=== PATIENT | female | born 1970 | race Caucasian/White ===

== ENCOUNTER 2022-12-11 10:52 | Outpatient (OUT) | payer BC, SELFPAY ==
--- NOTE | 2022-12-11 15:42 | MM_ITS ---
Patient: JESUS ALBERTO SENA Exam Date: 12/11/2022 : 1970 Gender:F Ordering : DR Franchesca Rockwell M.D. Admission #: [id number] Family : Order #: [id number] CLICK HERE TO VIEW EXAM RADIOLOGY REPORT PROCEDURE: MM TOMOSYNTHESIS SCREENING BI COMPARISON: MG MAMM SCREEN 3D MICHAEL CAD, 11/21/2021. MG MAMM SCREEN 3D MICHAEL CAD, 08/09/2020. MG MAMM SCREEN MICHAEL W CAD, 04/06/2019. MG MAMM MICHAEL SCRN W CAD DIG, 09/16/2013. INDICATIONS: SCREENING MAMMOGRAM Calculator Name NCI Breast Cancer Risk Assessment Tool 5 Year Breast Cancer Risk 1.60% Lifetime Breast Cancer Risk 11.40% Personal Breast Cancer No Personal Ovarian Cancer No Treatments None Family Cancers None LOCATION: [facility] BREAST COMPOSITION: Scattered areas fibroglandular density. FINDINGS: DIAGNOSTIC CATEGORY 2--BENIGN FINDING: RIGHT BREAST: No significant suspicious finding. No significant change has occurred. LEFT BREAST: No significant suspicious finding. No significant change has occurred. Stable, chronic prominence of a subareolar duct. RECOMMENDATIONS: ROUTINE MAMMOGRAM AND CLINICAL EVALUATION IN 12 MONTHS. PLEASE NOTE: A NORMAL MAMMOGRAM DOES NOT EXCLUDE THE POSSIBILITY OF BREAST CANCER. A CLINICALLY SUSPICIOUS PALPABLE LUMP SHOULD BE BIOPSIED. Dictated by: Rasheed Wells M.D. on 12/13/2022 at 14:57 Approved by: Rasheed Wells M.D. on 12/13/2022 at 14:59
== END 2022-12-11 10:53 | disposition home or self-care (01) ==
LOC: MAMMO 10:52
PROVIDERS: PCP Family Medicine; Visit Provider Family Medicine
DX: Z12.31 Encounter for screening mammogram for malignant neoplasm of breast (principal)
CPT/HCPCS: 77063; 77067

== ENCOUNTER 2022-12-12 06:35 | Outpatient (OUT) | payer BC, SELFPAY ==
[2022-12-12 06:55] LABS: Basophils Percent Auto 0.6 % (0.2-2.0); Eosinophils Absolute Auto 0.2 10^3/uL (0.0-0.7); Eosinophils Percent Auto 3.2 % (0.9-7.0); Hematocrit 39.6 % (36.0-48.0); Hemoglobin 12.6 g/dL (12.0-16.0); Immature Granulocytes Abs Auto 0.01 10^3/uL (0.00-0.03); Immature Granulocytes Pct Auto 0.1 % (0.0-0.5); Lymphocytes Absolute Auto 2.6 10^3/uL (1.2-3.8); Lymphocytes Percent Auto 37.7 % (20.5-60.0); Mean Corpuscular HGB Conc 31.8 g/dL (29.9-35.2); Mean Corpuscular Hemoglobin 27.2 pg (26.7-34.0); Mean Corpuscular Volume 85.5 fL (81.0-99.0); Mean Platelet Volume 10.8 fL (9.5-13.5); Monocytes Absolute Auto 0.4 10^3/uL (0.3-0.8); Monocytes Percent Auto 5.2 % (1.7-12.0); Neutrophils Absolute Auto 3.7 10^3/uL (1.4-6.5); Neutrophils Percent Auto 53.2 % (43.0-75.0); Platelet Count 300 10^3/uL (150-450); Red Blood Count 4.63 10^6/uL (4.20-5.40); Red Cell Distribution Width 13.6 % (11.0-15.0); White Blood Count 6.9 10^3/uL (4.0-11.0)
[2022-12-12 09:22] LABS: Estimated Average Glucose 131 mg/dL; Glycohemoglobin A1C 6.2 % (4.5-6.2)
[2022-12-12 10:21] LABS: Alanine Aminotransferase 17 U/L (14-59); Albumin Globulin Ratio 0.9; Albumin Level 3.6 g/dL (3.4-5.0); Alkaline Phosphatase 83 U/L (46-116); Anion Gap 9.6; Aspartate Amino Transferase 26 U/L (15-37); BUN Creatinine Ratio 14.3; Bilirubin Total 0.3 mg/dL (0.2-1.0); Carbon Dioxide 26.6 mmol/L (21.0-32.0); Chloride 104 mmol/L (98-107); Chol HDL Ratio 3.6; Cholesterol 171 mg/dL (<=200); Estimated GFR (African America >60 (>=60); Estimated GFR (Non-African Ame >60 (>=60); Glucose 130 mg/dL (74-106); HDL Cholesterol 48 mg/dL (40-60); Potassium 4.2 mmol/L (3.5-5.1); Sodium 136 mmol/L (136-145); Total Protein 7.6 g/dL (6.4-8.2); Triglycerides 157 mg/dL (<=150); VLDL CHOLESTEROL 31.4 mg/dL
== END 2022-12-12 06:36 | disposition home or self-care (01) ==
PROVIDERS: PCP Family Medicine; Visit Provider Family Medicine
DX: Z00.00 Encounter for general adult medical examination without abnormal findings (principal)
CPT/HCPCS: 36415; 80053; 80061; 83036; 84443; 85025

== ENCOUNTER 2023-01-28 08:01 | Outpatient (OUT) | payer BC, SELFPAY ==
--- NOTE | 2023-01-28 08:02 | XR_ITS ---
The [address] [address] Patient Name: JESUS ALBERTO SENA MRN: [id number] date: 1970 Sex: F Assigned Patient Location: [facility] Current Patient Location: [facility] Accession/Order Number: [id number] Exam Date: 01/28/2023 08:10 Report Date: 01/28/2023 08:30 At the request of: AVERY FALL Procedure: XR knee MICHAEL 4V Exam: Radiographs: XR knee MICHAEL 4V Reason for exam: Bilateral knee pain M25.561, M25.562 Comparison: None XR/XR knee MICHAEL 4V IMPRESSION: Trace left knee effusion. Mild left knee degenerative change. Left knee is otherwise unremarkable. Small right pleural effusion. Mild to moderate right knee degenerative change, most advanced in the lateral compartment. Remainder of the the right knee is unremarkable. Electronically authenticated by: KERON ZAVALA Date: 01/28/2023 08:30
== END 2023-01-28 08:02 | disposition home or self-care (01) ==
LOC: RAD 08:01
PROVIDERS: PCP Family Medicine; Visit Provider Orthopaedic Surgery
DX: M25.561 Pain in right knee (principal); M25.562 Pain in left knee
CPT/HCPCS: 73564

== ENCOUNTER 2023-01-28 09:30 | Emergency (ER) | payer BC, SELFPAY ==
[2023-01-28 09:34] VITALS: BP 118/81; PULSE 65; RESP 18; TEMP 36.7; O2SAT 95; BMI 43.2
--- NOTE | 2023-01-28 09:46 | XR_ITS ---
The [address] [address] Patient Name: JESUS ALBERTO SENA MRN: [id number] date: 1970 Sex: F Assigned Patient Location: ED.MAIN Current Patient Location: ER Accession/Order Number: [id number] Exam Date: 01/28/2023 10:20 Report Date: 01/28/2023 10:41 At the request of: JULIAN CHAN Procedure: XR chest 1V Exam: Radiographs: XR chest 1V Reason for exam: abdominal pain nausea Comparison: None XR/XR chest 1V IMPRESSION: Unremarkable chest x-ray. Electronically authenticated by: KERON ZAVALA Date: 01/28/2023 10:41
--- NOTE | 2023-01-28 09:46 | ECG_ITS ---
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
--- NOTE | 2023-01-28 09:47 | ED.GENADUL1 ---
HPI - General Adult General Chief complaint: Abdominal Pain Stated complaint: DIZZINESS, NAUSEA Time Seen by Provider: 01/28/23 09:41 Source: patient Mode of arrival: walk-in Limitations: no limitations History of Present Illness HPI narrative: 52-year-old female presents to the emergency department for not feeling well. It started just before coming into the emergency department. She hasn't had a cortisone injection into her left knee and when she was walking out to her car afterwards she developed the symptoms. She is nauseous and doesn't feel well and in her stomach hurts and she is itching all over. She has not vomited but she is nauseous. She's had a cortisone shot many years ago and didn't have a reaction. Related Data Home Medications Medication Instructions Recorded Confirmed levothyroxine 137 mcg tablet 152 mcg PO DAILY 01/28/23 01/28/23 Previous Rx's Medication Instructions Recorded dicyclomine 10 mg capsule 10 mg PO QID PRN abdominal pain 01/28/23 #20 caps ondansetron 4 mg disintegrating 4 mg PO Q6H PRN nausea and 01/28/23 tablet vomiting #20 tabs Allergies Allergy/AdvReac Type Severity Reaction Status Date / Time erythromycin base AdvReac Intermediate Verified 01/28/23 09:38 Review of Systems ROS Narrative A ten point review of systems is negative except as noted above. Musculoskeletal Reports: joint pain PFSH PFSH Social History Smoking status: Never smoker Exam Narrative Exam Narrative: Nurses note and vital signs reviewed and patient is not hypoxic. General: The patient appears uncomfortable and is to Neck. Skin: Warm, dry, no pallor noted. There is erythema to both arms Head: Normocephalic, atraumatic Eye: Normal conjunctiva, no drainage Ears, Nose, Mouth, and Throat: oral mucosa is moist. Nares patent. Cardiovascular: Regular Rate and Rhythm Respiratory: Patient is in no distress, no accessory muscle use back: nontender GI: no tenderness to palpation, no masses appreciated. No rebound, guarding, or rigidity noted. Musculoskeletal: knee has bandage in place and there is no swelling or erythema Neurological: A&O, normal speech Psychiatric: Cooperative Constitutional Vital Signs, click to edit/add: Last Vital Signs Temp 98.1 F 01/28/23 09:34 Pulse 65 09/18/23 09:34 Resp 18 01/28/23 09:34 BP 118/81 01/28/23 09:34 Pulse Ox 95 01/28/23 09:34 O2 Del Method Room Air 01/28/23 09:34 Course Vital Signs Vital signs: Vital Signs Temperature 98.1 F 01/28/23 09:34 Pulse Rate 65 01/28/23 09:34 Respiratory Rate 18 01/28/23 09:34 Blood Pressure 118/81 01/28/23 09:34 Pulse Oximetry 95 01/28/23 09:34 Oxygen Delivery Method Room Air 01/28/23 09:34 Temperature 98.1 F 01/28/23 09:34 Pulse Rate 65 01/28/23 09:34 Respiratory Rate 18 01/28/23 09:34 Blood Pressure 118/81 01/28/23 09:34 Pulse Oximetry 95 01/28/23 09:34 Oxygen Delivery Method Room Air 01/28/23 09:34 Medical Decision Making MDM Narrative Medical decision making narrative: the patient's workup here including CAT scan abdomen is negative. She feels much improved now and is able to be discharged home. At this point my clinical impressions that she had an adverse reaction to cortisone injection. This was discussed with the patient and her and she'll be discharged home on Zofran and Bentyl. Treatment diagnosis and follow-up were discussed with the patient. Differential Diagnosis Differential Diagnosis: kidney stone, small bowel obstruction, adverse medication reaction Lab Data Lab results reviewed: Yes I reviewed the patient's lab results Labs: Lab Results 01/28/23 01/28/23 Range/Units 10:58 11:25 WBC 7.5 (4.0-11.0) 10^3/uL RBC 4.96 (4.20-5.40) 10^6/uL Hgb 13.7 (12.0-16.0) g/dL Hct 43.5 (36.0-48.0) % MCV 87.7 (81.0-99.0) fL MCH 27.6 (26.7-34.0) pg MCHC 31.5 (29.9-35.2) g/dL RDW 13.7 (11.0-15.0) % Plt Count 302 (150-450) 10^3/uL MPV 10.6 (9.5-13.5) fL Neut % (Auto) 80.5 H (43.0-75.0) % Lymph % (Auto) 16.6 L (20.5-60.0) % [place] % (Auto) 1.6 L (1.7-12.0) % Eos % (Auto) 0.5 L (0.9-7.0) % Baso % (Auto) 0.3 (0.2-2.0) % Neut # (Auto) 6.1 (1.4-6.5) 10^3/uL Lymph # (Auto) 1.3 (1.2-3.8) 10^3/uL [place] # (Auto) 0.1 L (0.3-0.8) 10^3/uL Eos # (Auto) 0.0 (0.0-0.7) 10^3/uL Baso # (Auto) 0.0 (0.0-0.1) 10^3/uL Abs Immat Gran (auto) 0.04 H (0.00-0.03) 10^3/uL Imm/Tot Granulo (auto) 0.5 (0.0-0.5) % Sodium 142 (136-145) mmol/L Potassium 3.9 (3.5-5.1) mmol/L Chloride 106 (98-107) mmol/L Carbon Dioxide 25.5 (21.0-32.0) mmol/L Anion Gap 14.4 BUN 13.0 (7.0-18.0) mg/dL Creatinine 1.06 H (0.55-1.02) mg/dL Est GFR ( Amer) >60 (>=60) Est GFR (Non-Af Amer) 54 L (>=60) BUN/Creatinine Ratio 12.3 Glucose 137 H (74-106) mg/dL Calcium 8.9 (8.5-10.1) mg/dL Total Bilirubin 0.3 (0.2-1.0) mg/dL Direct Bilirubin 0.1 (0.0-0.2) mg/dL AST 30 (15-37) U/L ALT 15 (14-59) U/L Alkaline Phosphatase 93 (46-116) U/L Troponin I High Sens <4.0 L (4.0-51.3) pg/mL Total Protein 7.5 (6.4-8.2) g/dL Albumin 3.5 (3.4-5.0) g/dL Globulin 4.0 g/dL Albumin/Globulin Ratio 0.9 Amylase 37 (25-115) U/L Lipase 209.0 (73.0-393.0) U/L Urine Color Yellow (YELLOW) Urine Clarity Slightly cloudy A (CLEAR) Urine pH 5.5 (5.0-9.0) Ur Specific [place] >=1.030 A (1.005-1.025) Urine Protein >=300 A (NEG/TRACE) mg/dL Urine Glucose (UA) Negative (NEGATIVE) mg/dL Urine Ketones Negative (NEGATIVE) mg/dL Urine Occult Blood Trace-l (NEGATIVE) Urine Nitrite Negative (NEGATIVE) Urine Bilirubin Negative (NEGATIVE) Urine Urobilinogen 0.2 (0.2-1.0) EU/dL Ur Leukocyte Esterase Negative (NEGATIVE) Urine RBC 0-2 (0-2) #/HPF Urine WBC 0-2 A (NONE SEEN) #/HPF Ur Squamous Epith Cells Moderate A (NONE/RARE) #/LPF Urine Crystals None seen (None Seen) #/HPF Urine Bacteria None seen (NONE SEEN) #/HPF Urine Casts Seen A (NONE SEEN) #/LPF Hyaline Casts Moderate Urine Mucus None seen (NONE SEEN) Imaging Data CT scan - abdomen: Radiologist's impression: Procedure: CT abdomen pelvis w con EXAM: CT scan of the abdomen and pelvis using 99 mL of IV iodinated contrast. Dose reduction technique used: Automated exposure control and/or adjustment of the mA and/or kV according to patient size and/or use of iterative reconstruction technique. REASON FOR EXAM: abd pain COMPARISON: None FINDINGS: Cross fused ectopic left kidney. Probable uterine fibroid. Diffuse hepatic steatosis. Normal appendix. No free fluid in the abdomen or pelvis. No free intraperitoneal air. No dilated or thickened loops of small bowel or colon. No hydronephrosis or obstructing renal or ureteral calculi. Liver, pancreas, spleen, bilateral kidneys, and bilateral adrenal glands are otherwise unremarkable. No lymphadenopathy in the abdomen or pelvis. Remainder unremarkable. IMPRESSION: 1. No acute abnormalities in the abdomen or pelvis. 2. Diffuse hepatic steatosis. 3. Crossed fused ectopic left kidney. Electronically authenticated by: KERON ZAVALA Date: 01/28/2023 14:08 Discharge Plan Discharge Chief Complaint: Abdominal Pain Clinical Impression: Adverse drug effect Patient Disposition: Home, Self-Care Time of Disposition Decision: 15:00 Condition: Good Mode of Transportation: Private Vehicle Prescriptions / Home Meds: New ondansetron 4 mg tablet,disintegrating 4 mg PO Q6H PRN (Reason: nausea and vomiting) Qty: 20 0RF dicyclomine 10 mg capsule 10 mg PO QID PRN (Reason: abdominal pain) Qty: 20 0RF No Action levothyroxine 137 mcg tablet 152 mcg PO DAILY Instructions: Abdominal Pain (ED) Referrals: Franchesca Rockwell MD [Primary Care Provider] - 1 week
[2023-01-28] MEDS: DIPHENHYDRAMINE HCL 50 MG/ML (1ML) VIAL 25 MG IV (10:01)
[2023-01-28] MEDS: ONDANSETRON PF 4 MG/2 ML VIAL IV ×2 (10:02→10:43)
[2023-01-28] MEDS: 0.9 % SODIUM CHLORIDE 1,000 ML 1000 ML IV (10:03)
[2023-01-28] MEDS: MORPHINE SULFATE 4 MG/ML VIAL IV ×2 (10:43→13:06)
[2023-01-28 11:04] LABS: Basophils Percent Auto 0.3 % (0.2-2.0); Eosinophils Percent Auto 0.5 % (0.9-7.0); Hematocrit 43.5 % (36.0-48.0); Hemoglobin 13.7 g/dL (12.0-16.0); Immature Granulocytes Abs Auto 0.04 10^3/uL (0.00-0.03); Immature Granulocytes Pct Auto 0.5 % (0.0-0.5); Lymphocytes Absolute Auto 1.3 10^3/uL (1.2-3.8); Lymphocytes Percent Auto 16.6 % (20.5-60.0); Mean Corpuscular HGB Conc 31.5 g/dL (29.9-35.2); Mean Corpuscular Hemoglobin 27.6 pg (26.7-34.0); Mean Corpuscular Volume 87.7 fL (81.0-99.0); Mean Platelet Volume 10.6 fL (9.5-13.5); Monocytes Absolute Auto 0.1 10^3/uL (0.3-0.8); Monocytes Percent Auto 1.6 % (1.7-12.0); Neutrophils Absolute Auto 6.1 10^3/uL (1.4-6.5); Neutrophils Percent Auto 80.5 % (43.0-75.0); Platelet Count 302 10^3/uL (150-450); Red Blood Count 4.96 10^6/uL (4.20-5.40); Red Cell Distribution Width 13.7 % (11.0-15.0); White Blood Count 7.5 10^3/uL (4.0-11.0)
[2023-01-28 11:24] LABS: Alanine Aminotransferase 15 U/L (14-59); Albumin Globulin Ratio 0.9; Albumin Level 3.5 g/dL (3.4-5.0); Alkaline Phosphatase 93 U/L (46-116); Amylase 37 U/L (25-115); Anion Gap 14.4; Aspartate Amino Transferase 30 U/L (15-37); BUN Creatinine Ratio 12.3; Bilirubin Direct 0.1 mg/dL (0.0-0.2); Bilirubin Total 0.3 mg/dL (0.2-1.0); Calcium 8.9 mg/dL (8.5-10.1); Carbon Dioxide 25.5 mmol/L (21.0-32.0); Chloride 106 mmol/L (98-107); Estimated GFR (African America >60 (>=60); Estimated GFR (Non-African Ame 54 (>=60); Glucose 137 mg/dL (74-106); Potassium 3.9 mmol/L (3.5-5.1); Sodium 142 mmol/L (136-145); Total Protein 7.5 g/dL (6.4-8.2); Troponin I High Sensitivity <4.0 pg/mL (4.0-51.3)
[2023-01-28 12:01] LABS: Bilirubin Urine NEGATIVE (NEGATIVE); Blood Urine TRACE-L (NEGATIVE); Color Urine YELLOW (YELLOW); Glucose Urine UA NEGATIVE (NEGATIVE); Ketones Urine NEGATIVE (NEGATIVE); Leukocyte Esterase Urine NEGATIVE (NEGATIVE); Nitrite Urine NEGATIVE (NEGATIVE); Protein Urine >=300 mg/dL (NEG/TRACE); Specific Gravity Urine >=1.030 (1.005-1.025); Urobilinogen Urine 0.2 EU/dL (0.2-1.0); pH Urine 5.5 (5.0-9.0)
[2023-01-28 12:02] LABS: Urine Microscopic Indicated YES
[2023-01-28] MEDS: DICYCLOMINE HCL 20 MG/2 ML VIAL IM (12:03)
[2023-01-28 12:11] LABS: Bacteria Urine NONE SEEN #/HPF (NONE SEEN); Cast Seen? SEEN #/LPF (NONE SEEN); Clarity Urine SLIGHTLY CLOUDY (CLEAR); Crystals Seen? None Seen #/HPF (None Seen); Hyaline Casts Urine MODERATE; Mucus Urine NONE SEEN (NONE SEEN); RBC Urine 0-2 #/HPF (0-2); Squamous Epithelial Cell Urine MODERATE #/LPF (NONE/RARE); WBC Urine 0-2 #/HPF (NONE SEEN)
--- NOTE | 2023-01-28 12:54 | CT_ITS ---
The [address] [address] Patient Name: JESUS ALBERTO SENA MRN: [id number] date: 1970 Sex: F Assigned Patient Location: ER Current Patient Location: ER Accession/Order Number: [id number] Exam Date: 01/28/2023 13:20 Report Date: 01/28/2023 14:08 At the request of: JULIAN CHAN Procedure: CT abdomen pelvis w con EXAM: CT scan of the abdomen and pelvis using 99 mL of IV iodinated contrast. Dose reduction technique used: Automated exposure control and/or adjustment of the mA and/or kV according to patient size and/or use of iterative reconstruction technique. REASON FOR EXAM: abd pain COMPARISON: None FINDINGS: Cross fused ectopic left kidney. Probable uterine fibroid. Diffuse hepatic steatosis. Normal appendix. No free fluid in the abdomen or pelvis. No free intraperitoneal air. No dilated or thickened loops of small bowel or colon. No hydronephrosis or obstructing renal or ureteral calculi. Liver, pancreas, spleen, bilateral kidneys, and bilateral adrenal glands are otherwise unremarkable. No lymphadenopathy in the abdomen or pelvis. Remainder unremarkable. CT/CT abdomen pelvis w con IMPRESSION: 1. No acute abnormalities in the abdomen or pelvis. 2. Diffuse hepatic steatosis. 3. Crossed fused ectopic left kidney. Electronically authenticated by: KERON ZAVALA Date: 01/28/2023 14:08
== END 2023-01-28 15:19 | disposition home or self-care (01) ==
PROVIDERS: Emergency Provider Emergency Medicine; PCP Family Medicine
DX: M25.561 Pain in right knee (principal); M25.562 Pain in left knee; T38.0X5A Adverse effect of glucocorticoids and synthetic analogues, initial encounter; R42 Dizziness and giddiness; R11.0 Nausea
CPT/HCPCS: 36415; 71045; 73564; 74177; 80048; 80076; 81001; 82150; 83690; 84484; 85025; 93005; 96372; 96374; 96375; 96376; 99285; J0500; Q9967

== ENCOUNTER 2023-09-16 14:09 | Outpatient (OUT) | payer BC, SELFPAY | END 2023-09-16 14:10 | disposition home or self-care (01) | LOC: PST 14:09 | PROVIDERS: PCP Family Medicine; Visit Provider Surgery | DX: Z01.818 Encounter for other preprocedural examination (principal); Z12.11 Encounter for screening for malignant neoplasm of colon ==

== ENCOUNTER 2023-09-23 08:15 | Outpatient (OUT) | payer BC, SELFPAY ==
--- NOTE | 2023-09-23 | XR_ITS ---
The [address] [address] Patient Name: JESUS ALBERTO SENA MRN: [id number] date: 1970 Sex: F Assigned Patient Location: Current Patient Location: Accession/Order Number: [id number] Exam Date: 09/23/2023 08:16 Report Date: 09/23/2023 09:05 At the request of: AVERY FALL Procedure: XR wrist RT min 3V PROCEDURE: XR wrist RT min 3V COMPARISON: None. HISTORY: RIGHT WRIST PAIN FINDINGS: BONES:No acute fracture or dislocation. Degenerative changes with joint space narrowing most significant along the medial carpus SOFT TISSUES:Negative. No visible soft tissue swelling. EFFUSION:None visible. OTHER: Negative. XR/XR wrist RT min 3V IMPRESSION: No acute radiographic abnormality Electronically authenticated by: MIKHAIL RUIZ Date: 09/23/2023 09:05
== END 2023-09-23 08:16 | disposition home or self-care (01) ==
LOC: EC 08:15
PROVIDERS: PCP Family Medicine; Visit Provider Orthopaedic Surgery
DX: M25.531 Pain in right wrist (principal)
CPT/HCPCS: 73110

== ENCOUNTER 2023-09-25 07:33 | Day surgery (SDC) | payer BC, SELFPAY ==
[2023-09-25 07:35] VITALS: BP 151/79; PULSE 87; TEMP 36.2; O2SAT 97; BMI 49.2
--- OUTSIDE RECORDS SUMMARY | 2023-09-25 07:36 | XMS_ITS | CCD ---
Author Organization [facility] Care Team Providers Care Burn Table Operator Name Role Phone WEST, DR MIKHAIL Whitaker Attending Unavailable WEST, DR MIKHAIL Whitaker Admitting Unavailable GO, FRANCHESCA E Primary Care Unavailable WEST, DR MIKHAIL Whitaker Consulting Unavailable ELLE, DR RASHEED Martinez Consulting Unavailable WEST, DR MIKHAIL Whitaker Attending Unavailable GO, FRANCHESCA E Primary Care Unavailable WEST, DR MIKHAIL Whitaker Consulting Unavailable WEST, DR MIKHAIL Whitaker Admmauricio Unavailable WEST, DR MIKHAIL Whitaker Attending Unavailable GO, FRANCHESCA E Primary Care Unavailable WEST, DR MIKHAIL Whitaker Consulting Unavailable WEST, DR MIKHAIL Whitaker Admitting Unavailable GO, FRANCHESCA E Primary Care Unavailable GO, FRANCHESCA E Consulting Unavailable GO, FRANCHESCA E Attending Unavailable GO, FRANCHESCA E Admitting Unavailable WEST, DR MIKHAIL Whitaker Consulting Unavailable WEST, DR MIKHAIL Whitaker Attending Unavailable WEST, DR MIKHAIL Whitaker Admmauricio Unavailable GO, FRANCHESCA E Primary Care Unavailable WEST, DR MIKHAIL Whitaker Consulting Unavailable GO, FRANCHESCA E Primary Care Unavailable WEST, DR MIKHAIL Whitaker Admmauricio Unavailable WEST, DR MIKHAIL Whitaker Attending Unavailable ZIEBER, DR RASHEED Martinez Consulting Unavailable OG, FRANCHESCA E Primary Care Unavailable HOY ., DR GARDUNO Attending Unavailable HOY ., DR GARDUNO Admitting Unavailable HOY ., DR GARDUNO Consulting Unavailable WEST, DR MIKHAIL Whitaker Attending Unavailable WEST, DR MIKHAIL Whitaker Admmauricio Unavailable GO, FRANCHESCA E Primary Care Unavailable WEST, DR MIKHAIL Whitaker Consulting Unavailable WEST, DR MIKHAIL Whitaker Attending Unavailable GO, FRANCHESCA E Primary Care Unavailable WEST, DR MIKHAIL Whitaker Consulting Unavailable WEST, DR MIKHAIL Whitaker Admmauricio Unavailable WEST, DR MIKHAIL Whitaker Attending Unavailable GO, FRANCHESCA E Primary Care Unavailable WEST, DR MIKHAIL Whitaker Consulting Unavailable WEST, DR MIKHAIL Whitaker Admitting Unavailable GO, FRANCHESCA E Primary Care Unavailable WEST, DR MIKHAIL Whitaker Attending Unavailable WEST, DR MIKHAIL Whitaker Admmauricio Unavailable WEST, DR MIKHAIL Whitaker Consulting Unavailable GO, FRANCHESCA E Primary Care Unavailable WEST, DR MIKHAIL Whitaker Admitting Unavailable WEST, DR MIKHAIL Whitaker Attending Unavailable WEST, DR MIKHAIL Whitaker Attending Unavailable WEST, DR MIKHAIL Whitaker Consulting Unavailable WEST, DR MIKHAIL Whitaker Admitting Unavailable GO, FRANCHESCA E Primary Care Unavailable [facility], DR ARSHEED Martinez Consulting Unavailable WEST, DR MIKHAIL Whitaker Consulting Unavailable WEST, DR MIKHAIL Whitaker Attending Unavailable GO, FRANCHESCA E Primary Care Unavailable WEST, DR MIKHAIL Whitaker Admitting Unavailable EB, DR RASHEED Martinez Consulting Unavailable GO, FRANCHESCA E Primary Care Unavailable GO, FRANCHESCA E Attending Unavailable GO, FRANCHESCA E Admitting Unavailable WEST, DR MIKHAIL Whitaker Consulting Unavailable GO, FRANCHESCA Ayala Consulting Unavailable GO, FRANCHESCA E Primary Care Unavailable MARY BETH, ESPERANZA Admitting Unavailable MARY BETH, ESPERANZA Consulting Unavailable MARY BETH, ESPERANZA Attending Unavailable MARY BETH, ESPERANZA Attending Unavailable GO, FRANCHESCA E Primary Care Unavailable MARY BETH, ESPERANZA Admitting Unavailable MARY BETH, ESPERANZA Consulting Unavailable Go, Franchesca Unavailable ISSA GARCIA Attending Unavailable GO, FRANCHESCA E Primary Care Unavailable Allergies Allergy Classification Reported Allergen(s) Allergy Type Date of Onset Reaction(s) Facility (5 sources) Erythromycin; Translations: [ERYTHROMYCIN BASE] Drug Allergy 4 Unknown Reaction [facility] Repository (5 sources) Penicillins; Translations: [PENICILLINS] Drug allergy (disorder) 4 Unknown Reaction [facility] Repository (3 sources) Erythromycin Drug Allergy 9 Unknown [place] Other (3 sources) Penicillin Drug Allergy 7 Unknown [place] Other (5 sources) Bupivacaine; Translations: [BUPIVACAINE] Drug Allergy 4 anaphylaxis [facility] (5 sources) Lidocaine; Translations: [LIDOCAINE] Drug Allergy 4 anaphylaxis [facility] (5 sources) methylPREDNISolo ne; Translations: [METHYLPREDNISOL ONE] Drug Allergy 4 anaphylaxis [facility] Medications Current Medications Medication Drug Class(es) Dates Sig (Normalized) Sig (Original) acetaminophen 325 mg oral tablet (5 sources) Start: 08-21-2023 take 1 tablet by mouth every six hours Acetaminophen (Tylenol) 325 mg tablet Active 325 MG PO Every 6 hours August 21, 2023 12:00am Start: 05-03-2022 Tylenol 325MG Tylenol( 325MG Oral as needed ) Active -Hx Entry Oral as needed for 0 *Pick strength-form from [employer] for eRX* Apr, Active benzonatate 200 mg oral capsule (1 source) Non-narcotic Antitussive Start: 05-17-2023 take 1 capsule by mouth every eight hours Benzonatate 200 MG 1 capsule Orally Three times a day for 10 day(s) May, Active cefdinir 300 mg oral capsule (1 source) Cephalosporin Antibacterial Start: 05-17-2023 Cefdinir 300 MG as directed Orally bid for 7 days May, Active cyclobenzaprine hydrochloride 10 mg oral tablet (1 source) Muscle Relaxant Start: 09-03-2023 take 10 mg by mouth every eight hours Cyclobenzaprine Active 10 MG PO Every 8 hours 30 September 03, 2023 12:00am doxycycline monohydrate 100 mg oral capsule (2 sources) Tetracycline-class Drug Start: 08-21-2023 take 100 mg by mouth twice daily Doxycycline Monohydrate Active 100 MG PO Twice daily 20 August 21, 2023 12:00am levothyroxine sodium 0.15 mg oral tablet (7 sources) l-Thyroxine Start: 09-03-2023 take 1 tablet by mouth once daily in the morning Levothyroxine Active 0 .ROUTE .COMPLEX 90 September 03, 2023 2:31pm TAKE 1 TABLET BY MOUTH EVERY DAY IN THE MORNING ON EMPTY STOMACH FOR 90 DAYS Start: 08-21-2023 End: 09-03-2023 take 150 ug by mouth once daily Levothyroxine Disconti nued 150 MCG PO Daily August 21, 2023 12:00am September 03, 2023 2:31pm Start: 04-23-2022 take 1 tablet by shanique th once daily Levothyroxine 137mcg levothyroxine 137mcg, 1 (one) Tabl Tabl Table Tablet daily # 90, 04/23/2022, Ref. x1. Active oral daily for 0 *Reorder from [employer] for eRx and Interaction Alerts* Apr, Active Levothyroxine So dium 150 MCG TAKE 1 TABLET BY MOUTH EVERY DAY IN THE MORNING ON EMPTY STOMACH FOR 90 DAYS for 90 Active take 1 tablet by shanique th once daily in the morning Levothyroxine Sodium 150 MCG 1 tablet in the morning on an empty stomach Orally Once a day for 90 days Active Problems Active Problems Problem Classification Problem Date Documented Da te Episodic/Chronic Acquired foot deformities (3 sources) Acquired deformity of left foot; Translations: [Other acquired deformities of left foot] Episodic Allergic reactions (1 source) Anaphylactic shock, unspecified, initial encounter Episodic Cancer of cervix (1 source) Atypical squamous cells of undetermined significance on cervical Papanicolaou smear; Translations: [Atypical squamous cells of undetermined significance on cytologic smear of cervix (ASC-US)] Episodic Chronic obstructive pulmonary disease and bronchiectasis (1 source) Bronchitis, not specified as acute or chronic Episodic Disorders of lipid metabolism (1 source) Pure hyperglyceridemia; Translations: [Pure hyperglyceridemia] Onset: Chronic Genitourinary symptoms and ill-defined conditions (1 source) Genitourinary symptoms; Translations: [Unspecified symptoms and signs involving the genitourinary system] Episodic Joint disorders and dislocations; trauma-related (1 source) Dislocation of left ankle joint, subsequent encounter; Translations: [Dislocation of left ankle joint, subsequent encounter] Episodic Osteoarthritis (1 source) Localized, primary osteoarthritis of the ankle and/or foot; Translations: [Primary osteoarthritis, left ankle and foot] Chronic Other congenital anomalies (1 source) Other specified congenital deformities of feet; Translations: [Other specified congenital deformities of feet] Chronic Other connective tissue disease (1 source) Pain in left foot; Translations: [Pain in left foot] Episodic Other connective tissue disease (1 source) Peroneal tendinitis; Translations: [Peroneal tendinitis, left leg] Episodic Other connective tissue disease (1 source) Spasm; Translations: [Other muscle spasm] 09-03-2023 Episodic Other connective tissue disease (1 source) Other muscle spasm; Translations: [Spasm of muscle] 09-03-2023 Episodic Other injuries and conditions due to external causes (1 source) Traumatic AND/OR non-traumatic injury; Translations: [Other injury of unspecified body region, initial encounter] Episodic Other nervous system disorders (3 sources) Chronic pain; Translations: [Other chronic pain] Chronic Other nervous system disorders (1 source) Other chronic pain Chronic Other non-traumatic joint disorders (1 source) Arthralgia of the ankle and/or foot; Translations: [Pain in left ankle and joints of left foot] Episodic Other non-traumatic joint disorders (1 source) Other specified joint disorders, left ankle and foot; Translations: [Other specified joint disorders, left ankle and foot] Episodic Other non-traumatic joint disorders (1 source) Ankle instability; Translations: [Other instability, left ankle] Episodic Other non-traumatic joint disorders (1 source) Pain in right knee Episodic Other non-traumatic joint disorders (1 source) Pain in left knee Episodic Other nutritional; endocrine; and metabolic disorders (2 sources) Body mass index 40+ - severely obese; Translations: [Body mass index (BMI) 40.0-44.9, adult] Chronic Other nutritional; endocrine; and metabolic disorders (1 source) Morbid obesity; Translations: [Morbid (severe) obesity due to excess calories] Onset: 6 Chronic Other nutritional; endocrine; and metabolic disorders (1 source) Abnormal weight gain; Translations: [Abnormal weight gain] Episodic Other screening for suspected conditions (not mental disorders or infectious disease) (6 sources) Encounter for screening mammogram for malignant neoplasm of breast; Translations: [Encounter for screening for malignant neoplasm of cervix] Onset: 2 Episodic Other upper respiratory disease (1 source) Allergic rhinitis; Translations: [Allergic rhinitis, unspecified] Chronic Other upper respiratory infections (4 sources) Maxillary sinusitis; Translations: [Chronic maxillary sinusitis] 08-21-2023 Chronic Phlebitis; thrombophlebitis and thromboembolism (10 sources) Phlebitis and thrombophlebitis of superficial vessels of left lower extremity; Translations: [Phlebitis and thrombophlebitis of superficial vessels of right lower extremity] Onset: 2 Episodic Residual codes; unclassified (1 source) Localized edema; Translations: [Localized edema] Episodic Residual codes; unclassified (1 source) Tobacco user; Translations: [Tobacco use] Episodic Spondylosis; intervertebral disc disorders; other back problems (2 sources) Low back pain; Translations: [Low back pain] 09-03-2023 Episodic Sprains and strains (2 sources) Late effect of sprain AND/OR strain without tendon injury; Translations: [Strain of muscle(s) and tendon(s) of peroneal muscle group at lower leg level, left leg, sequela] Episodic Thyroid disorders (4 sources) Hypothyroidism; Translations: [Hypothyroidism, unspecified] Onset: 4 Chronic Thyroid disorders (1 source) Disorder of thyroid gland; Translations: [Disorder of thyroid, unspecified] Episodic Unclassified (2 sources) CONTACT W/AND (SUSP) EXPOS COVID-19; Translations: [CONTACT W/AND (SUSP) EXPOS COVID-19] Onset: 3 Unclassified (1 source) Colon Cancer Screening Onset: 4 Varicose veins of lower extremity (5 sources) Varicose veins of bilateral lower extremities with pain; Translations: [Pain co-occurrent and due to varicose veins of bilateral legs] Onset: 2 Episodic Viral infection (2 sources) COVID-19; Translations: [Disease caused by 2019-nCoV] Onset: 3 Past or Other Problems Problem Classification Problem Date Documented Da te Episodic/Chronic Abdominal pain (1 source) Right upper quadrant pain; Translations: [Right upper quadrant pain] Onset: 05-04-2016 Episodic Acute bronchitis (1 source) Acute bronchitis; Translations: [Acute bronchitis, unspecified] Onset: 05-02-2017 Episodic Inflammation; infection of eye (except that caused by tuberculosis or sexually transmitteddisease) (1 source) Acute atopic conjunctivitis; Translations: [Acute atopic conjunctivitis, unspecified eye] Onset: 01-16-2013 Episodic Other connective tissue disease (1 source) Pain in right foot; Translations: [Pain in right foot] Onset: 01-16-2013 Episodic Other connective tissue disease (1 source) Tear of right rotator cuff; Translations: [Unspecified rotator cuff tear or rupture of right shoulder, not specified as traumatic] Onset: 12-29-2014 Episodic Unclassified (1 source) CONTACT W/AND (SUSP) EXPOS COVID-19; Translations: [CONTACT W/AND (SUSP) EXPOS COVID-19] Onset: 08-10-2022 Urinary tract infections (1 source) Urinary tract infectious disease; Translations: [Urinary tract infection, site not specified] Onset: 06-29-2011 Episodic Results Test Name Value Interpretation Reference Range Facility INFLUENZA A AND B AGon 08-10 INFLUANEGH SEE BELOW Normal [facility] Comment on above: Result Comment: Nega tive for Flu A protein angiten. Infection due to Flu A cannot be ruled out. Flu A angiten in the sample may be below the detection limit of the test. Performed By: #### I NFLUAB ####[facility] [id number] [place] [id number]. Betsy Avery INFLUBNEGH SEE BELOW Normal [facility] Comment on above: Result Comment: Nega tive for Flu B protein antigen. Infection due to Flu B cannot be ruled out. Flu B antigen in the sample may be below the detection limit of the test. Performed By: #### I NFLUAB ####[facility] [id number] [place] [address]Dr. Betsy Bennie INFLUENZA A AG Negative Normal NEGATIVE SEE COMMENT [facility] Comment on above: Performed By: #### I NFLUAB ####[facility] [address] [place] [address]Dr. eBtsy Avery INFLUENZA B AG Negative Normal NEGATIVE SEE COMMENT [facility] Comment on above: Performed By: #### I NFLUAB ####[facility] [id number] [place] [id number]. Betsy Avery SYMPTOMATIC COVID-19 ANTIGEN on 08-10-2022 EUA Statement SEE BELOW Normal [facility] Comment on above: Result Comment: This test has not been FDA cleared or approved, but has been authorized by the FDA under an Emergency Use Authorization (EUA) for use by authorized laboratories certified under CLIA that meet the requirements to perform moderate or high complexity testing. This test has been authorized only for the detection of proteins from SARS-CoV-2, not for any other viruses or pathogens. The emergency use of this test is authorized for the duration of the declaration that circumstances exist justifying the authorization of emergency use of in vitro diagnostic tests for detection and/or diagnosis of Covid-19 under section 564(b)(1) of the Act, 21 U.S.C. 360bbb-3(b)(1), unless the declaration is terminated or authorization is revoked sooner. Performed By: #### C VDAGS #### [facility] [address] [address] [address] Betsy Avery SARS-CoV-2 (COVID-19) RNA CLAUDIA+probe Ql (Unsp spec) Positive Abnormal NEGATIVE [facility] Comment on above: Performed By: #### C VDAGS #### [facility] [address] [address] [address] Betsy Avery Covid-19 PCR (CVDTB)on 07-12 SARS-CoV-2 (COVID-19) RNA CLAUDIA+probe Ql (Unsp spec) Detected Abnormal NOT DETECTED [facility] Comment on above: Result Comment: This test is not yet approved or cleared by the [place] FDA. When there are no FDA-approved or cleared tests available, and other criteria are met, FDA can make tests available under an emergency access mechanism called an Emergency Use Authorization (EUA). The EUA for this test is supported by the [place] of Health and Human Service's declaration that circumstances exist to justify the emergency use of in vitro diagnostics for the detection and/or diagnosis of the virus that causes COVID-19. This EUA will remain in effect for the duration of the COVID-19 declaration justifying emergency of IVDs, unless it is terminated or revoked by the FDA (after which the test may no longer be used). Performed By: #### C VDTBH ####[facility] [address] [place] [id number]. Betsy Avery INFLUENZA A AND B AGon 08-04 INFLUANEGH SEE BELOW Normal [facility] Comment on above: Result Comment: Nega tive for Flu A protein angiten. Infection due to Flu A cannot be ruled out. Flu A angiten in the sample may be below the detection limit of the test. Performed By: #### I NFLUAB ####[facility] [address] [place], [place] [address]DqJai Avery INFLUBNEGH SEE BELOW Normal [facility] Comment on above: Result Comment: Nega tive for Flu B protein antigen. Infection due to Flu B cannot be ruled out. Flu B antigen in the sample may be below the detection limit of the test. Performed By: #### I NFLUAB ####[facility] [address] [place] [id number] Avery INFLUENZA A AG Negative Normal NEGATIVE SEE COMMENT [facility] Comment on above: Performed By: #### I NFLUAB ####[facility] [address] [place], [place] [address]JpJai Avery INFLUENZA B AG Negative Normal NEGATIVE SEE COMMENT [facility] Comment on above: Performed By: #### I NFLUAB ####[facility] [address] [place], [place] [address]Qi. Betsy Avery VC CONSULT FOLLOWUPon 2021 VC CONSULT FOLLOWUP Patient: MANISHA SENA. Exam Date: 05/03/2022 : 1970 Gender:F Ordering : DR MIKHAIL RUIZ M.D. Admission #: [id number] Family : Order #: [id number] CLICK HERE TO VIEW EXAM RADIOLOGY REPORT PROCEDURE: VEIN CENTER CONSULTATION FOLLOWUP VEIN CENTER - OFFICE VISIT FOLLOW UP COMPARISON: VC CONSULT FOLLOWUP, 04/17/2022. PROGRESS NOTES: The patient reports improvement in leg symptoms. There has been interval reduction in varicosities. The patient has followed our recommendations to walk 20-30 minutes once or twice per day since the procedure. Physical exam demonstrates marked decrease in varicosities of the bilateral legs. Note is made of treated reticular and spider veins. Review of the ultrasound performed the same day demonstrates occlusive thrombus extending throughout the treated veins, see separate report, consistent with a successful ablation. No thrombus extending into or beyond the saphenofemoral junction. No remaining treatable veins at this time. IMPRESSION: 1. Successful ablation of the treated branch saphenous varicosities. No remaining treatable veins at this time. 2. Follow-up and future as needed. Nurse notes, history and physical were reviewed and confirmed, see attached forms. The nurse was present throughout the physical exam and consultation Dictated by: Rasheed Wells M.D. on 05/03/2022 at 09:49 Approved by: Rasheed Wells M.D. on 05/03/2022 at 09:51 Normal [facility] VC EXT VENOUS LT LIMITEDon 1 07-04-2021 VC EXT VENOUS LT LIMITED Patient: JESUS ALBERTO SENA. Exam Date: 05/03/2022 : 1970 Gender:F Ordering : DR MIKHAIL RUIZ M.D. Admission #: [id number] Family : Order #: [id number] CLICK HERE TO VIEW EXAM RADIOLOGY REPORT PROCEDURE: VEIN CENTER EXTREMITY VENOUS LEFT LIMITED COMPARISON: VC EXT VENOUS LT LIMITED, 03/22/2022. INDICATIONS: Phlebitis of superficial veins of lower extremity I80.02 TECHNIQUE: Lower extremity oviedo scale and Duplex Doppler evaluation of the deep venous system from the inguinal ligament through the calf veins. FINDINGS: REGION: Left lower extremity. THROMBI: Negative for DVT. 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. COMPRESSIBILITY: Non-compressible segments. FLOW: Areas of no flow. OTHER: No remaining patent varicose veins. CONCLUSION: 1. Successful post ablation occlusion of treated branch saphenous varicosities within the left leg. Dictated by: Rasheed Wells M.D. on 05/03/2022 at 09:44 Approved by: Rasheed Wells M.D. on 05/03/2022 at 09:49 [facility] VC INJ FOAM SCLERO W US MLTI on 04-25-2022 VC INJ FOAM SCLERO W US MLTI Patient: JESUS ALBERTO SENA Exam Date: 04/25/2022 : 1970 Gender:F Ordering : DR MIKHAIL RUIZ M.D. Admission #: [id number] Family : Order #: [id number] CLICK HERE TO VIEW EXAM RADIOLOGY REPORT PROCEDURE: VEIN CENTER INJECTION FOAM SCLEROSING SOLUTION WITH ULTRASOUND MULTIPLE VEINS COMPARISON: VC INJ FOAM SCLERO W US MLTI, 04/09/2022. Pre-operative Diagnosis: CEAP class C3 venous insufficiency with pain, tenderness, edema and incompetent branch saphenous vein, chronic venous insufficiency left leg secondary to venous incompetence Post-operative Diagnosis: CEAP class C3 venous insufficiency with pain, tenderness, edema and incompetent branch saphenous vein, chronic venous insufficiency left leg secondary to venous incompetence Procedure Performed: 1. Ultrasound-guided microfoam chemical ablation with Varithena(r) 2. Intraoperative ultrasound guidance Physician: Rasheed Wells M.D. Anesthesia: None. Indications for Procedure: 51 year old female. Symptoms including bilateral lower extremity swelling, pain, muscle cramping for many years despite conservative medical therapy including medical compression stockings, exercise and analgesics. Prior procedures include: Endovenous laser ablation and microfoam chemical ablation.. Multiple incompetent varicosities of the left leg. Duplex scan showed reflux and enlarged diameters up to 4 mm. The patient has undergone informed consent including management options where the complications of infection, bleeding, pain, and skin injury were discussed. Particular attention was spent discussing thrombus extension and deep vein thrombosis as well as the possibility of pulmonary embolus and treatment with oral or injectable blood thinners. Procedure: The patient walked to the procedure room. All applicable staff donned appropriate apparel. A procedure timeout was performed to confirm correct patient, correct extremity, correct procedure, and correct room set-up including presence of all applicable supplies, devices, and drugs. A duplex ultrasound, performed by myself confirmed the location and incompetence of branch saphenous varicosities and their course was marked on the skin together with the dilated tributaries. The extent of treatment of the veins and the associated varicosities was determined through ultrasound mapping. The skin was prepped and then punctured with a butterfly needle and advanced under ultrasound guidance. The Varithena(r) canister was activated and the canister was primed and purged as required in the instructions for use. Varithena(r) was drawn into a sterile syringe. Varithena(r) was slowly administered at 0.5-1.0 cc/second with close observation by ultrasound of its course in the vessels. Total volume utilized was: 6 mL within an incompetent 4 mm diameter branch saphenous varicosity of medial left calf. Following administration of Varithena(r), the leg was elevated and the patient was asked to repeatedly dorsiflex the ankle to limit flow of Varithena(r) into perforating veins. Once appropriate spasm had been confirmed in the treated veins, the vascular catheter was removed from the leg and light pressure was applied over the puncture site for hemostasis The common femoral and deep superficial veins were then evaluated for flow and compressibility prior to dressing placement. The lower extremity was kept elevated at 45 degrees above the horizontal and cording material was applied over the saphenous segments and tributaries to allow for eccentric compression over the target vessels including the targeted saphenous vein(s). A multilayer dressing was applied consisting of foam pads, coban and thigh-high 20-30 mm Hg compression elastic support hose were placed on the patient. The leg was lowered only after compression had been applied and the patient was immediately ambulatory. The patient ambulated 10 minutes under supervision and was without apparent concerns at time of release Post-care instructions include advising patient to keep post-treatment bandages in place and dry for 48 hours, avoid extended periods of inactivity, avoid heavy exercise for one week, wear compression stockings on the treated leg continuously for two weeks, to walk daily for 10 minutes over the next month. The patient was instructed to take an anti-inflammatory medicine as needed and to follow up for color duplex scan of the Saphenous veins, the treated branch saphenous varicosities, the adjacent deep veins, and additional treatment within 7 days. PERSONNEL: Jean Corado Dictated by: Rasheed Wells M.D. on 04/25/2022 at 10:58 Approved by: Rasheed Wells M.D. on 04/25/2022 at 11:04 Normal [facility] VC INJ SCL CHARLIE UPHOLSTERY AUTO TRIMMER VEINSon 1 06-20-2021 VC INJ SCL CHARLIE UPHOLSTERY AUTO TRIMMER VEINS Patient: JESUS ALBERTO SENA Exam Date: 04/19/2022 : 1970 Gender:F Ordering : DR MIKHAIL RUIZ M.D. Admission #: [id number] Family : Order #: [id number] CLICK HERE TO VIEW EXAM RADIOLOGY REPORT PROCEDURE: VEIN CENTER INJECTION SCLEROSING SOLUTION MULTIPLE VEINS SAME COMPARISON: None. INDICATIONS: Pain co-occurrent and due to varicose veins of bilateral legs I83.813 PROCEDURE NOTE: The risks and benefits of the procedure were explained at length to the patient and informed written consent was obtained. Dale Griffith was present and assisted. The procedure was performed under sterile technique. The patient's leg was wrapped with Coban and postprocedural verbal and written instructions provided. SCLEROSANT: 4 cc, 0.5% polidocanol VEIN(S) INJECTED: 16 veins in the right leg VISUALIZATION: Ultrasound was not used to visualize the sclerosant ANESTHESIA Supercooled air COMPLICATIONS: None CONCLUSION: 1. Technically successful sclerotherapy as described Dictated by: Mikhail Ruiz MD on 04/19/2022 at 11:30 Approved by: Mikhail Ruiz MD on 04/19/2022 at 11:31 Normal [facility] VC CONSULT FOLLOWUPon 2021 VC CONSULT FOLLOWUP Patient: MANISHA SENA Exam Date: 04/17/2022 : 1970 Gender:F Ordering : DR MIKHAIL RUIZ M.D. Admission #: [id number] Family : Order #: [id number] CLICK HERE TO VIEW EXAM RADIOLOGY REPORT PROCEDURE: VEIN CENTER CONSULTATION FOLLOWUP VEIN CENTER - OFFICE VISIT FOLLOW UP COMPARISON: VC CONSULT FOLLOWUP, 03/22/2022. VC CONSULT FOLLOWUP, 09/21/2021. PROGRESS NOTES: The patient reports no significant pain following right leg micro foam chemical ablation. The patient did require oral analgesics. The patient did wear her compression stockings. The patient has followed our recommendations to walk 20-30 minutes once or twice per day since the procedure. The patient reports significant interval improvement in her initial presenting symptoms of both legs. Physical exam demonstrates scattered thrombosed varicose veins. Some residual left leg varicose veins. Patent reticular and spider veins. Review of the ultrasound performed the same day demonstrates occlusive thrombus extending throughout the treated varicose veins. At this time I recommended that the patient deferred treatment the right small saphenous vein due to only mild disease , with re-evaluation in 1-2 years. I did recommend micro foam chemical ablation of the left leg IMPRESSION: 1. Successful ablation of incompetent right leg varicose veins 2. Persistent incompetent left leg varicose veins PLAN: Micro foam chemical ablation left leg Nurse notes, history and physical were reviewed and confirmed, see attached forms. The nurse was present throughout the physical exam and consultation Dictated by: Mikhail Ruiz MD on 04/17/2022 at 15:00 Approved by: Mikhail Ruiz MD on 04/17/2022 at 15:02 Normal [facility] VC EXT VENOUS RT LIMITEDon 1 06-18-2021 VC EXT VENOUS RT LIMITED Patient: JESUS ALBERTO SENA Exam Date: 04/17/2022 : 1970 Gender:F Ordering : DR MIKHAIL RUIZ M.D. Admission #: [id number] Family : Order #: [id number] CLICK HERE TO VIEW EXAM RADIOLOGY REPORT PROCEDURE: VEIN CENTER EXTREMITY VENOUS RIGHT LIMITED COMPARISON: VC EXT VENOUS RT LIMITED, 09/21/2021. INDICATIONS: Phlebitis of superficial veins of lower extremity I80.01 TECHNIQUE: Lower extremity oviedo scale and Duplex Doppler evaluation of the deep venous system from the inguinal ligament through the calf veins. FINDINGS: REGION: Right lower extremity. THROMBI: Negative for DVT. Varithena induced thrombus visualized dist/ant calf, ant/mid thigh, ant thigh, and prox/lat thigh. COMPRESSIBILITY: Non-compressible segments. FLOW: Areas of no flow. OTHER: Patent varicose vein dist/med thigh 2.1mm. Patent varicose vein mid/ant calf 2.2mm. *Exam performed in accordance with [facility] practice guidelines- Peripheral venous ultrasound, August 06, 2009. 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 No significant incompetent patent varicose veins observed Dictated by: Mikhail Ruiz MD on 04/17/2022 at 13:04 Approved by: Mikhail Ruiz MD on 04/17/2022 at 13:06 Normal [facility] VC INJ FOAM SCLERO W US MLTI on 04-09-2022 VC INJ FOAM SCLERO W US MLTI Patient: JESUS ALBERTO SENA Exam Date: 04/09/2022 : 1970 Gender:F Ordering : DR MIKHAIL RUIZ M.D. Admission #: [id number] Family : Order #: [id number] CLICK HERE TO VIEW EXAM RADIOLOGY REPORT PROCEDURE: VEIN CENTER INJECTION FOAM SCLEROSING SOLUTION WITH ULTRASOUND MULTIPLE VEINS COMPARISON: None. Pre-operative Diagnosis: CEAP class C3 venous insufficiency with pain, tenderness, edema and incompetent branch saphenous vein, chronic venous insufficiency right leg secondary to venous incompetence Post-operative Diagnosis: CEAP class C3 venous insufficiency with pain, tenderness, edema and incompetent branch saphenous vein, chronic venous insufficiency right leg secondary to venous incompetence Procedure Performed: 1. Ultrasound-guided microfoam chemical ablation with Varithena(r) 2. Intraoperative ultrasound guidance Physician: Rasheed Wells M.D. Anesthesia: None. Indications for Procedure: 51 year old female. Symptoms including bilateral lower extremity pain, swelling, muscle cramping for many years despite conservative medical therapy including medical compression stockings, exercise and analgesics. Prior procedures include: Endovenous laser ablation. Multiple incompetent varicosities of the right leg. Duplex scan showed reflux and enlarged diameters up to 4 mm. The patient has undergone informed consent including management options where the complications of infection, bleeding, pain, and skin injury were discussed. Particular attention was spent discussing thrombus extension and deep vein thrombosis as well as the possibility of pulmonary embolus and treatment with oral or injectable blood thinners. Procedure: The patient walked to the procedure room. All applicable staff donned appropriate apparel. A procedure timeout was performed to confirm correct patient, correct extremity, correct procedure, and correct room set-up including presence of all applicable supplies, devices, and drugs. A duplex ultrasound, performed by myself confirmed the location and incompetence of branch saphenous varicosities and their course was marked on the skin together with the dilated tributaries. The extent of treatment of the veins and the associated varicosities was determined through ultrasound mapping. The skin was prepped and then punctured with a butterfly needle and advanced under ultrasound guidance. The Varithena(r) canister was activated and the canister was primed and purged as required in the instructions for use. Varithena(r) was drawn into a sterile syringe. Varithena(r) was slowly administered at 0.5-1.0 cc/second with close observation by ultrasound of its course in the vessels. Total volume utilized was: 15 mL (6 mL within a 4 mm varicosity of the distal anterior right lower leg; 4 Lyly within a 4 mm varicosity anterior midthigh; 3 mL within a 4 mm varicosity anterior thigh; 2 mL within a 4 mm varicosity proximal lateral thigh). Following administration of Varithena(r), the leg was elevated and the patient was asked to repeatedly dorsiflex the ankle to limit flow of Varithena(r) into perforating veins. Once appropriate spasm had been confirmed in the treated veins, the vascular catheter was removed from the leg and light pressure was applied over the puncture site for hemostasis The common femoral and deep superficial veins were then evaluated for flow and compressibility prior to dressing placement. The lower extremity was kept elevated at 45 degrees above the horizontal and cording material was applied over the saphenous segments and tributaries to allow for eccentric compression over the target vessels including the targeted saphenous vein(s). A multilayer dressing was applied consisting of foam pads, coban and thigh-high 20-30 mm Hg compression elastic support hose were placed on the patient. The leg was lowered only after compression had been applied and the patient was immediately ambulatory. The patient ambulated 10 minutes under supervision and was without apparent concerns at time of release Post-care instructions include advising patient to keep post-treatment bandages in place and dry for 48 hours, avoid extended periods of inactivity, avoid heavy exercise for one week, wear compression stockings on the treated leg continuously for two weeks, to walk daily for 10 minutes over the next month. The patient was instructed to take an anti-inflammatory medicine as needed and to follow up for color duplex scan of the Saphenous veins, the treated branch saphenous varicosities, the adjacent deep veins, and additional treatment within 7 days. PERSONNEL: Dale Griffith R.N. Dictated by: Rasheed Wells M.D. on 04/09/2022 at 13:47 Approved by: Rasheed Wells M.D. on 04/09/2022 at 13:53 Normal [facility] VC CONSULT FOLLOWUPon 2021 VC CONSULT FOLLOWUP Patient: MANISHA SENA Exam Date: 03/22/2022 : 1970 Gender:F Ordering : DR MIKHAIL RUIZ M.D. Admission #: [id number] Family : Order #: [id number] CLICK HERE TO VIEW EXAM RADIOLOGY REPORT PROCEDURE: VEIN CENTER CONSULTATION FOLLOWUP VEIN CENTER - OFFICE VISIT FOLLOW UP COMPARISON: VC CONSULT FOLLOWUP, 09/21/2021. VC CONSULT FOLLOWUP, 08/30/2021. PROGRESS NOTES: The patient reports mild discomfort of the left calf following intravenous laser ablation of the left small saphenous vein. The patient did not require oral analgesics. The patient has worn a compression stocking. The patient has followed our recommendations to walk 20-30 minutes once or twice per day since the procedure. The patient reports significant improvement in the swelling of the left lower leg from her initial presenting symptoms. Physical exam demonstrates reduction in swelling from the initial exam. No areas of erythema or warmth. No active ulceration. Review of the ultrasound performed the same day demonstrates occlusive thrombus extending throughout the treated left small saphenous vein with heat induced thrombus 1.2 cm from the saphenofemoral junction. The patient does not have significant pain in the region of the left anterior accessory saphenous vein or right small saphenous vein and we decided not to continue with treatment of those areas. Injection sclerotherapy was offered to the patient. IMPRESSION: 1. Successful ablation of the left small saphenous vein 2. Persistent incompetent left anterior accessory saphenous vein and right small saphenous vein with no symptoms 3. Persistent reticular and spider veins PLAN: Injection sclerotherapy as desired by the patient Nurse notes, history and physical were reviewed and confirmed, see attached forms. The nurse was present throughout the physical exam and consultation Dictated by: Mikhail Ruiz MD on 03/22/2022 at 09:32 Approved by: Mikhail Ruiz MD on 03/22/2022 at 09:35 Normal [facility] VC EXT VENOUS LT LIMITEDon 1 05-22-2021 VC EXT VENOUS LT LIMITED Patient: JESUS ALBERTO SENA. Exam Date: 03/22/2022 : 1970 Gender:F Ordering : DR MIKHAIL RUIZ M.D. Admission #: [id number] Family : Order #: [id number] CLICK HERE TO VIEW EXAM RADIOLOGY REPORT PROCEDURE: VEIN CENTER EXTREMITY VENOUS LEFT LIMITED COMPARISON: VC EXT VENOUS LT LIMITED, 08/30/2021. INDICATIONS: Phlebitis of superficial veins of lower extremity I80.02 TECHNIQUE: Lower extremity oviedo scale and Duplex Doppler evaluation of the deep venous system from the inguinal ligament through the calf veins. FINDINGS: REGION: Left lower extremity. THROMBI: Negative for DVT. Heat induced thrombus visualized 1.2cm from the SPJ. The heat induced thrombus extends from SPJ to mid calf. COMPRESSIBILITY: Non-compressible segments. FLOW: Areas of no flow. *Exam performed in accordance with [facility] practice guidelines- Peripheral venous ultrasound, August 06, 2009. CONCLUSION: Post ablation occlusion of the left small saphenous vein. Dictated by: Mikhail Ruiz MD on 03/22/2022 at 08:18 Approved by: Mikhail Ruiz MD on 03/22/2022 at 08:19 Normal [facility] VC ENDOVENOUS ABL 1ST V LTon 03-14-2022 VC ENDOVENOUS ABL 1ST V LT Patient: JESUS ALBERTO SENA. Exam Date: 03/14/2022 : 1970 Gender:F Ordering : DR MIKHAIL RUIZ M.D. Admission #: [id number] Family : Order #: [id number] CLICK HERE TO VIEW EXAM RADIOLOGY REPORT PROCEDURE: VEIN CENTER ENDOVENOUS ABLATION FIRST VEIN LEFT SMALL SAPHENOUS VEIN COMPARISON: VC ENDOVENOUS ABL 1ST V LT, 08/24/2021. INDICATIONS: Pain co-occurrent and due to varicose veins of bilateral legs I83.813 OPERATIVE REPORT: The risks and benefits of the procedure had been previously discussed, and were rediscussed at length. Informed written consent was obtained by and Dale clements. Time out procedure was performed. The left lower extremity was prepared and draped in the usual sterile fashion to allow knee flexion in the sterile field. Duplex ultrasound probe was draped in a sterile cover, sterile transmission gel was used. Venous mapping was performed with the areas of dilation and large tributaries marked. The total length was 23 cm from the entry mid to distal calf to wear the vein begins to dive deep, this was a thigh extension. The vein below this area was tortuous and bifurcated. The diameter of the small saphenous vein ranged from 4-7 mm. A 30 gauge needle and 1% buffered lidocaine was used to anesthetize the entry site. A 4 mm incision was made with a scalpel and the saphenous vein was entered percutaneously under direct ultrasound guidance with a micropuncture set, a single stick was successful in gaining access. A micro-guide wire was inserted and the needle removed. A micro-set including a dilator was inserted over the microwire and the needle and dilator were removed. A 0.018 guide wire was inserted through the micro-set and threaded through the saphenous vein. The dilator was removed and an introducer sheath was inserted over the wire. The dilator and wire were removed and the 600 micron fiber was introduced and placed and positioned so that it extended beyond the sheath. Final position of the fiber was determined by ultrasound guidance and duplex imaging. Tumescent anesthetic was delivered by ultrasound guidance. 150 cc of fluid was delivered along the entire course of the saphenous vein. The solution consisted of 500 cc of normal saline with 20mL of 1% lidocaine and 10 mL of sodium bicarbonate. A final positioning check was made. The energy source was turned on by means of the foot pedal and the fiber and sheath were withdrawn. The total number of Joules delivered was 1087. The laser was active 136 seconds under continuous pulse, average laser use of 8 J. Laser start time 8:39 a.m. March 14, 2022. Laser stop time 8:41 a.m. March 14, 2022. A duplex ultrasound revealed compressibility and flow at the saphenofemoral junction immediately after the procedure. Hemostasis at the access site was achieved. The skin incision of the saphenous vein was closed with a 4 x 4. A compression stocking was applied. Postop instructions were given. A follow up appointment was recommended and scheduled. The patient tolerated the procedure well and was discharged in good condition. CONCLUSION: 1. Technically successful endovenous laser ablation of the left small saphenous vein. Dictated by: Mikhail Ruiz MD on 03/14/2022 at 08:46 Approved by: Mikhail Ruiz MD on 03/14/2022 at 08:48 Normal [facility] CBC AUTO DIFFon 11-21-2021 BASO # 0.1 103/ul Normal 0.0-0.1 [facility] Comment on above: Performed By: #### C BC ####[facility] [address] [place], [place] [address]Dr. Betsy Avery Basophils/100 WBC (Bld) 0.8 % Normal 0.2-2.0 [facility] Comment on above: Performed By: #### C BC ####[facility] [address] [place], [place] [address]DrJai Avery EO # 0.3 103/ul Normal 0.0-0.7 [facility] Comment on above: Performed By: #### C BC ####[facility] [address] [place], [place] [address]DrJai Avery Eosinophils/100 WBC (Bld) 3.6 % Normal 0.9-7.0 [facility] Comment on above: Performed By: #### C BC ####[facility] [address] [place], [place] [address]Dr. Betsy Avery Erythrocyte distribution width (RBC) [Ratio] 13.7 % Normal 11.0-15.0 [facility] Comment on above: Performed By: #### C BC ####[facility] [address] [place], [place] [address]DrJai Avery Hematocrit (Bld) [Volume fraction] 41.8 % Normal 36.0-48.0 [facility] Comment on above: Performed By: #### C BC ####[facility] [address] [place], [place] [address]Dr. Betsy Avery Hemoglobin (Bld) [Mass/Vol] 13.1 g/dL Normal 12.0-16.0 [facility] Comment on above: Performed By: #### C BC ####[facility] [address] [place] [address]DrJai Andradedylan Avery IG # 0.02 10e3/ul Normal 0.00-0.03 [facility] Comment on above: Performed By: #### C BC ####[facility] [address] [place] [address]DrJai Avery IG % 0.3 % Normal 0.0-0.5 [facility] Comment on above: Performed By: #### C BC ####[facility] [address] [place], [place] [address]DrJai Avery LYMPH # 2.7 103/ul Normal 1.2-3.8 [facility] Comment on above: Performed By: #### C BC ####[facility] [address] [place], [place] [address]DrJai Avery Lymphocytes/100 WBC (Bld) 35.0 % Normal 20.5-60.0 [facility] Comment on above: Performed By: #### C BC ####[facility] [address] [place], [place] [address]DrJai Lupedylan Avery MANUAL DIFF REQ NO Normal [facility] Comment on above: Performed By: #### C BC ####[facility] [address] [place] [address]DrJai Avery MCH (RBC) [Entitic mass] 26.6 pg Critically low 26.7-34.0 [facility] Comment on above: Performed By: #### C BC ####[facility] [address] [place] [address]DrJai Avery MCHC (RBC) [Mass/Vol] 31.3 g/dL Normal 29.9-35.2 [facility] Comment on above: Performed By: #### C BC ####[facility] [address] [place] [address]DrJai Avery MCV (RBC) [Entitic vol] 84.8 fL Normal 81.0-99.0 [facility] Comment on above: Performed By: #### C BC ####[facility] [address] [place] [address]DrJai Avery MONO # 0.4 103/ul Normal 0.3-0.8 [facility] Comment on above: Performed By: #### C BC ####[facility] [address] [place] [address]DrJai Avery Monocytes/100 WBC (Bld) 5.3 % Normal 1.7-12.0 [facility] Comment on above: Performed By: #### C BC ####[facility] [address] [place], [place] [address]DrJai Avery NEUT # 4.3 103/ul Normal 1.4-6.5 [facility] Comment on above: Performed By: #### C BC ####[facility] [address] [place], [place] [address]Dr. Betsy Avery Neutrophils/100 WBC (Bld) 55.0 % Normal 43.0-75.0 [facility] Comment on above: Performed By: #### C BC ####[facility] [address] [place], [place] [address]DrJai Avery Platelet mean volume (Bld) [Entitic vol] 10.7 fL Normal 9.5-13.5 [facility] Comment on above: Performed By: #### C BC ####[facility] [address] [place], [place] [address]Dr. Betsy Avery PLT 331 103/ul Normal 150-450 [facility] Comment on above: Performed By: #### C BC ####[facility] [address] [place], [place] [id number] Avery RBC 4.93 106/ul Normal 4.20-5.40 [facility] Comment on above: Performed By: #### C BC ####[facility] [address] [place] [id number] Avery WBC 7.8 103/ul Normal 4.0-11.0 [facility] Comment on above: Performed By: #### C BC ####[facility] [address] [place] [address]Dr. Betsy Avery GLYCOHEMOGLOBIN A1Con 2021 ADA RECOMMENDATION SEE BELOW Normal [facility] Comment on above: Result Comment: ADA RECOMMENDED LIMIT 4.0 - 6.0 ADA THERAPEUTIC TARGET < 7.0 ACTION SUGGESTED > 7.0 Performed By: #### A 1C ####[facility] [address] [place] [address]Dr. Betsy Avery Glucose [Mass/Vol] 131 mg/dL Normal [facility] Comment on above: Performed By: #### A 1C ####[facility] [address] [place] [address]Dr. Betsy Avery HbA1c (Bld) [Mass fraction] 6.2 % Normal 4.5-6.2 [facility] Comment on above: Performed By: #### A 1C ####[facility] [address] [place] [address]Dr. Betsy Avery LIPID PROFILEon 11-21-2021 CHOL-HDL RATIO NORM SEE BELOW Normal [facility] Comment on above: Result Comment: 3.3 - 4.4 LOW RISK 4.4 - 7.1 AVERAGE RISK 7.1 - 11.0 MODERATE RISK >11.0 HIGH RISK Performed By: #### C MP, LIPID, TSH #### [facility] [address] [address] [address] Betsy Avery Cholesterol [Mass/Vol] 195 mg/dL Normal <=200 [facility] Comment on above: Performed By: #### C MP, LIPID, TSH #### [facility] [address] [address] [address] Betsy Avery Cholesterol in HDL [Mass/Vol] 50 mg/dL Normal 40-60 [facility] Comment on above: Performed By: #### C MP, LIPID, TSH #### [facility] [address] [address] [address] Betsy Avery Cholesterol in LDL [Mass/Vol] 116.0 mg/dL Normal [facility] Comment on above: Performed By: #### C MP, LIPID, TSH #### [facility] [address] [address] [address] Betsy Avery Cholesterol.total/Ch olesterol in HDL [Mass ratio] 3.9 {ratio} Normal [facility] Comment on above: Performed By: #### C MP, LIPID, TSH #### [facility] [address] [address] [address] Betsy Avery HDL NORMAL > or = 60 mg/dl - LO W CARDIOVASCULAR RISK <40 mg/dl - HIGH CARDIOVASCULAR RISK Normal [facility] Comment on above: Performed By: #### C MP, LIPID, TSH #### [facility] [address] [address] [address] Betsy Avery LDL CALC NORMAL SEE BELOW Normal [facility] Comment on above: Result Comment: <100 mg/dl OPTIMAL 100 - 129 mg/dl NEAR OR ABOVE OPTIMAL 130 - 159 mg/dl BORDERLINE HIGH 160 - 189 mg/dl HIGH >190 mg/dl VERY HIGH Performed By: #### C MP, LIPID, TSH #### [facility] [address] [address] [address] Betsy Avery Triglyceride [Mass/Vol] 145 mg/dL Normal <=150 [facility] Comment on above: Performed By: #### C MP, LIPID, TSH #### [facility] [address] [address] [address] Betsy Avery VLDL CALC 29.0 mg/dL Normal [facility] Comment on above: Performed By: #### C MP, LIPID, TSH #### [facility] [address] [address] [address] Betsy Avery MG MAMM SCREEN 3D MICHAEL CADon 11-21-2021 MG MAMM SCREEN 3D MICHAEL CAD Patient: JESUS ALBERTO SENA Exam Date: 11/21/2021 : 1970 Gender:F Ordering : DR FRANCHESCA GO M.D. Admission #: [id number] Family : Order #: [id number] CLICK HERE TO VIEW EXAM RADIOLOGY REPORT PROCEDURE: MAMMOGRAM SCREENING 3D BILATERAL CAD COMPARISON: MG MAMM SCREEN MICHAEL W CAD, 04/06/2019. MG MAMM SCREEN 3D MICHAEL CAD, 08/09/2020. INDICATIONS: Screening mammography Calculator Name NCI Breast Cancer Risk Assessment Tool 5 Year Breast Cancer Risk 1.50% Lifetime Breast Cancer Risk 11.60% Personal Breast Cancer No Personal Ovarian Cancer No Treatments None Family Cancers None LOCATION: [facility] BREAST COMPOSITION: Scattered areas fibroglandular density. FINDINGS: DIAGNOSTIC CATEGORY 1--NEGATIVE. NO CHANGE FROM COMPARISON ASSESSMENT. Scattered benign-appearing calcifications are present. RIGHT BREAST: No significant suspicious finding. LEFT BREAST: No significant suspicious finding. RECOMMENDATIONS: ROUTINE MAMMOGRAM AND CLINICAL EVALUATION IN 12 MONTHS. PLEASE NOTE: A NORMAL MAMMOGRAM DOES NOT EXCLUDE THE POSSIBILITY OF BREAST CANCER. A CLINICALLY SUSPICIOUS PALPABLE LUMP SHOULD BE BIOPSIED. Dictated by: Mikhail Ruiz MD on 11/21/2021 at 09:44 Approved by: Mikhail Ruiz MD on 11/21/2021 at 09:45 Normal [facility] PROF 14(COMP METB)on 022 Albumin [Mass/Vol] 3.5 g/dL Normal 3.4-5.0 [facility] Comment on above: Performed By: #### C MP, LIPID, TSH #### [facility] [address] [place] [address] Dr. Betsy Avery Albumin/Globulin [Mass ratio] 0.8 {ratio} Normal [facility] Comment on above: Performed By: #### C MP, LIPID, TSH #### [facility] [address] [place] [address] Dr. Betsy Avery ALP [Catalytic activity/Vol] 93 U/L Normal 46-116 [facility] Comment on above: Performed By: #### C MP, LIPID, TSH #### [facility] [address] [address] [address] Betsy Avery ALT [Catalytic activity/Vol] 18 U/L Normal 14-59 [facility] Comment on above: Performed By: #### C MP, LIPID, TSH #### [facility] [address] [place] [address] Dr. Betsy Avery Anion gap [Moles/Vol] 13.2 mmol/L Normal [facility] Comment on above: Performed By: #### C MP, LIPID, TSH #### [facility] [address] [address] [address] Betsy Avery AST [Catalytic activity/Vol] 27 U/L Normal 15-37 [facility] Comment on above: Performed By: #### C MP, LIPID, TSH #### [facility] [address] [address] [address] Betsy Avery Bilirubin [Mass/Vol] 0.3 mg/dL Normal 0.2-1.0 [facility] Comment on above: Performed By: #### C MP, LIPID, TSH #### [facility] [address] [address] [address] Betsy Avery Calcium [Mass/Vol] 9.2 mg/dL Normal 8.5-10.1 [facility] Comment on above: Performed By: #### C MP, LIPID, TSH #### [facility] [address] [address] [address] Betsy Avery Chloride [Moles/Vol] 105 mmol/L Normal 98-107 [facility] Comment on above: Performed By: #### C MP, LIPID, TSH #### [facility] [address] [address] [address] Betsy Avery CO2 [Moles/Vol] 25.2 mmol/L Normal 21.0-32.0 [facility] Comment on above: Performed By: #### C MP, LIPID, TSH #### [facility] [address] [address] [address] Betsy Avery Creatinine [Mass/Vol] 0.89 mg/dL Normal 0.55-1.02 [facility] Comment on above: Performed By: #### C MP, LIPID, TSH #### [facility] [address] [address] [address] Betsy Avery EGFR-AF CYPRIOT >60 Normal >=60 [facility] Comment on above: Performed By: #### C MP, LIPID, TSH #### [facility] [address] [address] [address] Betsy Avery EGFR-NON AF CYPRIOT >60 Normal >=60 [facility] Comment on above: Performed By: #### C MP, LIPID, TSH #### [facility] [address] [address] [address] Betsy Avery Globulin (S) [Mass/Vol] 4.2 g/dL Normal [facility] Comment on above: Performed By: #### C MP, LIPID, TSH #### [facility] [address] [place] [address] Dr. Betsy Avrey Glucose [Mass/Vol] 130 mg/dL Critically high 74-106 [facility] Comment on above: Performed By: #### C MP, LIPID, TSH #### [facility] [address] [place] [address] Dr. Betsy Avery Potassium [Moles/Vol] 4.4 mmol/L Normal 3.5-5.1 [facility] Comment on above: Performed By: #### C MP, LIPID, TSH #### [facility] [address] [place] [address] Dr. Betsy Avery Protein [Mass/Vol] 7.7 g/dL Normal 6.4-8.2 [facility] Comment on above: Performed By: #### C MP, LIPID, TSH #### [facility] [address] [place] [address] Dr. Betsy Avery Sodium [Moles/Vol] 139 mmol/L Normal 136-145 [facility] Comment on above: Performed By: #### C MP, LIPID, TSH #### [facility] [address] [place] [address] Dr. Betsy Avery Urea nitrogen [Mass/Vol] 15.0 mg/dL Normal 7.0-18.0 [facility] Comment on above: Performed By: #### C MP, LIPID, TSH #### [facility] [address] [place] [address] Dr. Betsy Avery Urea nitrogen/Creatinine [Mass ratio] 16.9 mg/mg Normal [facility] Comment on above: Performed By: #### C MP, LIPID, TSH #### [facility] [address] [place] [address] Dr. Betsy Avery TSHon 11-21-2021 TSH 2.111 uIU/mL Normal 0.358-3.740 [facility] Comment on above: Performed By: #### C MP, LIPID, TSH #### [facility] [address] [place] [address] Dr. Betsy Avery PAP ACOG PANEL 2: 30 to 65on 11-20-2021 . . Normal [facility] Comment on above: Result Comment: Perf ormed at: WB Performed By: #### [id number] #### [facility] [address] [place] [address] Dr. Betsy Avery Age Gdln ACOG Testing 30-65 [facility] Comment on above: Performed By: #### [id number] #### [facility] [address] [place] [address] Dr. Betsy Avery DIAGNOSIS: Comment Normal [facility] Comment on above: Result Comment: NEGA TIVE FOR INTRAEPITHELIAL LESION OR MALIGNANCY. Performed at: WB Performed By: #### [id number] #### [facility] [address] [place] [address] Dr. Betsy Avery HPV Aptima Negative Normal Negative [facility] Comment on above: Result Comment: This nucleic acid amplification test detects fourteen high-risk HPV types (16,18,31,33,35,39,45,51,52,56,58,59,66,68) without differentiation. Performed at: =G Performed By: #### [id number] #### [facility] [address] [place] [address] Dr. Betsy Avery Methodology: Comment Normal [facility] Comment on above: Result Comment: This liquid based ThinPrep(R) pap test was screened with the use of an image guided system. Performed at: WB Performed By: #### [id number] #### [facility] [address] [place] [address] Dr. Betsy Avery Note: Comment Normal [facility] Comment on above: Result Comment: The Pap smear is a screening test designed to aid in the detection of premalignant and malignant conditions of the uterine cervix. It is not a diagnostic procedure and should not be used as the sole means of detecting cervical cancer. Both false-positive and false-negative reports do occur. . Performed at: WB Performed By: #### [id number] #### [facility] [address] [address] [address] Betsy Avery Performed by: Comment Normal [facility] Comment on above: Result Comment: Diane Braswell, Powder Nipper (ASCP) Performed at: WB Performed By: #### [id number] #### [facility] [address] [address] [address] Betsy Avery Specimen adequacy: Comment Normal [facility] Comment on above: Result Comment: Sati sfactory for evaluation. No endocervical component is identified. Performed at: WB Performed By: #### [id number] #### [facility] [address] [place] [address] Dr. Betsy Avery VC CONSULT FOLLOWUPon 2021 VC CONSULT FOLLOWUP Patient: MANISHA SENA Exam Date: 09/21/2021 : 1970 Gender:F Ordering : DR MIKHAIL RUIZ M.D. Admission #: [id number] Family : Order #: [id number] CLICK HERE TO VIEW EXAM RADIOLOGY REPORT PROCEDURE: VEIN CENTER CONSULTATION FOLLOWUP VEIN CENTER - OFFICE VISIT FOLLOW UP COMPARISON: VC CONSULT FOLLOWUP, 08/30/2021. PROGRESS NOTES: The patient reports no significant pain following intravenous laser ablation of the right great saphenous vein. The patient did not require oral analgesics. The patient did wear her compression stocking. The patient has followed our recommendations to walk 20-30 minutes once or twice per day since the procedure. Physical exam demonstrates a small area of mild bruising measuring 3 cm in diameter along the mid right medial thigh likely related to tumescent injection. No areas of erythema or warmth to suggest cellulitis or thrombophlebitis. No active ulceration. The great saphenous vein cannot be palpated. Review of the ultrasound performed the same day demonstrates occlusive thrombus extending throughout the treated right great saphenous vein with heat induced thrombus 3.7 cm from the saphenofemoral junction. A few scattered right great saphenous vein branch varicose veins are noted. Left great saphenous vein branch varicosities spontaneously thrombosed. There is dilation of the bilateral small saphenous veins with associated close veins. The patient expressed a desire to proceed with treatment of left small saphenous vein with intravenous laser ablation. Precertification is required before the procedure IMPRESSION: 1. Successful ablation of the right great saphenous vein 2. 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 The nurse was present throughout the physical exam and consultation Dictated by: Mikhail Ruzi MD on 09/21/2021 at 11:04 Approved by: Mikhail Ruiz MD on 09/21/2021 at 11:16 Normal [facility] VC EXT VENOUS RT LIMITEDon 0 09-21-2021 VC EXT VENOUS RT LIMITED Patient: JESUS ALBERTO SENA Exam Date: 09/21/2021 : 1970 Gender:F Ordering : DR MIKHAIL RUIZ M.D. Admission #: [id number] Family : Order #: [id number] CLICK HERE TO VIEW EXAM This report includes an Addendum and supersedes previous reports for this exam. RADIOLOGY REPORT PROCEDURE: VEIN CENTER EXTREMITY VENOUS RIGHT LIMITED COMPARISON: None. INDICATIONS: Phlebitis and thrombophlebitis of superficial veins of right lower extremity I80.01 TECHNIQUE: Lower extremity oviedo scale and Duplex Doppler evaluation of the deep venous system from the inguinal ligament through the calf veins. FINDINGS: REGION: Right lower extremity. THROMBI: Negative for DVT. Heat induced thrombus in the right GSV 3.7 cm from the SFJ and extends to the medial knee at area of insert. Associated varicosity distal thigh also thrombosed. COMPRESSIBILITY: Noncompressibility corresponding to thrombus FLOW: Absent flow corresponding to thrombus OTHER: Patent varicose vein prox/medial calf measures 4.5 mm. Medial right knee varicose vein measures 3.6 mm. Left proximal/medial calf varicose vein measures 3.9 mm. *Exam performed in accordance with [facility] practice guidelines- Peripheral venous ultrasound, August 06, 2009. CONCLUSION: 1. Post ablation occlusion of the right great saphenous vein with heat induced thrombus 3.7 cm from the saphenofemoral junction 2. 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 Dictated by: Mikhail Ruiz MD on 09/21/2021 at 11:16 Approved by: Mikhail Ruiz MD on 09/21/2021 at 11:17 ADDENDUM: Re-evaluation of the small saphenous veins: Right small saphenous vein: Saphenous popliteal junction: 8.3 mm Maximum reflux 2.1 seconds Left small saphenous vein: Saphenous popliteal junction: 6.6 mm Maximum reflux: 3.4 seconds Bilateral associated branch saphenous incompetent tributaries/varicose veins Dictated by: Mikhail Ruiz MD on 09/28/2021 at 10:23 Approved by: Mikhail Ruiz MD on 09/28/2021 at 10:25 Normal [facility] VC ENDOVENOUS ABL 1ST V RTon 09-11-2021 VC ENDOVENOUS ABL 1ST V RT Patient: JESUS ALBERTO SENA Exam Date: 09/11/2021 : 1970 Gender:F Ordering : DR MIKHAIL RUIZ M.D. Admission #: [id number] Family : Order #: [id number] CLICK HERE TO VIEW EXAM RADIOLOGY REPORT PROCEDURE: VEIN CENTER ENDOVENOUS ABLATION FIRST VEIN RIGHT GREAT SAPHENOUS VEIN COMPARISON: VC VENOUS REFLUX MICHAEL LMT, 07/19/2021. INDICATIONS: Pain co-occurrent and due to varicose veins of bilateral legs I83.813 OPERATIVE REPORT: The risks and benefits of the procedure had been previously discussed, and were rediscussed at length. Informed written consent was obtained by me and Dale Griffith assisted. Time out procedure was performed. The right lower extremity was prepared and draped in the usual sterile fashion to allow knee flexion in the sterile field. Duplex ultrasound probe was draped in a sterile cover, sterile transmission gel was used. Venous mapping was performed with the areas of dilation and large tributaries marked. The total length was 38 cm from the entry 5 cm below the knee to 3 cm below the saphenofemoral junction. The great saphenous vein below this region branches and becomes tortuous, not amenable to laser ablation. The diameter of the greater saphenous vein ranged from 5-10 mm. A 30 gauge needle and 1% buffered lidocaine was used to anesthetize the entry site. A 4 mm incision was made with a scalpel and the saphenous vein was entered percutaneously under direct ultrasound guidance with a micropuncture set, a single stick was successful in gaining access. A micro-guide wire was inserted and the needle removed. A micro-set including a dilator was inserted over the microwire and the needle and dilator were removed. A 0.018 guide wire was inserted through the micro-set and threaded through the saphenous vein to the saphenofemoral junction. The dilator was removed and an introducer sheath was inserted over the wire until the end of the sheath entered the saphenofemoral junction. The dilator and wire were removed and the 600 micron fiber was introduced and placed and positioned so that it extended beyond the sheath and was 3 cm peripheral to the saphenofemoral femoral junction. Final position of the fiber was determined by ultrasound guidance and duplex imaging. Tumescent anesthetic was delivered by ultrasound guidance. 375 cc of fluid was delivered along the entire course of the saphenous vein. The solution consisted of 500 cc of normal saline with 20mL of 1% lidocaine and 10 mL of sodium bicarbonate. A final positioning check was made. The energy source was turned on by means of the foot pedal and the fiber and sheath were withdrawn. The total number of Joules delivered was 1789. The laser was active for 224 seconds under continuous pulse, average laser use of 8 J. Laser start time 9:12 a.m. September 11, 2021. Laser stop time 9:16 a.m. September 11, 2021. A duplex ultrasound revealed compressibility and flow at the saphenofemoral junction immediately after the procedure. Hemostasis at the access site was achieved. The skin incision of the saphenous vein was closed with a 4 x 4. A compression stocking was applied. Postop instructions were given. A follow up appointment was recommended and scheduled. The patient tolerated the procedure well and was discharged in good condition. CONCLUSION: 1. Technically successful endovenous laser ablation of the right great saphenous vein. Dictated by: Mikhail Ruiz MD on 09/11/2021 at 09:18 Approved by: Mikhail Ruiz MD on 09/11/2021 at 09:20 [facility] VC CONSULT FOLLOWUPon 2021 VC CONSULT FOLLOWUP Patient: MANISHA SENA Exam Date: 08/30/2021 : 1970 Gender:F Ordering : DR MIKHAIL RUIZ M.D. Admission #: [id number] Family : Order #: [id number] CLICK HERE TO VIEW EXAM RADIOLOGY REPORT PROCEDURE: VEIN CENTER CONSULTATION FOLLOWUP VEIN CENTER - OFFICE VISIT FOLLOW UP COMPARISON: None. PROGRESS NOTES: The patient reports no significant change in leg symptoms. There has been interval reduction in varicosities. The patient has followed our recommendations to walk 20-30 minutes once or twice per day since the procedure. Physical exam demonstrates decrease minimal bruising; no erythema or evidence of infection. Persistent branch saphenous varicosities are identified along the leg. Review of the ultrasound performed the same day demonstrates occlusive thrombus extending throughout the treated vein, see separate report, consistent with a successful ablation. No thrombus extending into or beyond the saphenofemoral junction. The patient expressed a desire to proceed with treatment of right great saphenous vein. The patient was informed that treatment was a process and would require several procedures/sessions. IMPRESSION: 1. Successful ablation of the left great saphenous vein(s). 2. Persistent incompetent branch saphenous varicose veins and lower extremity symptoms PLAN: Endovenous laser ablation of right great saphenous vein. Nurse notes, history and physical were reviewed and confirmed, see attached forms. The nurse was present throughout the physical exam and consultation Dictated by: Rasheed Wells M.D. on 08/30/2021 at 09:27 Approved by: Rasheed Wells M.D. on 08/30/2021 at 09:44 Normal [facility] VC EXT VENOUS LT LIMITEDon 0 08-30-2021 VC EXT VENOUS LT LIMITED Patient: JESUS ALBERTO SENA Exam Date: 08/30/2021 : 1970 Gender:F Ordering : DR MIKHAIL RUIZ M.D. Admission #: [id number] Family : Order #: [id number] CLICK HERE TO VIEW EXAM RADIOLOGY REPORT PROCEDURE: VEIN CENTER EXTREMITY VENOUS LEFT LIMITED COMPARISON: None. INDICATIONS: Phlebitis and thrombophlebitis of superficial veins of left lower extremity I80.02 TECHNIQUE: Lower extremity oviedo scale and Duplex Doppler evaluation of the deep venous system from the inguinal ligament through the calf veins. FINDINGS: REGION: Left lower extremity. THROMBI: Negative for DVT. Heat induced thrombus in the left GSV 1.1 cm from the SFJ and extends to the proximal calf, distal to insertion point. Multiple small associated varicose veins also thrombosed in the thigh. COMPRESSIBILITY: Non-compressible AND partially compressible segments. FLOW: Areas of no flow. OTHER: Limited visualization of the calf veins. *Exam performed in accordance with [facility] practice guidelines- Peripheral venous ultrasound, August 06, 2009. CONCLUSION: 1. 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 Dictated by: Rasheed Wells M.D. on 08/30/2021 at 09:15 Approved by: Rasheed Wells M.D. on 08/30/2021 at 09:26 Normal [facility] VC ENDOVENOUS ABL 1ST V LTon 08-24-2021 VC ENDOVENOUS ABL 1ST V LT Patient: JESUS ALBERTO SENA Exam Date: 08/24/2021 : 1970 Gender:F Ordering : DR MIKHAIL RUIZ M.D. Admission #: [id number] Family : Order #: [id number] CLICK HERE TO VIEW EXAM RADIOLOGY REPORT PROCEDURE: VEIN CENTER ENDOVENOUS ABLATION FIRST VEIN LEFT GREAT SAPHENOUS VEIN COMPARISON: None. INDICATIONS: Pain co-occurrent and due to varicose veins of bilateral legs I83.813 OPERATIVE REPORT: The risks and benefits of the procedure had been previously discussed, and were rediscussed at length. Informed written consent was obtained by me and Dale clements. Time out procedure was performed. The left lower extremity was prepared and draped in the usual sterile fashion to allow knee flexion in the sterile field. Duplex ultrasound probe was draped in a sterile cover, sterile transmission gel was used. Venous mapping was performed with the areas of dilation and large tributaries marked. The total length was 28 cm from the entry distal thigh to 3 cm below the saphenofemoral junction. The diameter of the greater saphenous vein ranged from 5-10 mm. The vein below the entry point was tortuous and not amenable to laser ablation. A 30 gauge needle and 1% buffered lidocaine was used to anesthetize the entry site. A 4 mm incision was made with a scalpel and the saphenous vein was entered percutaneously under direct ultrasound guidance with a micropuncture set, a single stick was successful in gaining access. A micro-guide wire was inserted and the needle removed. A micro-set including a dilator was inserted over the microwire and the needle and dilator were removed. A 0.018 guide wire was inserted through the micro-set and threaded through the saphenous vein to the saphenofemoral junction. The dilator was removed and an introducer sheath was inserted over the wire until the end of the sheath entered the saphenofemoral junction. The dilator and wire were removed and the 600 micron fiber was introduced and placed and positioned so that it extended beyond the sheath and was 3 cm peripheral to the saphenofemoral femoral junction. Final position of the fiber was determined by ultrasound guidance and duplex imaging. Tumescent anesthetic was delivered by ultrasound guidance. 300 cc of fluid was delivered along the entire course of the saphenous vein. The solution consisted of 500 cc of normal saline with 20mL of 1% lidocaine and 10 mL of sodium bicarbonate. A final positioning check was made. The energy source was turned on by means of the foot pedal and the fiber and sheath were withdrawn. The total number of Joules delivered was 1300. The laser was active for 162 seconds under continuous pulse, average laser use of 8 J. Laser start time 10:44 a.m. August 24, 2021. Laser stop time 10:47 a.m. August 24, 2021. A duplex ultrasound revealed compressibility and flow at the saphenofemoral junction immediately after the procedure. Hemostasis at the access site was achieved. The skin incision of the saphenous vein was closed with a 4 x 4. A compression stocking was applied. Postop instructions were given. A follow up appointment was recommended and scheduled. The patient tolerated the procedure well and was discharged in good condition. CONCLUSION: 1. Technically successful endovenous laser ablation of the left great saphenous vein. Dictated by: Mikhail Ruiz MD on 08/24/2021 at 10:49 Approved by: Mikhail Ruiz MD on 08/24/2021 at 10:51 Normal [facility] Vital Signs Date Time Vital Sign Value Performing Clinician Facility 08-21-2023 13:25-0400 Body height 172.72 cm [facility] 08-21-2023 13:25-0400 Body mass index (BMI) [Ratio] 48.4 kg/m2 [facility] 08-21-2023 13:25-0400 Body weight 144.69 kg [facility] 08-21-2023 13:25-0400 Diastolic blood pressure 78 mm[Hg] [facility] 08-21-2023 13:25-0400 Heart rate 81 /min [facility] 08-21-2023 13:25-0400 SaO2% (BldA) [Mass fraction] 96 % [facility] 08-21-2023 13:25-0400 Systolic blood pressure 110 mm[Hg] [facility] 02-22-2023 08:30-0400 Body height 172.72 cm [facility] [place] Other 02-22-2023 08:30-0400 Body mass index (BMI) [Ratio] 47.89 kg/m2 [facility] [place] Other 02-22-2023 08:30-0400 Body weight 142.88 kg [facility] [place] Other 02-22-2023 08:30-0400 Diastolic blood pressure 78 mm[Hg] [facility] [place] Other 02-22-2023 08:30-0400 Systolic blood pressure 136 mm[Hg] [facility] [place] Other 12-27-2022 08:30-0400 Body height 172.72 cm [facility] [place] Other 12-27-2022 08:30-0400 Body mass index (BMI) [Ratio] 47.89 kg/m2 [facility] [place] Other 12-27-2022 08:30-0400 Body weight 142.88 kg [facility] [place] Other 12-27-2022 08:30-0400 Diastolic blood pressure 70 mm[Hg] [facility] Other [facility] 12-27-2022 08:30-0400 Systolic blood pressure 112 mm[Hg] Franchesca Go Other [facility] Other Encounters Encounter Date Encounter Type Care Provider Facility Start: 09-03-2023 End: 09-03-2023 ambulatory [facility] Work Phone: Start: 09-03-2023 End: 09-03-2023 Patient encounter procedure [facility] Physician [facility] Work Phone: Start: 08-23-2023 End: 08-23-2023 ambulatory [facility] Start: 08-21-2023 End: 08-21-2023 ambulatory [facility] Work Phone: Start: 08-21-2023 End: 08-21-2023 Patient encounter procedure [facility] Physician [facility] Work Phone: Start: 05-17-2023 End: 05-17-2023 ambulatory Franchesca Go Other [facility] Start: 05-17-2023 Office outpatient vi sit 15 minutes Franchesca Go [facility] Start: 02-22-2023 End: 02-22-2023 ambulatory Franchesca Go Other [facility] Start: 02-22-2023 Office outpatient vi sit 15 minutes Franchesca Go [facility] Start: 12-27-2022 End: 12-27-2022 ambulatory Franchesca Go Other [facility] Start: 12-27-2022 Encounter for genera l adult medical examination without abnormal findings Franchesca Go [facility] Start: 12-27-2022 Periodic preventive med est patient 40-64yrs Franchesca Go [facility] Start: 08-10-2022 End: 08-10-2022 ambulatory FRANCHESCA GO Facility:[facility] Start: 08-04-2022 End: 08-05-2022 ambulatory ESPERANZA CLINTON Facility:[facility] Start: 05-04-2022 ambulatory FRANCHESCA GO Facility :[facility] Start: 05-03-2022 Adult health examination Eloise michael Luli Other [facility] Start: 05-03-2022 Gynecological examin ation normal Franchesca Go Other [facility] Start: 05-03-2022 History of abnormal cervical Papanicolaou smear Franchesca Go Other [facility] Start: 05-03-2022 Problem, abnormal examination Franchesca Go Other [facility] Start: 05-03-2022 End: 05-04-[address] MIKHAIL RUIZ Facility:[facility] Start: 04-25-2022 End: 04-26-[address] MIKHAIL RUIZ Facility:[facility] Start: 04-19-2022 End: 04-20-[address] MIKHAIL RUIZ Facility:[facility] Start: 04-17-2022 End: 04-18-[address] MIKHAIL RUIZ Facility:[facility] Start: 04-09-2022 End: 04-10-[address] MIKHAIL RUIZ Facility:[facility] Start: 03-22-2022 End: 03-23-[address] MIKHAIL RUIZ Facility:[facility] Start: 03-15-2022 End: 03-16-2022 ambulatory FRANCHESCA GO Facility:[facility] Start: 03-14-2022 End: 03-15-[address] MIKHAIL RUIZ Facility:[facility] Start: 11-22-2021 Encounter for genera l adult medical examination without abnormal findings FRANCHESCA GO [facility] Start: 11-21-2021 End: 11-22-2021 ambulatory FRANCHESCA GO Facility:[facility] Start: 11-21-2021 End: 11-22-2021 Encounter for general adult medical examination without abnormal findings FRANCHESCA GO Facility:[facility] Start: 11-16-2021 End: 11-16-2021 ambulatory FRANCHESCA GO Facility:[facility] Start: 09-21-2021 End: 09-22-[address] MIKHAIL RUIZ Facility:[facility] Start: 09-11-2021 End: 09-12-[address] MIKHAIL RUIZ Facility:[facility] Start: 08-30-2021 End: 08-31-[address] MIKHAIL RUIZ Facility:[facility] Start: 08-24-2021 End: 08-25-[address] MIKHAIL RUIZ Facility:[facility] Procedures Date Procedure Procedure Detail Performing Clinician Counseling Franchesca Go Other Screening for malign ant neoplasm of breast Franchesca Go Other Screening for malign ant neoplasm of colon Franchesca Go Other Plan of Treatment Date Care Activity Detail Author Patient Education Low back pain in adults [facility] Work Phone: Payers Date Payer Category Payer Unknown [id number] 2021 [place] [id number] 2019 Unknown [id number] 1970 Unknown [id number] 2.16.84 [id number] 1968 Unknown [id number] 2.16.84 0.1.075947.3.579.2.593 1968 Unknown [id number] 2.16.84 0.1.805151.3.579.2.593 1968 Unknown [id number] 2.16.84 0.1.319000.3.579.2.593 1968 Unknown [id number] 2.16.84 0.1.707912.3.579.2.593 1968 Unknown [id number] 2.16.84 0.1.446902.3.579.2.593 1968 Unknown [id number] 2.16.84 0.1.021396.3.579.2.593 1968 Unknown [id number] 2.16.84 0.1.145374.3.579.2.593 1968 Unknown [id number] 2.16.84 0.1.625024.3.579.2.593 1968 Unknown [id number] 2.16.84 0.1.309745.3.579.2.593 1968 Unknown [id number] 2.16.84 0.1.527753.3.579.2.593 1968 Unknown [id number] 2.16.84 0.1.211201.3.579.2.593 1968 Unknown [id number] 2.16.84 0.1.781006.3.579.2.593 1968 Unknown [id number] 2.16.84 0.1.870170.3.579.2.593 1968 Unknown [id number] 2.16.84 0.1.831902.3.579.2.593 1968 Unknown [id number] 2.16.84 0.1.237079.3.579.2.593 1968 Unknown [id number] 2.16.8 40.1.082838.3.579.2.1286 1961 Self-pay [id number] 1961 Unknown [id number] Unknown [id number] 2.16.84 0.1.620286.3.579.2.593 Social History Date Type Detail Facility Unknown if ever smoked [facility] Other Sex Assigned At Sex Assigned At Bir th [facility] Start: 08-21-2023 Tobacco smoking status ORIS Never smoked tobacco (finding) [facility] Start: 1970 Sex Assigned At Female F [facility] Evaluation note 05-17-2023 Note Date & Type Note Facility 05-17-2023 Evaluation note Encounter Date Diagnosis Assessment Notes May, Bronchitis (ICD-10 - J40) Take antibiotic as directed. If develop wheezing, chest tightness, itching, bad cough, blue skin color, seizures, swelling of face, lips, tongue, or throat report to ED. [facility] Evaluation note 02-22-2023 Note Date & Type Note Facility 02-22-2023 Evaluation note Encounter Date Diagnosis Assessment Notes Feb, Anaphylaxis, initial encounter (ICD-10 - T78.2XXA) Form completed per patient's request to be exempt from the flu shot at [facility]. Denies history of influenza, ongoing breathing issues or lung issues. [facility] Evaluation note 12-27-2022 Note Date & Type Note Facility 12-27-2022 Evaluation note Encounter Date Diagnosis Assessment Notes Dec, Well adult exam (ICD-10 - Z00.00) We have discussed the necessity of following up with PCP regularly as well as specialists, as needed. Discussed F/U with dentistry and optometry at least yearly. Discussed all preventative measures/ cancer screenings as applicable to this patient. Emphasized the importance of a reduced fat, low carb diet to promote heart health and controlled blood sugars. Reviewed social history and ensured patient is safe within the home today. Pt denies any abuse of alcohol, nicotine, caffeine or recreational drugs. I have ensured patient is of stable mental and physical health today. We have discussed appropriate F/U schedule as well as blood work and vaccinations that apply. All questions answered and patient is sent home pleased, without concerns. Dec, Other chronic pain (ICD-10 - G89.29) Dec, Pain in right knee (ICD-10 - M25.561) Ortho referral Dec, Pain in left knee (ICD-10 - M25.562) Ortho referral May, Hypothyroidism , unspecified (ICD-10 - E03.9) HYPOTHYROIDISM Chronic problem - will increase dose based on lab [facility] Other Evaluation note Note Date & Type Note Facility Evaluation note Diagnosis Onset Date Maxillary sinusitis acute [facility] Work Phone: Evaluation note Note Date & Type Note Facility Evaluation note Diagnosis Onset Date Maxillary sinusitis acute Low back pain acute Muscle spasm acute [facility] Work Phone: History general Narrative - Reported Note Date & Type Note Facility History general Narrative - Reported Type Medical History Problem Title : Acut e pharyngitis due to other specified organisms [], Problem Description : Acute pharyngitis due to other specified organisms [], Problem Comment : Acute pharyngitis due to other specified organisms, Problem Status : Active,, Medical History Problem Title : adva nced directive reviewed, Problem Description : advanced directive reviewed, Problem Comment : Done, Problem Status : Active,, Medical History Problem Title : comp liance with medical treatment, Problem Description : compliance with medical treatment, Problem Comment : Done, Problem Status : Active,, Medical History Problem Title : Hist ory of COVID September 2019, Problem Status : Active,, Medical History Problem Title : Hype rlipidemia, Problem Status : Active,, Medical History Problem Title : Left tib/fib fx 1977, Problem Status : Active,, Medical History Problem Title : [facility]: Hypothyroidism, Problem Status : Active,, Medical History Problem Title : [facility]: No history of significant medical diseases, Problem Status : Inactive,, Medical History Problem Title : [facility]: Scoliosis, Problem Status : Active,, Medical History Problem Title : no k nown problems, Problem Description : no known problems, Problem Comment : F, Problem Status : Active,, Medical History Problem Title : past medical history E&M, Problem Description : past medical history E&M, Problem Comment : Hypothyroidism Obesity GERD, Problem Status : Active,, Medical History Problem Title : past medical history reviewed, Problem Description : past medical history reviewed, Problem Comment : reviewed - no changes required, Problem Status : Active,, Medical History Problem Title : Plan for BMI Management Documented, Problem Description : Plan for BMI Management Documented, Problem Comment : documented follow-up plan, Problem Status : Active,, Medical History Problem Title : Prob lems Reconciled, Problem Status : Active,, Medical History Problem Title : ALEJANDRO SFUSION HISTORY: No history of receiving blood or blood product transfusion(s), Problem Status : Inactive,, Medical History Problem Title : Unsp ecified Diagnosis, Problem Status : Active,, Medical History Problem Title : Vari cose Veins, Problem Comment : The patient is here today for follow up ultrasound post Varithena/microfoam chemical ablation left leg. 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 Medical History The patient has no c omplaints at this time. Medical History The patient is curre ntly done with treatment and is to follow up in 2-3 years or if any new symptoms or problems occur., Problem Status : Active,, Medical History Problem Title : very low density lipoproteins, Problem Description : very low density lipoproteins, Problem Comment : 36.0, Problem Status : Active,, Surgical History UTERINE ABLATION 2013 Surgical History SHOULDER SURGERY RIGHT 2017 Surgical History EVLT 2021 Surgical History COLONOSCOPY X2 Surgical History Bilateral cataract surgery & Hospitalization History [facility] Other History general Narrative - Reported Note Date & Type Note Facility History general Narrative - Reported Type Medical History Hypothyroidism, unspecified Medical History Other chronic pain Surgical History UTERINE ABLATION 2013 Surgical History SHOULDER SURGERY RIGHT 2016 Surgical History EVLT 2021 Surgical History COLONOSCOPY X2 Surgical History Bilateral cataract surgery & 3,2022 Hospitalization History [facility] Other Summary Purpose Family History Relationship Condition Age at Onset Recorded Date/T lorraine father Heart disease Unknown Diabetes mellitus Unknown Not Specified Diabetes mellitus Unknown Heart disease Unknown Advance Directives Advance Directive Response Recorded Date/ Time Advance Directives No August 20, 024 1:30pm Reason for Referral Reason Dr. Fernandez at [facility] Diagnosis 1 Pain in right knee ( M25.561) [facility] Referring Provider First Name Franchesca Referring Provider Last Name Luli Referring Provider Specialty [facility] Referred Organization [facility] Referred Address [address] [place], [place],[address] Referred Provider Specialty Orthopaedic Surgery Referral Priority Routine General Notes Nayeli Pascual 09:43:27 AM >received today Nayeli Pascual 12/27/2022 09:45:11 AM >insurance attached, waiting for notes to be locked to fax referral Clinical Notes F: [id number] Chief Complaint and Reason for Visit Chief Complaint Cough, Sinuses Reason for Visit Maxillary sinusitis Chief Complaint Cough, Sinuses EXT 7251 - Back pain, wants muscle relaxer Reason for Visit Maxillary sinusitis Low back pain Muscle spasm Additional Source Comments INFORMATION SOURCE (unrecogn ized section and content) DATE CREATED AUTHOR 08/18/[address] [facility] DATE CREATED AUTHOR AUTHOR'S ORGANIZ ATION 08/24/2023 [facility] REASON FOR VISIT (unrecogniz ed section and content) WELLNESSdiscuss vaccinations URI-COVID Negative- [phone] Care Teams (unrecognized sec tion and content) Team Status: Active Member Role Status Dates Franchesca Go MD Primary Care Provider Active Team Status: Inactive Member Role Status Dates Franchesca Go MD Primary Care Provider Active Start: August 21, 2023 End: August 21, 2023 Ary Calvo APRN NP-C Attending Provider Act blessing Start: August 21, 2023 End: August 21, 2023 Team Status: Inactive Member Role Status Dates Franchesca Go MD Primary Care Provider Active Start: September 03, 2023 End: September 03, 2023 SINA Mckeon Attending Provider Act blessing Start: September 03, 2023 End: September 03, 2023 Goals (unrecognized section and content) Goals may be documented in a n alternate section FOR RECORDS PERTAINING TO PATIENTS WHO ARE OR HAVE BEEN ENROLLED IN A CHEMICAL DEPENDENCY/SUBSTANCEABUSE PROGRAM, SOME INFORMATION MAY BE OMITTED. This clinical summary was aggregated from multiple sources. Caution should be exercised in using it in the provision of clinical care. This summary normalizes information from multiple sources, and as a consequence, information in this document may materially change the coding, format and clinical context of patient data. In addition, data may be omitted in some cases. CLINICAL DECISIONS SHOULD BE BASED ON THE PRIMARY CLINICAL RECORDS. [employer] provides no warranty or guarantee of the accuracy or completeness of information in this document.
[2023-09-25] MEDS: LACTATED RINGER'S SOLUTION 1,000 ML 50 ML IV (07:50)
--- NOTE | 2023-09-25 08:00 | PM.GSPRC ---
Date of procedure: 09/25/23 Indications for Procedure: Screening for cancer Pre-op diagnosis: screening for cancer Post-op diagnosis: other (normal colon) Procedure: colonoscopy Findings: normal colon Anesthesia: SURYAA Surgeon: Alex Álvarez Procedure Summary: PROCEDURE: The patient was taken to the Endoscopy Suite, placed in the left lateral recumbent position, given IV sedation as above. A rectal digital exam was performed. The sphincter tone was found to be normal. No rectal masses were appreciated. The Olympus video colonoscope was advanced under direct visualization to the rectum, sigmoid colon, descending colon, transverse colon and ascending colon to the ileocecal valve.appendiceal lumen was visualized. Prep was good. The underside of the valve was seen. The scope was slowly withdrawn with air being desufflated as it was withdrawn. No gross tumors, polyps or diverticula were seen. The patient tolerated the procedure well and went to the Recovery Area in satisfactory condition. I recommend the patient use a bulk laxative on a regular basis and follow up as needed.I would recommend patient have repeat screening colonoscopy in ten years unless problems. Estimated blood loss (mL): 0 Specimens: none Complications: No Pathology: none sent Condition: stable Disposition: PACU
[2023-09-25 08:22] VITALS: BP 109/63; PULSE 84; TEMP 37.1; O2SAT 95
[2023-09-25 08:37] VITALS: BP 135/77; PULSE 84; O2SAT 97
[2023-09-25 08:52] VITALS: BP 138/81; PULSE 80; O2SAT 95
== END 2023-09-25 08:52 | disposition home or self-care (01) ==
PROVIDERS: PCP Family Medicine; Visit Provider Surgery
PROC: (CPT 00812; principal; 2023-09-25 08:35)
DX: Z12.11 Encounter for screening for malignant neoplasm of colon (principal); Z68.42 Body mass index [BMI] 45.0-49.9, adult; E66.01 Morbid (severe) obesity due to excess calories
CPT/HCPCS: 00812; 45378; 84703; J2704

== ENCOUNTER 2024-01-14 15:12 | Outpatient (OUT) | payer BC, SELFPAY ==
--- NOTE | 2024-01-14 15:23 | MM_ITS ---
Patient Name: JESUS ALBERTO SENA MR#: [id number] : 1970 Exam Date: 01/14/2024 Ordering Doctor: DR Franchesca Rockwell M.D. RADIOLOGY REPORT PROCEDURE: MM TOMOSYNTHESIS SCREENING BI COMPARISON: MM TOMOSYNTHESIS SCREENING BI, 12/11/2022. MG MAMM SCREEN 3D MICHAEL CAD, 11/21/2021. MG MAMM SCREEN 3D MICHAEL CAD, 08/09/2020. MG MAMM MICHAEL SCRN W CAD DIG, 09/16/2013. INDICATIONS: Screening Calculator Name NCI Breast Cancer Risk Assessment Tool 5 Year Breast Cancer Risk 1.60% Lifetime Breast Cancer Risk 11.20% Personal Breast Cancer No Personal Ovarian Cancer No Treatments None Family Cancers None LOCATION: [facility] BREAST COMPOSITION: There are scattered areas of fibroglandular density. FINDINGS: DIAGNOSTIC CATEGORY 1--NEGATIVE. RIGHT BREAST: No significant suspicious finding. No significant change has occurred. LEFT BREAST: No significant suspicious finding. No significant change has occurred. RECOMMENDATIONS: ROUTINE MAMMOGRAM AND CLINICAL EVALUATION IN 12 MONTHS. PLEASE NOTE: A NORMAL MAMMOGRAM DOES NOT EXCLUDE THE POSSIBILITY OF BREAST CANCER. A CLINICALLY SUSPICIOUS PALPABLE LUMP SHOULD BE BIOPSIED. Dictated by: Rasheed Wells M.D. on 01/17/2024 at 08:26 Approved by: Rasheed Wells M.D. on 01/17/2024 at 08:28
--- OUTSIDE RECORDS SUMMARY | 2024-01-14 15:35 | XMS_ITS | CCD ---
Author Organization [facility] Care Team Providers Care Tag Stringer Name Role Phone SARA, DR MIKHAIL Whitaker Attending Unavailable WEST, DR MIKHAIL Whitaker Admitting Unavailable GO, FRANCHESCA E Primary Care Unavailable WEST, DR MIKHAIL Whitaker Consulting Unavailable ZIEBJADYN, DR RASHEED Martinez Consulting Unavailable WEST, DR [...] Unavailable ZIEBER, DR RASHEED Martinez Consulting Unavailable GO, FRANCHESCA E Primary Care Unavailable HOY ., DR GARDUNO Attending Unavailable HOY ., DR GARDUNO Admitting Unavailable HOY ., DR GARDUNO Consulting Unavailable WEST, DR MIKHAIL Whitaker Attending Unavailable WEST, DR MIKHAIL Whitakre Admmauricio Unavailable GO, FRANCHESCA E Primary Care [...] Whitaker Admitting Unavailable WEST, DR MIKHAIL Whitaker Consulting Unavailable GO, FRANCHESCA E Primary Care Unavailable WEST, DR MIKHAIL Whitaker Admitting Unavailable WEST, DR MIKHAIL Whitaker Attending Unavailable WEST, DR MIKHAIL Whitaker Attending Unavailable WEST, DR MIKHAIL Whitaker Consulting Unavailable WEST, DR MIKHAIL Whitaker Admitting Unavailable GO, FRANCHESCA E Primary Care Unavailable [facility], DR RASHEED Martinez Consulting Unavailable WEST, DR MIKHAIL Whitaker Consulting Unavailable WEST, DR MIKHAIL Whitaker Attending Unavailable GO, FRANCHESCA E Primary Care Unavailable WEST, DR MIKHAIL Whitaker Admitting Unavailable ZIEB, DR RASHEED Martinez Consulting Unavailable GO, FRANCHESCA [...] Unavailable GO, FRANCHESCA E Primary Care Unavailable CAMACHO CARNEY Attending Unavailable Allergies Allergy Classification Reported Allergen(s) Allergy Type Date of Onset Reaction(s) Facility (6 sources) Erythromycin; Translations: [ERYTHROMYCIN BASE] Drug Allergy 4 Unknown Reaction [facility] (6 sources) Penicillins; Translations: [PENICILLINS] Drug allergy (disorder) 4 Unknown Reaction [facility] (3 sources) Erythromycin Drug Allergy 9 Unknown Carbon Salon Other (3 sources) Penicillin Drug Allergy 7 Unknown Carbon Salon Other (6 sources) Bupivacaine; Translations: [BUPIVACAINE] Drug Allergy 4 anaphylaxis [facility] (6 sources) Lidocaine; Translations: [LIDOCAINE] Drug Allergy 4 anaphylaxis [facility] (6 sources) methylPREDNISolo ne; Translations: [METHYLPREDNISOL ONE] Drug Allergy 4 anaphylaxis [facility] Medications Current Medications Medication Drug Class(es) Dates Sig (Normalized) Sig (Original) acetaminophen 325 mg oral tablet (6 sources) Start: 08-21-2023 take 1 tablet by mouth every six hours Acetaminophen (Tylenol) 325 mg tablet Active 325 MG PO Every 6 hours August 21, 2023 12:00am Start: 05-03-2022 Tylenol 325MG Tylenol( 325MG Oral as needed ) Active -Hx Entry Oral as needed for 0 *Pick strength-form from [employer] for eRX* Apr, Active benzonatate 200 mg oral capsule (1 source) Non-narcotic Antitussive Start: 05-17-2023 take 1 capsule by mouth every eight hours Benzonatate 200 MG 1 capsule Orally Three times a day for 10 day(s) May, Active cefdinir 300 mg oral capsule (1 source) Cephalosporin Antibacterial Start: 05-17-2023 Cefdinir 300 MG as directed Orally bid for 7 days May, Active levothyroxine sodium 0.15 mg oral tablet (9 sources) l-Thyroxine Start: 09-03-2023 take 1 tablet by mouth once daily in the morning Levothyroxine Active 0 .ROUTE .COMPLEX September 03, 2023 2:31pm TAKE 1 TABLET [...] Active oral daily for 0 *Reorder from [employer] for eRx and Interaction Alerts* Apr, Active Levothyroxine So dium 150 MCG TAKE 1 TABLET BY MOUTH EVERY DAY IN THE MORNING ON EMPTY STOMACH FOR 90 DAYS for 90 Active take 1 tablet by shanique th once daily in the morning Levothyroxine Sodium 150 MCG 1 tablet in the morning on an empty stomach Orally Once a day for 90 days Active meloxicam 15 mg oral tablet (1 source) Nonsteroidal Anti-inflammatory Drug Start: 01-09-2024 take 15 mg by mouth once daily Meloxicam Active 15 MG PO Daily January 09, 2024 12:00am Completed/Discontinued Medications Medication Drug Class(es) Dates Sig (Normalized) Sig (Original) cyclobenzaprine hydrochloride 10 mg oral tablet (2 sources) Muscle Relaxant Start: 09-03-2023 End: 01-09-2024 take 10 mg by mouth every eight hours Cyclobenzaprine Discontinued 10 MG PO Every 8 hours 30 September 03, 2023 12:00am January 09, 2024 9:14am doxycycline monohydrate 100 mg oral capsule (3 sources) Tetracycline-cl ass Drug Start: 08-21-2023 End: 01-09-2024 take 100 mg by mouth twice daily Doxycycline Monohydrate Discontinued 100 MG PO Twice daily 20 August 21, 2023 12:00am January 09, 2024 9:14am Problems Active Problems Problem Classification Problem Date [...] left leg] Episodic Other connective tissue disease (2 sources) Spasm; Translations: [Other muscle spasm] 09-03-2023 Episodic [...] conditions (not mental disorders or infectious disease) (8 sources) Encounter for screening mammogram for malignant neoplasm of breast; Translations: [Encounter for screening for malignant neoplasm of cervix] Onset: 2 Episodic Other upper respiratory disease (1 source) Allergic rhinitis; Translations: [Allergic rhinitis, unspecified] Chronic Other upper respiratory infections (5 sources) Maxillary sinusitis; Translations: [Chronic maxillary sinusitis] 08-21-2023 Chronic Phlebitis; thrombophlebitis and thromboembolism (10 sources) Phlebitis and thrombophlebitis of superficial vessels of left lower extremity; Translations: [Phlebitis and thrombophlebitis of superficial vessels of right lower extremity] Onset: 2 Episodic Residual codes; unclassified (1 source) Localized edema; Translations: [Localized edema] Episodic Residual codes; unclassified (1 source) Tobacco user; Translations: [Tobacco use] Episodic Residual codes; unclassified (1 source) History of colonoscopy; Translations: [Other specified postprocedural states] 01-09-2024 Episodic Residual codes; unclassified (1 source) Other specified postprocedural states; Translations: [Other postprocedural status] 01-09-2024 Episodic Spondylosis; intervertebral disc disorders; other back problems (3 sources) Low back pain; Translations: [Low back pain] 09-03-2023 Episodic Sprains and strains (2 sources) Late effect of sprain AND/OR strain without tendon injury; Translations: [Strain of muscle(s) and tendon(s) of peroneal muscle group at lower leg level, left leg, sequela] Episodic Thyroid disorders (6 sources) Hypothyroidism; Translations: [Hypothyroidism, unspecified] Onset: 4 [...] AGon 08-10 INFLUANEGH SEE BELOW Normal [facility] Comment on above: Result Comment: Nega tive for Flu A protein angiten. Infection due to Flu A cannot be ruled out. Flu A angiten in the sample may be below the detection limit of the test. Performed By: #### I NFLUAB ####[facility] [address] [place], [place] [address]Dr. Betsy Avery INFLUBNEGH SEE BELOW Normal [facility] Comment on above: Result Comment: Nega tive for Flu B protein antigen. Infection due to Flu B cannot be ruled out. Flu B antigen in the sample may be below the detection limit of the test. Performed By: #### I NFLUAB ####[facility] [address] [place], [place] [address]Dr. Betsy Avery INFLUENZA A AG Negative Normal NEGATIVE SEE COMMENT [facility] Comment on above: Performed By: #### I NFLUAB ####[facility] [address] [place], [place] [address]Dr. Betsy Avery INFLUENZA B AG Negative Normal NEGATIVE SEE COMMENT [facility] Comment on above: Performed By: #### I NFLUAB ####[facility] [address] [place], [place] [address]Dr. Betsy Avery SYMPTOMATIC COVID-19 ANTIGEN on 08-10-2022 EUA Statement SEE BELOW Normal [facility] Comment on above: Result Comment: This test [...] sooner. Performed By: #### C VDAGS #### [facility] [address] [address] [address] Betsy Avery SARS-CoV-2 (COVID-19) RNA CLAUDIA+probe Ql (Unsp spec) Positive Abnormal NEGATIVE [facility] Comment on above: Performed By: #### C VDAGS #### [facility] [address] [address] [address] Betsy Avery Covid-19 PCR (CVDTBH)on 07-12 SARS-CoV-2 (COVID-19) RNA CLAUDIA+probe Ql (Unsp spec) Detected Abnormal NOT DETECTED [facility] Comment on above: Result Comment: This test is not yet approved or cleared by the [place] FDA. When there are no FDA-approved or cleared tests available, and other criteria are met, FDA can make tests available under an emergency access mechanism called an Emergency Use Authorization (EUA). The EUA for this test is supported by the Shipping Order Clerk of Health and Human Service's declaration that [...] be used). Performed By: #### C VDTBH ####[facility] [address] [place], [place] [address]Dr. Betsy Avery INFLUENZA A AND B AGon 08-04 INFLUANEGH SEE BELOW Normal [facility] Comment on above: Result Comment: Nega tive for Flu A protein angiten. Infection due to Flu A cannot be ruled out. Flu A angiten in the sample may be below the detection limit of the test. Performed By: #### I NFLUAB ####[facility] [address] [address]Dr. Betsy Avery INFLUBNEGH SEE BELOW Normal [facility] Comment on above: Result Comment: Nega tive for Flu B protein antigen. Infection due to Flu B cannot be ruled out. Flu B antigen in the sample may be below the detection limit of the test. Performed By: #### I NFLUAB ####[facility] [address] [address]Dr. Betsy Avery INFLUENZA A AG Negative Normal NEGATIVE SEE COMMENT [facility] Comment on above: Performed By: #### I NFLUAB ####[facility] [address] [address]Dr. Betsy Avery INFLUENZA B AG Negative Normal NEGATIVE SEE COMMENT [facility] Comment on above: Performed By: #### I NFLUAB ####[facility] [address] [address]Dr. Betsy Avery VC CONSULT FOLLOWUPon 2021 VC CONSULT FOLLOWUP Patient: MANISHA SENA Exam Date: 05/03/2022 : 1970 Gender:F Ordering : DR MIKHAIL RUIZ M.D. Admission #: [id number] Family : Order #: [id number] CLICK HERE TO VIEW EXAM RADIOLOGY REPORT [...] Wells M.D. on 05/03/2022 at 09:51 Normal [facility] VC EXT VENOUS LT LIMITEDon 1 07-04-2021 VC EXT VENOUS LT LIMITED Patient: YOLANDA SENA. Exam Date: 05/03/2022 : 1970 Gender:F Ordering : DR MIKHAIL RUIZ M.D. Admission #: [id number] Family : Order #: [id number] CLICK HERE TO VIEW EXAM RADIOLOGY REPORT [...] Rasheed Wells M.D. on 05/03/2022 at 09:49 Normal [facility] VC INJ FOAM SCLERO W US MLTI on 04-25-2022 VC INJ FOAM SCLERO W US MLTI Patient: JAIDA YOLANDA Jeanne. Exam Date: 04/25/2022 : 1970 Gender:F Ordering : DR MIKHAIL RUIZ M.D. Admission #: [id number] Family : Order #: [id number] CLICK HERE TO VIEW EXAM RADIOLOGY REPORT [...] Wells M.D. 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 Admission #: [id number] Family : Order #: [id number] CLICK HERE TO VIEW EXAM RADIOLOGY REPORT [...] Ruiz MD on 04/19/2022 at 11:31 Normal [facility] VC CONSULT FOLLOWUPon 2021 VC CONSULT FOLLOWUP Patient: MANISHA SENA Exam Date: 04/17/2022 : 1970 Gender:F Ordering : DR MIKHAIL RUIZ M.D. Admission #: [id number] Family : Order #: [id number] CLICK HERE TO VIEW EXAM RADIOLOGY REPORT [...] Ruiz MD on 04/17/2022 at 15:02 Normal [facility] VC EXT VENOUS RT LIMITEDon 1 06-18-2021 VC EXT VENOUS RT LIMITED Patient: JAIDA YOLANDA Jeanne. Exam Date: 04/17/2022 : 1970 Gender:F Ordering : DR MIKHAIL RUIZ M.D. Admission #: [id number] Family : Order #: [id number] CLICK HERE TO VIEW EXAM RADIOLOGY REPORT [...] Ruiz MD on 04/17/2022 at 13:06 Normal [facility] VC INJ FOAM SCLERO W US MLTI on 04-09-2022 VC INJ FOAM SCLERO W US MLTI Patient: YOLANDA SENA Jeanne. Exam Date: 04/09/2022 : 1970 Gender:F Ordering : DR MIKHAIL RUIZ M.D. Admission #: [id number] Family : Order #: [id number] CLICK HERE TO VIEW EXAM RADIOLOGY REPORT [...] Wells M.D. on 04/09/2022 at 13:53 Normal [facility] VC CONSULT FOLLOWUPon 2021 VC CONSULT FOLLOWUP Patient: MANISHA SENA Exam Date: 03/22/2022 : 1970 Gender:F Ordering : DR MIKHAIL RUIZ M.D. Admission #: [id number] Family : Order #: [id number] CLICK HERE TO VIEW EXAM RADIOLOGY REPORT [...] Ruiz MD on 03/22/2022 at 09:35 Normal [facility] VC EXT VENOUS LT LIMITEDon 1 05-22-2021 VC EXT VENOUS LT LIMITED Patient: YOLANDA SENA Exam Date: 03/22/2022 : 1970 Gender:F Ordering : DR MIKHAIL RUIZ M.D. Admission #: [id number] Family : Order #: [id number] CLICK HERE TO VIEW EXAM RADIOLOGY REPORT [...] Ruiz MD on 03/22/2022 at 08:19 Normal [facility] VC ENDOVENOUS ABL 1ST V LTon 03-14-2022 VC ENDOVENOUS ABL 1ST V LT Patient: YOLANDA SENA Exam Date: 03/14/2022 : 1970 Gender:F Ordering : DR MIKHAIL RUIZ M.D. Admission #: [id number] Family : Order #: [id number] CLICK HERE TO VIEW EXAM RADIOLOGY REPORT PROCEDURE: VEIN CENTER ENDOVENOUS ABLATION FIRST VEIN LEFT SMALL SAPHENOUS VEIN COMPARISON: VC ENDOVENOUS ABL 1ST V LT, 08/24/2021. INDICATIONS: Pain co-occurrent and due to varicose veins of bilateral legs I83.813 OPERATIVE REPORT: The risks and benefits of the procedure had been previously discussed, and were rediscussed at length. Informed written consent was obtained by ak and Dale Griffith assisted. Time out procedure was performed. The left [...] MD on 03/14/2022 at 08:48 Normal [facility] CBC AUTO DIFFon 11-21-2021 BASO # 0.1 103/ul Normal 0.0-0.1 [facility] Comment on above: Performed By: #### C BC ####[facility] [address] [address]Dr. Betsy Avery Basophils/100 WBC (Bld) 0.8 % Normal 0.2-2.0 [facility] Comment on above: Performed By: #### C BC ####[facility] [address] [id number] Avery EO # 0.3 103/ul Normal 0.0-0.7 [facility] Comment on above: Performed By: #### C BC ####[facility] [address] [id number]. Betsy Avery Eosinophils/100 WBC (Bld) 3.6 % Normal 0.9-7.0 [facility] Comment on above: Performed By: #### C BC ####[facility] [address] [address]Dr. Betsy Avery Erythrocyte distribution width (RBC) [Ratio] 13.7 % Normal 11.0-15.0 [facility] Comment on above: Performed By: #### C BC ####[facility] [address] [address]Dr. Betsy Avery Hematocrit (Bld) [Volume fraction] 41.8 % Normal 36.0-48.0 [facility] Comment on above: Performed By: #### C BC ####[facility] [address] [place], [place] [address]Dr. Betsy Avery Hemoglobin (Bld) [Mass/Vol] 13.1 g/dL Normal 12.0-16.0 [facility] Comment on above: Performed By: #### C BC ####[facility] [address] [place], [place] [address]Dr. Betsy Avery IG # 0.02 10e3/ul Normal 0.00-0.03 [facility] Comment on above: Performed By: #### C BC ####[facility] [address] [place], [place] [address]Dr. Betsy Avery IG % 0.3 % Normal 0.0-0.5 [facility] Comment on above: Performed By: #### C BC ####[facility] [address] [place], [place] [address]Dr. Betsy Avery LYMPH # 2.7 103/ul Normal 1.2-3.8 [facility] Comment on above: Performed By: #### C BC ####[facility] [address] [place], [place] [address]Dr. Betsy Avery Lymphocytes/100 WBC (Bld) 35.0 % Normal 20.5-60.0 [facility] Comment on above: Performed By: #### C BC ####[facility] [address] [place], [place] [address]Dr. Betsy Avery MANUAL DIFF REQ NO Normal [facility] Comment on above: Performed By: #### C BC ####[facility] [address] [address]Dr. Betsy Bennie MCH (RBC) [Entitic mass] 26.6 pg Critically low 26.7-34.0 [facility] Comment on above: Performed By: #### C BC ####[facility] [address] [address]Dr. Betsy Avery MCHC (RBC) [Mass/Vol] 31.3 g/dL Normal 29.9-35.2 [facility] Comment on above: Performed By: #### C BC ####[facility] [address] [address]Dr. Betsy Avery MCV (RBC) [Entitic vol] 84.8 fL Normal 81.0-99.0 [facility] Comment on above: Performed By: #### C BC ####[facility] [address] [place], [place] [address]Dr. Betsy Avery MONO # 0.4 103/ul Normal 0.3-0.8 [facility] Comment on above: Performed By: #### C BC ####[facility] [address] [place], [place] [address]Dr. Betsy Avery Monocytes/100 WBC (Bld) 5.3 % Normal 1.7-12.0 [facility] Comment on above: Performed By: #### C BC ####[facility] [address] [place], [place] [address]DrJai Avery NEUT # 4.3 103/ul Normal 1.4-6.5 [facility] Comment on above: Performed By: #### C BC ####[facility] [address] [place], [place] [address]DrJai Avery Neutrophils/100 WBC (Bld) 55.0 % Normal 43.0-75.0 [facility] Comment on above: Performed By: #### C BC ####[facility] [address] [place], [place] [address]DrJai Avery Platelet mean volume (Bld) [Entitic vol] 10.7 fL Normal 9.5-13.5 [facility] Comment on above: Performed By: #### C BC ####[facility] [address] [address]Dr. Betsy vAery PLT 331 103/ul Normal 150-450 [facility] Comment on above: Performed By: #### C BC ####[facility] [address] [id number]. Betsy Avery RBC 4.93 106/ul Normal 4.20-5.40 [facility] Comment on above: Performed By: #### C BC ####[facility] [address] [address]Dr. Betsy Avery WBC 7.8 103/ul Normal 4.0-11.0 [facility] Comment on above: Performed By: #### C BC ####[facility] [address] [address]Dr. Betsy Avery GLYCOHEMOGLOBIN A1Con 2021 ADA RECOMMENDATION SEE BELOW Normal [facility] Comment on above: Result Comment: ADA RECOMMENDED LIMIT 4.0 - 6.0 [facility] THERAPEUTIC TARGET < 7.0 ACTION SUGGESTED > 7.0 Performed By: #### A 1C ####[facility] [address] [place], [place] [address]Dr. Betsy Avery Glucose [Mass/Vol] 131 mg/dL Normal [facility] Comment on above: Performed By: #### A 1C ####[facility] [address] [place], [place] [address]Dr. Betsy Avery HbA1c (Bld) [Mass fraction] 6.2 % Normal 4.5-6.2 [facility] Comment on above: Performed By: #### A 1C ####[facility] [address] [place], [place] [address]Dr. Betsy Avery LIPID PROFILEon 11-21-2021 CHOL-HDL RATIO NORM SEE BELOW Normal [facility] Comment on above: Result Comment: 3.3 - 4.4 LOW RISK 4.4 - 7.1 AVERAGE RISK 7.1 - 11.0 MODERATE RISK >11.0 HIGH RISK Performed By: #### C MP, LIPID, TSH #### [facility] [address] [address] [address] Betsy Avery Cholesterol [Mass/Vol] 195 mg/dL Normal <=200 [facility] Comment on above: Performed By: #### C MP, LIPID, TSH #### [facility] [address] [address] [address] Betsy Avery Cholesterol in HDL [Mass/Vol] 50 mg/dL Normal 40-60 [facility] Comment on above: Performed By: #### C MP, LIPID, TSH #### [facility] [address] [address] [address] Betsy Avery Cholesterol in LDL [Mass/Vol] 116.0 mg/dL Normal [facility] Comment on above: Performed By: #### C MP, LIPID, TSH #### [facility] [address] [address] [address] Betsy Avery Cholesterol.total/Ch olesterol in HDL [Mass ratio] 3.9 {ratio} Normal [facility] Comment on above: Performed By: #### C MP, LIPID, TSH #### [facility] [address] [address] [address] Betsy Avery HDL NORMAL > or = 60 mg/dl - LO W CARDIOVASCULAR RISK <40 mg/dl - HIGH CARDIOVASCULAR RISK Normal [facility] Comment on above: Performed By: #### C MP, LIPID, TSH #### [facility] [address] [address] [address] Betsy Avery LDL CALC NORMAL SEE BELOW Normal [facility] Comment on above: Result Comment: <100 mg/dl OPTIMAL 100 - 129 mg/dl NEAR OR ABOVE OPTIMAL 130 - 159 mg/dl BORDERLINE HIGH 160 - 189 mg/dl HIGH >190 mg/dl VERY HIGH Performed By: #### C MP, LIPID, TSH #### [facility] [address] [address] [address] Betsy Avery Triglyceride [Mass/Vol] 145 mg/dL Normal <=150 [facility] Comment on above: Performed By: #### C MP, LIPID, TSH #### [facility] [address] [address] [address] Betsy Avery VLDL CALC 29.0 mg/dL Normal [facility] Comment on above: Performed By: #### C MP, LIPID, TSH #### [facility] [address] [place], [place] [address] Dr. Betsy Avery MG MAMM SCREEN 3D MICHAEL CADon 11-21-2021 MG MAMM SCREEN 3D MICHAEL CAD Patient: YOLANDA SENA Exam Date: 11/21/2021 : 1970 Gender:F Ordering : DR FRANCHESCA GO M.D. Admission #: [id number] Family : Order #: [id number] CLICK HERE TO VIEW EXAM RADIOLOGY REPORT [...] Treatments None Family Cancers None LOCATION: [facility] BREAST COMPOSITION: Scattered areas fibroglandular density. FINDINGS: [...] Ruiz MD on 11/21/2021 at 09:45 Normal [facility] PROF 14(COMP METB)on 022 Albumin [Mass/Vol] 3.5 g/dL Normal 3.4-5.0 [facility] Comment on above: Performed By: #### C MP, LIPID, TSH #### [facility] [address] [place], [place] [address] Dr. Betsy Avery Albumin/Globulin [Mass ratio] 0.8 {ratio} Normal [facility] Comment on above: Performed By: #### C MP, LIPID, TSH #### [facility] [address] [address] [address] Betsy Avery ALP [Catalytic activity/Vol] 93 U/L Normal 46-116 [facility] Comment on above: Performed By: #### C MP, LIPID, TSH #### [facility] [address] [address] [address] Betsy Avery ALT [Catalytic activity/Vol] 18 U/L Normal 14-59 [facility] Comment on above: Performed By: #### C MP, LIPID, TSH #### [facility] [address] [address] [address] Betsy Avery Anion gap [Moles/Vol] 13.2 mmol/L Normal [facility] Comment on above: Performed By: #### C MP, LIPID, TSH #### [facility] [address] [address] [address] Betsy Avery AST [Catalytic activity/Vol] 27 U/L Normal 15-37 [facility] Comment on above: Performed By: #### C MP, LIPID, TSH #### [facility] [address] [address] [address] Betsy Avery Bilirubin [Mass/Vol] 0.3 mg/dL Normal 0.2-1.0 [facility] Comment on above: Performed By: #### C MP, LIPID, TSH #### [facility] [address] [address] [address] Betsy Avrey Calcium [Mass/Vol] 9.2 mg/dL Normal 8.5-10.1 [facility] Comment on above: Performed By: #### C MP, LIPID, TSH #### [facility] [address] [address] [address] Betsy Avery Chloride [Moles/Vol] 105 mmol/L Normal 98-107 [facility] Comment on above: Performed By: #### C MP, LIPID, TSH #### [facility] [address] [address] [address] Betsy Avery CO2 [Moles/Vol] 25.2 mmol/L Normal 21.0-32.0 [facility] Comment on above: Performed By: #### C MP, LIPID, TSH #### [facility] [address] [address] [address] Betsy Avery Creatinine [Mass/Vol] 0.89 mg/dL Normal 0.55-1.02 [facility] Comment on above: Performed By: #### C MP, LIPID, TSH #### [facility] [address] [address] [address] Betsy Avery EGFR-AF CENTRAL AFRICAN >60 Normal >=60 [facility] Comment on above: Performed By: #### C MP, LIPID, TSH #### [facility] [address] [address] [address] Betsy Avery EGFR-NON AF CENTRAL AFRICAN >60 Normal >=60 [facility] Comment on above: Performed By: #### C MP, LIPID, TSH #### [facility] [address] [address] [address] Betsy Avery Globulin (S) [Mass/Vol] 4.2 g/dL Normal [facility] Comment on above: Performed By: #### C MP, LIPID, TSH #### [facility] [address] [address] [address] Betsy Avery Glucose [Mass/Vol] 130 mg/dL Critically high 74-106 [facility] Comment on above: Performed By: #### C MP, LIPID, TSH #### [facility] [address] [address] [address] Betsy Avery Potassium [Moles/Vol] 4.4 mmol/L Normal 3.5-5.1 [facility] Comment on above: Performed By: #### C MP, LIPID, TSH #### [facility] [address] [address] [address] Betsy Avery Protein [Mass/Vol] 7.7 g/dL Normal 6.4-8.2 [facility] Comment on above: Performed By: #### C MP, LIPID, TSH #### [facility] [address] [address] [address] Betsy Avery Sodium [Moles/Vol] 139 mmol/L Normal 136-145 [facility] Comment on above: Performed By: #### C MP, LIPID, TSH #### [facility] [address] [address] [address] Betsy Avery Urea nitrogen [Mass/Vol] 15.0 mg/dL Normal 7.0-18.0 [facility] Comment on above: Performed By: #### C MP, LIPID, TSH #### [facility] [address] [place] [address] Dr. Betsy Avery Urea nitrogen/Creatinine [Mass ratio] 16.9 mg/mg Normal [facility] Comment on above: Performed By: #### C MP, LIPID, TSH #### [facility] [address] [place] [address] Dr. Betsy Avery TSHon 11-21-2021 TSH 2.111 uIU/mL Normal 0.358-3.740 [facility] Comment on above: Performed By: #### C MP, LIPID, TSH #### [facility] [address] [place] [address] Dr. Betsy Avery PAP ACOG PANEL 2: 30 to 65on 11-20-2021 . . Normal [facility] Comment on above: Result Comment: Perf ormed at: WB Performed By: #### [id number] #### [facility] [address] [place] [address] Dr. Betsy Avery Age Gdln ACOG Testing 30-65 [facility] Comment on above: Performed By: #### [id number] #### [facility] [address] [place] [address] Dr. Betsy Avery DIAGNOSIS: Comment Normal [facility] Comment on above: Result Comment: NEGA TIVE FOR INTRAEPITHELIAL LESION OR MALIGNANCY. Performed at: WB Performed By: #### [id number] #### [facility] [address] [place] [address] Dr. Betsy Avery HPV Aptima Negative Normal Negative [facility] Comment on above: Result Comment: This nucleic acid amplification test detects fourteen high-risk HPV types (16,18,31,33,35,39,45,51,52,56,58,59,66,68) without differentiation. Performed at: =G Performed By: #### [id number] #### [facility] [address] [place] [address] Dr. Betsy Avery Methodology: Comment Normal [facility] Comment on above: Result Comment: This liquid based ThinPrep(R) pap test was screened with the use of an image guided system. Performed at: WB Performed By: #### [id number] #### [facility] [address] [place] [address] Dr. Betsy Avery Note: Comment Normal [facility] Comment on above: Result Comment: The Pap smear is a screening test designed to aid in the detection of premalignant and malignant conditions of the uterine cervix. It is not a diagnostic procedure and should not be used as the sole means of detecting cervical cancer. Both false-positive and false-negative reports do occur. . Performed at: WB Performed By: #### [id number] #### [facility] [address] [place] [address] Dr. Betsy Avery Performed by: Comment Normal [facility] Comment on above: Result Comment: Diane Braswell, Gas Analyst (ASCP) Performed at: WB Performed By: #### [id number] #### [facility] [address] [place] [address] Dr. Betsy Avery Specimen adequacy: Comment Normal [facility] Comment on above: Result Comment: Sati sfactory for evaluation. No endocervical component is identified. Performed at: WB Performed By: #### [id number] #### [facility] [address] [place] [address] Dr. Betsy Avery VC CONSULT FOLLOWUPon 2021 VC CONSULT FOLLOWUP Patient: MANISHA SENA Exam Date: 09/21/2021 : 1970 Gender:F Ordering : DR MIKHAIL RUIZ M.D. Admission #: [id number] Family : Order #: [id number] CLICK HERE TO VIEW EXAM RADIOLOGY REPORT [...] consultation Dictated by: Mikhail Ruiz MD on 09/21/2021 at 11:04 Approved by: Mikhail Ruiz MD on 09/21/2021 at 11:16 Normal [facility] VC EXT VENOUS RT LIMITEDon 0 09-21-2021 VC EXT VENOUS RT LIMITED Patient: YOLANDA SENA Exam Date: 09/21/2021 : 1970 Gender:F Ordering : DR MIKHAIL RUIZ M.D. Admission #: [id number] Family : Order #: [id number] CLICK HERE TO VIEW EXAM This report [...] Ruiz MD on 09/28/2021 at 10:25 Normal [facility] VC ENDOVENOUS ABL 1ST V RTon 09-11-2021 VC ENDOVENOUS ABL 1ST V RT Patient: YOLANDA SENA Exam Date: 09/11/2021 : 1970 Gender:F Ordering : DR MIKHAIL RUIZ M.D. Admission #: [id number] Family : Order #: [id number] CLICK HERE TO VIEW EXAM RADIOLOGY REPORT [...] clements. Time out procedure was performed. The right [...] Mikhail Ruiz MD on 09/11/2021 at 09:20 Normal [facility] VC CONSULT FOLLOWUPon 2021 VC CONSULT FOLLOWUP Patient: MANISHA SENA Exam Date: 08/30/2021 : 1970 Gender:F Ordering : DR MIKHAIL RUIZ M.D. Admission #: [id number] Family : Order #: [id number] CLICK HERE TO VIEW EXAM RADIOLOGY REPORT [...] Wells M.D. on 08/30/2021 at 09:44 Normal [facility] VC EXT VENOUS LT LIMITEDon 0 08-30-2021 VC EXT VENOUS LT LIMITED Patient: YOLANDA SENA. Exam Date: 08/30/2021 : 1970 Gender:F Ordering : DR MIKHAIL RUIZ M.D. Admission #: [id number] Family : Order #: [id number] CLICK HERE TO VIEW EXAM RADIOLOGY REPORT [...] calf veins. *Exam performed in accordance with [facility] practice guidelines- Peripheral venous ultrasound, August 06, 2009. CONCLUSION: 1. 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 Dictated by: Rasheed Wells M.D. on 08/30/2021 at 09:15 Approved by: Rasheed Wells M.D. on 08/30/2021 at 09:26 [facility] VC ENDOVENOUS ABL 1ST V LTon 08-24-2021 VC ENDOVENOUS ABL 1ST V LT Patient: JAIDA YOLANDA Jeanne. Exam Date: 08/24/2021 : 1970 Gender:F Ordering : DR MIKHAIL RUIZ M.D. Admission #: [id number] Family : Order #: [id number] CLICK HERE TO VIEW EXAM RADIOLOGY REPORT [...] Ruiz MD on 08/24/2021 at 10:51 Normal [facility] Vital Signs Date Time Vital Sign Value Performing Clinician Facility 01-09-2024 09:06-0400 Body height 172.72 cm [facility] 01-09-2024 09:06-0400 Body mass index (BMI) [Ratio] 48.2 kg/m2 [facility] 01-09-2024 09:06-0400 Body weight 143.78 kg [facility] 01-09-2024 09:06-0400 Diastolic blood pressure 70 mm[Hg] [facility] 01-09-2024 09:06-0400 Heart rate 71 /min [facility] 01-09-2024 09:06-0400 Systolic blood pressure 108 mm[Hg] [facility] 08-21-2023 13:25-0400 Body height 172.72 cm [facility] 08-21-2023 13:25-0400 Body mass index (BMI) [Ratio] 48.4 kg/m2 [facility] 08-21-2023 13:25-0400 Body weight 144.69 kg [facility] 08-21-2023 13:25-0400 Diastolic blood pressure 78 mm[Hg] [facility] 08-21-2023 13:25-0400 Heart rate 81 /min [facility] 08-21-2023 13:25-0400 SaO2% (BldA) [Mass fraction] 96 % [facility] 08-21-2023 13:25-0400 Systolic blood pressure 110 mm[Hg] [facility] 02-22-2023 08:30-0400 Body height 172.72 cm Franchesca Go Other [facility] 02-22-2023 08:30-0400 Body mass index (BMI) [Ratio] 47.89 kg/m2 Franchesca Go Other [facility] 02-22-2023 08:30-0400 Body weight 142.88 kg Franchesca Go Other [facility] Other 02-22-2023 08:30-0400 Diastolic blood pressure 78 mm[Hg] Franchesca Go Other [facility] Other 02-22-2023 08:30-0400 Systolic blood pressure 136 mm[Hg] Franchesca Go Other [facility] Other 12-27-2022 08:30-0400 Body height 172.72 cm Franchesca Go Other [facility] Other 12-27-2022 08:30-0400 Body mass index (BMI) [Ratio] 47.89 kg/m2 Franchesca Go Other [facility] Other 12-27-2022 08:30-0400 Body weight 142.88 kg Franchesca Go Other [facility] Other 12-27-2022 08:30-0400 Diastolic blood pressure 70 mm[Hg] Franchesca Go Other [facility] Other 12-27-2022 08:30-0400 Systolic blood pressure 112 mm[Hg] Franchesca Go Other [facility] Other Encounters Encounter Date Encounter Type Care Provider Facility Start: 01-09-2024 Patient encounter status [facility] Start: 01-09-2024 End: 01-09-2024 ambulatory [facility] Work Phone: Start: 01-09-2024 End: 01-09-2024 Encounter for general adult medical examination without abnormal findings [facility] Start: 01-09-2024 End: 01-09-2024 Patient encounter procedure [facility] Physician [facility] Work Phone: Start: 10-03-2023 End: 10-03-2023 ambulatory CAMACHO CARNEY Not Available Start: 09-03-2023 End: 09-03-2023 ambulatory [facility] Work Phone: Start: 09-03-2023 End: 09-03-2023 Patient encounter procedure [facility] Physician [facility] Work Phone: Start: 08-23-2023 End: 08-23-[address] [facility] Start: 08-21-2023 End: 08-21-2023 ambulatory [facility] Work Phone: Start: 08-21-2023 End: 08-21-2023 Patient encounter procedure [facility] Work Phone: Start: 05-17-2023 End: 05-17-2023 ambulatory Franchesca Go Other [facility] Other Start: 05-17-2023 Office outpatient vi sit 15 minutes Franchesca Go [facility] Start: 02-22-2023 End: 02-22-2023 ambulatory Franchesca Go Other [facility] Other Start: 02-22-2023 Office outpatient vi sit 15 minutes Franchesca Go [facility] Start: 12-27-2022 End: 12-27-2022 ambulatory Franchesca Go Other [facility] Other Start: 12-27-2022 Encounter for genera l adult medical examination without abnormal findings Franchesca Go [facility] Start: 12-27-2022 Periodic preventive med est patient 40-64yrs Franchesca Go [facility] Start: 08-10-2022 End: 08-10-2022 ambulatory FRANCHESCA GO Facility: Start: 08-04-2022 End: 03-26-2023 ambulatory ESPERANZA CLINTON Facility:[facility] Start: 05-04-2022 ambulatory FRANCHESCA GO Facility :[facility] Start: 05-03-2022 Adult health examination Eloise Go Other [facility] Other Start: 05-03-2022 Gynecological examination normal Franchesca Go Other [facility] Other Start: 05-03-2022 History of abnormal cervical Papanicolaou smear Franchesca Go Other [facility] Other Start: 05-03-2022 Problem, abnormal examination Franchesca Luli Other [facility] Other Start: 05-03-2022 End: 05-04-[address] MIKHAIL RUZI Facility:[facility] Start: 04-25-2022 End: 04-26-[address] [...] medical examination without abnormal findings FRANCHESCA GO [facility] Start: 11-21-2021 End: 11-22-2021 ambulatory FRANCHESCA GO Facility:[facility] Start: 11-21-2021 End: 11-22-2021 Encounter for general adult medical examination without abnormal findings FRANCHESCA OG Facility:[facility] Start: 11-16-2021 End: 11-16-2021 ambulatory FRANCHESCA [...] of Treatment Date Care Activity Detail Author Comprehensive metabo lic 2000 panel - Serum or Plasma [facility] MG Breast - bilateral Screening [facility] Patient Education Low back pain in adults [facility] Work Phone: [facility] Payers Date Payer Category Payer Unknown [id number] [address] [id number] 2019 Unknown [id number] 1970 Unknown [id number] 2.16.84 0.1.469732.3.579.2.593 1970 Unknown [id number] 2.16.84 0.1.185014.3.579.2.593 1970 Unknown [id number] 2.16.84 0.1.189798.3.579.2.593 1970 Unknown [id number] 2.16.84 0.1.626701.3.579.2.593 1968 Unknown [id number] 2.16.84 0.1.309646.3.579.2.593 1968 Unknown [id number] 2.16.84 0.1.845424.3.579.2.593 1968 Unknown [id number] 2.16.84 0.1.628696.3.579.2.593 1968 Unknown [id number] 2.16.84 0.1.577364.3.579.2.593 1968 Unknown [id number] 2.16.84 0.1.435175.3.579.2.593 1968 Unknown [id number] 2.16.84 0.1.824631.3.579.2.593 1968 Unknown [id number] 2.16.84 0.1.110533.3.579.2.593 1968 Unknown [id number] 2.16.84 0.1.585308.3.579.2.593 1968 Unknown [id number] 2.16.84 0.1.279936.3.579.2.593 1968 Unknown [id number] 2.16.84 0.1.552300.3.579.2.593 1968 Unknown [id number] 2.16.84 0.1.311994.3.579.2.593 1968 Unknown [id number] 2.16.84 0.1.446097.3.579.2.593 1968 Unknown [id number] 2.16.8 40.1.423371.3.579.2.1286 1970 Unknown [id number] 2.16.84 0.1.164930.3.579.2.1259 1961 Self-pay [id number] 1961 Unknown [id number] Unknown [id number] 2.16.84 0.1.128985.3.579.2.593 Social History Date Type Detail Facility Unknown if ever smoked [facility] Other Sex Assigned At Sex Assigned At [facility] Start: 08-21-2023 Tobacco smoking status NHIS Never smoked tobacco (finding) [facility] Start: 1970 Sex Assigned At Female [facility] NEGATED: Highlighted row [facility] Evaluation note 05-17-2023 Note Date & Type Note Facility 05-17-2023 Evaluation note Encounter Date Diagnosis Assessment Notes May, Bronchitis (ICD-10 - J40) Take antibiotic as directed. If develop wheezing, chest tightness, itching, bad cough, blue skin color, seizures, swelling of face, lips, tongue, or throat report to ED. [facility] Other Evaluation note 02-22-2023 Note Date & Type Note Facility 02-22-2023 Evaluation note Encounter Date Diagnosis Assessment Notes Feb, Anaphylaxis, initial encounter (ICD-10 - T78.2XXA) Form completed per patient's request to be exempt from the flu shot at [facility]. Denies history of influenza, ongoing breathing issues or lung issues. [facility] Other Evaluation note 12-27-2022 Note Date & [...] - will increase dose based on lab [facility] Other Evaluation note Note Date & Type Note Facility Evaluation note Diagnosis Onset Date Maxillary sinusitis acute [facility] Work Phone: Evaluation note Note Date & Type Note Facility Evaluation note Diagnosis Onset Date Maxillary sinusitis acute Low back pain acute Muscle spasm acute [facility] Work Phone: Evaluation note Note Date & Type Note Facility Evaluation note Diagnosis Onset Date H/O colonoscopy acute Hypothyroidism, unspecified acute Screening mammogram for breast cancer acute Wellness examination acute [facility] Work Phone: History general Narrative - Reported [...] : Active,, Medical History Problem Title : [facility] JAMIE: Hypothyroidism, Problem Status : Active,, Medical History Problem Title : [facility]: No history of significant medical diseases, Problem Status : Inactive,, Medical History Problem Title : [facility]: Scoliosis, Problem Status : Active,, Medical History [...] surgery & 3,2022 Hospitalization History SEE SURGICAL HX [facility] Other History general Narrative - Reported Note Date & Type Note Facility History general Narrative - Reported Type Medical History Hypothyroidism, unspecified Medical History Other chronic pain Surgical History UTERINE ABLATION 2013 Surgical History SHOULDER SURGERY RIGHT 2016 Surgical History EVLT 2021 Surgical History COLONOSCOPY X2 Surgical History Bilateral cataract surgery 2 & 3,2022 Hospitalization History SEE SURGICAL HX [facility] Other Summary Purpose Family History Relationship Condition Age at Onset Recorded Date/T lorraine father Heart disease Unknown Diabetes mellitus Unknown Not Specified Diabetes mellitus Unknown Heart disease Unknown Relationship Condition Age at Onset Recorded Date/T lorraine father Heart disease Unknown Diabetes mellitus Unknown mother Diabetes mellitus Unknown Heart disease Unknown Advance Directives Advance Directive Response Recorded Date/ Time Advance Directives No August 20 024 1:30pm Reason for Referral Reason Dr. Fernandez at [facility] Diagnosis 1 Pain in right knee ( M25.561) [facility] Referring Provider First Name Franchesca Referring Provider Last Name Luli Referring Provider Specialty Family [facility] Referred Organization [facility] Referred Address [address] [place], [place],[address] Referred Provider Specialty Orthopaedic Surgery Referral Priority Routine General Notes Nayeli Pascual 09:43:27 AM >received today Nayeli Pascual 12/27/2022 09:45:11 AM >insurance attached, waiting for notes to be locked to fax referral Clinical Notes F: [id number] Chief Complaint and Reason for Visit Chief Complaint Cough, Sinuses Reason for Visit Maxillary sinusitis Chief Complaint Cough, Sinuses EXT [id number] - Back pain, wants muscle relaxer Reason for Visit Maxillary sinusitis Low back pain Muscle spasm Chief Complaint wellness Reason for Visit H/O colonoscopy Hypothyroidism, unspecified Screening mammogram for breast cancer Wellness examination Additional Source Comments INFORMATION SOURCE (unrecogn ized section and content) DATE CREATED AUTHOR 08/18/2022 [facility] DATE CREATED AUTHOR AUTHOR'S ORGANIZ ATION 08/24/2023 [facility] DATE CREATED AUTHOR AUTHOR'S ORGANIZ ATION 10/05/2023 [facility] EPIC REASON FOR VISIT (unrecogniz ed section and content) WELLNESSdiscuss vaccinations URI-COVID Negative- [phone] Care Teams (unrecognized sec tion and content) [...] September 03, 2023 End: September 03, 2023 Ary Calvo APRN NP-Paulina Attending Provider Act blessing Start: September 03, 2023 End: September 03, 2023 Team Status: Inactive Member Role Status Dates Franchesca Go MD Primary Care Provide r, Attending Provider Active Start: January 09, 2024 End: January 09, 2024 Goals (unrecognized section and content) Goals may [...] BE BASED ON THE PRIMARY CLINICAL RECORDS. [facility] [facility]. provides no warranty or guarantee of the accuracy or completeness of information in this document.
== END 2024-01-14 15:13 | disposition home or self-care (01) ==
LOC: MAMMO 15:13
PROVIDERS: PCP Family Medicine; Visit Provider Family Medicine
DX: Z12.31 Encounter for screening mammogram for malignant neoplasm of breast (principal)
CPT/HCPCS: 77063; 77067

== ENCOUNTER 2024-01-15 06:34 | Outpatient (OUT) | payer BC, SELFPAY ==
--- OUTSIDE RECORDS SUMMARY | 2024-01-15 06:36 | XMS_ITS | CCD ---
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 Name Role Phone SARA, DR MIKHAIL Whitaker [...] DR MIKHAIL Whitaker Admmauricio Unavailable WEST, DR MIHKAIL Whitaker Attending Unavailable ZIEBER, DR RASHEED Martinez [...] E Primary Care Unavailable WEST, DR MIKHAIL Whitakre Attending Unavailable WEST, DR MIKHAIL Whitaker Admitting Unavailable WEST, DR MIKHAIL Whitaker Consulting Unavailable GO, FRANCHESCA E Primary Care Unavailable WEST, DR MIKHAIL Whitaker Admitting Unavailable WEST, DR MIKHAIL Whitaker Attending Unavailable WEST, DR MIKHAIL Whitaker Attending Unavailable WEST, DR MIKHAIL Whitaker Consulting Unavailable WEST, DR MIKHAIL Whitaker Admitting Unavailable GO, FRANCHESCA E Primary Care Unavailable BANNER, DR RASHEED Martinez Consulting Unavailable WEST, DR [...] BASE] Drug Allergy 4 Unknown Reaction [facility] (6 sources) Penicillins; Translations: [PENICILLINS] Drug allergy (disorder) 4 Unknown Reaction [facility] (3 sources) Erythromycin Drug Allergy 9 Unknown [employer] Other (3 sources) Penicillin Drug Allergy 7 Unknown [employer] Other (6 sources) Bupivacaine; Translations: [BUPIVACAINE] Drug Allergy 4 anaphylaxis [facility] (6 sources) Lidocaine; Translations: [LIDOCAINE] Drug Allergy 4 anaphylaxis [facility] (6 sources) methylPREDNISolo ne; Translations: [METHYLPREDNISOL ONE] Drug Allergy 4 anaphylaxis [facility] Medications Current Medications Medication Drug Class(es) [...] as needed for 0 *Pick strength-form from [employer] [facility] for eRX* Apr, Active benzonatate 200 mg [...] Active oral daily for 0 *Reorder from [employer] Monitoring for eRx and Interaction Alerts* Apr, Active [...] AGon 08-10 INFLUANEGH SEE BELOW Normal [facility] Comment on above: Result Comment: Nega tive for Flu A protein angiten. Infection due to Flu A cannot be ruled out. Flu A angiten in the sample may be below the detection limit of the test. Performed By: #### I NFLUAB ####[facility] [address] [place], [place] [address]Dr. Betsy Avery INFLUBNEGH SEE BELOW Normal [facility] Comment on above: Result Comment: Nega tive for Flu B protein antigen. Infection due to Flu B cannot be ruled out. Flu B antigen in the sample may be below the detection limit of the test. Performed By: #### I NFLUAB ####[facility] [address] [place], [place] [address]Dr. Betsy Avery INFLUENZA A AG Negative Normal NEGATIVE SEE COMMENT [facility] Comment on above: Performed By: #### I NFLUAB ####[facility] [address] [place], [place] [address]Dr. Betsy Avery INFLUENZA B AG Negative Normal NEGATIVE SEE COMMENT [facility] Comment on above: Performed By: #### I NFLUAB ####[facility] [address] [place], [place] [address]Dr. Betsy Avery SYMPTOMATIC COVID-19 ANTIGEN on 08-10-2022 EUA Statement SEE BELOW Normal [facility] Comment on above: Result Comment: This test [...] sooner. Performed By: #### C VDAGS #### [facility] [address] [address] [address] Betsy Avery SARS-CoV-2 (COVID-19) RNA CLAUDIA+probe Ql (Unsp spec) Positive Abnormal NEGATIVE [facility] Comment on above: Performed By: #### C VDAGS #### [facility] [address] [address] [address] Betsy Avery Covid-19 PCR (CVDTBH)on 07-12 SARS-CoV-2 (COVID-19) RNA CLAUDIA+probe Ql (Unsp spec) Detected Abnormal NOT DETECTED [facility] Comment on above: Result Comment: This test is not yet approved or cleared by the [place] FDA. When there are no FDA-approved or cleared tests available, and other criteria are met, FDA can make tests available under an emergency access mechanism called an Emergency Use Authorization (EUA). The EUA for this test is supported by the Trouble Clerk of Health and Human Service's declaration [...] be used). Performed By: #### C VDTBH ####[facility] [address] [place], [place] [address]EmDr. Betsy Avery INFLUENZA A AND B AGon 08-04 INFLUANEGH SEE BELOW Normal [facility] Comment on above: Result Comment: Nega tive for Flu A protein angiten. Infection due to Flu A cannot be ruled out. Flu A angiten in the sample may be below the detection limit of the test. Performed By: #### I NFLUAB ####[facility] [address] [address]Dr. Betsy Avery INFLUBNEGH SEE BELOW Normal [facility] Comment on above: Result Comment: Nega tive for Flu B protein antigen. Infection due to Flu B cannot be ruled out. Flu B antigen in the sample may be below the detection limit of the test. Performed By: #### I NFLUAB ####[facility] [address] [address]Dr. Betsy Avery INFLUENZA A AG Negative Normal NEGATIVE SEE COMMENT [facility] Comment on above: Performed By: #### I NFLUAB ####[facility] [address] [address]Dr. Betsy Avery INFLUENZA B AG Negative Normal NEGATIVE SEE COMMENT [facility] Comment on above: Performed By: #### I NFLUAB ####[facility] [address] [address]Dr. Betsy Avery VC CONSULT FOLLOWUPon 2021 VC CONSULT FOLLOWUP Patient: MANISHA SENA Exam Date: 05/03/2022 : 1970 Gender:F Ordering : DR MIKHAIL RUIZ M.D. Admission #: [id number] Family : Order #: [id number] CLICK HERE TO VIEW EXAM RADIOLOGY REPORT [...] Wells M.D. on 05/03/2022 at 09:51 Normal [facility] VC EXT VENOUS LT LIMITEDon 1 07-04-2021 VC EXT VENOUS LT LIMITED Patient: YOLANDA SENA. Exam Date: 05/03/2022 : 1970 Gender:F Ordering : DR MIKHAIL RUIZ M.D. Admission #: [id number] Family : Order #: [id number] CLICK HERE TO VIEW EXAM RADIOLOGY REPORT [...] Wells M.D. on 05/03/2022 at 09:49 Normal [facility] VC INJ FOAM SCLERO W US MLTI on 04-25-2022 VC INJ FOAM SCLERO W US MLTI Patient: JAIDA YOLANDA Jeanne. Exam Date: 04/25/2022 : 1970 Gender:F Ordering : DR MIKHAIL RUIZ M.D. Admission #: [id number] Family : Order #: [id number] CLICK HERE TO VIEW EXAM RADIOLOGY REPORT [...] Wells M.D. on 04/25/2022 at 11:04 Normal [facility] VC INJ SCL CHARLIE CERTIFIED PESTICIDE APPLICATOR VEINSon 1 06-20-2021 VC INJ SCL CHARLIE CERTIFIED PESTICIDE APPLICATOR VEINS Patient: YOLANDA SENA Exam Date: 04/19/2022 : 1970 Gender:F Ordering : DR MIKHAIL RUIZ M.D. Admission #: [id number] Family : Order #: [id number] CLICK HERE TO VIEW EXAM RADIOLOGY REPORT [...] Ruiz MD on 04/19/2022 at 11:31 Normal [facility] VC CONSULT FOLLOWUPon 2021 VC CONSULT FOLLOWUP Patient: MANISHA SENA Exam Date: 04/17/2022 : 1970 Gender:F Ordering : DR MIKHAIL RUIZ M.D. Admission #: [id number] Family : Order #: [id number] CLICK HERE TO VIEW EXAM RADIOLOGY REPORT [...] Ruiz MD on 04/17/2022 at 15:02 Normal [facility] VC EXT VENOUS RT LIMITEDon 1 06-18-2021 VC EXT VENOUS RT LIMITED Patient: JAIDA YOLANDA Jeanne. Exam Date: 04/17/2022 : 1970 Gender:F Ordering : DR MIKHAIL RUIZ M.D. Admission #: [id number] Family : Order #: [id number] CLICK HERE TO VIEW EXAM RADIOLOGY REPORT [...] Ruiz MD on 04/17/2022 at 13:06 Normal [facility] VC INJ FOAM SCLERO W US MLTI on 04-09-2022 VC INJ FOAM SCLERO W US MLTI Patient: YOLANDA SENA Jeanne. Exam Date: 04/09/2022 : 1970 Gender:F Ordering : DR MIKHAIL RUIZ M.D. Admission #: [id number] Family : Order #: [id number] CLICK HERE TO VIEW EXAM RADIOLOGY REPORT [...] M.D. on 04/09/2022 at 13:53 Normal [facility] VC CONSULT FOLLOWUPon 2021 VC CONSULT FOLLOWUP Patient: MANISHA SENA Exam Date: 03/22/2022 : 1970 Gender:F Ordering : DR MIKHAIL RUIZ M.D. Admission #: [id number] Family : Order #: [id number] CLICK HERE TO VIEW EXAM RADIOLOGY REPORT [...] Ruiz MD on 03/22/2022 at 09:35 Normal [facility] VC EXT VENOUS LT LIMITEDon 1 05-22-2021 VC EXT VENOUS LT LIMITED Patient: YOLANDA SENA Exam Date: 03/22/2022 : 1970 Gender:F Ordering : DR MIKHAIL RUIZ M.D. Admission #: [id number] Family : Order #: [id number] CLICK HERE TO VIEW EXAM RADIOLOGY REPORT [...] MD on 03/22/2022 at 08:19 Normal [facility] VC ENDOVENOUS ABL 1ST V LTon 03-14-2022 VC ENDOVENOUS ABL 1ST V LT Patient: YOLANDA SENA Exam Date: 03/14/2022 : 1970 Gender:F Ordering : DR MIKHAIL RUIZ M.D. Admission #: [id number] Family : Order #: [id number] CLICK HERE TO VIEW EXAM RADIOLOGY REPORT PROCEDURE: VEIN CENTER ENDOVENOUS ABLATION FIRST VEIN LEFT SMALL SAPHENOUS VEIN COMPARISON: VC ENDOVENOUS ABL 1ST V LT, 08/24/2021. INDICATIONS: Pain co-occurrent and due to varicose veins of bilateral legs I83.813 OPERATIVE REPORT: The risks and benefits of the procedure had been previously discussed, and were rediscussed at length. Informed written consent was obtained by ca and Dale Griffith assisted. Time out procedure [...] MD on 03/14/2022 at 08:48 Normal [facility] CBC AUTO DIFFon 11-21-2021 BASO # 0.1 103/ul Normal 0.0-0.1 [facility] Comment on above: Performed By: #### C BC ####[facility] [address] [address]Dr. Betsy Avery Basophils/100 WBC (Bld) 0.8 % Normal 0.2-2.0 [facility] Comment on above: Performed By: #### C BC ####[facility] [address] [address]DrJai Avery EO # 0.3 103/ul Normal 0.0-0.7 [facility] Comment on above: Performed By: #### C BC ####[facility] [address] [address]Dr. Betsy Avery Eosinophils/100 WBC (Bld) 3.6 % Normal 0.9-7.0 [facility] Comment on above: Performed By: #### C BC ####[facility] [address] [address]Dr. Betsy Avery Erythrocyte distribution width (RBC) [Ratio] 13.7 % Normal 11.0-15.0 [facility] Comment on above: Performed By: #### C BC ####[facility] [address] [address]Dr. Betsy Avery Hematocrit (Bld) [Volume fraction] 41.8 % Normal 36.0-48.0 [facility] Comment on above: Performed By: #### C BC ####[facility] [address] [place], [place] [address]Dr. Betsy Avery Hemoglobin (Bld) [Mass/Vol] 13.1 g/dL Normal 12.0-16.0 [facility] Comment on above: Performed By: #### C BC ####[facility] [address] [place], [place] [address]Dr. Betsy Avery IG # 0.02 10e3/ul Normal 0.00-0.03 [facility] Comment on above: Performed By: #### C BC ####[facility] [address] [place], [place] [address]Dr. Betsy Avery IG % 0.3 % Normal 0.0-0.5 [facility] Comment on above: Performed By: #### C BC ####[facility] [address] [place], [place] [address]Dr. Betsy Avery LYMPH # 2.7 103/ul Normal 1.2-3.8 [facility] Comment on above: Performed By: #### C BC ####[facility] [address] [place], [place] [address]Dr. Betsy Avery Lymphocytes/100 WBC (Bld) 35.0 % Normal 20.5-60.0 [facility] Comment on above: Performed By: #### C BC ####[facility] [address] [place], [place] [address]Dr. Betsy Avery MANUAL DIFF REQ NO Normal [facility] Comment on above: Performed By: #### C BC ####[facility] [address] [address]Dr. Betsy Bennie MCH (RBC) [Entitic mass] 26.6 pg Critically low 26.7-34.0 [facility] Comment on above: Performed By: #### C BC ####[facility] [address] [address]Dr. Betsy Avery MCHC (RBC) [Mass/Vol] 31.3 g/dL Normal 29.9-35.2 [facility] Comment on above: Performed By: #### C BC ####[facility] [address] [address]Dr. Betsy Avery MCV (RBC) [Entitic vol] 84.8 fL Normal 81.0-99.0 [facility] Comment on above: Performed By: #### C BC ####[facility] [address] [place], [place] [address]Dr. Betsy Avery MONO # 0.4 103/ul Normal 0.3-0.8 [facility] Comment on above: Performed By: #### C BC ####[facility] [address] [place], [place] [address]Dr. Betsy Avery Monocytes/100 WBC (Bld) 5.3 % Normal 1.7-12.0 [facility] Comment on above: Performed By: #### C BC ####[facility] [address] [place], [place] [address]DrJai Avery NEUT # 4.3 103/ul Normal 1.4-6.5 [facility] Comment on above: Performed By: #### C BC ####[facility] [address] [place], [place] [address]DrJai Avery Neutrophils/100 WBC (Bld) 55.0 % Normal 43.0-75.0 [facility] Comment on above: Performed By: #### C BC ####[facility] [address] [place], [place] [address]DrJai Avery Platelet mean volume (Bld) [Entitic vol] 10.7 fL Normal 9.5-13.5 [facility] Comment on above: Performed By: #### C BC ####[facility] [address] [address]Dr. Betsy Avery PLT 331 103/ul Normal 150-450 [facility] Comment on above: Performed By: #### C BC ####[facility] [address] [address]Dr. Betsy Avery RBC 4.93 106/ul Normal 4.20-5.40 [facility] Comment on above: Performed By: #### C BC ####[facility] [address] [address]Dr. Betsy Avery WBC 7.8 103/ul Normal 4.0-11.0 [facility] Comment on above: Performed By: #### C BC ####[facility] [address] [address]Dr. Betsy Avery GLYCOHEMOGLOBIN A1Con 2021 ADA RECOMMENDATION SEE BELOW Normal [facility] Comment on above: Result Comment: ADA RECOMMENDED LIMIT 4.0 - 6.0 ADA THERAPEUTIC TARGET < 7.0 ACTION SUGGESTED > 7.0 Performed By: #### A 1C ####[facility] [address] [place], [place] [address]Dr. Betsy Avery Glucose [Mass/Vol] 131 mg/dL Normal [facility] Comment on above: Performed By: #### A 1C ####[facility] [address] [place], [place] [address]Dr. Betsy Avery HbA1c (Bld) [Mass fraction] 6.2 % Normal 4.5-6.2 [facility] Comment on above: Performed By: #### A 1C ####[facility] [address] [place], [place] [address]Dr. Betsy Avery LIPID PROFILEon 11-21-2021 CHOL-HDL RATIO NORM SEE BELOW Normal [facility] Comment on above: Result Comment: 3.3 - 4.4 LOW RISK 4.4 - 7.1 AVERAGE RISK 7.1 - 11.0 MODERATE RISK >11.0 HIGH RISK Performed By: #### C MP, LIPID, TSH #### [facility] [address] [address] [address] Betsy Avery Cholesterol [Mass/Vol] 195 mg/dL Normal <=200 [facility] Comment on above: Performed By: #### C MP, LIPID, TSH #### [facility] [address] [address] [address] Betsy Avery Cholesterol in HDL [Mass/Vol] 50 mg/dL Normal 40-60 [facility] Comment on above: Performed By: #### C MP, LIPID, TSH #### [facility] [address] [address] [address] Betsy Aevry Cholesterol in LDL [Mass/Vol] 116.0 mg/dL Normal [facility] Comment on above: Performed By: #### C MP, LIPID, TSH #### [facility] [address] [address] [address] Betsy Avery Cholesterol.total/Ch olesterol in HDL [Mass ratio] 3.9 {ratio} Normal [facility] Comment on above: Performed By: #### C MP, LIPID, TSH #### [facility] [address] [address] [address] Betsy Avery HDL NORMAL > or = 60 mg/dl - LO W CARDIOVASCULAR RISK <40 mg/dl - HIGH CARDIOVASCULAR RISK Normal [facility] Comment on above: Performed By: #### C MP, LIPID, TSH #### [facility] [address] [address] [address] Betsy Avery LDL CALC NORMAL SEE BELOW Normal [facility] Comment on above: Result Comment: <100 mg/dl OPTIMAL 100 - 129 mg/dl NEAR OR ABOVE OPTIMAL 130 - 159 mg/dl BORDERLINE HIGH 160 - 189 mg/dl HIGH >190 mg/dl VERY HIGH Performed By: #### C MP, LIPID, TSH #### [facility] [address] [address] [address] Betsy Avery Triglyceride [Mass/Vol] 145 mg/dL Normal <=150 [facility] Comment on above: Performed By: #### C MP, LIPID, TSH #### [facility] [address] [address] [address] Betsy Avery VLDL CALC 29.0 mg/dL Normal [facility] Comment on above: Performed By: #### C MP, LIPID, TSH #### [facility] [address] [place], [place] [address] Dr. Betsy Avery MG MAMM SCREEN 3D MICHAEL CADon 11-21-2021 MG MAMM SCREEN 3D MICHAEL CAD Patient: YOLANDA SENA Exam Date: 11/21/2021 : 1970 Gender:F Ordering : DR FRANCHESCA GO M.D. Admission #: [id number] Family : Order #: [id number] CLICK HERE TO VIEW EXAM RADIOLOGY REPORT [...] Treatments None Family Cancers None LOCATION: [facility] BREAST COMPOSITION: Scattered areas fibroglandular density. [...] MD on 11/21/2021 at 09:45 Normal [facility] PROF 14(COMP METB)on 022 Albumin [Mass/Vol] 3.5 g/dL Normal 3.4-5.0 [facility] Comment on above: Performed By: #### C MP, LIPID, TSH #### [facility] [address] [place], [place] [address] Dr. Betsy Avery Albumin/Globulin [Mass ratio] 0.8 {ratio} Normal [facility] Comment on above: Performed By: #### C MP, LIPID, TSH #### [facility] [address] [address] [address] Betsy Avery ALP [Catalytic activity/Vol] 93 U/L Normal 46-116 [facility] Comment on above: Performed By: #### C MP, LIPID, TSH #### [facility] [address] [address] [address] Betsy Avery ALT [Catalytic activity/Vol] 18 U/L Normal 14-59 [facility] Comment on above: Performed By: #### C MP, LIPID, TSH #### [facility] [address] [address] [address] Betsy Avery Anion gap [Moles/Vol] 13.2 mmol/L Normal [facility] Comment on above: Performed By: #### C MP, LIPID, TSH #### [facility] [address] [address] [address] Betsy Avery AST [Catalytic activity/Vol] 27 U/L Normal 15-37 [facility] Comment on above: Performed By: #### C MP, LIPID, TSH #### [facility] [address] [address] [address] Betsy Avery Bilirubin [Mass/Vol] 0.3 mg/dL Normal 0.2-1.0 [facility] Comment on above: Performed By: #### C MP, LIPID, TSH #### [facility] [address] [address] [address] Betsy Avery Calcium [Mass/Vol] 9.2 mg/dL Normal 8.5-10.1 [facility] Comment on above: Performed By: #### C MP, LIPID, TSH #### [facility] [address] [address] [address] Betsy Avery Chloride [Moles/Vol] 105 mmol/L Normal 98-107 [facility] Comment on above: Performed By: #### C MP, LIPID, TSH #### [facility] [address] [address] [address] Betsy Avery CO2 [Moles/Vol] 25.2 mmol/L Normal 21.0-32.0 [facility] Comment on above: Performed By: #### C MP, LIPID, TSH #### [facility] [address] [address] [address] Betsy Avery Creatinine [Mass/Vol] 0.89 mg/dL Normal 0.55-1.02 [facility] Comment on above: Performed By: #### C MP, LIPID, TSH #### [facility] [address] [address] [address] Betsy Avery EGFR-AF CROATIAN >60 Normal >=60 [facility] Comment on above: Performed By: #### C MP, LIPID, TSH #### [facility] [address] [address] [address] Betsy Avery EGFR-NON AF CROATIAN >60 Normal >=60 [facility] Comment on above: Performed By: #### C MP, LIPID, TSH #### [facility] [address] [address] [address] Betsy Avery Globulin (S) [Mass/Vol] 4.2 g/dL Normal [facility] Comment on above: Performed By: #### C MP, LIPID, TSH #### [facility] [address] [address] [address] Betsy Avery Glucose [Mass/Vol] 130 mg/dL Critically high 74-[address] [facility] Comment on above: Performed By: #### C MP, LIPID, TSH #### [facility] [address] [address] [address] Betsy Avery Potassium [Moles/Vol] 4.4 mmol/L Normal 3.5-5.1 [facility] Comment on above: Performed By: #### C MP, LIPID, TSH #### [facility] [address] [address] [address] Betsy Avery Protein [Mass/Vol] 7.7 g/dL Normal 6.4-8.2 [facility] Comment on above: Performed By: #### C MP, LIPID, TSH #### [facility] [address] [address] [address] Betsy Avery Sodium [Moles/Vol] 139 mmol/L Normal 136-145 [facility] Comment on above: Performed By: #### C MP, LIPID, TSH #### [facility] [address] [address] [address] Betsy Avery Urea nitrogen [Mass/Vol] 15.0 mg/dL Normal 7.0-18.0 [facility] Comment on above: Performed By: #### C MP, LIPID, TSH #### [facility] [address] [place] [address] Dr. Betsy Avery Urea nitrogen/Creatinine [Mass ratio] 16.9 mg/mg Normal [facility] Comment on above: Performed By: #### C MP, LIPID, TSH #### [facility] [address] [place] [address] Dr. Betsy Avery TSHon 11-21-2021 TSH 2.111 uIU/mL Normal 0.358-3.740 [facility] Comment on above: Performed By: #### C MP, LIPID, TSH #### [facility] [address] [place] [address] Dr. Betsy Avery PAP ACOG PANEL 2: 30 to 65on 11-20-2021 . . Normal [facility] Comment on above: Result Comment: Perf ormed at: WB Performed By: #### [id number] #### [facility] [address] [place] [address] Dr. Betsy Avery Age Gdln ACOG Testing 30-65 [facility] Comment on above: Performed By: #### [id number] #### [facility] [address] [place] [address] Dr. Betsy Avery DIAGNOSIS: Comment Normal [facility] Comment on above: Result Comment: NEGA TIVE FOR INTRAEPITHELIAL LESION OR MALIGNANCY. Performed at: WB Performed By: #### [id number] #### [facility] [address] [place] [address] Dr. Betsy Avery HPV Aptima Negative Normal Negative [facility] Comment on above: Result Comment: This nucleic acid amplification test detects fourteen high-risk HPV types (16,18,31,33,35,39,45,51,52,56,58,59,66,68) without differentiation. Performed at: =G Performed By: #### 4 [id number] #### [facility] [address] [place] [address] Dr. Betsy Avery Methodology: Comment Normal [facility] Comment on above: Result Comment: This liquid based ThinPrep(R) pap test was screened with the use of an image guided system. Performed at: WB Performed By: #### [id number] #### [facility] [address] [place] [address] Dr. Betsy Avery Note: Comment Normal [facility] Comment on above: Result Comment: The Pap smear is a screening test designed to aid in the detection of premalignant and malignant conditions of the uterine cervix. It is not a diagnostic procedure and should not be used as the sole means of detecting cervical cancer. Both false-positive and false-negative reports do occur. . Performed at: WB Performed By: #### [id number] #### [facility] [address] [place] [address] Dr. Betsy Avery Performed by: Comment Normal [facility] Comment on above: Result Comment: Diane Braswell, Silverware Supervisor (ASCP) Performed at: WB Performed By: #### [id number] #### [facility] [address] [place] [address] Dr. Betsy Avery Specimen adequacy: Comment Normal [facility] Comment on above: Result Comment: Sati sfactory for evaluation. No endocervical component is identified. Performed at: WB Performed By: #### [id number] #### [facility] [address] [place] [address] Dr. Betsy Avery VC CONSULT FOLLOWUPon 2021 VC CONSULT FOLLOWUP Patient: MANISHA SENA Exam Date: 09/21/2021 : 1970 Gender:F Ordering : DR MIKHAIL RUIZ M.D. Admission #: [id number] Family : Order #: [id number] CLICK HERE TO VIEW EXAM RADIOLOGY REPORT [...] Ruiz MD on 09/21/2021 at 11:16 Normal [facility] VC EXT VENOUS RT LIMITEDon 0 09-21-2021 VC EXT VENOUS RT LIMITED Patient: YOLANDA SENA Exam Date: 09/21/2021 : 1970 Gender:F Ordering : DR MIKHAIL RUIZ M.D. Admission #: [id number] Family : Order #: [id number] CLICK HERE TO VIEW EXAM This report [...] Ruiz MD on 09/28/2021 at 10:25 Normal [facility] VC ENDOVENOUS ABL 1ST V RTon 09-11-2021 VC ENDOVENOUS ABL 1ST V RT Patient: YOLANDA SENA Exam Date: 09/11/2021 : 1970 Gender:F Ordering : DR MIKHAIL RUIZ M.D. Admission #: [id number] Family : Order #: [id number] CLICK HERE TO VIEW EXAM RADIOLOGY REPORT [...] Ruiz MD on 09/11/2021 at 09:20 Normal [facility] VC CONSULT FOLLOWUPon 2021 VC CONSULT FOLLOWUP Patient: MANISHA SENA Exam Date: 08/30/2021 : 1970 Gender:F Ordering : DR MIKHAIL RUIZ M.D. Admission #: [id number] Family : Order #: [id number] CLICK HERE TO VIEW EXAM RADIOLOGY REPORT [...] Wells M.D. on 08/30/2021 at 09:44 Normal [facility] VC EXT VENOUS LT LIMITEDon 0 08-30-2021 VC EXT VENOUS LT LIMITED Patient: YOLANDA SENA. Exam Date: 08/30/2021 : 1970 Gender:F Ordering : DR MIKHAIL RUIZ M.D. Admission #: [id number] Family : Order #: [id number] CLICK HERE TO VIEW EXAM RADIOLOGY REPORT [...] Rasheed Wells M.D. on 08/30/2021 at 09:26 [facility] VC ENDOVENOUS ABL 1ST V LTon 08-24-2021 VC ENDOVENOUS ABL 1ST V LT Patient: JAIDA YOLANDA Jeanne. Exam Date: 08/24/2021 : 1970 Gender:F Ordering : DR MIKHAIL RUIZ M.D. Admission #: [id number] Family : Order #: [id number] CLICK HERE TO VIEW EXAM RADIOLOGY REPORT [...] Ruiz MD on 08/24/2021 at 10:51 Normal [facility] Vital Signs Date Time Vital Sign Value Performing Clinician Facility 01-09-2024 09:06-0400 Body height 172.72 cm [facility] 01-09-2024 09:06-0400 Body mass index (BMI) [Ratio] 48.2 kg/m2 [facility] 01-09-2024 09:06-0400 Body weight 143.78 kg [facility] 01-09-2024 09:06-0400 Diastolic blood pressure 70 mm[Hg] [facility] 01-09-2024 09:06-0400 Heart rate 71 /min [facility] 01-09-2024 09:06-0400 Systolic blood pressure 108 mm[Hg] [facility] 08-21-2023 13:25-0400 Body height 172.72 cm [facility] 08-21-2023 13:25-0400 Body mass index (BMI) [Ratio] 48.4 kg/m2 [facility] 08-21-2023 13:25-0400 Body weight 144.69 kg [facility] 08-21-2023 13:25-0400 Diastolic blood pressure 78 mm[Hg] [facility] 08-21-2023 13:25-0400 Heart rate 81 /min [facility] 08-21-2023 13:25-0400 SaO2% (BldA) [Mass fraction] 96 % [facility] 08-21-2023 13:25-0400 Systolic blood pressure 110 mm[Hg] [facility] 02-22-2023 08:30-0400 Body height 172.72 cm [facility] Other [facility] 02-22-2023 08:30-0400 Body mass index (BMI) [Ratio] 47.89 kg/m2 [facility] Other [facility] Other 02-22-2023 08:30-0400 Body weight 142.88 kg Franc[facility]a Go Other [facility] Other 02-22-2023 08:30-0400 Diastolic blood pressure 78 mm[Hg] [facility] Go Other [facility] Other 02-22-2023 08:30-0400 Systolic blood pressure 136 mm[Hg] [facility] Go Other [facility] Other 12-27-2022 08:30-0400 Body height 172.72 cm Franchesca Go Other [facility] Other 12-27-2022 08:30-0400 Body mass index (BMI) [Ratio] 47.89 kg/m2 [facility] Other [facility] Other 12-27-2022 08:30-0400 Body weight 142.88 kg Franc[facility]sca Go Other [facility] Other 12-27-2022 08:30-0400 Diastolic blood pressure 70 mm[Hg] [facility] Go Other [facility] Other 12-27-2022 08:30-0400 Systolic blood pressure 112 mm[Hg] [facility] Go Other [facility] Other Encounters Encounter Date Encounter Type Care Provider Facility Start: 01-09-2024 Patient encounter status [facility] Start: 01-09-2024 End: 01-09-2024 ambulatory [facility] Work Phone: Start: 01-09-2024 End: 01-09-2024 Encounter for general adult medical examination without abnormal findings [facility] Start: 01-09-2024 End: 01-09-2024 Patient encounter procedure [facility] Physician [facility] Work Phone: Start: 10-03-2023 End: 10-03-2023 ambulatory CAMACHO CARNEY Not Available Start: 09-03-2023 End: 09-03-2023 ambulatory [facility] Work Phone: Start: 09-03-2023 End: 09-03-2023 Patient encounter procedure [facility] Physician [facility] Work Phone: Start: 08-23-2023 End: 08-23-2023 ambulatory [facility] Start: 08-21-2023 End: 08-21-2023 ambulatory [facility] Work Phone: Start: 08-21-2023 End: 08-21-2023 Patient encounter procedure [facility] Work Phone: Start: 05-17-2023 End: 05-17-2023 ambulatory Franchesca Go Other [facility] Other Start: 05-17-2023 Office outpatient vi sit 15 minutes Franchesca Go [facility] Start: 02-22-2023 End: 02-22-2023 ambulatory Franchesca Go Other [facility] Other Start: 02-22-2023 Office outpatient vi sit 15 minutes Franchesca Go [facility] Start: 12-27-2022 End: 12-27-2022 ambulatory Franchesca Go Other [facility] Other Start: 12-27-2022 Encounter for genera l adult medical examination without abnormal findings Franchesca Go [facility] Start: 12-27-2022 Periodic preventive med est patient 40-64yrs Franc[facility]sca Go [facility] Start: 08-10-2022 End: 08-10-2022 ambulatory [facility] GO Facility: Start: 08-04-2022 End: 03-26-2023 ambulatory ESPERANZA CLINTON Facility:[facility] Start: 05-04-2022 ambulatory FRANCHESCA GO Facility :[facility] Start: 05-03-2022 Adult health examination Eloise Go Other [facility] Other Start: 05-03-2022 Gynecological examination normal Franchesca Go Other [facility] Other Start: 05-03-2022 History of abnormal cervical Papanicolaou smear [facility] Go Other [facility] Other Start: 05-03-2022 Problem, abnormal examination Franchesca Luli Other [facility] Other Start: 05-03-2022 End: 05-04-[address] [...] medical examination without abnormal findings FRANCHESCA GO [facility] Start: 11-21-2021 End: 11-22-2021 ambulatory FRANCHESCA [...] lic 2000 panel - Serum or Plasma [facility] MG Breast - bilateral Screening [facility] Patient Education Low back pain in adults [facility] Work Phone: [facility] Payers Date Payer Category Payer Unknown [id number] 2021 [place] [id number] 2019 Unknown [id number] 1970 Unknown [id number] 2.16.84 0.1.591114.3.579.2.593 1970 Unknown [id number] 2.16.84 0.1.123711.3.579.2.593 1970 Unknown [id number] 2.16.84 0.1.825044.3.579.2.593 1968 Unknown [id number] 2.16.84 0.1.836527.3.579.2.593 1970 Unknown [id number] 2.16.84 0.1.835812.3.579.2.593 1968 Unknown [id number] 2.16.84 0.1.103982.3.579.2.593 1968 Unknown [id number] 2.16.84 0.1.490765.3.579.2.593 1968 Unknown [id number] 2.16.84 0.1.154373.3.579.2.593 1968 Unknown [id number] 2.16.84 0.1.084632.3.579.2.593 1968 Unknown [id number] 2.16.84 0.1.747545.3.579.2.593 1968 Unknown [id number] 2.16.84 0.1.670876.3.579.2.593 1968 Unknown [id number] 2.16.84 0.1.485534.3.579.2.593 1968 Unknown [id number] 2.16.84 0.1.912958.3.579.2.593 1968 Unknown [id number] 2.16.84 0.1.392885.3.579.2.593 1968 Unknown [id number] 2.16.84 0.1.547245.3.579.2.593 1968 Unknown [id number] 2.16.84 0.1.613633.3.579.2.593 1968 Unknown [id number] 2.16.8 40.1.097859.3.579.2.1286 1968 Unknown [id number] 2.16.84 0.1.365964.3.579.2.1259 1961 Self-pay [id number] 1961 Unknown [id number] Unknown [id number] 2.16.84 0.1.057816.3.579.2.593 Social History Date Type Detail Facility Unknown if ever smoked [facility] Other Sex Assigned At Sex Assigned At [facility] Other Start: 08-21-2023 Tobacco smoking status NHIS Never smoked tobacco (finding) [facility] Start: 1970 Sex Assigned At Female [facility] NEGATED: Highlighted row [facility] Evaluation note 05-17-2023 Note Date & Type Note Facility 05-17-2023 Evaluation note Encounter Date Diagnosis Assessment Notes May, Bronchitis (ICD-10 - J40) Take antibiotic as directed. If develop wheezing, chest tightness, itching, bad cough, blue skin color, seizures, swelling of face, lips, tongue, or throat report to ED. [facility] Other Evaluation note 02-22-2023 Note Date & Type Note Facility 02-22-2023 Evaluation note Encounter Date Diagnosis Assessment Notes Feb, Anaphylaxis, initial encounter (ICD-10 - T78.2XXA) Form completed per patient's request to be exempt from the flu shot at [facility]. Denies history of influenza, ongoing breathing issues or lung issues. [facility] Other Evaluation note 12-27-2022 Note Date & [...] - will increase dose based on lab [facility] Other Evaluation note Note Date & Type Note Facility Evaluation note Diagnosis Onset Date Maxillary sinusitis acute [facility] Work Phone: Evaluation note Note Date & Type Note Facility Evaluation note Diagnosis Onset Date Maxillary sinusitis acute Low back pain acute Muscle spasm acute [facility] Work Phone: Evaluation note Note Date & Type Note Facility Evaluation note Diagnosis Onset Date H/O colonoscopy acute Hypothyroidism, unspecified acute Screening mammogram for breast cancer acute Wellness examination acute [facility] Work Phone: History general Narrative - [...] : Active,, Medical History Problem Title : [facility] JAMIE: Hypothyroidism, Problem Status : Active,, Medical History Problem Title : [facility] JAMIE: No history of significant medical diseases, Problem Status : Inactive,, Medical History Problem Title : [facility] JAMIE: Scoliosis, Problem Status : Active,, [...] & 3,2022 Hospitalization History SEE SURGICAL HX [facility] Other History general Narrative - Reported Note Date & Type Note Facility History general Narrative - Reported Type Medical History Hypothyroidism, unspecified Medical History Other chronic pain Surgical History UTERINE ABLATION 2013 Surgical History SHOULDER SURGERY RIGHT 2016 Surgical History EVLT 2021 Surgical History COLONOSCOPY X2 Surgical History Bilateral cataract surgery 2 & 3,2022 Hospitalization History SEE SURGICAL HX [facility] Other Summary Purpose Family History Relationship Condition [...] Reason for Referral Reason Dr. Fernandez at [facility] Diagnosis 1 Pain in right knee ( M25.561) Referral Organization [facility] nichole Referring Provider First Name Franchesca Referring Provider Last Name Luli Referring Provider Specialty Family [facility] Referred Organization [facility] Referred Address [address], [place],[address] Referred Provider Specialty Orthopaedic Surgery Referral Priority Routine General Notes Nayeli Pascual 09:43:27 AM >received today Nayeli Pascual 12/27/2022 09:45:11 AM >insurance attached, waiting for notes to be locked to fax referral Clinical Notes F: [id number] Chief Complaint and Reason for Visit Chief [...] DATE CREATED AUTHOR AUTHOR'S ORGANIZ ATION 10/05/2023 [facility] EPIC REASON FOR VISIT (unrecogniz ed section and content) WELLNESSdiscuss vaccinations URI-COVID Negative- [phone] Care Teams (unrecognized sec tion and content) [...] BE BASED ON THE PRIMARY CLINICAL RECORDS. [facility]. provides no warranty or guarantee of the accuracy or completeness of information in this document.
[2024-01-15 06:57] LABS: Basophils Absolute Auto 0.1 10^3/uL (0.0-0.1); Basophils Percent Auto 0.9 % (0.2-2.0); Eosinophils Absolute Auto 0.3 10^3/uL (0.0-0.7); Eosinophils Percent Auto 3.9 % (0.9-7.0); Hematocrit 42.9 % (36.0-48.0); Hemoglobin 13.4 g/dL (12.0-16.0); Immature Granulocytes Abs Auto 0.02 10^3/uL (0.00-0.03); Immature Granulocytes Pct Auto 0.3 % (0.0-0.5); Lymphocytes Absolute Auto 2.4 10^3/uL (1.2-3.8); Lymphocytes Percent Auto 34.8 % (20.5-60.0); Mean Corpuscular HGB Conc 31.2 g/dL (29.9-35.2); Mean Corpuscular Hemoglobin 26.7 pg (26.7-34.0); Mean Corpuscular Volume 85.5 fL (81.0-99.0); Mean Platelet Volume 10.6 fL (9.5-13.5); Monocytes Absolute Auto 0.3 10^3/uL (0.3-0.8); Monocytes Percent Auto 4.7 % (1.7-12.0); Neutrophils Absolute Auto 3.9 10^3/uL (1.4-6.5); Neutrophils Percent Auto 55.4 % (43.0-75.0); Platelet Count 291 10^3/uL (150-450); Red Blood Count 5.02 10^6/uL (4.20-5.40); Red Cell Distribution Width 13.4 % (11.0-15.0)
[2024-01-15 10:40] LABS: Anion Gap 15.6; BUN Creatinine Ratio 14.8; Bilirubin Total 0.5 mg/dL (0.2-1.0); Calcium 9.3 mg/dL (8.5-10.1); Carbon Dioxide 25.5 mmol/L (21.0-32.0); Chloride 103 mmol/L (98-107); Estimated GFR (African America >60 (>=60); Estimated GFR (Non-African Ame >60 (>=60); Glucose 129 mg/dL (74-106); Potassium 4.1 mmol/L (3.5-5.1); Sodium 140 mmol/L (136-145)
[2024-01-15 10:41] LABS: Alanine Aminotransferase 16 U/L (14-59); Albumin Globulin Ratio 0.9; Albumin Level 3.5 g/dL (3.4-5.0); Alkaline Phosphatase 96 U/L (46-116); Aspartate Amino Transferase 33 U/L (15-37); Chol HDL Ratio 4.2; Cholesterol 210 mg/dL (<=200); HDL Cholesterol 50 mg/dL (40-60); Total Protein 7.5 g/dL (6.4-8.2); Triglycerides 188 mg/dL (<=150); VLDL CHOLESTEROL 37.6 mg/dL
[2024-01-15 10:42] LABS: Thyroid Stimulating Hormone 1.078 uIU/mL (0.358-3.740)
[2024-01-15 11:06] LABS: Estimated Average Glucose 128 mg/dL; Glycohemoglobin A1C 6.1 % (4.5-6.2)
[2024-01-15 11:15] LABS: Free T4 1.25 ng/dL (0.76-1.46)
== END 2024-01-15 06:35 | disposition home or self-care (01) ==
LOC: LAB 06:34
PROVIDERS: PCP Family Medicine; Visit Provider Family Medicine
DX: Z00.00 Encounter for general adult medical examination without abnormal findings (principal); E03.9 Hypothyroidism, unspecified
CPT/HCPCS: 36415; 80053; 80061; 83036; 84439; 84443; 85025

== ENCOUNTER 2024-02-25 09:21 | Outpatient (OUT) | payer BC, SELFPAY ==
--- OUTSIDE RECORDS SUMMARY | 2024-02-25 09:36 | XMS_ITS | CCD ---
Author Organization [facility] Care Team Providers Care Shipfitter Helper Name Role Phone SARA, DR MIKHAIL Whitaker [...] GO, FRANCHESCA E Primary Care Unavailable GO, FRNACHESCA E Consulting Unavailable GO, FRANCHESCA E Attending [...] Unavailable GO, FRANCHESCA E Primary Care Unavailable [facility], DR RASHEED Martinez Consulting Unavailable [...] BASE] Drug Allergy [address] [facility] Repository (6 sources) Penicillins; Translations: [PENICILLINS] Drug allergy (disorder) [address] [facility] Repository (3 sources) Erythromycin Drug Allergy 9 Unknown [facility] Other (3 sources) Penicillin Drug Allergy 7 Unknown [facility] Other (6 sources) Bupivacaine; Translations: [BUPIVACAINE] Drug Allergy 4 anaphylaxis [facility] (6 sources) Lidocaine; Translations: [LIDOCAINE] Drug Allergy 4 anaphylaxis [facility] (6 sources) methylPREDNISolo ne; Translations: [METHYLPREDNISOL ONE] Drug Allergy 4 anaphylaxis [facility] Medications Current Medications Medication Drug Class(es) Dates [...] as needed for 0 *Pick strength-form from [employer] for eRX* Apr, Active benzonatate 200 mg [...] Active oral daily for 0 *Reorder from [facility] for eRx and Interaction Alerts* Apr, Active [...] AGon 08-10 INFLUANEGH SEE BELOW Normal [facility] Comment on above: Result Comment: Nega tive for Flu A protein angiten. Infection due to Flu A cannot be ruled out. Flu A angiten in the sample may be below the detection limit of the test. Performed By: #### I NFLUAB ####[facility] [address] [place], [place] [address]Dr. Betsy Avery INFLUBNEGH SEE BELOW Normal [facility] Comment on above: Result Comment: Nega tive for Flu B protein antigen. Infection due to Flu B cannot be ruled out. Flu B antigen in the sample may be below the detection limit of the test. Performed By: #### I NFLUAB ####[facility] [address] [place], [place] [address]Dr. Betsy Avery INFLUENZA A AG Negative Normal NEGATIVE SEE COMMENT [facility] Comment on above: Performed By: #### I NFLUAB ####[facility] [address] [place], [place] [address]Dr. Betsy Avery INFLUENZA B AG Negative Normal NEGATIVE SEE COMMENT [facility] Comment on above: Performed By: #### I NFLUAB ####[facility] [address] [place], [place] [address]Dr. Betsy Avery SYMPTOMATIC COVID-19 ANTIGEN on 08-10-2022 EUA Statement SEE BELOW Normal [facility] Comment on above: Result Comment: This [...] sooner. Performed By: #### C VDAGS #### [facility] [address] [address] [address] Betsy Avery SARS-CoV-2 (COVID-19) RNA CLAUDIA+probe Ql (Unsp spec) Positive Abnormal NEGATIVE [facility] Comment on above: Performed By: #### C VDAGS #### [facility] [address] [address] [address] Betsy Avery Covid-19 PCR (CVDTBH)on 07-12 SARS-CoV-2 (COVID-19) RNA CLAUDIA+probe Ql (Unsp spec) Detected Abnormal NOT DETECTED [facility] Comment on above: Result Comment: This test is not yet approved or cleared by the [place] FDA. When there are no FDA-approved or cleared tests available, and other criteria are met, FDA can make tests available under an emergency access mechanism called an Emergency Use Authorization (EUA). The EUA for this test is supported by the [place] of Health and Human Service's declaration that [...] be used). Performed By: #### C VDTBH ####[facility] [address] [place], [place] [address]DlDr. Betsy Avery INFLUENZA A AND B AGon 08-04 INFLUANEGH SEE BELOW Normal [facility] Comment on above: Result Comment: Nega tive for Flu A protein angiten. Infection due to Flu A cannot be ruled out. Flu A angiten in the sample may be below the detection limit of the test. Performed By: #### I NFLUAB ####[facility] [address] [address]Dr. Betsy Avery INFLUBNEGH SEE BELOW Normal [facility] Comment on above: Result Comment: Nega tive for Flu B protein antigen. Infection due to Flu B cannot be ruled out. Flu B antigen in the sample may be below the detection limit of the test. Performed By: #### I NFLUAB ####[facility] [address] [address]Dr. Betsy Avery INFLUENZA A AG Negative Normal NEGATIVE SEE COMMENT [facility] Comment on above: Performed By: #### I NFLUAB ####[facility] [address] [address]Dr. Betsy Avery INFLUENZA B AG Negative Normal NEGATIVE SEE COMMENT [facility] Comment on above: Performed By: #### I NFLUAB ####[facility] [address] [address]Dr. Betsy Avery VC CONSULT FOLLOWUPon 2021 VC CONSULT FOLLOWUP Patient: MANISHA SENA Exam Date: 05/03/2022 : 1970 Gender:F Ordering : DR MIKHAIL RUIZ M.D. Admission #: [id number] Family : Order #: [id number] CLICK HERE TO VIEW EXAM RADIOLOGY REPORT [...] Wells M.D. on 05/03/2022 at 09:51 Normal [facility] VC EXT VENOUS LT LIMITEDon 1 07-04-2021 VC EXT VENOUS LT LIMITED Patient: YOLANDA SENA. Exam Date: 05/03/2022 : 1970 Gender:F Ordering : DR MIKHAIL RUIZ M.D. Admission #: [id number] Family : Order #: [id number] CLICK HERE TO VIEW EXAM RADIOLOGY REPORT [...] Wells M.D. on 05/03/2022 at 09:49 Normal [facility] VC INJ FOAM SCLERO W US MLTI on 04-25-2022 VC INJ FOAM SCLERO W US MLTI Patient: JAIDA YOLANDA Jeanne. Exam Date: 04/25/2022 : 1970 Gender:F Ordering : DR MIKHAIL RUIZ M.D. Admission #: [id number] Family : Order #: [id number] CLICK HERE TO VIEW EXAM RADIOLOGY REPORT [...] Wells M.D. on 04/25/2022 at 11:04 Normal [facility] VC INJ SCL CHARLIE PATIENT ACCOUNTING REPRESENTATIVE VEINSon 1 06-20-2021 VC INJ SCL CHARLIE PATIENT ACCOUNTING REPRESENTATIVE VEINS Patient: YOLANDA SENA Exam Date: 04/19/2022 : 1970 Gender:F Ordering : DR MIKHAIL RUIZ M.D. Admission #: [id number] Family : Order #: [id number] CLICK HERE TO VIEW EXAM RADIOLOGY REPORT [...] Ruiz MD on 04/19/2022 at 11:31 Normal [facility] VC CONSULT FOLLOWUPon 2021 VC CONSULT FOLLOWUP Patient: MANISHA SENA Exam Date: 04/17/2022 : 1970 Gender:F Ordering : DR MIKHAIL RUIZ M.D. Admission #: [id number] Family : Order #: [id number] CLICK HERE TO VIEW EXAM RADIOLOGY REPORT [...] Ruiz MD on 04/17/2022 at 15:02 Normal [facility] VC EXT VENOUS RT LIMITEDon 1 06-18-2021 VC EXT VENOUS RT LIMITED Patient: JAIDA YOLANDA Jeanne. Exam Date: 04/17/2022 : 1970 Gender:F Ordering : DR MIKHAIL RUIZ M.D. Admission #: [id number] Family : Order #: [id number] CLICK HERE TO VIEW EXAM RADIOLOGY REPORT [...] Ruiz MD on 04/17/2022 at 13:06 Normal [facility] VC INJ FOAM SCLERO W US MLTI on 04-09-2022 VC INJ FOAM SCLERO W US MLTI Patient: YOLANDA SENA Jeanne. Exam Date: 04/09/2022 : 1970 Gender:F Ordering : DR MIKHAIL RUIZ M.D. Admission #: [id number] Family : Order #: [id number] CLICK HERE TO VIEW EXAM RADIOLOGY REPORT [...] with Varithena(r) 2. Intraoperative ultrasound guidance Physician: Rsaheed Wells M.D. Anesthesia: None. Indications for Procedure: [...] M.D. on 04/09/2022 at 13:[address] [facility] VC CONSULT FOLLOWUPon 2021 VC CONSULT FOLLOWUP Patient: MANISHA SENA Exam Date: 03/22/2022 : 1970 Gender:F Ordering : DR MIKHAIL RUIZ M.D. Admission #: [id number] Family : Order #: [id number] CLICK HERE TO VIEW EXAM RADIOLOGY REPORT [...] Ruiz MD on 03/22/2022 at 09:35 Normal [facility] VC EXT VENOUS LT LIMITEDon 1 05-22-2021 VC EXT VENOUS LT LIMITED Patient: YOLANDA SENA Exam Date: 03/22/2022 : 1970 Gender:F Ordering : DR MIKHAIL RUIZ M.D. Admission #: [id number] Family : Order #: [id number] CLICK HERE TO VIEW EXAM RADIOLOGY REPORT [...] MD on 03/22/2022 at 08:[address] [facility] VC ENDOVENOUS ABL 1ST V LTon 03-14-2022 VC ENDOVENOUS ABL 1ST V LT Patient: YOLANDA SENA Exam Date: 03/14/2022 : 1970 Gender:F Ordering : DR MIKHAIL RUIZ M.D. Admission #: [id number] Family : Order #: [id number] CLICK HERE TO VIEW EXAM RADIOLOGY REPORT PROCEDURE: VEIN CENTER ENDOVENOUS ABLATION FIRST VEIN LEFT SMALL SAPHENOUS VEIN COMPARISON: VC ENDOVENOUS ABL 1ST V LT, 08/24/2021. INDICATIONS: Pain co-occurrent and due to varicose veins of bilateral legs I83.813 OPERATIVE REPORT: The risks and benefits of the procedure had been previously discussed, and were rediscussed at length. Informed written consent was obtained by al and Dale Griffith assisted. Time out procedure [...] MD on 03/14/2022 at 08:[address] [facility] CBC AUTO DIFFon 11-21-2021 BASO # 0.1 103/ul Normal 0.0-0.1 [facility] Comment on above: Performed By: #### C BC ####[facility] [address] [place] [address]Dr. Betsy Avery Basophils/100 WBC (Bld) 0.8 % Normal 0.2-2.[address] [facility] Comment on above: Performed By: #### C BC ####[facility] [address] [id number] Avery EO # 0.3 103/ul Normal 0.0-0.7 [facility] Comment on above: Performed By: #### C BC ####[facility] [address] [address]Dr. Betsy Avery Eosinophils/100 WBC (Bld) 3.6 % Normal 0.9-7.0 [facility] Comment on above: Performed By: #### C BC ####[facility] [address] [address]Dr. Betsy Avery Erythrocyte distribution width (RBC) [Ratio] 13.7 % Normal 11.0-15.0 [facility] Comment on above: Performed By: #### C BC ####[facility] [address] [address]Dr. Betsy Avery Hematocrit (Bld) [Volume fraction] 41.8 % Normal 36.0-48.0 [facility] Comment on above: Performed By: #### C BC ####[facility] [address] [place], [place] [address]Dr. Betsy Avery Hemoglobin (Bld) [Mass/Vol] 13.1 g/dL Normal 12.0-16.0 [facility] Comment on above: Performed By: #### C BC ####[facility] [address] [place], [place] [address]Dr. Betsy Avery IG # 0.02 10e3/ul Normal 0.00-0.03 [facility] Comment on above: Performed By: #### C BC ####[facility] [address] [place], [place] [address]Dr. Betsy Avery IG % 0.3 % Normal 0.0-0.5 [facility] Comment on above: Performed By: #### C BC ####[facility] [address] [place], [place] [address]Dr. Betsy Avery LYMPH # 2.7 103/ul Normal 1.2-3.[address] [facility] Comment on above: Performed By: #### C BC ####[facility] By[address] [place], [place] [address]Dr. Betsy Avery Lymphocytes/100 WBC (Bld) 35.0 % Normal 20.5-60.0 [facility] Comment on above: Performed By: #### C BC ####[facility] [address] [place], [place] [address]Dr. Betsy Avery MANUAL DIFF REQ NO Normal [facility] Comment on above: Performed By: #### C BC ####[facility] [address] [address]Dr. Betsy Bennie MCH (RBC) [Entitic mass] 26.6 pg Critically low 26.7-34.0 [facility] Comment on above: Performed By: #### C BC ####[facility] [address] [address]Dr. Betsy Avery MCHC (RBC) [Mass/Vol] 31.3 g/dL Normal 29.9-35.[address] [facility] Comment on above: Performed By: #### C BC ####[facility] [address] [address]Dr. Betsy Avery MCV (RBC) [Entitic vol] 84.8 fL Normal 81.0-99.0 [facility] Comment on above: Performed By: #### C BC ####[facility] [address] [place], [place] [address]Dr. Betsy Avery MONO # 0.4 103/ul Normal 0.3-0.[address] [facility] Comment on above: Performed By: #### C BC ####[facility] I[address] [place], [place] [address]Dr. Betsy Avery Monocytes/100 WBC (Bld) 5.3 % Normal 1.7-12.[address] [facility] Comment on above: Performed By: #### C BC ####[facility] [address] [place], [place] [address]DrJai Avery NEUT # 4.3 103/ul Normal 1.4-6.[address] [facility] Comment on above: Performed By: #### C BC ####[facility] [address] [place], [place] [address]DrJai Avery Neutrophils/100 WBC (Bld) 55.0 % Normal 43.0-75.[address] [facility] Comment on above: Performed By: #### C BC ####[facility] [address] [place], [place] [address]DrJai Avery Platelet mean volume (Bld) [Entitic vol] 10.7 fL Normal 9.5-13.5 [facility] Comment on above: Performed By: #### C BC ####[facility] [address] [address]Dr. Betsy Avery PLT 331 103/ul Normal 150-450 [facility] Comment on above: Performed By: #### C BC ####[facility] [address] [place] [id number]. Betsy Avery RBC 4.93 106/ul Normal 4.20-5.40 [facility] Comment on above: Performed By: #### C BC ####[facility] [address] [address]Dr. Betsy Avery WBC 7.8 103/ul Normal 4.0-11.0 [facility] Comment on above: Performed By: #### C BC ####[facility] [address] [address]Dr. Betsy Avery GLYCOHEMOGLOBIN A1Con 2021 ADA RECOMMENDATION SEE BELOW Normal [facility] Comment on above: Result Comment: ADA RECOMMENDED LIMIT 4.0 - 6.0 ADA THERAPEUTIC TARGET < 7.0 ACTION SUGGESTED > 7.0 Performed By: #### A 1C ####[facility] [address] [place], [place] [address]Dr. Betsy Avery Glucose [Mass/Vol] 131 mg/dL Normal [facility] Comment on above: Performed By: #### A 1C ####[facility] [address] [place], [place] [address]Dr. Betsy Avery HbA1c (Bld) [Mass fraction] 6.2 % Normal 4.5-6.2 [facility] Comment on above: Performed By: #### A 1C ####[facility] [address] [place], [place] [address]Dr. Betsy Avery LIPID PROFILEon 11-21-2021 CHOL-HDL RATIO NORM SEE BELOW Normal [facility] Comment on above: Result Comment: 3.3 - 4.4 LOW RISK 4.4 - 7.1 AVERAGE RISK 7.1 - 11.0 MODERATE RISK >11.0 HIGH RISK Performed By: #### C MP, LIPID, TSH #### [facility] [address] [address] [address] Betsy Avery Cholesterol [Mass/Vol] 195 mg/dL Normal <=200 [facility] Comment on above: Performed By: #### C MP, LIPID, TSH #### [facility] [address] [address] [address] Betsy Avery Cholesterol in HDL [Mass/Vol] 50 mg/dL Normal 40-60 [facility] Comment on above: Performed By: #### C MP, LIPID, TSH #### [facility] [address] [address] [address] Betsy Avery Cholesterol in LDL [Mass/Vol] 116.0 mg/dL Normal [facility] Comment on above: Performed By: #### C MP, LIPID, TSH #### [facility] [address] [address] [address] Betsy Avery Cholesterol.total/Ch olesterol in HDL [Mass ratio] 3.9 {ratio} Normal [facility] Comment on above: Performed By: #### C MP, LIPID, TSH #### [facility] [address] [address] [address] Betsy Avery HDL NORMAL > or = 60 mg/dl - LO W CARDIOVASCULAR RISK <40 mg/dl - HIGH CARDIOVASCULAR RISK Normal [facility] Comment on above: Performed By: #### C MP, LIPID, TSH #### [facility] [address] [address] [address] Betsy Avery LDL CALC NORMAL SEE BELOW Normal [facility] Comment on above: Result Comment: <100 mg/dl OPTIMAL 100 - 129 mg/dl NEAR OR ABOVE OPTIMAL 130 - 159 mg/dl BORDERLINE HIGH 160 - 189 mg/dl HIGH >190 mg/dl VERY HIGH Performed By: #### C MP, LIPID, TSH #### [facility] [address] [address] [address] Betsy Avery Triglyceride [Mass/Vol] 145 mg/dL Normal <=150 [facility] Comment on above: Performed By: #### C MP, LIPID, TSH #### [facility] [address] [address] [address] Betsy Avery VLDL CALC 29.0 mg/dL Normal [facility] Comment on above: Performed By: #### C MP, LIPID, TSH #### [facility] [address] [place], [place] [address] Dr. Betsy Avery MG MAMM SCREEN 3D MICHAEL CADon 11-21-2021 MG MAMM SCREEN 3D MICHAEL CAD Patient: YOLANDA SENA Exam Date: 11/21/2021 : 1970 Gender:F Ordering : DR FRANCHESCA GO M.D. Admission #: [id number] Family : Order #: [id number] CLICK HERE TO VIEW EXAM RADIOLOGY REPORT [...] Treatments None Family Cancers None LOCATION: [facility] BREAST COMPOSITION: Scattered areas fibroglandular density. [...] MD on 11/21/2021 at 09:[address] [facility] PROF 14(COMP METB)on 022 Albumin [Mass/Vol] 3.5 g/dL Normal 3.4-5.0 [facility] Comment on above: Performed By: #### C MP, LIPID, TSH #### [facility] [address] [place], [place] [address] Dr. Betsy Avery Albumin/Globulin [Mass ratio] 0.8 {ratio} Normal [facility] Comment on above: Performed By: #### C MP, LIPID, TSH #### [facility] [address] [address] [address] Betsy Avery ALP [Catalytic activity/Vol] 93 U/L Normal 46-116 [facility] Comment on above: Performed By: #### C MP, LIPID, TSH #### [facility] [address] [address] [address] Betsy Avery ALT [Catalytic activity/Vol] 18 U/L Normal 14-59 [facility] Comment on above: Performed By: #### C MP, LIPID, TSH #### [facility] [address] [address] [address] Betsy Avery Anion gap [Moles/Vol] 13.2 mmol/L Normal [facility] Comment on above: Performed By: #### C MP, LIPID, TSH #### [facility] [address] [address] [address] Betsy Avery AST [Catalytic activity/Vol] 27 U/L Normal 15-37 [facility] Comment on above: Performed By: #### C MP, LIPID, TSH #### [facility] [address] [address] [address] Betsy Avery Bilirubin [Mass/Vol] 0.3 mg/dL Normal 0.2-1.0 [facility] Comment on above: Performed By: #### C MP, LIPID, TSH #### [facility] [address] [address] [address] Betsy Avery Calcium [Mass/Vol] 9.2 mg/dL Normal 8.5-10.1 [facility] Comment on above: Performed By: #### C MP, LIPID, TSH #### [facility] [address] [address] [address] Betsy Avery Chloride [Moles/Vol] 105 mmol/L Normal 98-107 [facility] Comment on above: Performed By: #### C MP, LIPID, TSH #### [facility] [address] [address] [address] Betsy Avery CO2 [Moles/Vol] 25.2 mmol/L Normal 21.0-32.0 [facility] Comment on above: Performed By: #### C MP, LIPID, TSH #### [facility] [address] [address] [address] Betsy Avery Creatinine [Mass/Vol] 0.89 mg/dL Normal 0.55-1.02 [facility] Comment on above: Performed By: #### C MP, LIPID, TSH #### [facility] [address] [address] [address] Betsy Avery EGFR-AF [place] >60 Normal >=60 [facility] Comment on above: Performed By: #### C MP, LIPID, TSH #### [facility] [address] [address] [address] Betsy Avery EGFR-NON AF [place] >60 Normal >=60 [facility] Comment on above: Performed By: #### C MP, LIPID, TSH #### [facility] [address] [address] [address] Betys Avery Globulin (S) [Mass/Vol] 4.2 g/dL Normal [facility] Comment on above: Performed By: #### C MP, LIPID, TSH #### [facility] [address] [address] [address] Betsy Avery Glucose [Mass/Vol] 130 mg/dL Critically high 74-106 [facility] Comment on above: Performed By: #### C MP, LIPID, TSH #### [facility] [address] [address] [address] Betsy Avery Potassium [Moles/Vol] 4.4 mmol/L Normal 3.5-5.1 [facility] Comment on above: Performed By: #### C MP, LIPID, TSH #### [facility] [address] [address] [address] Betsy Avery Protein [Mass/Vol] 7.7 g/dL Normal 6.4-8.[address] [facility] Comment on above: Performed By: #### C MP, LIPID, TSH #### [facility] [address] [address] [address] Betsy Avery Sodium [Moles/Vol] 139 mmol/L Normal 136-145 [facility] Comment on above: Performed By: #### C MP, LIPID, TSH #### [facility] [address] [address] [address] Betsy Avery Urea nitrogen [Mass/Vol] 15.0 mg/dL Normal 7.0-18.0 [facility] Comment on above: Performed By: #### C MP, LIPID, TSH #### [facility] [address] [place] [address] Dr. Betsy Avery Urea nitrogen/Creatinine [Mass ratio] 16.9 mg/mg Normal [facility] Comment on above: Performed By: #### C MP, LIPID, TSH #### [facility] [address] [place] [address] Dr. Betsy Avery TSHon 11-21-2021 TSH 2.111 uIU/mL Normal 0.358-3.740 [facility] Comment on above: Performed By: #### C MP, LIPID, TSH #### [facility] [address] [place] [address] Dr. Betsy Avery PAP ACOG PANEL 2: 30 to 65on 11-20-2021 . . Normal [facility] Comment on above: Result Comment: Perf ormed at: WB Performed By: #### [id number] #### [facility] [address] [place] [address] Dr. Betsy Avery Age Gdln ACOG Testing 30-65 [facility] Comment on above: Performed By: #### [id number] #### [facility] [address] [place] [address] Dr. Betsy Avery DIAGNOSIS: Comment Normal [facility] Comment on above: Result Comment: NEGA TIVE FOR INTRAEPITHELIAL LESION OR MALIGNANCY. Performed at: WB Performed By: #### [id number] #### [facility] [address] [place] [address] Dr. Betsy Avery HPV Aptima Negative Normal Negative [facility] Comment on above: Result Comment: This nucleic acid amplification test detects fourteen high-risk HPV types (16,18,31,33,35,39,45,51,52,56,58,59,66,68) without differentiation. Performed at: =G Performed By: #### [id number] #### [facility] [address] [place] [address] Dr. Betsy Avery Methodology: Comment Normal [facility] Comment on above: Result Comment: This liquid based ThinPrep(R) pap test was screened with the use of an image guided system. Performed at: WB Performed By: #### [id number] #### [facility] [address] [place] [address] Dr. Betsy Avery Note: Comment Normal [facility] Comment on above: Result Comment: The Pap smear is a screening test designed to aid in the detection of premalignant and malignant conditions of the uterine cervix. It is not a diagnostic procedure and should not be used as the sole means of detecting cervical cancer. Both false-positive and false-negative reports do occur. . Performed at: WB Performed By: #### [id number] #### [facility] [address] [place] [address] Dr. Betsy Avery Performed by: Comment Normal [facility] Comment on above: Result Comment: Diane Braswell, District Sales Leader (ASCP) Performed at: WB Performed By: #### [id number] #### [facility] [address] [place] [address] Dr. Betsy Avery Specimen adequacy: Comment Normal [facility] Comment on above: Result Comment: Sati sfactory for evaluation. No endocervical component is identified. Performed at: [facility] Performed By: #### [id number] #### [facility] [address] [place] [address] Dr. Betsy Avery VC CONSULT FOLLOWUPon 2021 VC CONSULT FOLLOWUP Patient: MANISHA SENA Exam Date: 09/21/2021 : 1970 Gender:F Ordering : DR MIKHAIL RUIZ M.D. Admission #: [id number] Family : Order #: [id number] CLICK HERE TO VIEW EXAM RADIOLOGY REPORT [...] Ruiz MD on 09/21/2021 at 11:16 Normal [facility] VC EXT VENOUS RT LIMITEDon 0 09-21-2021 VC EXT VENOUS RT LIMITED Patient: YOLANDA SENA Exam Date: 09/21/2021 : 1970 Gender:F Ordering : DR MIKHAIL RUIZ M.D. Admission #: [id number] Family : Order #: [id number] CLICK HERE TO VIEW EXAM This report [...] Ruiz MD on 09/28/2021 at 10:25 Normal [facility] VC ENDOVENOUS ABL 1ST V RTon 09-11-2021 VC ENDOVENOUS ABL 1ST V RT Patient: YOLANDA SENA Exam Date: 09/11/2021 : 1970 Gender:F Ordering : DR MIKHALI RUIZ M.D. Admission #: [id number] Family : Order #: [id number] CLICK HERE TO VIEW EXAM RADIOLOGY REPORT [...] Ruiz MD on 09/11/2021 at 09:20 Normal [facility] VC CONSULT FOLLOWUPon 2021 VC CONSULT FOLLOWUP Patient: MANISHA SENA Exam Date: 08/30/2021 : 1970 Gender:F Ordering : DR MIKHAIL RUIZ M.D. Admission #: [id number] Family : Order #: [id number] CLICK HERE TO VIEW EXAM RADIOLOGY REPORT [...] Wells M.D. on 08/30/2021 at 09:44 Normal [facility] VC EXT VENOUS LT LIMITEDon 0 08-30-2021 VC EXT VENOUS LT LIMITED Patient: YOLANDA SENA. Exam Date: 08/30/2021 : 1970 Gender:F Ordering : DR MIKHAIL RUIZ M.D. Admission #: [id number] Family : Order #: [id number] CLICK HERE TO VIEW EXAM RADIOLOGY REPORT [...] Rasheed Wells M.D. on 08/30/2021 at 09:26 [facility] VC ENDOVENOUS ABL 1ST V LTon 08-24-2021 VC ENDOVENOUS ABL 1ST V LT Patient: JAIDA YOLANDA Jeanne. Exam Date: 08/24/2021 : 1970 Gender:F Ordering : DR MIKHAIL RUIZ M.D. Admission #: [id number] Family : Order #: [id number] CLICK HERE TO VIEW EXAM RADIOLOGY REPORT [...] Ruiz MD on 08/24/2021 at 10:51 Normal [facility] Vital Signs Date Time Vital Sign Value Performing Clinician Facility 01-09-2024 09:06-0400 Body height 172.72 cm [facility] 01-09-2024 09:06-0400 Body mass index (BMI) [Ratio] 48.2 kg/m2 [facility] 01-09-2024 09:06-0400 Body weight 143.78 kg [facility] 01-09-2024 09:06-0400 Diastolic blood pressure 70 mm[Hg] [facility] 01-09-2024 09:06-0400 Heart rate 71 /min [facility] 01-09-2024 09:06-0400 Systolic blood pressure 108 mm[Hg] [facility] 08-21-2023 13:25-0400 Body height 172.72 cm [facility] 08-21-2023 13:25-0400 Body mass index (BMI) [Ratio] 48.4 kg/m2 [facility] 08-21-2023 13:25-0400 Body weight 144.69 kg [facility] 08-21-2023 13:25-0400 Diastolic blood pressure 78 mm[Hg] [facility] 08-21-2023 13:25-0400 Heart rate 81 /min [facility] 08-21-2023 13:25-0400 SaO2% (BldA) [Mass fraction] 96 % [facility] 08-21-2023 13:25-0400 Systolic blood pressure 110 mm[Hg] [facility] 02-22-2023 08:30-0400 Body height 172.72 cm [facility] Other [facility] 02-22-2023 08:30-0400 Body mass index (BMI) [Ratio] 47.89 kg/m2 [facility] Other [facility] 02-22-2023 08:30-0400 Body weight 142.88 kg [facility] Other [facility] 02-22-2023 08:30-0400 Diastolic blood pressure 78 mm[Hg] [facility] Other [facility] 02-22-2023 08:30-0400 Systolic blood pressure 136 mm[Hg] [facility] Other [facility] 12-27-2022 08:30-0400 Body height 172.72 cm Franchesca Go Other [facility] 12-27-2022 08:30-0400 Body mass index (BMI) [Ratio] 47.89 kg/m2 [facility] Other [facility] 12-27-2022 08:30-0400 Body weight 142.88 kg [facility] Go Other [facility] 12-27-2022 08:30-0400 Diastolic blood pressure 70 mm[Hg] [facility] Other [facility] 12-27-2022 08:30-0400 Systolic blood pressure 112 mm[Hg] [facility] Other [facility] Other Encounters Encounter Date Encounter Type Care Provider Facility Start: 01-09-2024 Patient encounter status [facility] Start: 01-09-2024 End: 01-09-[address] [facility] Work Phone: Start: 01-09-2024 End: 01-09-2024 Encounter for general adult medical examination without abnormal findings [facility] Start: 01-09-2024 End: 01-09-2024 Patient encounter procedure [facility] Physician [facility] Work Phone: Start: 10-03-2023 End: 10-03-2023 ambulatory CAMACHO CARNEY Not Available Start: 09-03-2023 End: 09-03-[address] [facility] Work Phone: Start: 09-03-2023 End: 09-03-2023 Patient encounter procedure [facility] Physician [facility] Work Phone: Start: 08-23-2023 End: 08-23-2023 ambulatory [facility] Start: 08-21-2023 End: 08-21-[address] [facility] Work Phone: Start: 08-21-2023 End: 08-21-2023 Patient encounter procedure [facility] Work Phone: Start: 05-17-2023 End: 05-17-2023 ambulatory [facility] Go Other [facility] Start: 05-17-2023 Office outpatient vi sit 15 minutes Franchesca Go [facility] Start: 02-22-2023 End: 02-22-2023 ambulatory Franc[facility]sca Go Other [facility] Start: 02-22-2023 Office outpatient vi sit 15 minutes Franchesca Go [facility] Start: 12-27-2022 End: 12-27-2022 ambulatory [facility] Go Other [facility] Start: 12-27-2022 Encounter for genera l adult medical examination without abnormal findings Franchesca Go [facility] Start: 12-27-2022 Periodic preventive med est patient 40-64yrs Franchesca Go [facility] Start: 08-10-2022 End: 08-10-2022 ambulatory [facility]ANCH[facility]CA GO Facility: Start: 08-04-2022 End: 03-26-2023 ambulatory ESPERANZA CLINTON Facility:[facility] Start: 05-04-2022 ambulatory [facility]CA GO Facility :[facility] Start: 05-03-2022 Adult health examination lEoise Go Other [facility] Start: 05-03-2022 Gynecological examination normal [facility] Go Other [facility] Start: 05-03-2022 History of abnormal cervical Papanicolaou smear [facility] Other [facility] Start: 05-03-2022 Problem, abnormal examination Franchesca Luli Other [facility] Start: 05-03-2022 End: 05-04-[address] [...] medical examination without abnormal findings FRANCHESCA GO [facility] Start: 11-21-2021 End: 11-22-2021 ambulatory FRANCHESCA GO [...] lic 2000 panel - Serum or Plasma [facility] MG Breast - bilateral Screening [facility] Patient Education Low back pain in adults [facility] Work Phone: [facility] Payers Date Payer Category Payer Unknown [id number] 2021 [place] [id number] 2019 Unknown [id number] 1970 Unknown [id number] 2.16.84 0.1.069254.3.579.2.593 1970 Unknown [id number] 2.16.84 0.1.761852.3.579.2.593 1970 Unknown [id number] 2.16.84 0.1.015914.3.579.2.593 1970 Unknown [id number] 2.16.84 0.1.087066.3.579.2.593 1968 Unknown [id number] 2.16.84 0.1.529762.3.579.2.593 1970 Unknown [id number] 2.16.84 0.1.836912.3.579.2.593 1968 Unknown [id number] 2.16.84 0.1.108646.3.579.2.593 1968 Unknown [id number] 2.16.84 0.1.439953.3.579.2.593 1968 Unknown [id number] 2.16.84 0.1.369255.3.579.2.593 1968 Unknown [id number] 2.16.84 0.1.139325.3.579.2.593 1968 Unknown [id number] 2.16.84 0.1.371552.3.579.2.593 1968 Unknown [id number] 2.16.84 0.1.063288.3.579.2.593 1968 Unknown [id number] 2.16.84 0.1.493987.3.579.2.593 1968 Unknown [id number] 2.16.84 0.1.880166.3.579.2.593 1968 Unknown [id number] 2.16.84 0.1.694000.3.579.2.593 1968 Unknown [id number] 2.16.84 0.1.827115.3.579.2.593 1968 Unknown [id number] 2.16.8 40.1.284162.3.579.2.1286 1970 Unknown [id number] 2.16.84 0.1.661290.3.579.2.1259 1961 Self-pay [id number] 1961 Unknown [id number] Unknown [id number] 2.16.84 0.1.815880.3.579.2.593 Social History Date Type Detail Facility Unknown if ever smoked [facility] Sex Assigned At Sex Assigned At [facility] Start: 08-21-2023 Tobacco smoking status NHIS Never smoked tobacco (finding) [facility] Start: 1970 Sex Assigned At Female [facility] NEGATED: Highlighted row [facility] Evaluation note 05-17-2023 Note Date & Type Note Facility 05-17-2023 Evaluation note Encounter Date Diagnosis Assessment Notes May, Bronchitis (ICD-10 - J40) Take antibiotic as directed. If develop wheezing, chest tightness, itching, bad cough, blue skin color, seizures, swelling of face, lips, tongue, or throat report to ED. [facility] Other Evaluation note 02-22-2023 Note Date & Type Note Facility 02-22-2023 Evaluation note Encounter Date Diagnosis Assessment Notes Feb, Anaphylaxis, initial encounter (ICD-10 - T78.2XXA) Form completed per patient's request to be exempt from the flu shot at [facility]. Denies history of influenza, ongoing breathing issues or lung issues. [facility] Evaluation note 12-27-2022 Note Date & [...] - will increase dose based on lab [facility] Other Evaluation note Note Date & Type Note Facility Evaluation note Diagnosis Onset Date Maxillary sinusitis acute [facility] Work Phone: Evaluation note Note Date & Type Note Facility Evaluation note Diagnosis Onset Date Maxillary sinusitis acute Low back pain acute Muscle spasm acute [facility] Work Phone: Evaluation note Note Date & Type Note Facility Evaluation note Diagnosis Onset Date H/O colonoscopy acute Hypothyroidism, unspecified acute Screening mammogram for breast cancer acute Wellness examination acute [facility] Work Phone: History general Narrative - [...] : Active,, Medical History Problem Title : [facility] JAMIE: Hypothyroidism, Problem Status : Active,, Medical History Problem Title : [facility] JAMIE: No history of significant medical diseases, Problem Status : Inactive,, Medical History Problem Title : [facility] JAMIE: Scoliosis, Problem Status : Active,, [...] & 3,2022 Hospitalization History SEE SURGICAL HX [facility] Other History general Narrative - Reported Note Date & Type Note Facility History general Narrative - Reported Type Medical History Hypothyroidism, unspecified Medical History Other chronic pain Surgical History UTERINE ABLATION 2013 Surgical History SHOULDER SURGERY RIGHT 2016 Surgical History EVLT 2021 Surgical History COLONOSCOPY X2 Surgical History Bilateral cataract surgery 2 & 3,2022 Hospitalization History SEE SURGICAL HX [facility] Other Summary Purpose Family History Relationship Condition [...] Reason for Referral Reason Dr. Fernandez at [facility] Diagnosis 1 Pain in right knee ( M25.561) Referral Organization [facility] nichole Referring Provider First Name Franchesca Referring Provider Last Name Luli Referring Provider Specialty Family [facility] Referred Organization [facility] Referred Address [address] [place], [place],[address] Referred Provider Specialty Orthopaedic Surgery Referral Priority Routine General Notes Nayeli Pascual 09:43:27 AM >received today Nayeli Pascual 12/27/2022 09:45:11 AM >insurance attached, waiting for notes to be locked to fax referral Clinical Notes F: [id number] Chief Complaint and Reason for Visit Chief [...] and content) DATE CREATED AUTHOR 08/18/2022 [facility] DATE CREATED AUTHOR AUTHOR'S ORGANIZ ATION 08/24/2023 [facility] DATE CREATED AUTHOR AUTHOR'S ORGANIZ ATION 10/05/2023 [facility] dical Specialists EPIC REASON FOR VISIT (unrecogniz ed section and content) WELLNESSdiscuss vaccinations URI-COVID Negative- [phone] Care Teams (unrecognized sec tion and content) [...] BE BASED ON THE PRIMARY CLINICAL RECORDS. [facility]. provides no warranty or guarantee of the accuracy or completeness of information in this document.
--- NOTE | 2024-02-25 13:29 | ECG_ITS ---
[facility] Test Date: 2024-02-25 Pat Name: JESUS ALBERTO SENA Department: Room: - Gender: Female Patient Transition Specialist: : 1970 Requested By: Rasheed Fernandez Order Number: [id number] Reading MD: ASHLEY YBARRA Measurements Intervals [place] Rate: 68 P: 58 ME: 203 QRS: 41 QRSD: 94 T: 25 QT: 368 QTc: 393 Interpretive Statements SINUS RHYTHM Compared to ECG 01/28/2023 09:42:16 ST (T wave) deviation no longer present Electronically Signed On 02-25-2024 22:39:42 EDT by ASHLEY YBARRA
--- NOTE | 2024-02-25 13:53 | PM.PRESUREVA ---
History of Present Illness History of Present Illness Chief complaint: RIGHT WRIST CARPAL TUNNEL SYNDROME Narrative: Patient presents for preadmission testing. The patient reports a long history of right sided carpal tunnel syndrome. The patient is right-handed. 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 She reports intermittent numbness and tingling and weakness of her right hand. She denies any acute trauma or injury. Review of Systems ROS Narrative REVIEW OF SYSTEMS: Negative except as stated in HPI, ten or more systems reviewed. Constitutional: No fever, chills, weakness ENT: No sore throat or epistaxis Cardiovascular: No edema, chest pain, palpitations, or activity intolerance Respiratory: No shortness of breath, cough, or wheezing Gastrointestinal: No abdominal pain, constipation, diarrhea, or vomiting Genitourinary: No dysuria or hematuria Neurological: No numbness, tingling, weakness, or headache Psychiatric: No mood changes PFSH PFSH Medical History (Updated 02/25/24 @ 13:43 by Elida Jennings NP) Right carpal tunnel syndrome ?G56.01 - Carpal tunnel syndrome, right upper limb (ICD-10) Back pain ?M54.9 - Dorsalgia, unspecified (ICD-10) Scoliosis ?M41.9 - Scoliosis, unspecified (ICD-10) COVID-19 ?U07.1 - COVID-19 (ICD-10) Asthma ?J45.909 - Unspecified asthma, uncomplicated (ICD-10) Menopause ?Z78.0 - Asymptomatic menopausal state (ICD-10) Heartburn ?R12 - Heartburn (ICD-10) Menopausal state ?N95.1 - Menopausal and female climacteric states (ICD-10) Bilateral cataracts ?H26.9 - Unspecified cataract (ICD-10) Hypothyroidism ?E03.9 - Hypothyroidism, unspecified (ICD-10) Hx LEEP (loop electrosurgical excision procedure), cervix, ?O34.40 - Maternal care for other abnormalities of cervix, unspecified trimester (ICD-10) ?Z98.890 - Other specified postprocedural states (ICD-10) Surgical History (Updated 02/25/24 @ 13:43 by Elida Jennings NP) History of cataract extraction ?Z98.49 - Cataract extraction status, unspecified eye (ICD-10) History of colonoscopy (2024) ?Z98.890 - Other specified postprocedural states (ICD-10) H/O wisdom tooth extraction ?K08.409 - Partial loss of teeth, unspecified cause, unspecified class (ICD-10) H/O repair of rotator cuff ?Z98.890 - Other specified postprocedural states (ICD-10) H/O arthroscopic knee surgery ?Z98.890 - Other specified postprocedural states (ICD-10) H/O foot surgery ?Z98.890 - Other specified postprocedural states (ICD-10) H/O cervical biopsy ?Z98.890 - Other specified postprocedural states (ICD-10) History of ankle surgery ?Z98.890 - Other specified postprocedural states (ICD-10) Family History (Updated 09/16/23 @ 08:20 by Julia Vance) Mother Family history of diabetes mellitus Family history of hypertension Father Family history of diabetes mellitus Family history of hypertension Social History (Updated 02/25/24 @ 13:37 by Elida Jennings NP) Within the past year, how often did you have a drink containing alcohol: monthly or less Smoking status: Former smoker Non-prescribed substance use: denies use 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 Highest level of school completed/degree received: Associate degree: academic program Meds Home Medications and Allergies Home Medications ?Medication ?Instructions ?Recorded ?Confirmed ?Type levothyroxine 150 mcg tablet 150 mcg PO DAILY 02/25/24 02/25/24 History meloxicam 15 mg tablet 15 mg PO DAILY 02/25/24 02/25/24 History Allergies Allergy/AdvReac Type Severity Reaction Status Date / Time lidocaine Allergy Severe Anaphylaxis Verified 02/25/24 13:35 methylprednisolone Allergy Severe Anaphylaxis Verified 02/25/24 13:35 Penicillins Allergy Intermediate Hives Verified 02/25/24 13:35 bupivacaine (From Marcaine) Allergy Anaphylaxis Verified 02/25/24 13:35 triamcinolone (From Kenalog) Allergy Anaphylaxis Verified 02/25/24 13:35 erythromycin base AdvReac Intermediate Hives Verified 02/25/24 13:35 Exam Narrative Exam Narrative: Constitutional: Awake, alert, comfortable, well-appearing, nontoxic, interactive, vital signs as charted Head: Normocephalic, atraumatic Neck: Supple, normal appearance, normal range of motion, no meningeal signs, no lymphadenopathy Respiratory: No respiratory distress, breath sounds clear Cardiovascular: Regular rate and rhythm, strong and regular heart tones Musculoskeletal: Positive Phalen's test on the right, no obvious deformity or swelling of the right hand and wrist, good capillary refill, radial and ulnar pulses are palpable Skin: No rashes or induration, no lesions, only visible skin inspected Neuro: No gross neurological deficits, normal sensation Psychiatric: Oriented ?3, normal affect Assessment and Plan Assessment and Plan (1) Right carpal tunnel syndrome: Plan Right endoscopic carpal tunnel release scheduled with Dr. Fernandez March 16, 2024.
== END 2024-02-25 09:22 | disposition home or self-care (01) ==
LOC: PST 09:21
PROVIDERS: PCP Family Medicine; Visit Provider Orthopaedic Surgery
DX: Z01.810 Encounter for preprocedural cardiovascular examination (principal); Z01.818 Encounter for other preprocedural examination; G56.01 Carpal tunnel syndrome, right upper limb
CPT/HCPCS: 93005; G0463

== ENCOUNTER 2024-03-16 12:00 | Day surgery (SDC) | payer BC, SELFPAY ==
[2024-02-25 13:48] VITALS: BP 122/77; PULSE 77; TEMP 36.3; O2SAT 98; BMI 49.9
[2024-03-16] VITALS (8 sets, daily range): BP systolic 86–122; BP diastolic 53–73; PULSE 79–88; TEMP 36.3–36.6; O2SAT 92–98; BMI 49.8
[2024-03-16] MEDS: 0.9 % SODIUM CHLORIDE 500 ML 50 ML IV (13:30)
[2024-03-16] MEDS: CEFAZOLIN SODIUM 2 GM/50 ML D5W PREMIX IV (14:03)
--- NOTE | 2024-03-16 14:08 | PM.ORPRC ---
Procedure Note Date of procedure: 03/16/24 Pre-op diagnosis: Right Carpal tunnel syndrome Post-op diagnosis: same as pre-op Procedure: Procedure:Right endoscopic carpal tunnel release Tourniquet time: 3 Minutes at 200 mmHg Complications: None Indications for Surgery: The patient has had signs and symptoms of carpal tunnel syndrome that have failed conservative treatment. Options were discussed with the patient as well as risks and benefits and they have elected to proceed with the surgery. Operative procedure: Prior to surgery the patient received IV antibiotics. The operative extremity was marked preoperatively. After informed consent was obtained the patient was brought to the operating room where general anesthesia was administered. Preoperatively no local anesthetic was utilized due to unknown local anesthetic causing anaphylaxis. The arm was then prepped and draped in the usual sterile fashion after placement of a well padded tourniquet. The arm was elevated, exsanguinated, and the tourniquet was inflated. A 1 cm incision was then made in a preexisting distal wrist crease. Hemostasis was achieved with bipolar electrocautery. Blunt dissection was then carried down to the forearm fascia where a U-based flap was created. Proximally the fascia was incised for 2 cm under direct visualization. Attention was then turned to the endoscopic carpal tunnel release. The synovial elevator was used to clear the underside of the transverse carpal ligament of soft tissue. Sequential dilators were then placed. The endoscopic carpal tunnel released instrument was then placed. The transverse fibers were then identified and release from distal to proximal. The ligament was completely release. The tourniquet was deflated and hemostasis was achieved. The wound was irrigated and closed with a nylon suture. A sterile dressing was placed. The patient was brought to the recovery room. There were no preoperative or postoperative complications. Anesthesia: General-LMA Surgeon: Rasheed Fernandez Estimated blood loss (mL): 2 Pathology: none sent Condition: stable Disposition: PACU
== END 2024-03-16 15:55 | disposition home or self-care (01) ==
PROVIDERS: PCP Family Medicine; Visit Provider Orthopaedic Surgery
PROC: (CPT 1810; principal; 2024-03-16 13:35)
DX: G56.01 Carpal tunnel syndrome, right upper limb (principal); E66.01 Morbid (severe) obesity due to excess calories; Z68.42 Body mass index [BMI] 45.0-49.9, adult; E07.9 Disorder of thyroid, unspecified
CPT/HCPCS: 29848; J0690; J1885; J2250; J2405; J2704; J3010

== ENCOUNTER 2025-01-09 08:03 | Outpatient (OUT) | payer BC, SELFPAY ==
--- OUTSIDE RECORDS SUMMARY | 2025-01-09 08:07 | XMS_ITS | CCD ---
Author Organization [facility] Care Team Providers Care Office Support Associate Name Role Phone SARA, DR MIKHAIL Whitaker Attending Unavailable WEST, DR MIKHAIL Whitaker Admitting Unavailable GO, FRANCHESCA E Primary Care Unavailable WEST, DR MIKHAIL Whitaker Consulting Unavailable ZIEBER, DR RASHEED Martinez Consulting Unavailable WEST, DR [...] GO, FRANCHESCA E Consulting Unavailable GO, FRANCHESCA Ayala Attending Unavailable GO, FRANCHESCA E Admitting Unavailable [...] Unavailable GO, FRANCHESCA E Primary Care Unavailable ANA LAURAEB, DR RASHEED Martinez Consulting Unavailable WEST, DR MIKHAIL Whitaker Consulting Unavailable WEST, DR MIKHAIL Whitaker Attending Unavailable GO, FRANCHESCA E Primary Care Unavailable WEST, DR MIKHAIL Whitaker Admitting Unavailable EB, DR RASHEED Martinez Consulting Unavailable GO, FRANCHESAC E Primary Care Unavailable GO, FRANCHESCA E Attending Unavailable GO, FRANCHESCA E Admitting Unavailable WEST, DR MIKHAIL Whitaker Consulting Unavailable GO, FRANCHESCA E Consulting Unavailable GO, FRANCHESCA E Primary Care Unavailable MARY BETH, ESPERANZA Admitting Unavailable MARY BETH, ESPERANZA Consulting Unavailable MARY BETH, ESPERANZA Attending Unavailable MARY BETH, ESPERANZA Attending Unavailable GO, FRANCHESCA E Primary Care Unavailable MARY BETH, ESPERANZA Admitting Unavailable MARY BETH, ESPERANZA Consulting Unavailable Go, Franchesca Unavailable ISSA GARCIA Attending Unavailable GO, FRANCHESCA E Primary Care Unavailable Franchesca Go MD Primary Care Provider [phone] Franchesca Go MD Primary Care Provider TY WHITMORE Attending Unavailable TY WHITMORE Attending Unavailable Allergies Allergy Classification Reported Allergen(s) Allergy Type Date of Onset Reaction(s) Facility (6 sources) Erythromycin; Translations: [ERYTHROMYCIN BASE] Drug Allergy 06-16-[address] [facility] Repository (6 sources) Penicillins; Translations: [PENICILLINS] Drug allergy (disorder) 06-16-[address] [facility] Repository (10 sources) Erythromycin Drug Allergy 09-29-18 83 Hives, Unknown [facility] [employer] Other (3 sources) Penicillin Drug Allergy 05-02-20 17 Unknown [employer] Other (13 sources) Bupivacaine; Translations: [BUPIVACAINE] Drug Allergy 02-05-20 23 anaphylaxis, Unknown [facility] (13 sources) Lidocaine; Translations: [LIDOCAINE] Drug Allergy 02-05-20 23 anaphylaxis, Unknown [facility] (13 sources) methylPREDNISolon e; Translations: [METHYLPREDNISOLO NE] Drug Allergy 08-21-19 24 anaphylaxis [facility] (2 sources) Penicillins Propensity to adverse reactions to drug 08-21-19 24 [facility] (5 sources) Penicillins Propensity to adverse reactions 10-16-19 25 Unknown [facility] Healthcare (5 sources) Triamcinolone Drug Allergy 02-05-20 23 Anaphylaxis, Other [facility] Healthcare Medications Current Medications Medication Drug Class(es) Dates [...] as needed for 0 *Pick strength-form from [employer] for eRX* Apr, Active benzonatate 200 mg oral capsule (1 source) Non-narcotic Antitussive Start: 05-17-2023 take 1 capsule by mouth every eight hours Benzonatate 200 MG 1 capsule Orally Three times a day for 10 day(s) May, Active cefdinir 300 mg oral capsule (1 source) Cephalosporin Antibacterial Start: 05-17-2023 Cefdinir 300 MG as directed Orally bid for 7 days May, Active ipratropium bromide 0.042 mg/actuat metered dose nasal spray (5 sources) Anticholinergic Start: 10-15-2024 End: 01-13-2025 take 2 spray(s) nasal route in the morning, then take 2 spray(s) nasal route in the evening, then take 2 spray(s) nasal route at bedtime ipratropium (Atrovent) 0.06 % nasal spray Indications: Chronic rhinitis Administer 2 sprays into each nostril in the morning and 2 sprays in the evening and 2 sprays before bedtime. 15 mL 11 10/15/2024 01/13/2025 Active levothyroxine sodium 0.15 mg oral tablet (16 sources) l-Thyroxine Start: 08-22-2024 take 1 tablet by mouth once daily in the morning levothyroxine (Synthroid, Levoxyl) 150 MCG tablet TAKE 1 TABLET BY MOUTH EVERY DAY IN THE MORNING ON EMPTY STOMACH FOR 90 DAYS 08/22/2024 Active Start: 09-03-2023 take 1 tablet by shanique th once daily in the morning Levothyroxine Active 0 .ROUTE .COMPLEX 90 September 03, 2023 2:31pm TAKE 1 TABLET BY MOUTH EVERY DAY IN THE MORNING ON EMPTY STOMACH FOR 90 DAYS Start: 08-21-2023 End: 09-03-2023 take 1 tablet by mouth in the morning levothyroxine (SYNTHROID, LEVOTHROID) 150 MCG tablet Take 1 tablet (150 mcg total) by mouth in the morning. 08/21/2023 Active Start: 04-23-2022 take 1 tablet by shanique th once daily Levothyroxine 137mcg levothyroxine 137mcg, 1 (one) Tabl Tabl Table Tablet daily # 90, 04/23/2022, Ref. x1. Active oral daily for 0 *Reorder from [employer] for eRx and Interaction Alerts* Apr, Active [...] days Active meloxicam 15 mg oral tablet (6 sources) Nonsteroidal Anti-inflammatory Drug Start: 10-06-2024 take 1 tablet by mouth once daily meloxicam (Mobic) 15 MG tablet Take 15 mg by mouth Daily 10/06/2024 Active Start: 01-09-2024 take 15 mg by mouth [...] source) Pure hyperglyceridemia; Translations: [Pure hyperglyceridemia] Onset: 7 Chronic E Codes: Adverse effects of medical drugs (2 sources) Corticosteroids adverse reaction; Translations: [Adverse effect of glucocorticoids and synthetic analogues, initial encounter] 10-15-2024 Episodic Genitourinary symptoms and ill-defined conditions (1 source) [...] unspecified body region, initial encounter] Episodic Other injuries and conditions due to external causes (2 sources) Anaphylaxis; Translations: [Anaphylactic shock, unspecified, subsequent encounter] 10-29-2024 Episodic Other nervous system disorders (3 sources) [...] conditions (not mental disorders or infectious disease) (10 sources) Encounter for screening mammogram for malignant neoplasm of breast; Translations: [Encounter for screening for malignant neoplasm of cervix] Onset: 2 Episodic Other upper respiratory disease (1 source) Allergic rhinitis; Translations: [Allergic rhinitis, unspecified] Chronic Other upper respiratory disease (4 sources) Chronic rhinitis; Translations: [Chronic rhinitis] 10-15-2024 Chronic Other upper respiratory infections (5 sources) [...] Results Test Name Value Interpretation Reference Range [facility] 09-25-2023 [facility] INFLUENZA A AND B AGon 08-10 INFLUANEGH SEE BELOW Normal [facility] Comment on above: Result Comment: Nega tive for Flu A protein angiten. Infection due to Flu A cannot be ruled out. Flu A angiten in the sample may be below the detection limit of the test. Performed By: #### I NFLUAB ####[facility] [address] [place], [place] [address]Dr. Betsy Avery INFLUBNEGH SEE BELOW Normal [facility] Comment on above: Result Comment: Nega tive for Flu B protein antigen. Infection due to Flu B cannot be ruled out. Flu B antigen in the sample may be below the detection limit of the test. Performed By: #### I NFLUAB ####[facility] [address] [place], [place] [address]Dr. dylan [facility] INFLUENZA A AG Negative Normal NEGATIVE SEE COMMENT [facility] Comment on above: Performed By: #### I NFLUAB ####[facility] [address] [place], [place] [address]Dr. Betsy [facility] INFLUENZA B AG Negative Normal NEGATIVE SEE COMMENT [facility] Comment on above: Performed By: #### I NFLUAB ####[facility] [address] [place], [place] [address]Dr. Betsy Avery SYMPTOMATIC COVID-19 ANTIGEN on 08-10-2022 EUA Statement SEE BELOW Normal [facility] Comment on above: Result Comment: This [...] sooner. Performed By: #### C VDAGS #### [facility] [address] [place], [place] [address] Dr. Betsy Avery SARS-CoV-2 (COVID-19) RNA CLAUDIA+probe Ql (Unsp spec) Positive Abnormal NEGATIVE [facility] Comment on above: Performed By: #### C VDAGS #### [facility] [address] [place], [place] [address] Dr. Betsy Avery Covid-19 PCR (CVDTB)on 07-12 SARS-CoV-2 (COVID-19) RNA CLAUDIA+probe Ql (Unsp spec) Detected Abnormal NOT DETECTED [facility] Comment on above: Result Comment: This test is not yet approved or cleared by the [place] FDA. When there are no FDA-approved or cleared tests available, and other criteria are met, FDA can make tests available under an emergency access mechanism called an Emergency Use Authorization (EUA). The EUA for this test is supported by the Etl Analyst Developer of Health and Human Service's declaration that [...] be used). Performed By: #### C VDTBH ####[facility] [address] [place], [place] [address]DpDr. Betsy Avery INFLUENZA A AND B AGon 08-04 INFLUANEGH SEE BELOW Normal [facility] Comment on above: Result Comment: Nega tive for Flu A protein angiten. Infection due to Flu A cannot be ruled out. Flu A angiten in the sample may be below the detection limit of the test. Performed By: #### I NFLUAB ####[facility] [address] [place] [address]Dr. Betsy Avery INFLUBNEGH SEE BELOW Normal [facility] Comment on above: Result Comment: Nega tive for Flu B protein antigen. Infection due to Flu B cannot be ruled out. Flu B antigen in the sample may be below the detection limit of the test. Performed By: #### I NFLUAB ####[facility] [address] [place] [id number]. Betsy Avery INFLUENZA A AG Negative Normal NEGATIVE SEE COMMENT [facility] Comment on above: Performed By: #### I NFLUAB ####[facility] [address] [place] [address]Dr. Betsy Avery INFLUENZA B AG Negative Normal NEGATIVE SEE COMMENT [facility] Comment on above: Performed By: #### I NFLUAB ####[facility] [address] [place] [address]Dr. Betsy Avery VC CONSULT FOLLOWUPon 2021 VC CONSULT FOLLOWUP Patient: MANISHA SENA Exam Date: 05/03/2022 : 1970 Gender:F Ordering : DR MIKHAIL RUIZ M.D. Admission #: [id number] Family : Order #: [id number] CLICK HERE TO VIEW EXAM RADIOLOGY REPORT [...] Wells M.D. on 05/03/2022 at 09:51 Normal [facility] VC EXT VENOUS LT LIMITEDon 1 07-04-2021 VC EXT VENOUS LT LIMITED Patient: YOLANDA SENA. Exam Date: 05/03/2022 : 1970 Gender:F Ordering : DR MIKHAIL RUIZ M.D. Admission #: [id number] Family : Order #: [id number] CLICK HERE TO VIEW EXAM RADIOLOGY REPORT [...] Wells M.D. on 05/03/2022 at 09:49 Normal [facility] VC INJ FOAM SCLERO W US MLTI on 04-25-2022 VC INJ FOAM SCLERO W US MLTI Patient: SENA, YOLANDA Jeanne. Exam Date: 04/25/2022 : 1970 Gender:F Ordering : DR MIKHAIL RUIZ M.D. Admission #: [id number] Family : Order #: [id number] CLICK HERE TO VIEW EXAM RADIOLOGY REPORT [...] Wells M.D. on 04/25/2022 at 11:04 Normal [facility] VC INJ SCL CHARLIE COMPONENT LAB TECH VEINSon 1 06-20-2021 VC INJ SCL CHARLIE COMPONENT LAB TECH VEINS Patient: YOLANDA SENA Exam Date: 04/19/2022 : 1970 Gender:F Ordering : DR MIKHAIL RUIZ M.D. Admission #: [id number] Family : Order #: [id number] CLICK HERE TO VIEW EXAM RADIOLOGY REPORT [...] Mikhail Ruiz MD on 04/19/2022 at 11:31 [facility] VC CONSULT FOLLOWUPon 2021 VC CONSULT FOLLOWUP Patient: MANISHA SENA Exam Date: 04/17/2022 : 1970 Gender:F Ordering : DR MIKHAIL RUIZ M.D. Admission #: [id number] Family : Order #: [id number] CLICK HERE TO VIEW EXAM RADIOLOGY REPORT [...] Ruiz MD on 04/17/2022 at 15:02 Normal [facility] VC EXT VENOUS RT LIMITEDon 1 06-18-2021 VC EXT VENOUS RT LIMITED Patient: JAIDAYOLANDA. Exam Date: 04/17/2022 : 1970 Gender:F Ordering : DR MIKHAIL RUIZ M.D. Admission #: [id number] Family : Order #: [id number] CLICK HERE TO VIEW EXAM RADIOLOGY REPORT [...] Ruiz MD on 04/17/2022 at 13:06 Normal [facility] VC INJ FOAM SCLERO W US MLTI on 04-09-2022 VC INJ FOAM SCLERO W US MLTI Patient: SENAYOLANDA [place]. Exam Date: 04/09/2022 : 1970 Gender:F Ordering : DR MIKHAIL RUIZ M.D. Admission #: [id number] Family : Order #: [id number] CLICK HERE TO VIEW EXAM RADIOLOGY REPORT [...] Wells M.D. on 04/09/2022 at 13:53 Normal [facility] VC CONSULT FOLLOWUPon 2021 VC CONSULT FOLLOWUP Patient: MANISHA SENA Exam Date: 03/22/2022 : 1970 Gender:F Ordering : DR MIKHAIL RUIZ M.D. Admission #: [id number] Family : Order #: [id number] CLICK HERE TO VIEW EXAM RADIOLOGY REPORT [...] Ruiz MD on 03/22/2022 at 09:35 Normal [facility] VC EXT VENOUS LT LIMITEDon 1 05-22-2021 VC EXT VENOUS LT LIMITED Patient: YOLANDA SENA Exam Date: 03/22/2022 : 1970 Gender:F Ordering : DR MIKHAIL RUIZ M.D. Admission #: [id number] Family : Order #: [id number] CLICK HERE TO VIEW EXAM RADIOLOGY REPORT [...] MD on 03/22/2022 at 08:[address] [facility] VC ENDOVENOUS ABL 1ST V LTon 03-14-2022 VC ENDOVENOUS ABL 1ST V LT Patient: YOLANDA SENA Exam Date: 03/14/2022 : 1970 Gender:F Ordering : DR MIKHAIL RUIZ M.D. Admission #: [id number] Family : Order #: [id number] CLICK HERE TO VIEW EXAM RADIOLOGY REPORT [...] MD on 03/14/2022 at 08:[address] [facility] CBC AUTO DIFFon 11-21-2021 BASO # 0.1 103/ul Normal 0.0-0.[address] [facility] Comment on above: Performed By: #### C BC ####[facility] [address] [place], [place] [address]Dr. Betsy Avery Basophils/100 WBC (Bld) 0.8 % Normal 0.2-2.[address] [facility] Comment on above: Performed By: #### C BC ####[facility] [address] [place], [place] [address]Dr. Betsy Avery EO # 0.3 103/ul Normal 0.0-0.[address] [facility] Comment on above: Performed By: #### C BC ####[facility] [address] [place], [place] [address]Dr. Lupedylan Avery Eosinophils/100 WBC (Bld) 3.6 % Normal 0.9-7.[address] [facility] Comment on above: Performed By: #### C BC ####[facility] [address] [place] [address]Dr. Betsy Avery Erythrocyte distribution width (RBC) [Ratio] 13.7 % Normal 11.0-15.0 [facility] Comment on above: Performed By: #### C BC ####[facility] [address] [place] [address]Dr. Betsy Avery Hematocrit (Bld) [Volume fraction] 41.8 % Normal 36.0-48.0 [facility] Comment on above: Performed By: #### C BC ####[facility] [address] [place], [place] [address]Dr. Betsy Avery Hemoglobin (Bld) [Mass/Vol] 13.1 g/dL Normal 12.0-16.0 [facility] Comment on above: Performed By: #### C BC ####[facility] [address] [place], [place] [address]Dr. Betsy Avery IG # 0.02 10e3/ul Normal 0.00-0.03 [facility] Comment on above: Performed By: #### C BC ####[facility] [address] [place], [place] [address]Dr. Betsy Avery IG % 0.3 % Normal 0.0-0.5 [facility] Comment on above: Performed By: #### C BC ####[facility] [address] [place], [place] [address]Dr. Betsy Avery LYMPH # 2.7 103/ul Normal 1.2-3.[address] [facility] Comment on above: Performed By: #### C BC ####[facility] [address] [place], [place] [address]Dr. Betsy Avery Lymphocytes/100 WBC (Bld) 35.0 % Normal 20.5-60.[address] [facility] Comment on above: Performed By: #### C BC ####[facility] [address] [place], [place] [address]Dr. Betsy Avery MANUAL DIFF REQ NO Normal [facility] Comment on above: Performed By: #### C BC ####[facility] [address] [place] [id number]. Betsy Avery MCH (RBC) [Entitic mass] 26.6 pg Critically low 26.7-34.[address] [facility] Comment on above: Performed By: #### C BC ####[facility] [address] [place] [id number]. Betsy Avery MCHC (RBC) [Mass/Vol] 31.3 g/dL Normal 29.9-35.[address] [facility] Comment on above: Performed By: #### C BC ####[facility] [address] [place] [id number]. Betsy Avery MCV (RBC) [Entitic vol] 84.8 fL Normal 81.0-99.[address] [facility] Comment on above: Performed By: #### C BC ####[facility] [address] [place], [place] [address]Dr. Betsy Avery MONO # 0.4 103/ul Normal 0.3-0.[address] [facility] Comment on above: Performed By: #### C BC ####[facility] [address] [place], [place] [address]Dr. Betsy Avery Monocytes/100 WBC (Bld) 5.3 % Normal 1.7-12.[address] [facility] Comment on above: Performed By: #### C BC ####[facility] [address] [place], [place] [address]Dr. Lupedylan Avery NEUT # 4.3 103/ul Normal 1.4-6.[address] [facility] Comment on above: Performed By: #### C BC ####[facility] [address] [place], [place] [address]Dr. Betsy Avery Neutrophils/100 WBC (Bld) 55.0 % Normal 43.0-75.[address] [facility] Comment on above: Performed By: #### C BC ####[facility] [address] [place], [place] [address]Dr. Betsy Avery Platelet mean volume (Bld) [Entitic vol] 10.7 fL Normal 9.5-13.[address] [facility] Comment on above: Performed By: #### C BC ####[facility] [address] [place], [place] [address]Ts. Betsy Avery PLT 331 103/ul Normal 150-450 [facility] Comment on above: Performed By: #### C BC ####[facility] [address] [place], [place] [address]Ml. Betsy Avery RBC 4.93 106/ul Normal 4.20-5.40 [facility] Comment on above: Performed By: #### C BC ####[facility] [address] [place], [place] [address]Vw. Betsy Avery WBC 7.8 103/ul Normal 4.0-11.0 [facility] Comment on above: Performed By: #### C BC ####[facility] [address] [place] [id number]. Betsy Avery GLYCOHEMOGLOBIN A1Con 2021 ADA RECOMMENDATION SEE BELOW Normal [facility] Comment on above: Result Comment: ADA RECOMMENDED LIMIT 4.0 - 6.0 ADA THERAPEUTIC TARGET < 7.0 ACTION SUGGESTED > 7.0 Performed By: #### A 1C ####[facility] [address] [place] [address]Dr. Betsy Avery Glucose [Mass/Vol] 131 mg/dL Normal [facility] Comment on above: Performed By: #### A 1C ####[facility] [address] [place] [id number]. Betsy Avery HbA1c (Bld) [Mass fraction] 6.2 % Normal 4.5-6.2 [facility] Comment on above: Performed By: #### A 1C ####[facility] [address] [place] [id number]. Betsy Avery LIPID PROFILEon 11-21-2021 CHOL-HDL RATIO NORM SEE BELOW Normal [facility] Comment on above: Result Comment: 3.3 - 4.4 LOW RISK 4.4 - 7.1 AVERAGE RISK 7.1 - 11.0 MODERATE RISK >11.0 HIGH RISK Performed By: #### C MP, LIPID, TSH #### [facility] [address] [place] [address] [address] Betsy Avery Cholesterol [Mass/Vol] 195 mg/dL Normal <=200 [facility] Comment on above: Performed By: #### C MP, LIPID, TSH #### [facility] [address] [place] [address] [address] Betsy Avery Cholesterol in HDL [Mass/Vol] 50 mg/dL Normal 40-60 [facility] Comment on above: Performed By: #### C MP, LIPID, TSH #### [facility] [address] [place] [address] [address] Betsy Avery Cholesterol in LDL [Mass/Vol] 116.0 mg/dL Normal [facility] Comment on above: Performed By: #### C MP, LIPID, TSH #### [facility] [address] [place] [address] Dr. Betsy Avery Cholesterol.total/Ch olesterol in HDL [Mass ratio] 3.9 {ratio} Normal [facility] Comment on above: Performed By: #### C MP, LIPID, TSH #### [facility] [address] [place] [address] [address] Betsy Avery HDL NORMAL > or = 60 mg/dl - LO W CARDIOVASCULAR RISK <40 mg/dl - HIGH CARDIOVASCULAR RISK Normal [facility] Comment on above: Performed By: #### C MP, LIPID, TSH #### [facility] [address] [place] [address] Dr. Betsy Avery LDL CALC NORMAL SEE BELOW Normal [facility] Comment on above: Result Comment: <100 mg/dl OPTIMAL 100 - 129 mg/dl NEAR OR ABOVE OPTIMAL 130 - 159 mg/dl BORDERLINE HIGH 160 - 189 mg/dl HIGH >190 mg/dl VERY HIGH Performed By: #### C MP, LIPID, TSH #### [facility] [address] [place] [address] Dr. Betsy Avery Triglyceride [Mass/Vol] 145 mg/dL Normal <=150 [facility] Comment on above: Performed By: #### C MP, LIPID, TSH #### [facility] [address] [place] [address] [address] Betsy Avery VLDL CALC 29.0 mg/dL Normal [facility] Comment on above: Performed By: #### C MP, LIPID, TSH #### [facility] [address] [place], [place] [address] Dr. Betsy Avery MG MAMM SCREEN 3D MICHAEL CADon 11-21-2021 MG MAMM SCREEN 3D MICHAEL CAD Patient: YOLANDA SENA Exam Date: 11/21/2021 : 1970 Gender:F Ordering : DR FRANCHESCA GO M.D. Admission #: [id number] Family : Order #: [id number] CLICK HERE TO VIEW EXAM RADIOLOGY REPORT [...] Treatments None Family Cancers None LOCATION: [facility] BREAST COMPOSITION: Scattered areas fibroglandular density. [...] Ruiz MD on 11/21/2021 at 09:45 Normal [facility] PROF 14(COMP METB)on 022 Albumin [Mass/Vol] 3.5 g/dL Normal 3.4-5.0 [facility] Comment on above: Performed By: #### C MP, LIPID, TSH #### [facility] [address], [place] [address] Dr. Betsy Avery Albumin/Globulin [Mass ratio] 0.8 {ratio} Normal [facility] Comment on above: Performed By: #### C MP, LIPID, TSH #### [facility] [address] [place], [place] [address] Dr. Betsy Avery ALP [Catalytic activity/Vol] 93 U/L Normal 46-116 [facility] Comment on above: Performed By: #### C MP, LIPID, TSH #### [facility] [address] [place] [address] [address] Betsy Avery ALT [Catalytic activity/Vol] 18 U/L Normal 14-59 [facility] Comment on above: Performed By: #### C MP, LIPID, TSH #### [facility] [address] [place] [address] [address] Betsy Avery Anion gap [Moles/Vol] 13.2 mmol/L Normal [facility] Comment on above: Performed By: #### C MP, LIPID, TSH #### [facility] [address] [place] [address] Dr. Betsy Avery AST [Catalytic activity/Vol] 27 U/L Normal 15-37 [facility] Comment on above: Performed By: #### C MP, LIPID, TSH #### [facility] [address] [place] [address] [address] Betsy Avery Bilirubin [Mass/Vol] 0.3 mg/dL Normal 0.2-1.0 [facility] Comment on above: Performed By: #### C MP, LIPID, TSH #### [facility] [address] [place] [address] Dr. Betsy Avery Calcium [Mass/Vol] 9.2 mg/dL Normal 8.5-10.1 [facility] Comment on above: Performed By: #### C MP, LIPID, TSH #### [facility] [address] [place] [address] Dr. Betsy Avery Chloride [Moles/Vol] 105 mmol/L Normal 98-107 [facility] Comment on above: Performed By: #### C MP, LIPID, TSH #### [facility] [address] [place] [address] [address] Betsy Avery CO2 [Moles/Vol] 25.2 mmol/L Normal 21.0-32.0 [facility] Comment on above: Performed By: #### C MP, LIPID, TSH #### [facility] [address] [place] [address] [address] Betsy Avery Creatinine [Mass/Vol] 0.89 mg/dL Normal 0.55-1.02 [facility] Comment on above: Performed By: #### C MP, LIPID, TSH #### [facility] [address] [place] [address] [address] Betsy Avery EGFR-AF STATELESS >60 Normal >=60 [facility] Comment on above: Performed By: #### C MP, LIPID, TSH #### [facility] [address] [place] [address] Dr. Betsy Avery EGFR-NON AF STATELESS >60 Normal >=60 [facility] Comment on above: Performed By: #### C MP, LIPID, TSH #### [facility] [address] [address] [address] Betsy Avery Globulin (S) [Mass/Vol] 4.2 g/dL Normal [facility] Comment on above: Performed By: #### C MP, LIPID, TSH #### [facility] [address] [address] [address] Betsy Avery Glucose [Mass/Vol] 130 mg/dL Critically high 74-[address] [facility] Comment on above: Performed By: #### C MP, LIPID, TSH #### [facility] [address] [address] [address] Betsy Avery Potassium [Moles/Vol] 4.4 mmol/L Normal 3.5-5.1 [facility] Comment on above: Performed By: #### C MP, LIPID, TSH #### [facility] [address] [address] [address] Betsy Avery Protein [Mass/Vol] 7.7 g/dL Normal 6.4-8.2 The [facility] Comment on above: Performed By: #### C MP, LIPID, TSH #### [facility] [address] [address] [address] Betsy Avery Sodium [Moles/Vol] 139 mmol/L Normal 136-145 [facility] Comment on above: Performed By: #### C MP, LIPID, TSH #### [facility] [address] [address] [address] Betsy Avery Urea nitrogen [Mass/Vol] 15.0 mg/dL Normal 7.0-18.0 [facility] Comment on above: Performed By: #### C MP, LIPID, TSH #### [facility] [address] [address] [address] Betsy Avery Urea nitrogen/Creatinine [Mass ratio] 16.9 mg/mg Normal [facility] Comment on above: Performed By: #### C MP, LIPID, TSH #### [facility] [address] [address] [address] Betsy Avery TSHon 11-21-2021 TSH 2.111 uIU/mL Normal 0.358-3.740 [facility] Comment on above: Performed By: #### C MP, LIPID, TSH #### [facility] [address] [place] [address] Dr. Betsy Avery PAP ACOG PANEL 2: 30 to 65on 11-20-2021 . . Normal [facility] Comment on above: Result Comment: Perf ormed at: WB Performed By: #### [id number] #### [facility] [address] [place] [address] Dr. Betsy Avery Age Gdln ACOG Testing -63 Normal [facility] Comment on above: Performed By: #### [id number] #### [facility] [address] [place] [address] Dr. Betsy Avery DIAGNOSIS: Comment Normal [facility] Comment on above: Result Comment: NEGA TIVE FOR INTRAEPITHELIAL LESION OR MALIGNANCY. Performed at: WB Performed By: #### [id number] #### [facility] [address] [place] [address] Dr. Betsy Avery HPV Aptima Negative Normal Negative [facility] Comment on above: Result Comment: This nucleic acid amplification test detects fourteen high-risk HPV types (16,18,31,33,35,39,45,51,52,56,58,59,66,68) without differentiation. Performed at: =G Performed By: #### [id number] #### [facility] [address] [place] [address] Dr. Betsy Avery Methodology: Comment Normal [facility] Comment on above: Result Comment: This liquid based ThinPrep(R) pap test was screened with the use of an image guided system. Performed at: WB Performed By: #### [id number] #### [facility] [address] [place] [address] Dr. Betsy Avery Note: Comment Normal [facility] Comment on above: Result Comment: The Pap smear is a screening test designed to aid in the detection of premalignant and malignant conditions of the uterine cervix. It is not a diagnostic procedure and should not be used as the sole means of detecting cervical cancer. Both false-positive and false-negative reports do occur. . Performed at: WB Performed By: #### [id number] #### [facility] [address] [place] [address] Dr. Betsy Avery Performed by: Comment Normal [facility] Comment on above: Result Comment: Diane Braswell Flattening Press Operator (ASCP) Performed at: WB Performed By: #### [id number] #### [facility] [address] [place] [address] Dr. Betsy Avery Specimen adequacy: Comment Normal [facility] Comment on above: Result Comment: Sati sfactory for evaluation. No endocervical component is identified. Performed at: WB Performed By: #### [id number] #### [facility] [address] [place] [address] Dr. Betsy Avery VC CONSULT FOLLOWUPon 2021 VC CONSULT FOLLOWUP Patient: MANISHA SENA Exam Date: 09/21/2021 : 1970 Gender:F Ordering : DR MIKHAIL RUIZ M.D. Admission #: [id number] Family : Order #: [id number] CLICK HERE TO VIEW EXAM RADIOLOGY REPORT [...] Ruiz MD on 09/21/2021 at 11:16 Normal [facility] VC EXT VENOUS RT LIMITEDon 0 09-21-2021 VC EXT VENOUS RT LIMITED Patient: YOLANDA SENA Exam Date: 09/21/2021 : 1970 Gender:F Ordering : DR MIKHAIL RUIZ M.D. Admission #: [id number] Family : Order #: [id number] CLICK HERE TO VIEW EXAM This report [...] Ruiz MD on 09/28/2021 at 10:25 Normal [facility] VC ENDOVENOUS ABL 1ST V RTon 09-11-2021 VC ENDOVENOUS ABL 1ST V RT Patient: YOLANDA SENA Exam Date: 09/11/2021 : 1970 Gender:F Ordering : DR MIKHAIL RUIZ M.D. Admission #: [id number] Family : Order #: [id number] CLICK HERE TO VIEW EXAM RADIOLOGY REPORT [...] Ruiz MD on 09/11/2021 at 09:20 Normal [facility] VC CONSULT FOLLOWUPon 2021 VC CONSULT FOLLOWUP Patient: JAIDAMANISHA JeanneJai Exam Date: 08/30/2021 : 1970 Gender:F Ordering : DR MIKHAIL RUIZ M.D. Admission #: [id number] Family : Order #: [id number] CLICK HERE TO VIEW EXAM RADIOLOGY REPORT [...] Wells M.D. on 08/30/2021 at 09:44 Normal [facility] VC EXT VENOUS LT LIMITEDon 0 08-30-2021 VC EXT VENOUS LT LIMITED Patient: YOLANDA SENA Exam Date: 08/30/2021 : 1970 Gender:F Ordering : DR MIKHAIL RUIZ M.D. Admission #: [id number] Family : Order #: [id number] CLICK HERE TO VIEW EXAM RADIOLOGY REPORT [...] Wells M.D. on 08/30/2021 at 09:26 Normal [facility] VC ENDOVENOUS ABL 1ST V LTon 08-24-2021 VC ENDOVENOUS ABL 1ST V LT Patient: YOLANDA SENA Exam Date: 08/24/2021 : 1970 Gender:F Ordering : DR MIKHAIL RUIZ M.D. Admission #: [id number] Family : Order #: [id number] CLICK HERE TO VIEW EXAM RADIOLOGY REPORT [...] Ruiz MD on 08/24/2021 at 10:51 Normal [facility] Vital Signs Date Time Vital Sign Value Performing Clinician Facility 10-15-2024 09:010400 Body mass index (BMI) [Ratio] 43.85 kg/m2 Ty Whitmore MD Work Phone: [facility] 10-15-2024 09:010400 Body weight 127.01 kg Ty Whitmore MD Work Phone: [facility] 01-09-2024 09:060400 Body height 172.72 cm [facility] 01-09-2024 09:06-0400 Body mass index (BMI) [Ratio] 48.2 kg/m2 [facility] 01-09-2024 09:06-0400 Body weight 143.78 kg [facility] 01-09-2024 09:06-0400 Diastolic blood pressure 70 mm[Hg] [facility] 01-09-2024 09:06-0400 Heart rate 71 /min [facility] 01-09-2024 09:06-0400 Systolic blood pressure 108 mm[Hg] [facility] 08-23-2023 09:17-0400 Body height 170.2 cm Issa Garcia APRN-ACCREDITED LEGAL SECRETARY Work Phone: [facility] 08-23-2023 09:17-0400 Body mass index (BMI) [Ratio] 49.99 kg/m2 Issa Garcia DIRECTOR [employer]-ACCREDITED LEGAL SECRETARY Work Phone: [facility] 08-23-2023 09:17-0400 Body weight 144.79 kg Issa Garcia DIRECTOR MUSEUM OR ZOO-ACCREDITED LEGAL SECRETARY Work Phone: [facility] 08-23-2023 09:17-0400 Diastolic blood pressure 73 mm[Hg] Issa Garcia DIRECTOR MUSEUM OR ZOO-ACCREDITED LEGAL SECRETARY Work Phone: [facility] 08-23-2023 09:17-0400 Systolic blood pressure 157 mm[Hg] Issa Garcia DIRECTOR MUSEUM OR ZOO-ACCREDITED LEGAL SECRETARY Work Phone: [facility] 08-21-2023 13:25-0400 Body height 172.72 cm [facility] 08-21-2023 13:25-0400 Body mass index (BMI) [Ratio] 48.4 kg/m2 [facility] 08-21-2023 13:25-0400 Body weight 144.69 kg [facility] 08-21-2023 13:25-0400 Diastolic blood pressure 78 mm[Hg] [facility] 08-21-2023 13:25-0400 Heart rate 81 /min [facility] 08-21-2023 13:25-0400 SaO2% (BldA) [Mass fraction] 96 % [facility] 08-21-2023 13:25-0400 Systolic blood pressure 110 mm[Hg] [facility] 02-22-2023 08:30-0400 Body height 172.72 cm [facility] Other [employer] [facility] [employer] Other 02-22-2023 08:30-0400 Body mass index (BMI) [Ratio] 47.89 kg/m2 [facility] Other [employer] Other 02-22-2023 08:30-0400 Body weight 142.88 kg [facility] Other [employer] Other 02-22-2023 08:30-0400 Diastolic blood pressure 78 mm[Hg] [facility] Other [employer] Other 02-22-2023 08:30-0400 Systolic blood pressure 136 mm[Hg] [facility] Other [employer] Other 12-27-2022 08:30-0400 Body height 172.72 cm [facility] Other [employer] Other 12-27-2022 08:30-0400 Body mass index (BMI) [Ratio] 47.89 kg/m2 [facility] Other [employer] Other 12-27-2022 08:30-0400 Body weight 142.88 kg [facility] Other [employer] Other 12-27-2022 08:30-0400 Diastolic blood pressure 70 mm[Hg] [facility] Other [employer] Other 12-27-2022 08:30-0400 Systolic blood pressure 112 mm[Hg] [facility] Other [employer] Other Encounters Encounter Date Encounter Type Care Provider Facility Start: 10-29-2024 End: 10-29-2024 Claus Whitmore MD Work Phone: [facility] Start: 10-29-2024 End: 10-29-2024 Claus Whitmore MD Work Phone: [facility] Start: 10-29-2024 End: 10-29-2024 Patient encounter procedure Ty Whitmore MD Work Phone: [facility] Comment on above: Anaphylaxis, subsequ ent encounter (Primary Dx); Chronic rhinitis Start: 10-29-2024 End: 10-29-2024 ambulatory TY WHITMORE Not Available Start: 10-15-2024 End: 10-15-2024 Claus Whitmore MD Work Phone: [facility] Start: 10-15-2024 End: 10-15-2024 lCaus Whitmore MD Work Phone: [facility] Start: 10-15-2024 End: 10-15-2024 Office outpatient new 45 minutes Ty Whitmore MD Work Phone: [facility] Comment on above: Chronic rhinitis (Pr imary Dx); Adverse effect of corticosteroids, initial encounter Start: 10-15-2024 End: 10-15-2024 ambulatory TY WHITMORE Not Available Start: 01-09-2024 Patient encounter status [facility] Start: 01-09-2024 End: 01-09-[address] [facility] Work Phone: Start: 01-09-2024 End: 01-09-2024 Encounter for general adult medical examination without abnormal findings [facility] Start: 01-09-2024 End: 01-09-2024 Patient encounter procedure [facility] Work Phone: Start: 09-25-2023 End: 09-25-2023 Orders Only Roxie Vazquez [facility] Comment on above: Encounter for screen ing colonoscopy Start: 09-03-2023 End: 09-03-[address] [facility] Work Phone: Start: 09-03-2023 End: 09-03-2023 Patient encounter procedure [facility] Work Phone: Start: 08-23-2023 End: 08-23-2023 ambulatory [facility] Start: 08-23-2023 End: 08-23-2023 Patient encounter procedure [facility] DIRECTOR [employer]-ACCREDITED LEGAL SECRETARY Work Phone: [facility] Comment on above: Encounter for screen ing colonoscopy (Primary Dx) Start: 08-21-2023 End: 08-21-[address] [facility] Work Phone: Start: 08-21-2023 End: 08-21-2023 Patient encounter procedure [facility] Work Phone: Start: 05-17-2023 End: 05-17-2023 ambulatory [facility] Other [employer] Other Start: 05-17-2023 Office outpatient vi sit 15 minutes [facility] Start: 02-22-2023 End: 02-22-2023 ambulatory [facility] Other [employer] Other Start: 02-22-2023 Office outpatient vi sit 15 minutes [facility] Start: 12-27-2022 End: 12-27-2022 ambulatory [facility] Go Other [employer] Other Start: 12-27-2022 Encounter for genera l adult medical examination without abnormal findings [facility] Start: 12-27-2022 Periodic preventive med est patient 40-64yrs [facility] Start: 08-10-2022 End: 08-10-2022 ambulatory [facility] Facility:[facility] Start: 08-04-2022 End: 08-05-2022 ambulatory ESPERANZA CLINTON Facility:[facility] Start: 05-04-2022 ambulatory [facility] Facility :[facility] Start: 05-03-2022 Adult health examination Eloise a Luli Other [employer] Other Start: 05-03-2022 Gynecological examin ation normal [facility] Other [employer] Other Start: 05-03-2022 History of abnormal cervical Papanicolaou smear [facility] Other [employer] Other Start: 05-03-2022 Problem, abnormal examination [facility] Other [employer] Other Start: 05-03-2022 End: 05-04-[address] [...] medical examination without abnormal findings [facility] Start: 11-21-2021 End: 11-22-2021 ambulatory FRANCHESCA [...] Procedures Date Procedure Procedure Detail Performing Clinician Start: 09-25-2023 Colonoscopy Issa Garcia DIRECTOR MUSEUM OR [employer]-ACCREDITED LEGAL SECRETARY Work Phone: Counseling [facility] Other Screening for malign ant neoplasm of breast [facility] Other Screening for malign ant neoplasm of colon [facility] Other Plan of Treatment Date Care Activity Detail Author Start: 10-29-2024 End: 10-29-2024 Patient encounter procedure [facility] Comment on above: Arrived Start: 10-15-2024 End: 10-15-2024 Patient encounter procedure 10/15/2024 9:00 AM EDT Office Visit [facility] [address] [place] [id number] Ty Whitmore MD [address] [place] [address] Arrived [facility] Comment on above: Arrived Start: 08-22-2024 Adult BMI Screening Adult BMI Screen ing [facility] Start: 08-22-2024 Tobacco Screening Tobacco Screening [facility] Start: 01-12-2024 Influenza vaccination Influenza Vacc ine [facility] Start: 01-11-2023 COVID-19 Vaccine ( season) COVID-19 Vaccine () [facility] Start: 02-03-2018 Administration of varicella zoster vaccine Zoster (Shingles) Vaccine (1 of 2) [facility] Start: 02-03-1989 Screening for malign ant neoplasm of cervix Pap Smear [facility] Start: 02-03-1987 DTaP,Tdap and Td Vac cines (1 - Tdap) DTaP,Tdap and Td Vaccines (1 - Tdap) [facility] Start: 02-03-1986 Adult BMI Follow Up Plan Adult BMI Follow Up Plan [facility] Start: 1980 Depression Screening Depression Scre ening [facility] End: 08-22-2024 Colonoscopy Colonoscopy GI Routine Encounter for screening colonoscopy 1 Occurrences starting 08/23/2023 until 08/22/2024 [facility] Work Phone: Comment on above: 1 Occurrences starti ng 08/23/2023 until 08/22/2024 Comprehensive metabo lic 2000 panel - Serum or Plasma [facility] MG Breast - bilatera l Screening [facility] Patient Education Low back pain in adults [facility] Work Phone: [facility] Payers Date Payer Category Payer Unknown [id number] 2021 Blue [employer] Blue [employer] [id number] 2021 Unknown [id number] 2021 Blue Cross Blue Shield [id number] 2019 Unknown [id number] 1970 Unknown [id number] 2.16.84 0.1.149364.3.579.2.593 1970 Unknown [id number] 2.16.84 0.1.453031.3.579.2.593 1970 Unknown [id number] 2.16.84 0.1.927704.3.579.2.593 1968 Unknown [id number] 2.16.84 0.1.899429.3.579.2.593 1968 Unknown [id number] 2.16.84 0.1.392417.3.579.2.593 1968 Unknown [id number] 2.16.84 0.1.944985.3.579.2.593 1968 Unknown [id number] 2.16.84 0.1.278862.3.579.2.593 1968 Unknown [id number] 2.16.84 0.1.310144.3.579.2.593 1968 Unknown [id number] 2.16.84 0.1.626829.3.579.2.593 1968 Unknown [id number] 2.16.84 0.1.764729.3.579.2.593 1968 Unknown [id number] 2.16.84 0.1.780946.3.579.2.593 1968 Unknown [id number] 2.16.84 0.1.644794.3.579.2.593 1968 Unknown [id number] 2.16.84 0.1.368144.3.579.2.593 1968 Unknown [id number] 2.16.84 0.1.060254.3.579.2.593 1968 Unknown [id number] 2.16.84 0.1.841519.3.579.2.593 1968 Unknown [id number] 2.16.84 0.1.973389.3.579.2.593 1968 Unknown [id number] 2.16.8 40.1.125481.3.579.2.1286 1968 Unknown [id number] 2.16.8 40.1.700737.3.579.2.1259 1968 Unknown [id number] 2.16.8 40.1.029448.3.579.2.1259 1961 Self-pay [id number] 1961 Unknown [id number] Unknown [id number] 2.16.84 0.1.801647.3.579.2.593 Social History Date Type Detail Facility Unknown if ever smoked [facility] [employer] Other Start: 08-23-2023 End: 10-29-2024 Sex Assigned At [employer] [facility] [employer] Other Start: 08-21-2023 End: 10-15-2024 Tobacco smoking status NHIS Never smoked tobacco (finding) [facility] Start: 1970 Sex Assigned At Female [facility] Start: 08-23-2023 End: 10-15-2024 Tobacco use and exposure Smokeless tobacco non-user [facility] Start: 08-23-2023 Alcoholic beverage intake Current drinker of alcohol (finding) [facility] Start: 08-23-2023 End: 10-29-2024 History of Social function [facility] Childcare Unknown [facility] Start: 08-23-2023 Alcohol Comment occasional [facility] Start: 1970 Sex assigned at Not on file [facility] Tobacco smoking status GAIS Tobacco smoking consumption unknown [facility] Start: 09-30-2023 Gender identity Identifies as female gender (finding) [facility] NEGATED: Highlighted row [facility] Clinical Notes 12-27-2022 to 10-29-2024 Ty Whitmore MD - 10/29/2024 10:20 AM Starr Whitmore MD - 10/15/2024 9:00 AM Alexy Garcia DIRECTOR MUSEUM OR [employer]-ACCREDITED LEGAL SECRETARY - 08/23/2023 9:30 AM EDT Note Date & Type Note Facility 10-29-2024 History of Present illness Narrative Yolanda Sena returns to the office today for skin testing to local anesthetic and steroids. Testing for multiple local anesthetics is negative in the setting of a positive histamine control. Testing is negative for systemic steroids except for a borderline but probably mostly negative reaction to hydrocortisone at the intradermal level. She has positive histamine controls. All tests were performed under direct physician supervision. The patient did have some sneezing rhinorrhea and nasal congestion in the office today although we determine this is likely due to the fact that she had recently stopped her nasal sprays. We discussed the risks and benefits of performing a dexamethasone challenge in the office and agreed to defer on this at the current time. We agreed that with any future orthopedic injections that she would use any local anesthetic that the surgeon prefers and try and avoid injections with steroids other than dexamethasone to which she has negative skin testing. Follow-up was arranged on an as needed basis. documented in this encounter [facility] 10-15-2024 History of Present illness Narrative Yolanda Sena is a very pleasant 54 y.o. year old female who comes to the office today with the chief complaint of concern about drug allergies. 18 months ago she had steroids injection in both knees and then 5 minutes later she was walking to her car and started to feel dizzy anxious and itchy as well as SOB and hot flushed feeling and went to the ER and was treated to anaphylaxis. Her symptoms were severe but not life threatening. She got better and has been fine since then. She was injected with lidocaine bupivacaine triamcinolone and methylprednisolone. She has avoided all steroids and local anesthetics since that time. She had carpal tunnel surgery with general anesthesia. She has rhinorrhea in the spring and will take Loratadine for this with partial relief. EXAM The patient appears comfortable in the office today. Lungs are clear to auscultation bilaterally. The oral mucosa is pink and healthy without any lesions or ulcers. The palate elevates in the midline. The nasal mucosa is pink and healthy. There is no epistaxis mucopus or nasal polyposis noted. The nasal septum is approximately in the midline. The skin is clear of any lesions, excoriations, or erythema. IMPRESSION: Adverse effect of corticosteroids -we agreed she would follow up off of oral antihistamines to perform skin testing to local anesthetics and systemic steroids in 1-3 weeks. I explained to the patient that it is likely we should be able to find some local anesthetic and some systemic steroid that she should be able to tolerate. Chronic rhinitis- we agreed she would use nasal ipratropium as needed in addition to her loratadine but hold her loratadine for at least 7 days prior to her approaching skin testing. documented in this encounter [facility] 08-23-2023 History of Present illness Narrative Images from the original note were not included. Chief Complaint: Colon cancer screening History of Present Illness Yolanda Sena is a 53 y.o. female who presents to the office for colon cancer screening. This is her first colonoscopy. She denies any changes in her bowels including diarrhea, constipation, abdominal pain, melena, hematochezia, unexplained weight loss. There is no family history of colon cancer. Review of Systems Constitutional: Negative for fever and unexpected weight change. HENT: Negative for trouble swallowing. Respiratory: Negative for shortness of breath. Cardiovascular: Negative for chest pain. Gastrointestinal: Negative for nausea, vomiting, abdominal pain, diarrhea, constipation, blood in stool and black tarry stool. Genitourinary: Negative for dysuria and difficulty urinating. Musculoskeletal: Negative for gait problem. Skin: Negative for rash and wound. Neurological: Negative for dizziness, weakness and light-headedness. Hematological: Does not bruise/bleed easily. Psychiatric/Behavioral: Negative for confusion. Past Medical History: Diagnosis Date Hypothyroid Past Surgical History: Procedure Laterality Date ANKLE SURGERY Left CERVICAL BIOPSY W/ LOOP ELECTRODE EXCISION FOOT SURGERY Left KNEE ARTHROSCOPY Right ROTATOR CUFF REPAIR Right Allergies Allergen Reactions Bupivacaine Anaphylaxis Lidocaine Anaphylaxis Methylprednisolone Anaphylaxis Erythromycin Base Hives Penicillins Hives Current Outpatient Medications: levothyroxine (SYNTHROID, LEVOTHROID) 150 MCG tablet, Take 1 tablet (150 mcg total) by mouth in the morning., Disp: , Rfl: Social History Socioeconomic History Marital status: Spouse name: Not on file Number of children: Not on file Years of education: Not on file Highest education level: Not on file Occupational History Not on file Tobacco Use Smoking status: Never Smokeless tobacco: Never Vaping Use Vaping status: Never Used Substance and Sexual Activity Alcohol use: Yes Comment: occasional Drug use: Never Sexual activity: Defer Other Topics Concern Not on file Social History Narrative Not on file Social Determinants of Health Financial Resource Strain: Not on file Food Insecurity: Not on file Transportation Needs: Not on file Physical Activity: Not on file Stress: Not on file Social Connections: Not on file Interpersonal Safety: Not on file Housing Instability: Not on file Family History Problem Relation Age of Onset Diabetes Mother Hypertension Mother Diabetes Father Hypertension Father Objective Physical Exam Constitutional: General: She is not in acute distress. Appearance: Normal appearance. She is obese. She is not ill-appearing. HENT: Head: Normocephalic and atraumatic. Mouth/Throat: Mouth: Mucous membranes are moist. Eyes: Pupils: Pupils are equal, round, and reactive to light. Cardiovascular: Rate and Rhythm: Normal rate and regular rhythm. Pulmonary: Effort: Pulmonary effort is normal. No respiratory distress. Breath sounds: Normal breath sounds. Abdominal: General: Bowel sounds are normal. There is no distension. Palpations: Abdomen is soft. Musculoskeletal: General: Normal range of motion. Skin: General: Skin is warm and dry. Neurological: Mental Status: She is alert and oriented to person, place, and time. Mental status is at baseline. Vital Signs: Blood pressure 157/73, height 170.2 cm (5' 7 ), weight (!) 144.8 kg (319 lb 3.2 oz). Respiratory Source: No data recorded Admission Weight: Weight: (!) 144.8 kg (319 lb 3.2 oz) Labs No results found for: WBC , HGB , HCT , MCV , PLT No results found for: GLU , CALCIUM , NA , K , CO2 , CL , BUN , CREATININE No results found for: AMYLASE No results found for: LIPASE No results found for: ALT , AST , GGT , ALKPHOS , LABBILI No results found for: INR , PROTIME Assessment Yolanda Sena is a 53 y.o.female who presents to the office for screening colonoscopy. Plan Colonoscopy with possible biopsy and/or polypectomy. Risks, benefits, and alternatives discussed with patient. Educated on bowel evacuation preparation. Patient verbalizes understanding and wishes to proceed. She already has Sutab at home. Evaluation included: Preparing to see the patient (e.g., review of tests) Obtaining and/or reviewing separately obtained history Performing a medically appropriate examination and/or evaluation Counseling and educating the patient/family/caregiver Referring and communicating with other health family day care provider Encounter for screening colonoscopy [Z12.11] SEAN CAO [facility] General Surgery [place] This note was created with the assistance of a speech recognition program. While intending to generate a timely document that accurately reflects the content of the visit, no guarantee can be provided that every grammatical or spelling mistake has been or will be identified or corrected. Thank you for your understanding. SEAN Cao 08/23/23 0929 documented in this encounter [facility] 05-17-2023 Evaluation note Encounter Date Diagnosis Assessment Notes May, Bronchitis (ICD-10 - J40) Take antibiotic as directed. If develop wheezing, chest tightness, itching, bad cough, blue skin color, seizures, swelling of face, lips, tongue, or throat report to ED. [facility] 10-13-2023 Evaluation note* Encounter Date Diagnosis Assessment Notes Treatment Notes Treatment Clinical Notes Feb, Anaphylaxis, initial encounter (ICD-10 - T78.2XXA) Form completed per patient's request to be exempt from the flu shot at [facility]. Denies history of influenza, ongoing breathing issues or lung issues. [facility] 08-17-2023 Evaluation note* Encounter Date Diagnosis Assessment Notes Treatment Notes Treatment Clinical Notes Dec, Well adult exam (ICD-10 - [...] knee (ICD-10 - M25.562) Ortho referral May, Hypothyroidism, unspecified (ICD-10 - E03.9) HYPOTHYROIDISM Chronic problem - will increase dose based on lab [facility] Other Evaluation note* Diagnosis Onset Date Resolution Status Maxillary sinusitis acute [facility] Work Phone: Evaluation note* Diagnosis Onset Date Resolution Status Maxillary sinusitis acute Low back pain acute Muscle spasm acute [facility] Work Phone: Evaluation note* Diagnosis Onset Date Resolution Status H/O colonoscopy acute Hypothyroidism, unspecified acute Screening mammogram for breast cancer acute Wellness examination acute [facility] Work Phone: Evaluation note* Diagnosis Encounter for screening colonoscopy [facility] Diagnosis Encounter for screening colonoscopy- Primary documented in this encounter [facility]* Diagnosis Chronic rhinitis- Primary Adverse effect of corticosteroids, initial encounter documented in this encounter [facility] HealthcareEvaluation [facility]* Diagnosis Anaphylaxis, subsequent encounter- Primary Chronic rhinitis documented in this encounter [facility] HealthcareHistory general Narrative - Reported* Type Description Date Medical History Problem Title : Acut e [...] : Active,, Medical History Problem Title : [facility]: Hypothyroidism, Problem Status : Active,, Medical History Problem Title : [facility] ESSENCE: No history of significant medical diseases, Problem Status : Inactive,, Medical History Problem Title : [facility]: Scoliosis, Problem Status : Active,, Medical History [...] calf. Medical History The patient has no complaints at this time. Medical History The patient [...] & 3,2022 Hospitalization History SEE SURGICAL HX [facility] Other History general Narrative - Reported* Type Description Date Medical History Hypothyroidism, unspecified Medical History Other chronic pain Surgical History UTERINE ABLATION 2014 Surgical History SHOULDER SURGERY RIGHT 2017 Surgical History EVLT 2021 Surgical History COLONOSCOPY X2 Surgical History Bilateral cataract surgery & Hospitalization History SEE SURGICAL HX [facility] Other InstructionsNot on filedocumented in this encounter [facility] SystemInstructionsNot on filedocumented [facility] this [facility] Summary Purpose Family History No Family History Records Found Relationship Condition Age at Onset Recorded Date/T lorraine father Heart disease Unknown Diabetes mellitus Unknown Not Specified Diabetes mellitus Unknown Heart disease Unknown Relationship Condition Age at Onset Recorded Date/T lorraine father Heart disease Unknown Diabetes mellitus Unknown mother Diabetes mellitus Unknown Heart disease Unknown Advance Directives No Advanced Directives Records Found Advance Directive Response Recorded Date/ Time Advance Directives No August 20, 024 1:30pm Reason for Referral Reason Dr. Fernandez at [facility] Diagnosis 1 Pain in right knee ( M25.561) Referral Organization [facility] nichole Referring Provider First Name Franchesca Referring Provider Last Name Luli Referring Provider Specialty [facility] Referred Organization [facility] Referred Address [address], [place],[address] Referred Provider Specialty Orthopaedic Surgery Referral Priority Routine General Notes Nayeli Pascual 09:43:27 AM >received today Nayeli Pascual 12/27/2022 09:45:11 AM >insurance attached, waiting for notes to be locked to fax referral Clinical Notes F: [id number] Chief Complaint and Reason for Visit Chief [...] section and content) DATE CREATED AUTHOR 08/18/[address] [facility] DATE CREATED AUTHOR AUTHOR'S ORGANIZ ATION 08/24/2023 [facility] DATE CREATED AUTHOR AUTHOR'S ORGANIZ ATION 11/01/2024 [facility] dical Specialists EPIC REASON FOR VISIT (unrecogniz ed section and content) Reason Comments Colon Cancer Screening SCREENING COLONOS COPY, NO PRIOR, SELF REFERRED, PATIENT HAS 2 ANTHEM COVERAGES Reason Comments Allergic Reaction Pt had steroid injec tion a year and a half ago and had an allergic reaction got dizzy, itchy red from head to toe, rapid heart beat, nausea, vomiting ,sob went to ER hasn't had any other shots since. Has taken meds so we can't testing today Reason Comments Allergy Testing Pt here today for lo essence anesthetic and steroid testing. Pt has been off of meds for testing Care Teams (unrecognized sec tion and content) Team Status: Active Member Role Status Dates Franchesca Go MD Primary Care Provider Active Team Status: Inactive Member Role Status Dates Franchesca Go MD Primary Care Provider Active Start: August 21, 2023 End: August 21, 2023 SINA MckeonC Attending Provider Act blessing Start: August 21, 2023 End: August 21, 2023 Team Status: Inactive Member Role Status Dates Franchesca Go MD Primary Care Provider Active Start: September 03, 2023 End: September 03, 2023 Ary Calvo APRN NP-C Attending Provider Act blessing Start: September 03, 2023 End: September 03, 2023 Team Status: Inactive Member Role Status Dates Franchesca Go MD Primary Care Provide r, Attending Provider Active Start: January 09, 2024 End: January 09, 2024 Office Support Associate Relationship Specialty Start Date End Date Franchesca Go MD [address] [place] [address] PCP - General Family Medicine 08/23/23 Office Support Associate Relationship Specialty Start [place] [address] [place] [address] PCP - General Family Medicine 08/23/23 Office Support Associate Relationship Specialty Start Date End Date Franchesca Go MD PCP - General Family Medicine 10/03/23 Office Support Associate Relationship Specialty Start Date End Date Franchesca Go MD PCP - General Family Medicine 10/03/23 Office Support Associate Relationship Specialty Start Date End Date Franchesca Go MD PCP - General Family Medicine 10/03/23 Goals (unrecognized section and content) Goals may [...] BE BASED ON THE PRIMARY CLINICAL RECORDS. [facility]. provides no warranty or guarantee of the accuracy or completeness of information in this document.
[2025-01-09 08:43] LABS: Hematocrit 42.8 % (36.0-48.0); Hemoglobin 13.3 g/dL (12.0-16.0); Immature Granulocytes Abs Auto 0.01 10^3/uL (0.00-0.03); Immature Granulocytes Pct Auto 0.2 % (0.0-0.5); Lymphocytes Absolute Auto 2.2 10^3/uL (1.2-3.8); Mean Corpuscular HGB Conc 31.1 g/dL (29.9-35.2); Mean Corpuscular Hemoglobin 26.9 pg (26.7-34.0); Mean Corpuscular Volume 86.5 fL (81.0-99.0); Platelet Count 204 10^3/uL (150-450); Red Blood Count 4.95 10^6/uL (4.20-5.40); White Blood Count 5.6 10^3/uL (4.0-11.0)
[2025-01-09 09:45] LABS: Alanine Aminotransferase 14 U/L (14-59); Albumin Globulin Ratio 0.8; Albumin Level 3.4 g/dL (3.4-5.0); Alkaline Phosphatase 95 U/L (46-116); Aspartate Amino Transferase 21 U/L (15-37); Blood Urea Nitrogen 10.0 mg/dL (7.0-18.0); Calcium 8.7 mg/dL (8.5-10.1); Carbon Dioxide 22.6 mmol/L (21.0-32.0); Cholesterol 194 mg/dL (<=200); Estimated GFR (African America >60 (>=60 mL/min/1.73m^2); Estimated GFR (Non-African Ame >60 (>=60 mL/min/1.73m^2); Globulin 4.2 g/dL; Glucose 122 mg/dL (74-106); HDL Cholesterol 50 mg/dL (40-60); Thyroid Stimulating Hormone 1.717 uIU/mL (0.358-3.740); Total Protein 7.6 g/dL (6.4-8.2); Triglycerides 197 mg/dL (<=150); VLDL CHOLESTEROL 39.4 mg/dL
[2025-01-09 09:56] LABS: Anion Gap 16.7; Chloride 106 mmol/L (98-107); Potassium 4.3 mmol/L (3.5-5.1); Sodium 141 mmol/L (136-145)
== END 2025-01-09 08:04 | disposition home or self-care (01) ==
PROVIDERS: PCP Family Medicine; Visit Provider Family Medicine
DX: E78.5 Hyperlipidemia, unspecified (principal); E11.69 Type 2 diabetes mellitus with other specified complication; I10 Essential (primary) hypertension; E03.9 Hypothyroidism, unspecified
CPT/HCPCS: 36415; 80053; 80061; 84439; 84443; 85025

== ENCOUNTER 2025-01-12 07:08 | Outpatient (OUT) | payer BC, SELFPAY ==
--- OUTSIDE RECORDS SUMMARY | 2024-03-09 09:00 | XMS_ITS ---
Author Organization [facility] Address [address] [place] [address] Care Team Providers Care Tug Captain Name Role Phone Franchesca Rockwell M.D. Primary Care Provider Unavail Rasheed Torres [facility] [phone] REASON FOR VISIT Right ECTR Encounters Encounter Location Date Provider Diagnosis xxxSurgery- Do not use to schedule 03/09/2024 Fabricio Fernandez Plan Of Treatment No Information Progress Notes * JESUS ALBERTO SENADOB:[birth year] (54 yo F)Acc No.[id number]:03/09/2024 Patient: Ronnie VELASCOJESUS ALBERTO [place] Provider: Fabricio Fernandez MD :1970 A ge:54 Y S ex:Female Date:03/09/2024 Address:[facility] [address] , [facility] Pcp:Franchesca Rockwell M.D. * Images: * Electronic signature of Jevon Fernandez MD on 01/12/2025 at 07:10 AM EDT Sign off status: Pending * Provider: Fabricio Fernandez MD Date: 1 Generated for Printi ng/Faxing/eTransmitting on: 0 01/12/2025 07:10 AM EDT
--- OUTSIDE RECORDS SUMMARY | 2024-03-23 04:00 | XMS_ITS ---
Author Organization [facility] Address [address] [place] [address] Care Team Providers Care Telecom Specialist Name Role Phone Franchesca Rockwell M.D. Primary Care Provider Rasheed Campbell [facility] [phone] REASON FOR VISIT 1st PO, Right ECTR 03/09 [place] Encounters Encounter Location Date Provider Diagnosis [facility] [facility] [address] [place] [address] [place] [address] 03/23/2024 Rasheed Fernandez Plan Of Treatment No Information Progress Notes * JESUS ALBERTO SENADOB:[birth year] (54 yo F)Acc No.[id number]:03/23/2024 Progress Notes Patient: Ronnie VELASCOJESUS ALBERTO [place] Provider: Fabricio Fernandez MD :1970 A ge:54 Y S ex:Female Date:03/23/2024 Address:[facility] [address] [id number] Pcp:Franchesca Rockwell M.D. Subjective: * Chief Complaints: * 1 . 1st PO, Right ECTR 03/09 [place]. * Medical History: Objective: * Vitals: Assessment: Plan: * Treatment: Forms: * Images: * Electronic signature of Jevon Fernandez MD on 01/12/2025 at 07:10 AM EDT Sign off status: Pending * Provider: Fabricio Fernandez MD Date: 05/23/2023 Generated for Printi ng/Faxing/eTransmitting on: 0 01/12/2025 07:10 AM EDT
--- OUTSIDE RECORDS SUMMARY | 2025-01-12 07:10 | XMS_ITS | Clinical Summary ---
Author Organization [facility] Address [address] [place] [address] Care Team Providers Care Head Insulation Board Saw Operator Name Role Phone Franchesca Rockwell MD Primary Care Provider [phone] Allergies Active Allergy Reactions Criticality Noted Date Comments Bupivacaine Anaphylaxis,Unknown High 2023 Erythromycin Hives,Unknown 09/29/1982 Lidocaine Anaphylaxis,Unknown High 2023 Methylprednisolone Anaphylaxis High 08/21/2023 Penicillins Unknown 10/15/2024 Triamcinolone Anaphylaxis,Other High 2023 Medications levothyroxine (Synthroid, Levoxyl) 150 MCG tablet TAKE 1 TABLET BY MOUTH EVERY DAY IN THE MORNING ON EMPTY STOMACH FOR 90 DAYS 5 Active meloxicam (Mobic) 15 MG tablet Take 15 mg by mouth Daily 5 Active ipratropium (Atrovent) 0.06 % nasal sprayIndication s:Chronic rhinitis Administer 2 sprays into each nostril in the morning and 2 sprays in the evening and 2 sprays before bedtime. 15 mL 11 5 01/14/20 25 Active Active Problems No known active problems Encounters Date Type Department Care Team Description 10/29/2024 10:20 AM EDT Office Visit [facility] [address] [place] [id number] Fer Whitmore MD Anaphylaxis, subsequent encounter (Primary Dx); Chronic rhinitis 10/29/2024 Bamboo flowsheet [facility] [address] [place] [address] Fer Whitmore MD 10/29/2024 Travel 10/15/2024 9:00 AM EDT [facility] [address] [place] [id number] Fer Whitmore MD Chronic rhinitis (Primary Dx); Adverse effect of corticosteroids, initial encounter 10/15/2024 Bamboo flowsheet [facility] [address] [place] [phone] Fer Whitmore MD 10/15/2024 Travel from Last 3 Months Social History Tobacco Use Types Packs/Day Years Used Date Smoking Tobacco: Never Smokeless Tobacco: Never Tobacco Cessation:Counseling Given: Not Answered Comments Unknown Sex and Gender Information Value Date Recorded Sex Assigned at Female 09/30/2023 11:45 AM EDT Legal Sex Female 6:53 PM EDT Gender Identity Female 09/30/2023 11:45 AM EDT Sexual Orientation Not on file Last Filed Vital Signs Vital Sign Reading Time Taken Comments Blood Pressure - - Pulse - - Temperature - - Respiratory Rate - - Oxygen Saturation - - Inhaled Oxygen Concentration - - Weight 127 kg (280 lb) 10/15/2024 9:01 AM EDT Height 170.2 cm (5' 7 ) 09/25/2017 12:00 PM EDT Body Mass Index 43.85 09/25/2017 12:00 PM EDT Plan of Treatment Not on file Insurance BS BCBS Care Teams Head Insulation Board Saw Operator Relationship Specialty Start Date End Date Franchesca Rockwell MD PCP - General Family Medicine 10/03/23
--- OUTSIDE RECORDS SUMMARY | 2025-01-12 07:10 | XMS_ITS | CCD ---
Author Organization [facility] Care Team Providers Care Color Weigher Name Role Phone SARA, DR MIKHAIL Whitaker [...] MIKHAIL Whitaker Admitting Unavailable WEST, DR MIKHAIL hWitaker Attending Unavailable WEST, DR MIKHAIL Whitaker Attending Unavailable WEST, DR MIKHAIL Whitaker Consulting Unavailable WEST, DR MIKHAIL Whitaker Admitting Unavailable GO, FRANCHESCA E Primary Care Unavailable ANA LAURAEB, DR RASHEED Martinez Consulting Unavailable WEST, DR MIKHAIL Whitaker Consulting Unavailable WEST, DR MIKHAIL Whitaker Attending Unavailable OG, FRANCHESCA E Primary Care Unavailable WEST, DR [...] Unavailable Franchesca Go MD Primary Care Provider Franchesca Go MD Primary Care Provider TY WHITMORE Attending Unavailable TY WHITMORE Attending Unavailable Allergies Allergy Classification Reported Allergen(s) Allergy Type Date of Onset Reaction(s) Facility (6 sources) Erythromycin; Translations: [ERYTHROMYCIN BASE] Drug Allergy 06-16-19 14 Unknown Reaction [facility] Repository (6 sources) Penicillins; Translations: [PENICILLINS] Drug allergy (disorder) 06-16-19 14 Unknown Reaction [facility] Repository (10 sources) Erythromycin Drug Allergy 09-29-18 83 Hives, Unknown [facility] [employer] Other (3 sources) Penicillin Drug Allergy 05-02-20 17 Unknown [facility] Other (13 sources) Bupivacaine; Translations: [BUPIVACAINE] Drug Allergy 02-05-20 23 anaphylaxis, Unknown [facility] (13 sources) Lidocaine; Translations: [LIDOCAINE] Drug Allergy 02-05-20 23 anaphylaxis, Unknown [facility] (13 sources) methylPREDNISolon e; Translations: [METHYLPREDNISOLO NE] Drug Allergy 08-21-[address] [facility] (2 sources) Penicillins Propensity to adverse reactions to drug 08-21-19 24 [facility] (5 sources) Penicillins Propensity to adverse reactions 10-16-19 25 Unknown [facility] (5 sources) Triamcinolone Drug Allergy 02-05-20 23 Anaphylaxis, Other [facility] Medications Current Medications Medication Drug Class(es) [...] as needed for 0 *Pick strength-form from [facility] for eRX* Apr, Active benzonatate 200 mg [...] Active oral daily for 0 *Reorder from [facility] for eRx and Interaction Alerts* Apr, Active [...] Results Test Name Value Interpretation Reference Range [facility] 09-25-2023 [facility] INFLUENZA A AND B AGon 08-10 INFLUANEGH SEE BELOW Normal [facility] Comment on above: Result Comment: Nega tive for Flu A protein angiten. Infection due to Flu A cannot be ruled out. Flu A angiten in the sample may be below the detection limit of the test. Performed By: #### I NFLUAB ####[facility] [address] [place], [place] [address]Dr. Betsy Avery INFLUBNEGH SEE BELOW Normal [facility] Comment on above: Result Comment: Nega tive for Flu B protein antigen. Infection due to Flu B cannot be ruled out. Flu B antigen in the sample may be below the detection limit of the test. Performed By: #### I NFLUAB ####[facility] [address] [place], [place] [address]Dr. dylan [facility] INFLUENZA A AG Negative Normal NEGATIVE SEE COMMENT [facility] Comment on above: Performed By: #### I NFLUAB ####[facility] [address] [place], [place] [address]Dr. Betsy [facility] INFLUENZA B AG Negative Normal NEGATIVE SEE COMMENT [facility] Comment on above: Performed By: #### I NFLUAB ####[facility] [address] [place], [place] [address]Dr. Betsy Avery SYMPTOMATIC COVID-19 ANTIGEN on 08-10-2022 EUA Statement SEE BELOW Normal [facility] Comment on above: Result Comment: This [...] sooner. Performed By: #### C VDAGS #### [facility] [address] [place], [place] [address] Dr. Betsy Avery SARS-CoV-2 (COVID-19) RNA CLAUDIA+probe Ql (Unsp spec) Positive Abnormal NEGATIVE [facility] Comment on above: Performed By: #### C VDAGS #### [facility] [address] [place], [place] [address] Dr. Betsy Avery Covid-19 PCR (CVDTB)on 07-12 SARS-CoV-2 (COVID-19) RNA CLAUDIA+probe Ql (Unsp spec) Detected Abnormal NOT DETECTED [facility] Comment on above: Result Comment: This test is not yet approved or cleared by the [place] FDA. When there are no FDA-approved or cleared tests available, and other criteria are met, FDA can make tests available under an emergency access mechanism called an Emergency Use Authorization (EUA). The EUA for this test is supported by the Logging Crew Supervisor of Health and Human Service's declaration that [...] be used). Performed By: #### C VDTBH ####[facility] [address] [place], [place] [address]LwDr. Betsy Avery INFLUENZA A AND B AGon 08-04 INFLUANEGH SEE BELOW Normal [facility] Comment on above: Result Comment: Nega tive for Flu A protein angiten. Infection due to Flu A cannot be ruled out. Flu A angiten in the sample may be below the detection limit of the test. Performed By: #### I NFLUAB ####[facility] [address] [place] [address]Dr. Betsy Avery INFLUBNEGH SEE BELOW Normal [facility] Comment on above: Result Comment: Nega tive for Flu B protein antigen. Infection due to Flu B cannot be ruled out. Flu B antigen in the sample may be below the detection limit of the test. Performed By: #### I NFLUAB ####[facility] [address] [place] [id number]. Betsy Avery INFLUENZA A AG Negative Normal NEGATIVE SEE COMMENT [facility] Comment on above: Performed By: #### I NFLUAB ####[facility] [address] [place] [address]Dr. Betsy Avery INFLUENZA B AG Negative Normal NEGATIVE SEE COMMENT [facility] Comment on above: Performed By: #### I NFLUAB ####[facility] [address] [place] [address]Dr. Betsy Avery VC CONSULT FOLLOWUPon 2021 VC CONSULT FOLLOWUP Patient: MANISHA SENA Exam Date: 05/03/2022 : 1970 Gender:F Ordering : DR MIKHAIL RUIZ M.D. Admission #: [id number] Family : Order #: [id number] CLICK HERE TO VIEW EXAM RADIOLOGY REPORT [...] Wells M.D. on 05/03/2022 at 09:51 Normal [facility] VC EXT VENOUS LT LIMITEDon 1 07-04-2021 VC EXT VENOUS LT LIMITED Patient: YOLANDA SENA. Exam Date: 05/03/2022 : 1970 Gender:F Ordering : DR MIKHAIL RUIZ M.D. Admission #: [id number] Family : Order #: [id number] CLICK HERE TO VIEW EXAM RADIOLOGY REPORT [...] Wells M.D. on 05/03/2022 at 09:49 Normal [facility] VC INJ FOAM SCLERO W US MLTI on 04-25-2022 VC INJ FOAM SCLERO W US MLTI Patient: SENA, YOLANDA Jeanne. Exam Date: 04/25/2022 : 1970 Gender:F Ordering : DR MIKHAIL RUIZ M.D. Admission #: [id number] Family : Order #: [id number] CLICK HERE TO VIEW EXAM RADIOLOGY REPORT [...] Wells M.D. on 04/25/2022 at 11:04 Normal [facility] VC INJ SCL CHARLIE EXTERNAL AUDITOR VEINSon 1 06-20-2021 VC INJ SCL CHARLIE EXTERNAL AUDITOR VEINS Patient: YOLANDA SENA Exam Date: 04/19/2022 : 1970 Gender:F Ordering : DR MIKHAIL RUIZ M.D. Admission #: [id number] Family : Order #: [id number] CLICK HERE TO VIEW EXAM RADIOLOGY REPORT [...] Mikhail Ruiz MD on 04/19/2022 at 11:31 [facility] VC CONSULT FOLLOWUPon 2021 VC CONSULT FOLLOWUP Patient: MANISHA SENA Exam Date: 04/17/2022 : 1970 Gender:F Ordering : DR MIKHAIL RUIZ M.D. Admission #: [id number] Family : Order #: [id number] CLICK HERE TO VIEW EXAM RADIOLOGY REPORT [...] Ruiz MD on 04/17/2022 at 15:02 Normal [facility] VC EXT VENOUS RT LIMITEDon 1 06-18-2021 VC EXT VENOUS RT LIMITED Patient: JAIDAYOLANDA. Exam Date: 04/17/2022 : 1970 Gender:F Ordering : DR MIKHAIL RUIZ M.D. Admission #: [id number] Family : Order #: [id number] CLICK HERE TO VIEW EXAM RADIOLOGY REPORT [...] Ruiz MD on 04/17/2022 at 13:06 Normal [facility] VC INJ FOAM SCLERO W US MLTI on 04-09-2022 VC INJ FOAM SCLERO W US MLTI Patient: SENAYOLANDA [place]. Exam Date: 04/09/2022 : 1970 Gender:F Ordering : DR MIKHAIL RUIZ M.D. Admission #: [id number] Family : Order #: [id number] CLICK HERE TO VIEW EXAM RADIOLOGY REPORT [...] Wells M.D. on 04/09/2022 at 13:53 Normal [facility] VC CONSULT FOLLOWUPon 2021 VC CONSULT FOLLOWUP Patient: MANISHA SENA Exam Date: 03/22/2022 : 1970 Gender:F Ordering : DR MIKHAIL RUIZ M.D. Admission #: [id number] Family : Order #: [id number] CLICK HERE TO VIEW EXAM RADIOLOGY REPORT [...] Ruiz MD on 03/22/2022 at 09:35 Normal [facility] VC EXT VENOUS LT LIMITEDon 1 05-22-2021 VC EXT VENOUS LT LIMITED Patient: YOLANDA SENA Exam Date: 03/22/2022 : 1970 Gender:F Ordering : DR MIKHAIL RUIZ M.D. Admission #: [id number] Family : Order #: [id number] CLICK HERE TO VIEW EXAM RADIOLOGY REPORT [...] MD on 03/22/2022 at 08:19 Normal [facility] VC ENDOVENOUS ABL 1ST V LTon 03-14-2022 VC ENDOVENOUS ABL 1ST V LT Patient: YOLANDA SENA Exam Date: 03/14/2022 : 1970 Gender:F Ordering : DR MIKHAIL RUIZ M.D. Admission #: [id number] Family : Order #: [id number] CLICK HERE TO VIEW EXAM RADIOLOGY REPORT [...] MD on 03/14/2022 at 08:48 Normal [facility] CBC AUTO DIFFon 11-21-2021 BASO # 0.1 103/ul Normal 0.0-0.1 [facility] Comment on above: Performed By: #### C BC ####[facility] [address] [place], [place] [address]Dr. Betsy Avery Basophils/100 WBC (Bld) 0.8 % Normal 0.2-2.0 [facility] Comment on above: Performed By: #### C BC ####[facility] [address] [place], [place] [address]Dr. Betsy Avery EO # 0.3 103/ul Normal 0.0-0.7 [facility] Comment on above: Performed By: #### C BC ####[facility] [address] [place], [place] [address]Dr. Lupedylan Avery Eosinophils/100 WBC (Bld) 3.6 % Normal 0.9-7.0 [facility] Comment on above: Performed By: #### C BC ####[facility] [address] [place] [address]Dr. Betsy Avery Erythrocyte distribution width (RBC) [Ratio] 13.7 % Normal 11.0-15.0 [facility] Comment on above: Performed By: #### C BC ####[facility] [address] [place] [address]Dr. Betsy Avery Hematocrit (Bld) [Volume fraction] 41.8 % Normal 36.0-48.0 [facility] Comment on above: Performed By: #### C BC ####[facility] [address] [place], [place] [address]Dr. Betsy Avery Hemoglobin (Bld) [Mass/Vol] 13.1 g/dL Normal 12.0-16.0 [facility] Comment on above: Performed By: #### C BC ####[facility] [address] [place], [place] [address]Dr. Betsy Avery IG # 0.02 10e3/ul Normal 0.00-0.03 [facility] Comment on above: Performed By: #### C BC ####[facility] [address] [place], [place] [address]Dr. Betsy Avery IG % 0.3 % Normal 0.0-0.5 [facility] Comment on above: Performed By: #### C BC ####[facility] [address] [place], [place] [address]Dr. Betsy Avery LYMPH # 2.7 103/ul Normal 1.2-3.8 [facility] Comment on above: Performed By: #### C BC ####[facility] [address] [place], [place] [address]Dr. Betsy Avery Lymphocytes/100 WBC (Bld) 35.0 % Normal 20.5-60.0 [facility] Comment on above: Performed By: #### C BC ####[facility] [address] [place], [place] [address]Dr. Betsy Avery MANUAL DIFF REQ NO Normal [facility] Comment on above: Performed By: #### C BC ####[facility] [address] [place] [id number]. Betsy Avery MCH (RBC) [Entitic mass] 26.6 pg Critically low 26.7-34.0 [facility] Comment on above: Performed By: #### C BC ####[facility] [address] [place] [id number]. Betsy Avery MCHC (RBC) [Mass/Vol] 31.3 g/dL Normal 29.9-35.2 [facility] Comment on above: Performed By: #### C BC ####[facility] [address] [place] [id number]. Betsy Avery MCV (RBC) [Entitic vol] 84.8 fL Normal 81.0-99.0 [facility] Comment on above: Performed By: #### C BC ####[facility] [address] [place], [place] [address]Dr. Betsy Avery MONO # 0.4 103/ul Normal 0.3-0.8 [facility] Comment on above: Performed By: #### C BC ####[facility] [address] [place], [place] [address]Dr. Betsy Avery Monocytes/100 WBC (Bld) 5.3 % Normal 1.7-12.0 [facility] Comment on above: Performed By: #### C BC ####[facility] [address] [place], [place] [address]Dr. Lupedylan Avery NEUT # 4.3 103/ul Normal 1.4-6.5 [facility] Comment on above: Performed By: #### C BC ####[facility] [address] [place], [place] [address]Dr. Betsy Avery Neutrophils/100 WBC (Bld) 55.0 % Normal 43.0-75.0 [facility] Comment on above: Performed By: #### C BC ####[facility] [address] [place], [place] [address]Dr. Betsy Avery Platelet mean volume (Bld) [Entitic vol] 10.7 fL Normal 9.5-13.5 [facility] Comment on above: Performed By: #### C BC ####[facility] [address] [place], [place] [address]Wy. Betsy Avery PLT 331 103/ul Normal 150-450 [facility] Comment on above: Performed By: #### C BC ####[facility] [address] [place], [place] [address]Ns. Betsy Avery RBC 4.93 106/ul Normal 4.20-5.40 [facility] Comment on above: Performed By: #### C BC ####[facility] [address] [place], [place] [address]Fk. Betsy Avery WBC 7.8 103/ul Normal 4.0-11.0 [facility] Comment on above: Performed By: #### C BC ####[facility] [address] [place] [id number]. Betsy Avery GLYCOHEMOGLOBIN A1Con 2021 ADA RECOMMENDATION SEE BELOW Normal [facility] Comment on above: Result Comment: ADA RECOMMENDED LIMIT 4.0 - 6.0 ADA THERAPEUTIC TARGET < 7.0 ACTION SUGGESTED > 7.0 Performed By: #### A 1C ####[facility] [address] [place] [address]Dr. Betsy Avery Glucose [Mass/Vol] 131 mg/dL Normal [facility] Comment on above: Performed By: #### A 1C ####[facility] [address] [place] [id number]. Betsy Avery HbA1c (Bld) [Mass fraction] 6.2 % Normal 4.5-6.2 [facility] Comment on above: Performed By: #### A 1C ####[facility] [address] [place] [id number]. Betsy Avery LIPID PROFILEon 11-21-2021 CHOL-HDL RATIO NORM SEE BELOW Normal [facility] Comment on above: Result Comment: 3.3 - 4.4 LOW RISK 4.4 - 7.1 AVERAGE RISK 7.1 - 11.0 MODERATE RISK >11.0 HIGH RISK Performed By: #### C MP, LIPID, TSH #### [facility] [address] [place] [address] [address] Betsy Avery Cholesterol [Mass/Vol] 195 mg/dL Normal <=200 [facility] Comment on above: Performed By: #### C MP, LIPID, TSH #### [facility] [address] [place] [address] [address] Betsy Avery Cholesterol in HDL [Mass/Vol] 50 mg/dL Normal 40-60 [facility] Comment on above: Performed By: #### C MP, LIPID, TSH #### [facility] [address] [place] [address] [address] Betsy Avery Cholesterol in LDL [Mass/Vol] 116.0 mg/dL Normal [facility] Comment on above: Performed By: #### C MP, LIPID, TSH #### [facility] [address] [place] [address] Dr. Betsy Avery Cholesterol.total/Ch olesterol in HDL [Mass ratio] 3.9 {ratio} Normal [facility] Comment on above: Performed By: #### C MP, LIPID, TSH #### [facility] [address] [place] [address] [address] Betsy Avery HDL NORMAL > or = 60 mg/dl - LO W CARDIOVASCULAR RISK <40 mg/dl - HIGH CARDIOVASCULAR RISK Normal [facility] Comment on above: Performed By: #### C MP, LIPID, TSH #### [facility] [address] [place] [address] Dr. Betsy Avery LDL CALC NORMAL SEE BELOW Normal [facility] Comment on above: Result Comment: <100 mg/dl OPTIMAL 100 - 129 mg/dl NEAR OR ABOVE OPTIMAL 130 - 159 mg/dl BORDERLINE HIGH 160 - 189 mg/dl HIGH >190 mg/dl VERY HIGH Performed By: #### C MP, LIPID, TSH #### [facility] [address] [place] [address] Dr. Betsy Avery Triglyceride [Mass/Vol] 145 mg/dL Normal <=150 [facility] Comment on above: Performed By: #### C MP, LIPID, TSH #### [facility] [address] [address] [address] Betsy Avery VLDL CALC 29.0 mg/dL Normal [facility] Comment on above: Performed By: #### C MP, LIPID, TSH #### [facility] [address] [place], [place] [address] Dr. Betsy Avery MG MAMM SCREEN 3D MICHAEL CADon 11-21-2021 MG MAMM SCREEN 3D MICHAEL CAD Patient: YOLANDA SENA Exam Date: 11/21/2021 : 1970 Gender:F Ordering : DR FRANCHESCA GO M.D. Admission #: [id number] Family : Order #: [id number] CLICK HERE TO VIEW EXAM RADIOLOGY REPORT [...] Treatments None Family Cancers None LOCATION: [facility] BREAST COMPOSITION: Scattered areas fibroglandular density. FINDINGS: [...] Ruiz MD on 11/21/2021 at 09:45 Normal [facility] PROF 14(COMP METB)on 022 Albumin [Mass/Vol] 3.5 g/dL Normal 3.4-5.0 [facility] Comment on above: Performed By: #### C MP, LIPID, TSH #### [facility] [address] [place], [place] [address] Dr. Betsy Avery Albumin/Globulin [Mass ratio] 0.8 {ratio} Normal [facility] Comment on above: Performed By: #### C MP, LIPID, TSH #### [facility] [address] [place], [place] [address] Dr. Betsy Avery ALP [Catalytic activity/Vol] 93 U/L Normal 46-116 [facility] Comment on above: Performed By: #### C MP, LIPID, TSH #### [facility] [address] [place] [address] [address] Betsy Avery ALT [Catalytic activity/Vol] 18 U/L Normal 14-59 [facility] Comment on above: Performed By: #### C MP, LIPID, TSH #### [facility] [address] [place] [address] [address] Betsy Avery Anion gap [Moles/Vol] 13.2 mmol/L Normal [facility] Comment on above: Performed By: #### C MP, LIPID, TSH #### [facility] [address] [place] [address] Dr. Betsy Avery AST [Catalytic activity/Vol] 27 U/L Normal 15-37 [facility] Comment on above: Performed By: #### C MP, LIPID, TSH #### [facility] [address] [place] [address] [address] Betsy Avery Bilirubin [Mass/Vol] 0.3 mg/dL Normal 0.2-1.0 [facility] Comment on above: Performed By: #### C MP, LIPID, TSH #### [facility] [address] [place] [address] Dr. Betsy Avery Calcium [Mass/Vol] 9.2 mg/dL Normal 8.5-10.1 [facility] Comment on above: Performed By: #### C MP, LIPID, TSH #### [facility] [address] [place] [address] Dr. Betsy Avery Chloride [Moles/Vol] 105 mmol/L Normal 98-107 [facility] Comment on above: Performed By: #### C MP, LIPID, TSH #### [facility] [address] [place] [address] [address] Betsy Avery CO2 [Moles/Vol] 25.2 mmol/L Normal 21.0-32.0 [facility] Comment on above: Performed By: #### C MP, LIPID, TSH #### [facility] [address] [place] [address] [address] Betsy Avery Creatinine [Mass/Vol] 0.89 mg/dL Normal 0.55-1.02 [facility] Comment on above: Performed By: #### C MP, LIPID, TSH #### [facility] [address] [place] [address] [address] Betsy Avery EGFR-AF TOGOLESE >60 Normal >=60 [facility] Comment on above: Performed By: #### C MP, LIPID, TSH #### [facility] [address] [place] [address] [address] Betsy Avery EGFR-NON AF TOGOLESE >60 Normal >=60 [facility] Comment on above: Performed By: #### C MP, LIPID, TSH #### [facility] [address] [place] [address] [address] Betsy Avery Globulin (S) [Mass/Vol] 4.2 g/dL Normal [facility] Comment on above: Performed By: #### C MP, LIPID, TSH #### [facility] [address] [place] [address] [address] Betsy Avery Glucose [Mass/Vol] 130 mg/dL Critically high 74-106 T [facility] Comment on above: Performed By: #### C MP, LIPID, TSH #### [facility] [address] [place] [address] [address] Betsy Avery Potassium [Moles/Vol] 4.4 mmol/L Normal 3.5-5.1 [facility] Comment on above: Performed By: #### C MP, LIPID, TSH #### [facility] [address] [place] [address] [address] Betsy Avery Protein [Mass/Vol] 7.7 g/dL Normal 6.4-8.2 [facility] Comment on above: Performed By: #### C MP, LIPID, TSH #### [facility] [address] [place] [address] [address] Betsy Avery Sodium [Moles/Vol] 139 mmol/L Normal 136-145 [facility] Comment on above: Performed By: #### C MP, LIPID, TSH #### [facility] [address] [place] [address] [address] Betsy Avery Urea nitrogen [Mass/Vol] 15.0 mg/dL Normal 7.0-18.0 [facility] Comment on above: Performed By: #### C MP, LIPID, TSH #### [facility] [address] [place] [address] [address] Betsy Avery Urea nitrogen/Creatinine [Mass ratio] 16.9 mg/mg Normal [facility] Comment on above: Performed By: #### C MP, LIPID, TSH #### [facility] [address] [place] [address] [address] Betsy Avery TSHon 11-21-2021 TSH 2.111 uIU/mL Normal 0.358-3.740 [facility] Comment on above: Performed By: #### C MP, LIPID, TSH #### [facility] [address] [place] [address] Dr. Betsy Avery PAP ACOG PANEL 2: 30 to 65on 11-20-2021 . . Normal [facility] Comment on above: Result Comment: Perf ormed at: WB Performed By: #### [id number] #### [facility] [address] [place] [address] Dr. Betsy Avery Age Gdln ACOG Testing -63 Normal [facility] Comment on above: Performed By: #### [id number] #### [facility] [address] [place] [address] Dr. Betsy Avery DIAGNOSIS: Comment Normal [facility] Comment on above: Result Comment: NEGA TIVE FOR INTRAEPITHELIAL LESION OR MALIGNANCY. Performed at: WB Performed By: #### [id number] #### [facility] [address] [place] [address] Dr. Betsy Avery HPV Aptima Negative Normal Negative [facility] Comment on above: Result Comment: This nucleic acid amplification test detects fourteen high-risk HPV types (16,18,31,33,35,39,45,51,52,56,58,59,66,68) without differentiation. Performed at: =G Performed By: #### [id number] #### [facility] [address] [place] [address] Dr. Betsy Avery Methodology: Comment Normal [facility] Comment on above: Result Comment: This liquid based ThinPrep(R) pap test was screened with the use of an image guided system. Performed at: WB Performed By: #### [id number] #### [facility] [address] [place] [address] Dr. Betsy Avery Note: Comment Normal [facility] Comment on above: Result Comment: The Pap smear is a screening test designed to aid in the detection of premalignant and malignant conditions of the uterine cervix. It is not a diagnostic procedure and should not be used as the sole means of detecting cervical cancer. Both false-positive and false-negative reports do occur. . Performed at: WB Performed By: #### [id number] #### [facility] [address] [place] [address] Dr. Betsy Avery Performed by: Comment Normal [facility] Comment on above: Result Comment: Diane Braswell Carbon Lamp Cleaner (ASCP) Performed at: WB Performed By: #### [id number] #### [facility] [address] [place] [address] Dr. Betsy Avery Specimen adequacy: Comment Normal [facility] Comment on above: Result Comment: Sati sfactory for evaluation. No endocervical component is identified. Performed at: WB Performed By: #### [id number] #### [facility] [address] [place] [address] Dr. Betsy Avery VC CONSULT FOLLOWUPon 2021 VC CONSULT FOLLOWUP Patient: MANISHA SENA Exam Date: 09/21/2021 : 1970 Gender:F Ordering : DR MIKHAIL RUIZ M.D. Admission #: [id number] Family : Order #: [id number] CLICK HERE TO VIEW EXAM RADIOLOGY REPORT [...] Ruiz MD on 09/21/2021 at 11:16 Normal [facility] VC EXT VENOUS RT LIMITEDon 0 09-21-2021 VC EXT VENOUS RT LIMITED Patient: YOLANDA SENA Exam Date: 09/21/2021 : 1970 Gender:F Ordering : DR MIKHAIL RUIZ M.D. Admission #: [id number] Family : Order #: [id number] CLICK HERE TO VIEW EXAM This report [...] Ruiz MD on 09/28/2021 at 10:25 Normal [facility] VC ENDOVENOUS ABL 1ST V RTon 09-11-2021 VC ENDOVENOUS ABL 1ST V RT Patient: YOLANDA SENA Exam Date: 09/11/2021 : 1970 Gender:F Ordering : DR MIKAHIL RUIZ M.D. Admission #: [id number] Family : Order #: [id number] CLICK HERE TO VIEW EXAM RADIOLOGY REPORT [...] Ruiz MD on 09/11/2021 at 09:20 Normal [facility] VC CONSULT FOLLOWUPon 2021 VC CONSULT FOLLOWUP Patient: JAIDAMANISHA JeanneJai Exam Date: 08/30/2021 : 1970 Gender:F Ordering : DR MIKHAIL RUIZ M.D. Admission #: [id number] Family : Order #: [id number] CLICK HERE TO VIEW EXAM RADIOLOGY REPORT [...] Wells M.D. on 08/30/2021 at 09:44 Normal [facility] VC EXT VENOUS LT LIMITEDon 0 08-30-2021 VC EXT VENOUS LT LIMITED Patient: YOLANDA SENA Exam Date: 08/30/2021 : 1970 Gender:F Ordering : DR MIKHAIL RUIZ M.D. Admission #: [id number] Family : Order #: [id number] CLICK HERE TO VIEW EXAM RADIOLOGY REPORT [...] Wells M.D. on 08/30/2021 at 09:26 Normal [facility] VC ENDOVENOUS ABL 1ST V LTon 08-24-2021 VC ENDOVENOUS ABL 1ST V LT Patient: YOLANDA SENA Exam Date: 08/24/2021 : 1970 Gender:F Ordering : DR MIKHAIL RUIZ M.D. Admission #: [id number] Family : Order #: [id number] CLICK HERE TO VIEW EXAM RADIOLOGY REPORT [...] Ruiz MD on 08/24/2021 at 10:51 Normal [facility] Vital Signs Date Time Vital Sign Value Performing Clinician Facility 10-15-2024 09:010400 Body mass index (BMI) [Ratio] 43.85 kg/m2 Ty Whitmore MD Work Phone: [facility] 10-15-2024 09:010400 Body weight 127.01 kg Ty Whitmore MD Work Phone: [facility] 01-09-2024 09:060400 Body height 172.72 cm [facility] 01-09-2024 09:06-0400 Body mass index (BMI) [Ratio] 48.2 kg/m2 [facility] 01-09-2024 09:06-0400 Body weight 143.78 kg [facility] 01-09-2024 09:06-0400 Diastolic blood pressure 70 mm[Hg] [facility] 01-09-2024 09:06-0400 Heart rate 71 /min [facility] 01-09-2024 09:06-0400 Systolic blood pressure 108 mm[Hg] [facility] 08-23-2023 09:17-0400 Body height 170.2 cm Issa Garcia APRN-CANDY WRAPPING MACHINE OPERATOR Work Phone: [facility] 08-23-2023 09:17-0400 Body mass index (BMI) [Ratio] 49.99 kg/m2 Issa Garcia COTTRELL OPERATOR-CANDY WRAPPING MACHINE OPERATOR Work Phone: [facility] 08-23-2023 09:17-0400 Body weight 144.79 kg Issa Garcia COTTRELL OPERATOR-CANDY WRAPPING MACHINE OPERATOR Work Phone: [facility] 08-23-2023 09:17-0400 Diastolic blood pressure 73 mm[Hg] Issa Garcia COTTRELL OPERATOR-CANDY WRAPPING MACHINE OPERATOR Work Phone: [facility] 08-23-2023 09:17-0400 Systolic blood pressure 157 mm[Hg] Issa Garcia COTTRELL OPERATOR-CANDY WRAPPING MACHINE OPERATOR Work Phone: [facility] 08-21-2023 13:25-0400 Body height 172.72 cm [facility] 08-21-2023 13:25-0400 Body mass index (BMI) [Ratio] 48.4 kg/m2 [facility] 08-21-2023 13:25-0400 Body weight 144.69 kg [facility] 08-21-2023 13:25-0400 Diastolic blood pressure 78 mm[Hg] [facility] 08-21-2023 13:25-0400 Heart rate 81 /min [facility] 08-21-2023 13:25-0400 SaO2% (BldA) [Mass fraction] 96 % [facility] 08-21-2023 13:25-0400 Systolic blood pressure 110 mm[Hg] [facility] 02-22-2023 08:30-0400 Body height 172.72 cm Franchesca Go Other [employer] [facility] [employer] Other 02-22-2023 08:30-0400 Body mass index (BMI) [Ratio] 47.89 kg/m2 Franchesca Go Other [employer] Other 02-22-2023 08:30-0400 Body weight 142.88 kg Franchesca Go Other [employer] Other 02-22-2023 08:30-0400 Diastolic blood pressure 78 mm[Hg] Franchesca Go Other [employer] Other 02-22-2023 08:30-0400 Systolic blood pressure 136 mm[Hg] Franchesca Go Other [employer] Other 12-27-2022 08:30-0400 Body height 172.72 cm Franchesca Go Other [employer] Other 12-27-2022 08:30-0400 Body mass index (BMI) [Ratio] 47.89 kg/m2 Franchesca Go Other [employer] Other 12-27-2022 08:30-0400 Body weight 142.88 kg Franchesca Go Other [employer] Other 12-27-2022 08:30-0400 Diastolic blood pressure 70 mm[Hg] Franchesca Go Other [employer] Other 12-27-2022 08:30-0400 Systolic blood pressure 112 mm[Hg] Franchesca Go Other [employer] Other Encounters Encounter Date Encounter Type Care [...] WHITMORE Not Available Start: 10-15-2024 End: 10-15-2024 Calus Whitmore MD Work Phone: [facility] Start: 10-15-2024 End: 10-15-2024 Claus Whitmore MD Work Phone: [facility] Start: 10-15-2024 End: 10-15-2024 Office outpatient new 45 minutes Ty Whitmore MD Work Phone: [facility] Comment on above: Chronic rhinitis (Pr imary Dx); Adverse effect of corticosteroids, initial encounter Start: 10-15-2024 End: 10-15-2024 ambulatory TY WHITMORE Not Available Start: 01-09-[address] [facility] Start: 01-09-2024 End: 01-09-2024 ambulatory [facility] Work Phone: Start: 01-09-2024 End: 01-09-2024 Encounter for general adult medical examination without abnormal findings [facility] Start: 01-09-2024 End: 01-09-2024 Patient encounter procedure [facility] Work Phone: Start: 09-25-2023 End: 09-25-2023 Orders Only Roxie Vazquez [facility] General Surgery Comment on above: Encounter for screen ing colonoscopy Start: 09-03-2023 End: 09-03-2023 ambulatory [facility] Work Phone: Start: 09-03-2023 End: 09-03-2023 Patient encounter procedure [facility] Work Phone: Start: 08-23-2023 End: 08-23-2023 ambulatory [facility] Start: 08-23-2023 End: 08-23-2023 Patient encounter procedure [facility] COTTRELL OPERATOR-CANDY WRAPPING MACHINE OPERATOR Work Phone: [facility] General Surgery Comment on above: Encounter for screen ing colonoscopy (Primary Dx) Start: 08-21-2023 End: 08-21-2023 ambulatory [facility] Work Phone: Start: 08-21-2023 End: 08-21-2023 Patient encounter procedure [facility] Work Phone: Start: 05-17-2023 End: 05-17-2023 ambulatory Franchesca Go Other [employer] Other Start: 05-17-2023 Office outpatient vi sit 15 minutes Franchesca oG [facility] Start: 02-22-2023 End: 02-22-2023 ambulatory Franchesca Go Other [employer] Other Start: 02-22-2023 Office outpatient vi sit 15 minutes Franchesca Go [facility] Start: 12-27-2022 End: 12-27-2022 ambulatory Franchesca Go Other [employer] Other Start: 12-27-2022 Encounter for genera l adult medical examination without abnormal findings Franchesca Go [facility] Start: 12-27-2022 Periodic preventive med est patient 40-64yrs Franchesca Go [facility] Start: 08-10-2022 End: 08-10-2022 ambulatory FRANCHESCA GO Facility:[facility] Start: 08-04-2022 End: 08-05-2022 ambulatory ESPERANZA CLINTON Facility:[facility] Start: 05-04-2022 ambulatory FRANCHESCA GO Facility :[facility] Start: 05-03-2022 Adult health examination Eloise a Luli Other [employer] Other Start: 05-03-2022 Gynecological examin ation normal Franchesca Go Other [employer] Other Start: 05-03-2022 History of abnormal cervical Papanicolaou smear Franchesca Go Other [employer] Other Start: 05-03-2022 Problem, abnormal examination Franchesca Go Other [employer] Other Start: 05-03-2022 End: 05-04-[address] [...] medical examination without abnormal findings FRANCHESCA GO [facility] Start: 11-21-2021 End: 11-22-2021 ambulatory FRANCHESCA GO [...] Performing Clinician Start: 09-25-2023 Colonoscopy Issa Garcia COTTRELL OPERATOR-CANDY WRAPPING MACHINE OPERATOR Work Phone: Counseling [facility] Other Screening [...] ALL [address] [place] [id number] Ty Whitmore MD [address] [place] [address] Arrived [facility] Comment on above: Arrived Start: 08-22-2024 Adult BMI Screening Adult BMI Screen ing [facility] Start: 08-22-2024 Tobacco Screening Tobacco Screening [facility] Start: 01-12-2024 Influenza vaccination Influenza Vacc ine [facility] Start: 01-11-2023 COVID-19 Vaccine ( season) COVID-19 Vaccine () [facility] Start: 02-03-2018 Administration of varicella zoster vaccine Zoster (Shingles) Vaccine (1 of 2) [facility] Start: 02-03-1989 Screening for malign ant neoplasm of cervix Pap Smear [facility] Start: 02-03-1987 DTaP,Tdap and Td Vac cines (1 - Tdap) DTaP,Tdap and Td Vaccines (1 - Tdap) [facility] Start: 02-03-1986 Adult BMI Follow Up Plan Adult BMI Follow Up Plan [facility] Start: 1980 Depression Screening Depression Scre ening [facility] End: 08-22-2024 Colonoscopy Colonoscopy GI Routine Encounter for screening colonoscopy 1 Occurrences starting 08/23/2023 until 08/22/2024 [facility] Work Phone: Comment on above: 1 Occurrences starti ng 08/23/2023 until 08/22/2024 Comprehensive metabo lic 2000 panel - Serum or Plasma [facility] MG Breast - bilatera l Screening [facility] Patient Education Low back pain in adults [facility] Work Phone: [facility] Payers Date Payer Category Payer Unknown [id number] 2021 Blue Cross Blue Shield [id number] 15 2021 Unknown [id number] 2021 Blue Cross Blue Shield [id number] 2019 Unknown [id number] 1970 Unknown [id number] 2.16.84 0.1.177565.3.579.2.593 1970 Unknown [id number] 2.16.84 0.1.486662.3.579.2.593 1968 Unknown [id number] 2.16.84 0.1.784823.3.579.2.593 1968 Unknown [id number] 2.16.84 0.1.786875.3.579.2.593 1968 Unknown [id number] 2.16.84 0.1.349646.3.579.2.593 1968 Unknown [id number] 2.16.84 0.1.817688.3.579.2.593 1968 Unknown [id number] 2.16.84 0.1.208449.3.579.2.593 1968 Unknown [id number] 2.16.84 0.1.720232.3.579.2.593 1968 Unknown [id number] 2.16.84 0.1.676825.3.579.2.593 1968 Unknown [id number] 2.16.84 0.1.408310.3.579.2.593 1968 Unknown [id number] 2.16.84 0.1.218510.3.579.2.593 1968 Unknown [id number] 2.16.84 0.1.829740.3.579.2.593 1968 Unknown [id number] 2.16.84 0.1.562937.3.579.2.593 1968 Unknown [id number] 2.16.84 0.1.104256.3.579.2.593 1968 Unknown [id number] 2.16.84 0.1.989321.3.579.2.593 1968 Unknown [id number] 2.16.84 0.1.660980.3.579.2.593 1968 Unknown [id number] 2.16.8 40.1.418375.3.579.2.1286 1968 Unknown [id number] 2.16.8 40.1.654203.3.579.2.1259 1968 Unknown [id number] 2.16.8 40.1.282223.3.579.2.1259 1959 Self-pay [id number] 1959 Unknown [id number] Unknown [id number] 2.16.84 0.1.764161.3.579.2.593 Social History Date Type Detail Facility Unknown if ever smoked [facility] [employer] Other Start: 08-23-2023 End: 10-29-2024 Sex Assigned At [employer] [facility] [employer] Other Start: 08-21-2023 End: 10-15-2024 Tobacco smoking status NHIS Never smoked tobacco (finding) [facility] Start: 1970 Sex Assigned At Female [facility] Start: 08-23-2023 End: 10-15-2024 Tobacco use and exposure Smokeless tobacco non-user [facility] Start: 08-23-2023 Alcoholic beverage intake Current drinker of alcohol (finding) [facility] Start: 08-23-2023 End: 10-29-2024 History of Social function [facility] Childcare Unknown [facility] Start: 08-23-2023 Alcohol Comment occasional [facility] Start: 1970 Sex assigned at Not on file [facility] Tobacco smoking status OKIS Tobacco smoking consumption unknown [facility] Start: 09-30-2023 Gender identity Identifies as female gender (finding) [facility] NEGATED: Highlighted row [facility] Clinical Notes 12-27-2022 to 10-29-2024 Ty Whitmore MD - 10/29/2024 10:20 AM Starr Whitmore MD - 10/15/2024 9:00 AM Alexy Garcia COTTRELL OPERATOR-CANDY WRAPPING MACHINE OPERATOR - 08/23/2023 9:30 AM EDT Note Date [...] as needed basis. documented in this encounter [facility] 10-15-2024 History of Present illness Narrative Yolanda [...] approaching skin testing. documented in this encounter [facility] 08-23-2023 History of Present illness Narrative Images [...] patient/family/caregiver Referring and communicating with other health adult care provider Encounter for screening colonoscopy [Z12.11] SEAN CAO [facility] General Surgery [place] This note was created with the assistance of a speech recognition program. While intending to generate a timely document that accurately reflects the content of the visit, no guarantee can be provided that every grammatical or spelling mistake has been or will be identified or corrected. Thank you for your understanding. SEAN Cao 08/23/23 0929 documented in this encounter [facility] 05-17-2023 Evaluation note Encounter Date Diagnosis Assessment Notes May, Bronchitis (ICD-10 - J40) Take antibiotic as directed. If develop wheezing, chest tightness, itching, bad cough, blue skin color, seizures, swelling of face, lips, tongue, or throat report to ED. [employer] Other 10-13-2023 Evaluation note* Encounter Date Diagnosis Assessment Notes Treatment Notes Treatment Clinical Notes Feb, Anaphylaxis, initial encounter (ICD-10 - T78.2XXA) Form completed per patient's request to be exempt from the flu shot at [facility]. Denies history of influenza, ongoing breathing issues or lung issues. [employer] Other 08-17-2023 Evaluation note* Encounter Date Diagnosis [...] - will increase dose based on lab [employer] Other Evaluation note* Diagnosis Onset Date Resolution Status Maxillary sinusitis acute [facility] Work Phone: Evaluation note* Diagnosis Onset Date Resolution Status Maxillary sinusitis acute Low back pain acute Muscle spasm acute [facility] Work Phone: Evaluation note* Diagnosis Onset Date Resolution Status H/O colonoscopy acute Hypothyroidism, unspecified acute Screening mammogram for breast cancer acute Wellness examination acute [facility] Work Phone: Evaluation note* Diagnosis Encounter for screening colonoscopy [facility] Diagnosis Encounter for screening colonoscopy- Primary documented in this encounter [facility]* Diagnosis Chronic rhinitis- Primary Adverse effect of corticosteroids, initial encounter documented in this encounter [facility] HealthcareEvaluation note* Diagnosis Anaphylaxis, subsequent encounter- Primary Chronic rhinitis documented in this encounter [facility] HealthcareHistory general Narrative - Reported* Type Description [...] : Active,, Medical History Problem Title : [facility]: Hypothyroidism, Problem Status : Active,, Medical History Problem Title : [facility]: No history of significant medical diseases, Problem Status : Inactive,, Medical History Problem Title : [facility]: Scoliosis, Problem Status : Active,, Medical [...] & 3,2022 Hospitalization History SEE SURGICAL HX [employer] Other History general Narrative - Reported* Type Description Date Medical History Hypothyroidism, unspecified Medical History Other chronic pain Surgical History UTERINE ABLATION 2014 Surgical History SHOULDER SURGERY RIGHT 2017 Surgical History EVLT 2021 Surgical History COLONOSCOPY X2 Surgical History Bilateral cataract surgery & Hospitalization History SEE SURGICAL HX [employer] Other InstructionsNot on filedocumented in this encounter [facility] System[facility]ructionsNot on filedocumented in this encounter [facility] Summary Purpose Family History No Family History [...] Reason for Referral Reason Dr. Fernandez at [facility] Diagnosis 1 Pain in right knee ( M25.561) Referral Organization [facility] Referring Provider First Name Franchesca Referring Provider Last Name Luli Referring Provider Specialty Family [facility] Referred Organization [facility] Referred Address [address], [place],[address] Referred Provider Specialty Orthopaedic Surgery Referral Priority Routine General Notes Nayeli Pascual 09:43:27 AM >received today Nayeli Pascual 12/27/2022 09:45:11 AM >insurance attached, waiting for notes to be locked to fax referral Clinical Notes F: [id number] Chief Complaint and Reason for Visit Chief [...] and content) DATE CREATED AUTHOR 08/18/2022 [facility] DATE CREATED AUTHOR AUTHOR'S ORGANIZ ATION 08/24/2023 [facility] DATE CREATED AUTHOR AUTHOR'S ORGANIZ ATION 11/01/2024 [facility] dical Specialists EPIC REASON FOR VISIT [...] January 09, 2024 End: January 09, 2024 Color Weigher Relationship Specialty Start Date End Date Franchesca Go MD [address] [place] [address] PCP - General Family Medicine 08/23/23 Color Weigher Relationship Specialty Start [place] [address] [place] [address] PCP - General Family Medicine 08/23/23 Color Weigher Relationship Specialty Start Date End Date Franchesca Go MD PCP - General Family Medicine 10/03/23 Color Weigher Relationship Specialty Start Date End Date Franchesca Go MD PCP - General Family Medicine 10/03/23 Color Weigher Relationship Specialty Start Date End Date Franchesca [...] BE BASED ON THE PRIMARY CLINICAL RECORDS. [employer] [facility]. provides no warranty or guarantee of the accuracy or completeness of information in this document.
--- OUTSIDE RECORDS SUMMARY | 2025-01-12 07:10 | XMS_ITS | Patient Health Record ---
Author Organization [facility] Address [address] [place] [address] Care Team Providers Care Visual Basic Developer Name Role Phone Franchesca Rockwell M.D. Primary Care Provider Unavail able Rebecca Rasheed Unavailable [phone] Shanita Choi Unavailable Allergies Allergen (clinical drug ingredient) Drug/Non Drug Allergy documented on EMR Reaction Allergy Type Onset Date Status penicillin (uncoded) Unknown Allergy Active triamcinolone Kenalog Unknown Drug Allergy Act blessing lidocaine Unknown Drug Allergy Active Marcaine HCl Unknown Drug Allergy Acti ve erythromycin Unknown Drug Allergy Acti ve Results Component Value Reference Range Notes Surgery Scheduling Reviewed date:03/05/2024 08:46:37 AM Interpretation:[facility] [place] 03/16/24 Performing Lab: Notes/Report: [facility] [place] 03/16/24 Primary Insurance Company: Hailey Surgeon/Assist: [place] Surgery Location: [facility] Surgery Date & Time: 03/16/24 @ 1:30 p.m. Surgery End Time: 30 minutes Procedure: Right Endoscopic Car pal Tunnel Release, [id number] Diagnosis: Right Carpal Tunnel Syndrome, G56.01 Admission Type: Outpatient Anesthesia Type/CPNB: Local/MAC Post-op Appointment Date: 03/30/24 @ 8:50 a.m. Latex Allergy No Lab Location: [place] Lab Date/Time: 02/06/24 Lab Time: 8:00 a.m. Dealer Card Room: Liliana Reason For Referral No Information Social History Tobacco Use: Social History Observation Description Date Details (start date - stop date) Never Smoker NA - NA Smoking History Question Answer Notes Smoking Status NonSmoker AUDIT-C (Standard) Question Answer Notes Did you have a drink contain ing alcohol in the past year? Yes How often did you have six o r more drinks on one occasion in the past year? Never (0 point) How many drinks did you have on a typical day when you were drinking in the past year? 1 or 2 drinks (0 point) How often did you have a dri nk containing alcohol in the past year? Monthly or less (1 point) Problems Problem Type SNOMED Code ICD Code Onset Dates Problem Status W/U Status Risk Notes Problem Carpal tunnel syndrome (21434757) Right carpal tunnel syndrome (G56.01) Active confirmed Problem 969868908 Right hand paresthesia (R20.2) Active confirmed Problem 623668997 Primary osteoarthritis of both knees (M17.0) Active confirmed Problem 156096971 Surgical aftercare, nervous system (Z48.811) Active confirmed Vital Signs Height 5'7 in 02/10/2024 Weight 320 lbs 02/10/2024 BMI 50.11 02/10/2024 Encounters Encounter Location Date Provider Diagnosis [facility] [address] [place] [address] 01/20/2024 Rasheed Fernandez Right carpal tunnel syndrome G56.01 and Preop testing Z01.818 [facility] [address] [place] [address] [facility] G56.01 [facility] [address] [place] [address] 03/16/2024 Rasheed Fernandez Right carpal tunnel syndrome G56.01 [facility] [address] [place] [address] 03/30[facility] for surgical aftercare following surgery on the nervous system Z48.811 [facility] [address] [place] [address] 04/13/2024 Rasheed Fernandez Surgical aftercare, nervous system Z48.811 [facility] [address] [place] [address] 02/21/2024 Rasheed Fernandez Assessments Encounter Date Diagnosis (ICD Code) Assessment Notes Treatment Notes Treatment Clinical Notes Section Notes 01/20/2024 Right carpal tunnel syndrome (ICD-10 - G56.01) 01/20/2024 Preop testing (ICD-10 - Z01.818) 02/10/2024 Right carpal tunnel syndrome (ICD-10 - G56.01) 03/16/2024 Right carpal tunnel syndrome (ICD-10 - G56.01) 03/30/2024 Encounter for surgical aftercare following surgery on the nervous system (ICD-10 - Z48.811) 04/13/2024 Surgical aftercare, nervous system (ICD-10 - Z48.811) 01/20/2024 Other For her right carpal tunnel syndrome I discussed both the observation versus endoscopic carpal tunnel release. For now she would like to observe however if symptoms did not improve she is expressed interest in proceeding with a carpal tunnel release. She will plan to follow-up if she desires any additional treatment. This will serve as the H & P. Import medication 02/10/2024 Other For her right carpal tunnel syndrome I discussed both the observation versus endoscopic carpal tunnel release. For now she would like to observe however if symptoms did not improve she is expressed interest in proceeding with a carpal tunnel release. She will plan to follow-up if she desires any additional treatment. This will serve as the H & P. 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 We will see her back in 2 weeks for reevaluation. 04/13/2024 Other Patient is doing well after right endoscopic carpal tunnel release. 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 She will follow-up here on an as-needed basis. Import medication Plan Of Treatment Pending Test Test Name Order Date EMG/NCS Upper Extremity, Right EKG 01/20/2024 EKG 02/10/2024 Surgery Scheduling 02/10/2024 SCC- WRIST 3 VIEW RIGHT [id number] 09/23/2023 Insurance Providers Payer Name Payer Address Payer Phone Subscriber Number Group Number Insured Name Patient Relationship to Insured Coverage Start Date Coverage End Date Hailey FERN[address]NDEZ [address] [place] [address] [id number] JESUS ALBERTO SENA Self - patient is the insured Hailey [address] [place] [address] [id number] SENA JESUS ALBERTO Self - patient is the insured Medical (General) History Medical History History ICD Code Chronic back pain:: Yes CPAP Machine:: No DRUG ALLERGIES: Yes Gastric Reflux: Yes Healthcare worker: Yes Hypothyroidism: Yes Latex Allergy: No Have you been in close conta ct with someone who has had MRSA within the last year?: Yes Have you ever had or presently have MRSA ?: No Have you been seen by a dentist in the l ast year?: Yes Do you have any dental probl ems i.e. Broken, loose, or chipped teeth, absess, gum disease?: No Surgical History Surgery Date(Month/Year) Right endoscopic carpal tunnel release 1 05/16/2023
== END 2025-01-12 07:09 | disposition home or self-care (01) ==
LOC: LAB 07:08
PROVIDERS: PCP Family Medicine; Visit Provider Family Medicine
DX: E78.5 Hyperlipidemia, unspecified (principal); E11.69 Type 2 diabetes mellitus with other specified complication; I10 Essential (primary) hypertension; E03.9 Hypothyroidism, unspecified
CPT/HCPCS: 36415; 83036

== ENCOUNTER 2025-01-19 12:45 | Outpatient (OUT) | payer BC, SELFPAY ==
--- OUTSIDE RECORDS SUMMARY | 2024-03-09 09:00 | XMS_ITS ---
Author Organization [facility] Address [address] [place] [address] Care Team Providers Care Lead Refiner Name Role Phone Franchesca Rockwell M.D. Primary Care Provider Unavail Rasheed [facility] [phone] REASON FOR VISIT Right ECTR Encounters Encounter Location Date Provider Diagnosis xxxSurgery- Do not use to schedule 03/09/2024 Fabricio Fernandez Plan Of Treatment No Information Progress Notes * JESUS ALBERTO SENADOB:[birth year] (54 yo F)Acc No.[id number]:03/09/2024 Patient: Ronnie VELASCOJESUS ALBERTO [place] Provider: Fabricio Fernandez MD :1970 A ge:54 Y S ex:Female Date:03/09/2024 Address:[facility] [address] [facility] Pcp:Franchesca Rockwell M.D. * Images: * Electronic signature of Jevon Fernandez MD on 01/19/2025 at 12:47 PM EDT Sign off status: Pending * Provider: Fabricio Fernandez MD Date: 1 Generated for Printi ng/Faxing/eTransmitting on: 0 01/19/2025 12:47 PM EDT
--- OUTSIDE RECORDS SUMMARY | 2024-03-23 04:00 | XMS_ITS ---
Author Organization [facility] Address [address] [place] [address] Care Team Providers Care Flat Hammerer Name Role Phone Franchesca Rockwell M.D. Primary Care Provider Rasheed [facility] [phone] REASON FOR VISIT 1st PO, Right ECTR 03/09 [place] Encounters Encounter Location Date Provider Diagnosis [facility] [address] [place] [address] [place] [address] 03/23/2024 Rasheed Fernandez Plan Of Treatment No Information Progress Notes * JESUS ALBERTO SENADOB:[birth year] (54 yo F)Acc No.[id number]:03/23/2024 Progress Notes Patient: Ronnie VELASCOJESUS ALBERTO [place] Provider: Fabricio Fernandez MD :1970 A ge:54 Y S ex:Female Date:03/23/2024 Address:[facility] [address] [facility] Pcp:Franchesca Rockwell M.D. Subjective: * Chief Complaints: * 1 . 1st PO, Right ECTR 03/09 [place]. * Medical History: Objective: * Vitals: Assessment: Plan: * Treatment: Forms: * Images: * Electronic signature of Jevon Fernandez MD on 01/19/2025 at 12:47 PM EDT Sign off status: Pending * Provider: Fabricio Fernandez MD Date: 05/23/2023 Generated for Printi ng/Faxing/eTransmitting on: 0 01/19/2025 12:47 PM EDT
--- OUTSIDE RECORDS SUMMARY | 2025-01-19 12:48 | XMS_ITS | Clinical Summary ---
Author Organization [facility] Address [address] [place] [address] Care Team Providers Care Documentation Lead Name Role Phone Franchesca Rockwell MD Primary Care Provider [phone] Allergies Active Allergy Reactions Criticality Noted Date [...] sprays before bedtime. 15 mL 11 5 Active Active Problems No known active problems Encounters Date Type Department Care Team Description 10/29/2024 10:20 AM EDT Office Visit [facility] [address] [place] [address] Fer Whitmore MD Anaphylaxis, subsequent encounter (Primary Dx); Chronic rhinitis 10/29/2024 Bamboo flowsheet [facility] [address] [place] [address] Fer Whitmore MD 10/29/2024 Travel from Last 3 Months Social History [...] Plan of Treatment Not on file Insurance [facility] [address] [place] [address] Care Teams Documentation Lead Relationship Specialty Start Date End Date Franchesca Rockwell MD PCP - General Family Medicine 10/03/23
--- OUTSIDE RECORDS SUMMARY | 2025-01-19 12:48 | XMS_ITS | Patient Health Record ---
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 Primary Care Provider Unavail able Rebecca Rasheed Unavailable [phone] Shanita Choi Unavailable [phone] Allergies Allergen (clinical drug ingredient) Drug/Non Drug Allergy documented on EMR Reaction Allergy Type Onset Date Status penicillin (uncoded) Unknown Allergy Active triamcinolone Kenalog Unknown Drug Allergy Act blessing lidocaine Unknown Drug Allergy Active Marcaine HCl Unknown Drug Allergy Acti ve erythromycin Unknown Drug Allergy Acti ve Results Component Value Reference Range Notes Surgery Scheduling Reviewed date:03/05/2024 08:46:37 AM Interpretation:[facility] [place] 03/16/24 Performing Lab: Notes/Report: [facility] [place] 03/16/24 Primary Insurance Company: Hailey Surgeon/Assist: [place] Surgery Location: [facility] Surgery Date & Time: 03/16/24 @ 1:30 p.m. Surgery End Time: 30 minutes Procedure: Right Endoscopic Car pal Tunnel Release, [id number] Diagnosis: Right Carpal Tunnel Syndrome, G56.01 Admission Type: Outpatient Anesthesia Type/CPNB: Local/MAC Post-op Appointment Date: 03/30/24 @ 8:50 a.m. Latex Allergy No Lab Location: [place] [facility] Date/Time: 02/06/24 Lab Time: 8:00 a.m. Front Sight Attacher: Liliana Reason For Referral No Information Social [...] Status Risk Notes Problem Carpal tunnel syndrome (91999102) Right carpal tunnel syndrome (G56.01) Active confirmed Problem 480237195 Right hand paresthesia (R20.2) Active confirmed Problem 740004728 Primary osteoarthritis of both knees (M17.0) Active confirmed Problem 578905708 Surgical aftercare, nervous system (Z48.811) Active confirmed Vital Signs Height 5'7 in 02/10/2024 Weight 320 lbs 02/10/2024 BMI 50.11 02/10/2024 Encounters Encounter Location Date Provider Diagnosis [facility] [address] [place] [address] 01/20/2024 Rasheed Fernandez Right carpal tunnel syndrome G56.01 and Preop testing Z01.818 [facility] [address] [place] [address] [facility] car[facility] tunnel syndrome G56.01 [facility] [address] [place] [address] 03/16/2024 Rasheed Fernandez Right carpal tunnel syndrome G56.01 [facility] [address] [place] [address] 03/30/2024 [facility] Encounter for surgical aftercare following surgery on the nervous system Z48.811 [facility] [address] [place] [address] 04/13/2024 Rasheed Fernandez Surgical aftercare, nervous system Z48.811 [facility] [address] [place] [address] 02/21/2024 Rasheed Fernandez Assessments Encounter Date Diagnosis [...] 03/30/2024 Other 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 She will follow-up here on an as-needed basis. Import medication Plan Of Treatment Pending Test Test Name Order Date EMG/NCS Upper Extremity, Right EKG 01/20/2024 EKG 02/10/2024 Surgery Scheduling 02/10/2024 SCC- WRIST 3 VIEW RIGHT [id number] 09/23/2023 Insurance Providers Payer Name Payer Address Payer Phone Subscriber Number Group Number Insured Name Patient Relationship to Insured Coverage Start Date Coverage End Date Hailey FERNÁNDEZ [address] [place] [address] [id number] JESUS ALBERTO SENA Self - patient is the insured Hailey [address] [place] [address] [id number] SENA JESUS ALBERTO Self - patient is [...]
--- NOTE | 2025-01-19 12:49 | MM_ITS ---
Patient Name: JESUS ALBERTO SENA MR#: [id number] : 1970 Exam Date: 01/19/2025 Ordering Doctor: DR PAN GO M.D. RADIOLOGY REPORT PROCEDURE: MM TOMOSYNTHESIS SCREENING BI COMPARISON: MM TOMOSYNTHESIS SCREENING BI, 01/14/2024. MM TOMOSYNTHESIS SCREENING BI, 12/11/2022. MG MAMM SCREEN 3D MICHAEL CAD, 11/21/2021. MG MAMM MICHAEL SCRN W CAD DIG, 09/16/2013. INDICATIONS: Screening Calculator Name NCI Breast Cancer Risk Assessment Tool 5 Year Breast Cancer Risk 1.70% Lifetime Breast Cancer Risk 10.90% Personal Breast Cancer No Personal Ovarian Cancer No Treatments None Family Cancers None LOCATION: [facility] BREAST COMPOSITION: The breasts are almost entirely fatty. FINDINGS: DIAGNOSTIC CATEGORY 1--NEGATIVE. RIGHT BREAST: No significant suspicious finding. LEFT BREAST: No significant suspicious finding. RECOMMENDATIONS: ROUTINE MAMMOGRAM AND CLINICAL EVALUATION IN 12 MONTHS. Dictated by: Gerson Nguyen DO on 01/19/2025 at 13:57 Approved by: Gerson Nguyen DO on 01/19/2025 at 13:58
--- OUTSIDE RECORDS SUMMARY | 2025-01-19 12:54 | XMS_ITS | CCD ---
Author Organization [facility] Care Team Providers Care Optimization Specialist Name Role Phone SARA, DR MIKHAIL Whitaker [...] E Primary Care Unavailable WEST, DR MIKHAIL Whitkaer Admitting Unavailable EB, DR RASHEED Martinez Consulting [...] Unavailable Franchesca Go MD Primary Care Provider [phone] Franchesca Go MD Primary Care Provider [phone] TY WHITMORE Attending Unavailable TY WHITMORE Attending Unavailable Allergies Allergy Classification Reported Allergen(s) Allergy Type Date of Onset Reaction(s) Facility (6 sources) Erythromycin; Translations: [ERYTHROMYCIN BASE] Drug Allergy 06-16-19 14 Unknown Reaction [facility] Repository (6 sources) Penicillins; Translations: [PENICILLINS] Drug allergy (disorder) 06-16-19 14 Unknown Reaction [facility] Repository (10 sources) Erythromycin Drug Allergy 09-29-18 83 Hives, Unknown [facility] Other (3 sources) Penicillin Drug Allergy 05-02-20 17 Unknown [facility] Other (13 sources) Bupivacaine; Translations: [BUPIVACAINE] Drug Allergy 02-05-20 23 anaphylaxis, Unknown [facility] (13 sources) Lidocaine; Translations: [LIDOCAINE] Drug Allergy 02-05-20 23 anaphylaxis, Unknown [facility] (13 sources) methylPREDNISolon e; Translations: [METHYLPREDNISOLO NE] Drug Allergy 08-21-19 24 anaphylaxis [facility] (2 sources) Penicillins Propensity to adverse reactions to drug 08-21-19 24 [facility] (5 sources) Penicillins Propensity to adverse reactions 10-16-19 25 Unknown [facility] (5 sources) Triamcinolone Drug Allergy 02-05-20 23 Anaphylaxis, Other [facility] Healthcare Medications Current Medications Medication [...] as needed for 0 *Pick strength-form from [employer] for eRX* Apr, Active benzonatate 200 mg [...] Active oral daily for 0 *Reorder from [employer] for eRx and Interaction Alerts* Apr, Active [...] Results Test Name Value Interpretation Reference Range [facility] 09-25-2023 [facility] INFLUENZA A AND B AGon 08-10 INFLUANEGH SEE BELOW Normal [facility] Comment on above: Result Comment: Nega tive for Flu A protein angiten. Infection due to Flu A cannot be ruled out. Flu A angiten in the sample may be below the detection limit of the test. Performed By: #### I NFLUAB ####[facility] [address] [place], [place] [address]Dr. Betsy Avery INFLUBNEGH SEE BELOW Normal [facility] Comment on above: Result Comment: Nega tive for Flu B protein antigen. Infection due to Flu B cannot be ruled out. Flu B antigen in the sample may be below the detection limit of the test. Performed By: #### I NFLUAB ####[facility] [address] [place], [place] [address]Dr. dylan [facility] INFLUENZA A AG Negative Normal NEGATIVE SEE COMMENT [facility] Comment on above: Performed By: #### I NFLUAB ####[facility] [address] [place], [place] [address]Dr. Betsy [facility] INFLUENZA B AG Negative Normal NEGATIVE SEE COMMENT [facility] Comment on above: Performed By: #### I NFLUAB ####[facility] [address] [place], [place] [address]Dr. Betsy Avery SYMPTOMATIC COVID-19 ANTIGEN on 08-10-2022 EUA Statement SEE BELOW Normal [facility] Comment on above: Result Comment: This test [...] sooner. Performed By: #### C VDAGS #### [facility] Laboratory [address], [place] [address] Dr. Betsy Avery SARS-CoV-2 (COVID-19) RNA CLAUDIA+probe Ql (Unsp spec) Positive Abnormal NEGATIVE [facility] Comment on above: Performed By: #### C VDAGS #### [facility] Laboratory [address], [place] [address] Dr. Betsy Avery Covid-19 PCR (CVDTB)on 07-12 SARS-CoV-2 (COVID-19) RNA CLAUDIA+probe Ql (Unsp spec) Detected Abnormal NOT DETECTED [facility] Comment on above: Result Comment: This test is not yet approved or cleared by the [place] FDA. When there are no FDA-approved or cleared tests available, and other criteria are met, FDA can make tests available under an emergency access mechanism called an Emergency Use Authorization (EUA). The EUA for this test is supported by the Retail Event Assistant of Health and Human Service's declaration that [...] be used). Performed By: #### C VDTBH ####[facility] [address] [place], [place] [address]NeDr. Betsy Avery INFLUENZA A AND B AGon 08-04 INFLUANEGH SEE BELOW Normal [facility] Comment on above: Result Comment: Nega tive for Flu A protein angiten. Infection due to Flu A cannot be ruled out. Flu A angiten in the sample may be below the detection limit of the test. Performed By: #### I NFLUAB ####[facility] [address] [place] [address]Dr. eBtsy Avery INFLUBNEGH SEE BELOW Normal [facility] Comment on above: Result Comment: Nega tive for Flu B protein antigen. Infection due to Flu B cannot be ruled out. Flu B antigen in the sample may be below the detection limit of the test. Performed By: #### I NFLUAB ####[facility] [address] [place] [id number]. Betsy Avery INFLUENZA A AG Negative Normal NEGATIVE SEE COMMENT [facility] Comment on above: Performed By: #### I NFLUAB ####[facility] [address] [place] [address]Dr. Betsy Avery INFLUENZA B AG Negative Normal NEGATIVE SEE COMMENT [facility] Comment on above: Performed By: #### I NFLUAB ####[facility] [address] [place] [address]Dr. Betsy Avery VC CONSULT FOLLOWUPon 2021 VC CONSULT FOLLOWUP Patient: MANISHA SENA Exam Date: 05/03/2022 : 1970 Gender:F Ordering : DR MIKHAIL RUIZ M.D. Admission #: [id number] Family : Order #: [id number] CLICK HERE TO VIEW EXAM RADIOLOGY REPORT [...] on 05/03/2022 at 09:51 Normal [facility] VC EXT VENOUS LT LIMITEDon 1 07-04-2021 VC EXT VENOUS LT LIMITED Patient: YOLANDA SENA. Exam Date: 05/03/2022 : 1970 Gender:F Ordering : DR MIKHAIL RUIZ M.D. Admission #: [id number] Family : Order #: [id number] CLICK HERE TO VIEW EXAM RADIOLOGY REPORT [...] Wells M.D. on 05/03/2022 at 09:49 Normal [facility] VC INJ FOAM SCLERO W US MLTI on 04-25-2022 VC INJ FOAM SCLERO W US MLTI Patient: SENA, YOLANDA Jeanne. Exam Date: 04/25/2022 : 1970 Gender:F Ordering : DR MIKHAIL RUIZ M.D. Admission #: [id number] Family : Order #: [id number] CLICK HERE TO VIEW EXAM RADIOLOGY REPORT [...] on 04/25/2022 at 11:04 Normal [facility] VC INJ SCL [employer]IE [employer] VEINSon 1 06-20-2021 VC INJ SCL [employer] VE[employer] Patient: YOLANDA SENA Exam Date: 04/19/2022 : 1970 Gender:F Ordering : DR MIKHAIL RUIZ M.D. Admission #: [id number] Family : Order #: [id number] CLICK HERE TO VIEW EXAM RADIOLOGY REPORT [...] Mikhail Ruiz MD on 04/19/2022 at 11:31 [facility] VC CONSULT FOLLOWUPon 2021 VC CONSULT FOLLOWUP Patient: MANISHA SENA Exam Date: 04/17/2022 : 1970 Gender:F Ordering : DR MIKHAIL RUIZ M.D. Admission #: [id number] Family : Order #: [id number] CLICK HERE TO VIEW EXAM RADIOLOGY REPORT [...] on 04/17/2022 at 15:02 Normal [facility] VC EXT VENOUS RT LIMITEDon 1 06-18-2021 VC EXT VENOUS RT LIMITED Patient: JAIDAYOLANDA. Exam Date: 04/17/2022 : 1970 Gender:F Ordering : DR MIKHAIL RUIZ M.D. Admission #: [id number] Family : Order #: [id number] CLICK HERE TO VIEW EXAM RADIOLOGY REPORT [...] on 04/17/2022 at 13:06 Normal [facility] VC INJ FOAM SCLERO W US MLTI on 04-09-2022 VC INJ FOAM SCLERO W US MLTI Patient: SENAYOLANDA [place]. Exam Date: 04/09/2022 : 1970 Gender:F Ordering : DR MIKHAIL RUIZ M.D. Admission #: [id number] Family : Order #: [id number] CLICK HERE TO VIEW EXAM RADIOLOGY REPORT [...] on 04/09/2022 at 13:53 Normal [facility] VC CONSULT FOLLOWUPon 2021 VC CONSULT FOLLOWUP Patient: MANISHA SENA Exam Date: 03/22/2022 : 1970 Gender:F Ordering : DR MIKHAIL RUIZ M.D. Admission #: [id number] Family : Order #: [id number] CLICK HERE TO VIEW EXAM RADIOLOGY REPORT [...] on 03/22/2022 at 09:35 Normal [facility] VC EXT VENOUS LT LIMITEDon 1 05-22-2021 VC EXT VENOUS LT LIMITED Patient: YOLANDA SENA Exam Date: 03/22/2022 : 1970 Gender:F Ordering : DR MIKHAIL RUZI M.D. Admission #: [id number] Family : Order #: [id number] CLICK HERE TO VIEW EXAM RADIOLOGY REPORT [...] MD on 03/22/2022 at 08:19 Normal [facility] VC ENDOVENOUS ABL 1ST V LTon 03-14-2022 VC ENDOVENOUS ABL 1ST V LT Patient: YOLANDA SENA Exam Date: 03/14/2022 : 1970 Gender:F Ordering : DR MIKHAIL RUIZ M.D. Admission #: [id number] Family : Order #: [id number] CLICK HERE TO VIEW EXAM RADIOLOGY REPORT [...] MD on 03/14/2022 at 08:48 Normal [facility] CBC AUTO DIFFon 11-21-2021 BASO # 0.1 103/ul Normal 0.0-0.1 [facility] Comment on above: Performed By: #### C BC ####[facility] [address] [place], [place] [address]Dr. Betsy Avery Basophils/100 WBC (Bld) 0.8 % Normal 0.2-2.0 [facility] Comment on above: Performed By: #### C BC ####[facility] [address] [place], [place] [address]Dr. Betsy Avery EO # 0.3 103/ul Normal 0.0-0.7 [facility] Comment on above: Performed By: #### C BC ####[facility] [address] [place], [place] [address]Dr. Lupedylan Avery Eosinophils/100 WBC (Bld) 3.6 % Normal 0.9-7.0 [facility] Comment on above: Performed By: #### C BC ####[facility] [address] [place] [address]Dr. Betsy Avery Erythrocyte distribution width (RBC) [Ratio] 13.7 % Normal 11.0-15.0 [facility] Comment on above: Performed By: #### C BC ####[facility] [address] [place] [address]Dr. Betys Avery Hematocrit (Bld) [Volume fraction] 41.8 % Normal 36.0-48.0 [facility] Comment on above: Performed By: #### C BC ####[facility] [address] [place], [place] [address]Dr. Betsy Avery Hemoglobin (Bld) [Mass/Vol] 13.1 g/dL Normal 12.0-16.0 [facility] Comment on above: Performed By: #### C BC ####[facility] [address] [place], [place] [address]Dr. Betsy Avery IG # 0.02 10e3/ul Normal 0.00-0.03 [facility] Comment on above: Performed By: #### C BC ####[facility] [address] [place], [place] [address]Dr. Betsy Avery IG % 0.3 % Normal 0.0-0.5 [facility] Comment on above: Performed By: #### C BC ####[facility] [address] [place], [place] [address]Dr. Betsy Avery LYMPH # 2.7 103/ul Normal 1.2-3.8 [facility] Comment on above: Performed By: #### C BC ####[facility] [address] [place], [place] [address]Dr. Betsy Avery Lymphocytes/100 WBC (Bld) 35.0 % Normal 20.5-60.0 [facility] Comment on above: Performed By: #### C BC ####[facility] [address] [place], [place] [address]Dr. Betsy Avery MANUAL DIFF REQ NO Normal [facility] Comment on above: Performed By: #### C BC ####[facility] [address] [place] [id number]. Betsy Avery MCH (RBC) [Entitic mass] 26.6 pg Critically low 26.7-34.0 [facility] Comment on above: Performed By: #### C BC ####[facility] [address] [place] [id number]. Betsy Avery MCHC (RBC) [Mass/Vol] 31.3 g/dL Normal 29.9-35.2 [facility] Comment on above: Performed By: #### C BC ####[facility] [address] [place] [id number]. Betsy Avery MCV (RBC) [Entitic vol] 84.8 fL Normal 81.0-99.0 [facility] Comment on above: Performed By: #### C BC ####[facility] [address] [place], [place] [address]Dr. Betsy Avery MONO # 0.4 103/ul Normal 0.3-0.8 [facility] Comment on above: Performed By: #### C BC ####[facility] [address] [place], [place] [address]Dr. Betsy Avery Monocytes/100 WBC (Bld) 5.3 % Normal 1.7-12.0 [facility] Comment on above: Performed By: #### C BC ####[facility] [address] [place], [place] [address]Dr. Lupedylan Avery NEUT # 4.3 103/ul Normal 1.4-6.5 [facility] Comment on above: Performed By: #### C BC ####[facility] [address] [place], [place] [address]Dr. Betsy Avery Neutrophils/100 WBC (Bld) 55.0 % Normal 43.0-75.0 [facility] Comment on above: Performed By: #### C BC ####[facility] [address] [place], [place] [address]Dr. Betsy Avery Platelet mean volume (Bld) [Entitic vol] 10.7 fL Normal 9.5-13.5 [facility] Comment on above: Performed By: #### C BC ####[facility] [address] [place], [place] [address]Sx. Betsy Avery PLT 331 103/ul Normal 150-450 [facility] Comment on above: Performed By: #### C BC ####[facility] [address] [place], [place] [address]Hy. Betsy Avery RBC 4.93 106/ul Normal 4.20-5.40 [facility] Comment on above: Performed By: #### C BC ####[facility] [address] [place], [place] [address]Fw. Betsy Avery WBC 7.8 103/ul Normal 4.0-11.0 [facility] Comment on above: Performed By: #### C BC ####[facility] [address] [place] [id number]. Betsy Avery GLYCOHEMOGLOBIN A1Con 2021 ADA RECOMMENDATION SEE BELOW Normal [facility] Comment on above: Result Comment: ADA RECOMMENDED LIMIT 4.0 - 6.0 ADA THERAPEUTIC TARGET < 7.0 ACTION SUGGESTED > 7.0 Performed By: #### A 1C ####[facility] [address] [place] [address]Dr. Betsy Avery Glucose [Mass/Vol] 131 mg/dL Normal [facility] Comment on above: Performed By: #### A 1C ####[facility] [address] [place] [id number]. Betsy Avery HbA1c (Bld) [Mass fraction] 6.2 % Normal 4.5-6.2 [facility] Comment on above: Performed By: #### A 1C ####[facility] [address] [place] [id number]. Betsy Avery LIPID PROFILEon 11-21-2021 CHOL-HDL RATIO NORM SEE BELOW Normal [facility] Comment on above: Result Comment: 3.3 - 4.4 LOW RISK 4.4 - 7.1 AVERAGE RISK 7.1 - 11.0 MODERATE RISK >11.0 HIGH RISK Performed By: #### C MP, LIPID, TSH #### [facility] Laboratory [address] [place] [address] [address] Betsy Avery Cholesterol [Mass/Vol] 195 mg/dL Normal <=200 [facility] Comment on above: Performed By: #### C MP, LIPID, TSH #### [facility] [address] [place] [address] [address] Betsy Avery Cholesterol in HDL [Mass/Vol] 50 mg/dL Normal 40-60 [facility] Comment on above: Performed By: #### C MP, LIPID, TSH #### [facility] [address] [place] [address] [address] Betsy Avery Cholesterol in LDL [Mass/Vol] 116.0 mg/dL Normal [facility] Comment on above: Performed By: #### C MP, LIPID, TSH #### [facility] Laboratory [address] [place] [address] Dr. Betsy Avery Cholesterol.total/Ch olesterol in HDL [Mass ratio] 3.9 {ratio} Normal [facility] Comment on above: Performed By: #### C MP, LIPID, TSH #### [facility] [address] [place] [address] [address] Betsy Avery HDL NORMAL > or = 60 mg/dl - LO W CARDIOVASCULAR RISK <40 mg/dl - HIGH CARDIOVASCULAR RISK Normal [facility] Comment on above: Performed By: #### C MP, LIPID, TSH #### [facility] [address] [place] [address] Dr. Betsy Avery LDL CALC NORMAL SEE BELOW Normal [facility] Comment on above: Result Comment: <100 mg/dl OPTIMAL 100 - 129 mg/dl NEAR OR ABOVE OPTIMAL 130 - 159 mg/dl BORDERLINE HIGH 160 - 189 mg/dl HIGH >190 mg/dl VERY HIGH Performed By: #### C MP, LIPID, TSH #### [facility] [address] [place] [address] Dr. Betsy Avery Triglyceride [Mass/Vol] 145 mg/dL Normal <=150 [facility] Comment on above: Performed By: #### C MP, LIPID, TSH #### [facility] [address] [place] [address] [address] Betsy Avery VLDL CALC 29.0 mg/dL Normal [facility] Comment on above: Performed By: #### C MP, LIPID, TSH #### [facility] [address], [place] [address] Dr. Betsy Avery MG MAMM SCREEN 3D MICHAEL CADon 11-21-2021 MG MAMM SCREEN 3D MICHAEL CAD Patient: YOLANDA SENA Exam Date: 11/21/2021 : 1970 Gender:F Ordering : DR FRANCHESCA GO M.D. Admission #: [id number] Family : Order #: [id number] CLICK HERE TO VIEW EXAM RADIOLOGY REPORT [...] Treatments None Family Cancers None LOCATION: [facility] BREAST COMPOSITION: Scattered areas fibroglandular [...] on 11/21/2021 at 09:45 Normal [facility] PROF 14(COMP METB)on 022 Albumin [Mass/Vol] 3.5 g/dL Normal 3.4-5.0 [facility] Comment on above: Performed By: #### C MP, LIPID, TSH #### [facility] [address], [place] [address] Dr. Betsy Avery Albumin/Globulin [Mass ratio] 0.8 {ratio} Normal [facility] Comment on above: Performed By: #### C MP, LIPID, TSH #### [facility] [address], [place] [address] Dr. Betsy Avery ALP [Catalytic activity/Vol] 93 U/L Normal 46-116 [facility] Comment on above: Performed By: #### C MP, LIPID, TSH #### [facility] [address] [place] [address] [address] Betsy Avery ALT [Catalytic activity/Vol] 18 U/L Normal 14-59 [facility] Comment on above: Performed By: #### C MP, LIPID, TSH #### [facility] [address] [place] [address] [address] Betsy Avery Anion gap [Moles/Vol] 13.2 mmol/L Normal [facility] Comment on above: Performed By: #### C MP, LIPID, TSH #### [facility] [address] [place] [address] Dr. Betsy Avery AST [Catalytic activity/Vol] 27 U/L Normal 15-37 [facility] Comment on above: Performed By: #### C MP, LIPID, TSH #### [facility] [address] [place] [address] [address] Betsy Avery Bilirubin [Mass/Vol] 0.3 mg/dL Normal 0.2-1.0 [facility] Comment on above: Performed By: #### C MP, LIPID, TSH #### [facility] [address] [place] [address] Dr. Betsy Avery Calcium [Mass/Vol] 9.2 mg/dL Normal 8.5-10.1 [facility] Comment on above: Performed By: #### C MP, LIPID, TSH #### [facility] [address] [place] [address] Dr. Betsy Avery Chloride [Moles/Vol] 105 mmol/L Normal 98-107 [facility] Comment on above: Performed By: #### C MP, LIPID, TSH #### [facility] [address] [place] [address] [address] Betsy Avery CO2 [Moles/Vol] 25.2 mmol/L Normal 21.0-32.0 [facility] Comment on above: Performed By: #### C MP, LIPID, TSH #### [facility] [address] [address] [address] Betsy Avery Creatinine [Mass/Vol] 0.89 mg/dL Normal 0.55-1.02 [facility] Comment on above: Performed By: #### C MP, LIPID, TSH #### [facility] [address] [place] [address] [address] Betsy Avery EGFR-AF MALIAN >60 Normal >=60 [facility] Comment on above: Performed By: #### C MP, LIPID, TSH #### [facility] [address] [place] [address] [address] Betsy Avery EGFR-NON AF MALIAN >60 Normal >=60 [facility] Comment on above: Performed By: #### C MP, LIPID, TSH #### [facility] [address] [place] [address] [address] Betsy Avery Globulin (S) [Mass/Vol] 4.2 g/dL Normal [facility] Comment on above: Performed By: #### C MP, LIPID, TSH #### [facility] [address] [place] [address] [address] Besty Avery Glucose [Mass/Vol] 130 mg/dL Critically high 74-106 [facility] Comment on above: Performed By: #### C MP, LIPID, TSH #### [facility] [address] [place] [address] [address] Betsy Avery Potassium [Moles/Vol] 4.4 mmol/L Normal 3.5-5.1 [facility] Comment on above: Performed By: #### C MP, LIPID, TSH #### [facility] [address] [place] [address] [address] Betsy Avery Protein [Mass/Vol] 7.7 g/dL Normal 6.4-8.2 [facility] Comment on above: Performed By: #### C MP, LIPID, TSH #### [facility] [address] [address] [address] Betsy Avery Sodium [Moles/Vol] 139 mmol/L Normal 136-145 [facility] Comment on above: Performed By: #### C MP, LIPID, TSH #### [facility] [address] [address] [address] Betsy Avery Urea nitrogen [Mass/Vol] 15.0 mg/dL Normal 7.0-18.0 [facility] Comment on above: Performed By: #### C MP, LIPID, TSH #### [facility] [address] [address] [address] Betsy Avery Urea nitrogen/Creatinine [Mass ratio] 16.9 mg/mg Normal [facility] Comment on above: Performed By: #### C MP, LIPID, TSH #### [facility] [address] [place] [address] [address] Betsy Avery TSHon 11-21-2021 TSH 2.111 uIU/mL Normal 0.358-3.740 [facility] Comment on above: Performed By: #### C MP, LIPID, TSH #### [facility] [address] [place] [address] Dr. Betsy Avery PAP ACOG PANEL 2: 30 to 65on 11-20-2021 . . Normal [facility] Comment on above: Result Comment: Perf ormed at: WB Performed By: #### [id number] #### [facility] [address] [place] [address] Dr. Betsy Avery Age Gdln ACOG Testing -63 Normal [facility] Comment on above: Performed By: #### 4 [id number] #### [facility] [address] [place] [address] Dr. Betsy Avery DIAGNOSIS: Comment Normal [facility] Comment on above: Result Comment: NEGA TIVE FOR INTRAEPITHELIAL LESION OR MALIGNANCY. Performed at: WB Performed By: #### [id number] #### [facility] [address] [place] [address] Dr. Betsy Avery HPV Aptima Negative Normal Negative [facility] Comment on above: Result Comment: This nucleic acid amplification test detects fourteen high-risk HPV types (16,18,31,33,35,39,45,51,52,56,58,59,66,68) without differentiation. Performed at: =G Performed By: #### [id number] #### [facility] [address] [place] [address] Dr. Betsy Avery Methodology: Comment Normal [facility] Comment on above: Result Comment: This liquid based ThinPrep(R) pap test was screened with the use of an image guided system. Performed at: WB Performed By: #### [id number] #### [facility] [address] [place] [address] Dr. Betsy Avery Note: Comment Normal [facility] Comment on above: Result Comment: The Pap smear is a screening test designed to aid in the detection of premalignant and malignant conditions of the uterine cervix. It is not a diagnostic procedure and should not be used as the sole means of detecting cervical cancer. Both false-positive and false-negative reports do occur. . Performed at: WB Performed By: #### [id number] #### [facility] [address] [place] [address] Dr. Betsy Avery Performed by: Comment Normal [facility] Comment on above: Result Comment: Diane Braswell Tractor Sweeper Operator (ASCP) Performed at: WB Performed By: #### [id number] #### [facility] [address] [place] [address] Dr. Betsy Avery Specimen adequacy: Comment Normal [facility] Comment on above: Result Comment: Sati sfactory for evaluation. No endocervical component is identified. Performed at: WB Performed By: #### [id number] #### [facility] [address] [place] [address] Dr. Betsy Avery VC CONSULT FOLLOWUPon 2021 VC CONSULT FOLLOWUP Patient: MANISHA SENA Exam Date: 09/21/2021 : 1970 Gender:F Ordering : DR MIKHAIL RUIZ M.D. Admission #: [id number] Family : Order #: [id number] CLICK HERE TO VIEW EXAM RADIOLOGY REPORT [...] on 09/21/2021 at 11:16 Normal [facility] VC EXT VENOUS RT LIMITEDon 0 09-21-2021 VC EXT VENOUS RT LIMITED Patient: YOLANDA SENA Exam Date: 09/21/2021 : 1970 Gender:F Ordering : DR MIKHAIL RUIZ M.D. Admission #: [id number] Family : Order #: [id number] CLICK HERE TO VIEW EXAM This report [...] on 09/28/2021 at 10:25 Normal [facility] VC ENDOVENOUS ABL 1ST V RTon 09-11-2021 VC ENDOVENOUS ABL 1ST V RT Patient: YOLANDA SENA Exam Date: 09/11/2021 : 1970 Gender:F Ordering : DR MIKHAIL RUIZ M.D. Admission #: [id number] Family : Order #: [id number] CLICK HERE TO VIEW EXAM RADIOLOGY REPORT [...] Ruiz MD on 09/11/2021 at 09:20 Normal [facility] VC CONSULT FOLLOWUPon 2021 VC CONSULT FOLLOWUP Patient: JAIDAMANISHA JeanneJai Exam Date: 08/30/2021 : 1970 Gender:F Ordering : DR MIKHAIL RUIZ M.D. Admission #: [id number] Family : Order #: [id number] CLICK HERE TO VIEW EXAM RADIOLOGY REPORT [...] on 08/30/2021 at 09:44 Normal [facility] VC EXT VENOUS LT LIMITEDon 0 08-30-2021 VC EXT VENOUS LT LIMITED Patient: YOLANDA SENA Exam Date: 08/30/2021 : 1970 Gender:F Ordering : DR MIKHAIL RUIZ M.D. Admission #: [id number] Family : Order #: [id number] CLICK HERE TO VIEW EXAM RADIOLOGY REPORT [...] on 08/30/2021 at 09:26 Normal [facility] VC ENDOVENOUS ABL 1ST V LTon 08-24-2021 VC ENDOVENOUS ABL 1ST V LT Patient: YOLANDA SENA Exam Date: 08/24/2021 : 1970 Gender:F Ordering : DR MIKHAIL RUIZ M.D. Admission #: [id number] Family : Order #: [id number] CLICK HERE TO VIEW EXAM RADIOLOGY REPORT [...] on 08/24/2021 at 10:51 Normal [facility] Vital Signs Date Time Vital Sign Value Performing Clinician Facility 10-15-2024 09:010400 Body mass index (BMI) [Ratio] 43.85 kg/m2 Ty Whitmore MD Work Phone: [facility] 10-15-2024 09:010400 Body weight 127.01 kg Ty Whitmore MD Work Phone: [facility] 01-09-2024 09:060400 Body height 172.72 cm [facility] 01-09-2024 09:06-0400 Body mass index (BMI) [Ratio] 48.2 kg/m2 [facility] 01-09-2024 09:06-0400 Body weight 143.78 kg [facility] 01-09-2024 09:06-0400 Diastolic blood pressure 70 mm[Hg] [facility] 01-09-2024 09:06-0400 Heart rate 71 /min [facility] 01-09-2024 09:06-0400 Systolic blood pressure 108 mm[Hg] [facility] 08-23-2023 09:17-0400 Body height 170.2 cm Issa Garcia APRN-TRACK SURFACING MACHINE OPERATOR Work Phone: [facility] 08-23-2023 09:17-0400 Body mass index (BMI) [Ratio] 49.99 kg/m2 Issa Garcia RN FACULTY-TRACK SURFACING MACHINE OPERATOR Work Phone: [facility] 08-23-2023 09:17-0400 Body weight 144.79 kg Issa Garcia RN FACULTY-TRACK SURFACING MACHINE OPERATOR Work Phone: [facility] 08-23-2023 09:17-0400 Diastolic blood pressure 73 mm[Hg] Issa Garcia RN FACULTY-TRACK SURFACING MACHINE OPERATOR Work Phone: [facility] 08-23-2023 09:17-0400 Systolic blood pressure 157 mm[Hg] Issa Garcia RN FACULTY-TRACK SURFACING MACHINE OPERATOR Work Phone: [employer] [facility] 08-21-2023 13:25-0400 Body height 172.72 cm [facility] 08-21-2023 13:25-0400 Body mass index (BMI) [Ratio] 48.4 kg/m2 [facility] 08-21-2023 13:25-0400 Body weight 144.69 kg [facility] 08-21-2023 13:25-0400 Diastolic blood pressure 78 mm[Hg] [facility] 08-21-2023 13:25-0400 Heart rate 81 /min [facility] 08-21-2023 13:25-0400 SaO2% (BldA) [Mass fraction] 96 % [facility] 08-21-2023 13:25-0400 Systolic blood pressure 110 mm[Hg] [facility] 02-22-2023 08:30-0400 Body height 172.72 cm Franchesca Go Other [employer] [facility] Other 02-22-2023 08:30-0400 Body mass index (BMI) [Ratio] 47.89 kg/m2 Franchesca Go Other [facility] Other 02-22-2023 08:30-0400 Body weight 142.88 kg Franchesca Go Other [facility] Other 02-22-2023 08:30-0400 Diastolic blood pressure 78 mm[Hg] Franchesca Go Other [facility] Other 02-22-2023 08:30-0400 Systolic blood pressure 136 mm[Hg] Franchesca Go Other [facility] Other 12-27-2022 08:30-0400 Body height 172.72 cm Franchesca Go Other [facility] Other 12-27-2022 08:30-0400 Body mass index (BMI) [Ratio] 47.89 kg/m2 Franchesca Go Other [facility] Other 12-27-2022 08:30-0400 Body weight 142.88 kg Franchesca Go Other [facility] Other 12-27-2022 08:30-0400 Diastolic blood pressure 70 mm[Hg] Franchesca Go Other [facility] Other 12-27-2022 08:30-0400 Systolic blood pressure 112 mm[Hg] Franchesca Go Other [facility] Other Encounters Encounter Date Encounter Type Care [...] Not Available Start: 01-09-2024 Patient encounter status [facility] Start: 01-09-2024 End: 01-09-2024 ambulatory [facility] Work Phone: Start: 01-09-2024 End: 01-09-2024 Encounter for general adult medical examination without abnormal findings [facility] Start: 01-09-2024 End: 01-09-2024 Patient encounter procedure [facility] Work Phone: Start: 09-25-2023 End: 09-25-2023 Orders Only Roxie Vazquez [facility] Comment on above: Encounter for screen ing colonoscopy Start: 09-03-2023 End: 09-03-2023 ambulatory [facility] Work Phone: Start: 09-03-2023 End: 09-03-2023 Patient encounter procedure [facility] Work Phone: Start: 08-23-2023 End: 08-23-2023 ambulatory formerly [facility] Start: 08-23-2023 End: 08-23-2023 Patient encounter procedure [facility] RN FACULTY-TRACK SURFACING MACHINE OPERATOR Work Phone: [facility] Comment on above: Encounter for screen ing colonoscopy (Primary Dx) Start: 08-21-2023 End: 08-21-2023 ambulatory [facility] Work Phone: Start: 08-21-2023 End: 08-21-2023 Patient encounter procedure [facility] Work Phone: Start: 05-17-2023 End: 05-17-2023 ambulatory Franchesca Go Other [facility] Other Start: 05-17-2023 Office outpatient vi sit 15 minutes Franchesca Go [facility] Start: 02-22-2023 End: 02-22-2023 ambulatory Franchesca Go Other [facility] Other Start: 02-22-2023 Office outpatient vi sit 15 minutes Franchesca Go [facility] Start: 12-27-2022 End: 12-27-2022 ambulatory Franchesca Go Other [facility] Other Start: 12-27-2022 Encounter for genera l adult medical examination without abnormal findings Franchesca Go [facility] Start: 12-27-2022 Periodic preventive med est patient 40-64yrs Franchesca Go [facility] Start: 08-10-2022 End: 08-10-2022 ambulatory FRANCHESCA GO Facility:[facility] Start: 08-04-2022 End: 08-05-2022 ambulatory ESPERANZA CLINTON Facility:[facility] Start: 05-04-2022 ambulatory FRANCHESCA GO Facility :[facility] Start: 05-03-2022 Adult health examination Eloise a Luli Other [facility] Other Start: 05-03-2022 Gynecological examin ation normal Franchesca Go Other [facility] Other Start: 05-03-2022 History of abnormal cervical Papanicolaou smear Franchesca Go Other [facility] Other Start: 05-03-2022 Problem, abnormal examination Franchesca Go Other [facility] Other Start: 05-03-2022 End: 05-04-[address] [...] without abnormal findings FRANCHESCA GO [facility] Start: 11-21-2021 End: 11-22-2021 ambulatory FRANCHESCA GO Facility:[facility] Start: 11-21-2021 End: 11-22-2021 Encounter for general adult medical examination without abnormal findings FRANCHESCA GO Facility:[facility] Start: 11-16-2021 End: 11-16-2021 ambulatory FRANHCESCA GO Facility:[facility] Start: 09-21-2021 End: 09-22-[address] MIKHAIL RUIZ Facility:[facility] Start: 09-11-2021 End: 09-12-[address] MIKHAIL RUIZ Facility:[facility] Start: 08-30-2021 End: 08-31-[address] MIKHAIL RUIZ Facility:[facility] Start: 08-24-2021 End: 08-25-[address] MIKHAIL RUIZ Facility:[facility] Procedures Date Procedure Procedure Detail Performing Clinician Start: 09-25-2023 Colonoscopy Issa Garcia RN FACULTY-TRACK SURFACING MACHINE OPERATOR Work Phone: Counseling Franchesca Go [...] ALL [address] [place] [id number] Ty Whitmore MD [address] [place] [address] Arrived [facility] Comment on above: Arrived Start: 08-22-2024 Adult BMI Screening Adult BMI Screen ing [facility] Start: 08-22-2024 Tobacco Screening Tobacco Screening [facility] Start: 01-12-2024 Influenza vaccination Influenza Vacc ine [facility] Start: 01-11-2023 COVID-19 Vaccine ( season) COVID-19 Vaccine () [facility] Start: 02-03-2018 Administration of varicella zoster vaccine Zoster (Shingles) Vaccine (1 of 2) [facility] Start: 02-03-1989 Screening for malign ant neoplasm of cervix Pap Smear [facility] Start: 02-03-1987 DTaP,Tdap and Td Vac cines (1 - Tdap) DTaP,Tdap and Td Vaccines (1 - Tdap) [facility] Start: 02-03-1986 Adult BMI Follow Up Plan Adult BMI Follow Up Plan [facility] Start: 1980 Depression Screening Depression Scre ening [facility] End: 08-22-2024 Colonoscopy Colonoscopy GI Routine Encounter for screening colonoscopy 1 Occurrences starting 08/23/2023 until 08/22/2024 [facility] Work Phone: Comment on above: 1 Occurrences starti ng 08/23/2023 until 08/22/2024 Comprehensive metabo lic 2000 panel - Serum or Plasma [facility] MG Breast - bilatera l Screening [facility] Patient Education Low back pain in adults [facility] Work Phone: [facility] Payers Date Payer Category Payer Unknown [id number] 2021 Blue Cross Blue Shield [id number] [id number] 15 2021 Unknown [id number] 2021 Blue Cross Blue Shield [id number] 2019 Unknown [id number] 1970 Unknown [id number] 2.16.84 0.1.642299.3.579.2.593 1970 Unknown [id number] 2.16.84 0.1.064913.3.579.2.593 1968 Unknown [id number] 2.16.84 0.1.970207.3.579.2.593 1968 Unknown [id number] 2.16.84 0.1.867790.3.579.2.593 1968 Unknown [id number] 2.16.84 0.1.818267.3.579.2.593 1968 Unknown [id number] 2.16.84 0.1.862819.3.579.2.593 1968 Unknown [id number] 2.16.84 0.1.090773.3.579.2.593 1968 Unknown [id number] 2.16.84 0.1.297209.3.579.2.593 1968 Unknown [id number] 2.16.84 0.1.855856.3.579.2.593 1968 Unknown [id number] 2.16.84 0.1.983056.3.579.2.593 1968 Unknown [id number] 2.16.84 0.1.083279.3.579.2.593 1968 Unknown [id number] 2.16.84 0.1.367814.3.579.2.593 1968 Unknown [id number] 2.16.84 0.1.329476.3.579.2.593 1968 Unknown [id number] 2.16.84 0.1.728046.3.579.2.593 1968 Unknown [id number] 2.16.84 0.1.902936.3.579.2.593 1968 Unknown [id number] 2.16.84 0.1.171343.3.579.2.593 1968 Unknown [id number] 2.16.8 40.1.744256.3.579.2.1286 1968 Unknown [id number] 2.16.8 40.1.751208.3.579.2.1259 1968 Unknown [id number] 2.16.8 40.1.880265.3.579.2.1259 1961 Self-pay [id number] 1961 Unknown [id number] Unknown [id number] 2.16.84 0.1.686484.3.579.2.593 Social History Date Type Detail Facility Unknown if ever smoked [facility] Other Start: 08-23-2023 End: 10-29-2024 Sex Assigned At [employer] [facility] Other Start: 08-21-2023 End: 10-15-2024 Tobacco smoking status NHIS Never smoked tobacco (finding) [facility] Start: 1970 Sex Assigned At Female [facility] Start: 08-23-2023 End: 10-15-2024 Tobacco use and exposure Smokeless tobacco non-user [facility] Start: 08-23-2023 Alcoholic beverage intake Current drinker of alcohol (finding) [facility] Start: 08-23-2023 End: 10-29-2024 History of Social function [facility] Childcare Unknown [facility] Start: 08-23-2023 Alcohol Comment [facility] Start: 1970 Sex assigned at Not on file [facility] Tobacco smoking status SCIS Tobacco smoking consumption unknown [facility] Start: 09-30-2023 Gender identity Identifies as female gender (finding) [facility] NEGATED: Highlighted row [facility] Clinical Notes 12-27-2022 to 10-29-2024 Ty Whitmore MD - 10/29/2024 10:20 AM Starr Whitmore MD - 10/15/2024 9:00 AM Alexy Garcia RN FACULTY-TRACK SURFACING MACHINE OPERATOR - 08/23/2023 9:30 AM EDT [...] as needed basis. documented in this encounter [facility] 10-15-2024 History of Present illness Narrative Yolanda [...] approaching skin testing. documented in this encounter [facility] 08-23-2023 History of Present illness Narrative Images [...] patient/family/caregiver Referring and communicating with other health child day care provider Encounter for screening colonoscopy [Z12.11] SEAN CAO [facility] [place] This note was created with the assistance of a speech recognition program. While intending to generate a timely document that accurately reflects the content of the visit, no guarantee can be provided that every grammatical or spelling mistake has been or will be identified or corrected. Thank you for your understanding. SEAN Cao 08/23/23 0929 documented in this encounter [facility] 05-17-2023 Evaluation note Encounter Date Diagnosis Assessment Notes May, Bronchitis (ICD-10 - J40) Take antibiotic as directed. If develop wheezing, chest tightness, itching, bad cough, blue skin color, seizures, swelling of face, lips, tongue, or throat report to ED. [facility] Other 10-13-2023 Evaluation note* Encounter Date Diagnosis Assessment Notes Treatment Notes Treatment Clinical Notes Feb, Anaphylaxis, initial encounter (ICD-10 - T78.2XXA) Form completed per patient's request to be exempt from the flu shot at [facility]. Denies history of influenza, ongoing breathing issues or lung issues. [facility] Other 08-17-2023 Evaluation note* Encounter Date Diagnosis [...] - will increase dose based on lab [facility] Other Evaluation note* Diagnosis Onset Date Resolution Status Maxillary sinusitis acute [facility] Work Phone: Evaluation note* Diagnosis Onset Date Resolution Status Maxillary sinusitis acute Low back pain acute Muscle spasm acute [facility] Work Phone: Evaluation note* Diagnosis Onset Date Resolution Status H/O colonoscopy acute Hypothyroidism, unspecified acute Screening mammogram for breast cancer acute Wellness examination acute [facility] Work Phone: Evaluation note* Diagnosis Encounter for screening colonoscopy [facility] Diagnosis Encounter for screening colonoscopy- Primary [facility] Diagnosis Chronic rhinitis- Primary Adverse effect of corticosteroids, initial encounter documented in this encounter [facility]* Diagnosis Anaphylaxis, subsequent encounter- Primary Chronic rhinitis documented in this encounter [facility] HealthcareHistory general Narrative - Reported* Type [...] : Active,, Medical History Problem Title : [facility]: Hypothyroidism, Problem Status : Active,, Medical History Problem Title : [facility]: No history of significant medical diseases, Problem Status : Inactive,, Medical History Problem Title : [facility]: Scoliosis, Problem Status : Active,, Medical History [...] & 3,2022 Hospitalization History SEE SURGICAL HX [facility] Other History general Narrative - Reported* Type Description Date Medical History Hypothyroidism, unspecified Medical History Other chronic pain Surgical History UTERINE ABLATION 2014 Surgical History SHOULDER SURGERY RIGHT 2017 Surgical History EVLT 2021 Surgical History COLONOSCOPY X2 Surgical History Bilateral cataract surgery & Hospitalization History SEE SURGICAL HX [facility] Other InstructionsNot on filedocumented in this encounter [employer] SystemInstructionsNot on filedocumented in this encounter [facility] Summary Purpose Family History No Family History [...] Reason for Referral Reason Dr. Fernandez at [facility] Diagnosis 1 Pain in right knee ( M25.561) Referral Organization [facility] Referring Provider First Name Franchesca Referring Provider Last Name Luli Referring Provider Specialty Family [facility] Referred Organization [facility] Referred Address [address] [place], [place],[address] Referred Provider Specialty Orthopaedic Surgery Referral Priority Routine General Notes Nayeli Pascual 09:43:27 AM >received today Nayeli Pascual 12/27/2022 09:45:11 AM >insurance attached, waiting for notes to be locked to fax referral Clinical Notes F: [id number] Chief Complaint and Reason for Visit Chief [...] section and content) DATE CREATED AUTHOR 08/18/2022 [facility] DATE CREATED AUTHOR AUTHOR'S ORGANIZ ATION 08/24/2023 [facility] DATE CREATED AUTHOR AUTHOR'S ORGANIZ ATION 11/01/2024 [facility] EPIC REASON FOR VISIT [...] January 09, 2024 End: January 09, 2024 Optimization Specialist Relationship Specialty Start Date End Date Franchesca Go MD [address] [place] [address] PCP - General Family Medicine 08/23/23 Optimization Specialist Relationship Specialty [place] [address] [place] [address] PCP - General Family Medicine 08/23/23 Optimization Specialist Relationship Specialty Start Date End Date Franchesca Go MD PCP - General Family Medicine 10/03/23 Optimization Specialist Relationship Specialty Start Date End Date Franchesca Go MD PCP - General Family Medicine 10/03/23 Optimization Specialist Relationship Specialty Start Date End Date Franchesca [...] BE BASED ON THE PRIMARY CLINICAL RECORDS. [employer] [facility]. provides no warranty or guarantee of the accuracy or completeness of information in this document.
== END 2025-01-19 12:46 | disposition home or self-care (01) ==
LOC: RAD 12:46
PROVIDERS: PCP Family Medicine; Visit Provider Family Medicine
DX: Z12.31 Encounter for screening mammogram for malignant neoplasm of breast (principal)
CPT/HCPCS: 77063; 77067

== ENCOUNTER 2025-03-09 14:14 | Emergency (ER) | payer OTHER, BC, SELFPAY ==
[2025-03-09 14:18] VITALS: BP 122/96; PULSE 91; TEMP 36.5; O2SAT 98; BMI 47.0
--- OUTSIDE RECORDS SUMMARY | 2025-03-09 14:22 | XMS_ITS | Clinical Summary ---
Author Organization [facility] Address [address] [facility] [place] [address] Care Team Providers Care Safekeeping Clerk Name Role Phone Franchesca Rockwell MD Primary Care Provider [phone] Allergies Active AllergyReactionsCriticalityNoted DateCommentsBupivacaineAnaphylaxis, BxhvkncDimx33/25/2023ErythromycinHives,Hedbogw4409/29/1982LidocaineAnaphylaxis, HardrhcKktp85/25/7625XzvyycibzbehmurqusSiycsmcyedoPfvc19/10/2024Penicillins Njacohc8910/15/2024TriamcinoloneAnaphylaxis,JpfuzAvsf61/25/2023 Medications MedicationSigDispense QuantityRefillsLast FilledStart DateEnd DateStatus levothyroxine (Synthroid, Levoxyl) 150 MCG tablet TAKE 1 TABLET BY MOUTH EVERY DAY IN THE MORNING ON EMPTY STOMACH FOR 90 DAYS 5Active meloxicam (Mobic) 15 MG tablet Take 15 mg by mouth Daily5Active ipratropium (Atrovent) 0.06 % nasal spray Indications:Chronic rhinitisAdminister 2 sprays into each nostril in the morning and 2 sprays in the evening and 2 sprays before bedtime. 15 mL 1105Active Active Problems No known active problems Social History Tobacco UseTypesPacks/DayYears UsedDateSmoking Tobacco: NeverSmokeless Tobacco: Never Tobacco Cessation:Counseling Given: Not Answered CommentsUnknownSex and Gender InformationValueDate RecordedSex Assigned at VinywJqdhod98/ 11:45 AM EDTLegal IivGtqtkt77/15/2023 6:53 PM EDTGender UhvtytjcFseidd69/20/2024 11:45 AM EDTSexual OrientationNot on file Last Filed Vital Signs Vital SignReadingTime TakenCommentsBlood Pressure--Pulse--Temperature-- Respiratory Rate--Oxygen Saturation--Inhaled Oxygen Concentration--Tbdejf452 kg (280 lb)10/15/2024 9:01 AM KQGJlekrl205.2 cm (5' 7 )09/25/2017 12:00 PM EDTBody Mass Index43.85009/25/2017 12:00 PM EDT Plan of Treatment Not on file [place] [place] [address] MemberSubscriberPlan / Payer (Effective 2021-Present)Name:Yolanda Carlos Relation to Subscriber:SelfName:Yolanda Carlos Payer ID:Not on file Type:Not on file Address: [place] [id number] Care Teams Team MemberRelationshipSpecialtyStart DateEnd Date Franchesca Rockwell MD PCP - GeneralFamily Medicine10/03/23
--- OUTSIDE RECORDS SUMMARY | 2025-03-09 14:22 | XMS_ITS | Clinical Summary ---
Author Organization [employer] Address [id number] [address] [place] [address] Care Team Providers Care Dial Brusher Name Role Phone Franchesca Rockwell MD Primary Care Provider [phone] Allergies Active AllergyReactionsCriticalityNoted DateCommentsBupivacaineAnaphylaxisHigh 08/21/2023Erythromycin XlscHcjlx37/10/5729WobjqmzhaTwgvezcdifeOohy38/10/2024 NocwmzpinsgrnhecaiQsyldegyyzfRjei86/10/6241LngwmrrgnqsTowdg89/10/2024 Medications MedicationSigDispense QuantityRefillsLast FilledStart DateEnd DateStatus levothyroxine (SYNTHROID, LEVOTHROID) 150 MCG tablet Take 1 tablet (150 mcg total) by mouth in the morning.08/21/2023ctive Active Problems No known active problems Family History Medical HistoryRelationNameCommentsDiabetesFatherHypertensionFatherDiabetes MotherHypertensionMotherRelationNameStatusCommentsFatherDeceasedMotherAlive Social History Tobacco UseTypesPacks/DayYears UsedDateSmoking Tobacco: NeverSmokeless Tobacco: Never Tobacco Cessation:Counseling Given: Not Answered Alcohol UseStandard Drinks/WeekCommentsYes0 (1 standard drink = 0.6 oz pure alcohol)occasionalChildcareAnswerDate VanjdtpgTtmanbntiGuibgmg78/12/2019 EmploymentAnswerDate DnefmdzpVnjirtbserVhuxmby66/12/2019CommentsUnknown Sex and Gender InformationValueDate RecordedSex Assigned at BirthNot on file Legal YuhRovbrq08/06/2015 12:12 PM EDTGender IdentityNot on fileSexual OrientationNot on file Last Filed Vital Signs Vital SignReadingTime TakenCommentsBlood Kjmclycx052/7304 9:17 AM EDT Pulse--Temperature--Respiratory Rate--Oxygen Saturation--Inhaled Oxygen Concentration--Zssica744.8 kg (319 lb 3.2 oz)08/23/2023 9:17 AM CFRUjscyh214.2 cm (5' 7 )08/23/2023 9:17 AM EDTBody Mass Index49.9908/23/2023 9:17 AM EDT Plan of Treatment Health MaintenanceDue DateLast DoneCommentsDepression Jcxkbrspv05/24/1980 DTaP,Tdap and Td Vaccines (1 - Tdap)02/03/1987Pap Smear02/03/1989Zoster (Shingles) Vaccine (1 of 2)02/03/2018Adult BMI Akpnbctzt96 Tobacco Fubglrdsy27OVID-19 Vaccine ( - 2024- season) 511/12/2021, 06/08/2020, 05/12/2020Influenza Cwwlbyl9601/11/2025 Omqmjnyewfw96 Medical Devices Not on file Procedures Procedure NamePriorityDate/TimeAssociated DiagnosisCommentsCOLONOSCOPYRoutine 09/25/2023 Encounter for screening colonoscopy from Last 3 Months or Most Recently Relevant to Health Maintenance Results * Colonoscopy (09/25/2023) Narrative Authorizing ProviderResult TypeResult StatusJekyra Good ZONING ASSISTANT-CNPGI PROCEDURE ORDERABLESFinal ResultPerforming OrganizationAddressCity/State/ZIP CodePhone Number MANUALLY TRANSCRIBED RESULTS from Last 3 Months or Most Recently Relevant to Health Maintenance Insurance Care Teams Team MemberRelationshipSpecialtyStart DateEnd Date Franchesca Rockwell MD [address] [place] [address] PCP - GeneralFamily Medicine08/23/23
--- OUTSIDE RECORDS SUMMARY | 2025-03-09 14:26 | XMS_ITS | CCD ---
Author Organization [facility] Care Team Providers Care Sign Painter Name Role Phone SARA, DR MIKHAIL Whitaker [...] Unavailable GO, FRANCHESCA E Primary Care Unavailable ZIEBER, DR RASHEED Martinez Consulting Unavailable WEST, DR MIKHAIL Whitaker Consulting Unavailable WEST, DR MIKHAIL Whitaker Attending Unavailable GO, FRANCHESCA E Primary Care Unavailable WEST, DR MIKHAIL Whitaker Admitting Unavailable ZIEBER, DR RASHEED Martinez Consulting Unavailable [...] Go, Franchesca Unavailable ISSA GARCIA Attending Unavailable FRANCHESCA GO E Primary Care Unavailable Franchesca Go MD Primary Care Provider Franchesca Go MD Primary Care Provider TY WHITMORE Attending Unavailable TY WHITMORE Attending Unavailable Franchesca Go MD Primary Care Provider [phone] Franchesca Go MD Attending Provider [phone] José Clifton RN Attending Provider Unavailrosana ayala Allergies Allergy ClassificationReported Allergen(s)Allergy TypeDate of OnsetReaction(s) Facility (8 sources)Erythromycin; Translations: [ERYTHROMYCIN BASE]Drug Fnmtasb85-98-0163 Unknown ReactionThe [facility] (8 sources)Penicillins; Translations: [PENICILLINS]Drug allergy (disorder) 78-27-9264Atxrmhf ReactionThe [facility] (10 sources)ErythromycinDrug Ynzzwgb52-28-5883Buwsu, [facility] Other (3 sources)PenicillinDrug Kgmtawz84-68-0910SykesomSvljwT[employer] Other (15 sources)Bupivacaine; Translations: [BUPIVACAINE]Drug Fwhflko81-01-1678 anaphylaxis, [facility] (15 sources)Lidocaine; Translations: [LIDOCAINE]Drug Nfprwdt62-42-2223 anaphylaxis, [facility] (15 sources)methylPREDNISolone; Translations: [METHYLPREDNISOLONE]Drug Allergy 31-75-1812lvvznzvlzemRlozfidzlKnox Community Hospital (2 sources)PenicillinsPropensity to adverse reactions to hdfe38-50-7564Dtwbr [facility] (5 sources)PenicillinsPropensity to adverse wfxnmydvd07-55-1765LjodpnnGJDP Healthcare (5 sources)TriamcinoloneDrug Rcmrvux66-99-9512Kpjjhnbdogy, OtherNOMS Healthcare Medications Current Medications MedicationDrug Class(es)DatesSig (Normalized)Sig (Original)acetaminophen 325 mg oral tablet (8 sources)Start: 19-58-8318xcjt 1 tablet by mouth every six hours as needed Start: 43-64-6983Tfrhoeb 325MG Tylenol( 325MG Oral as needed ) Active -Hx Entry Oral as needed for 0 *Pick strength-form from [employer] for eRX* Apr, Activebenzonatate 200 mg oral capsule (1 source)Non-narcotic AntitussiveStart: 17-47-1055wamz 1 capsule by mouth every eight hoursBenzonatate 200 MG 1 capsule Orally Three times a day for 10 day(s) May, Activecefdinir 300 mg oral capsule (1 source)Cephalosporin AntibacterialStart: 92-04-5370Hfrmslxc 300 MG as directed Orally bid for 7 days May, Activeipratropium bromide 0.042 mg/actuat metered dose nasal spray (5 sources)AnticholinergicStart: 10-15-2024 End: 32-29-0453sead 2 spray(s) nasal route in the morning, then take 2 spray(s) nasal route in the evening, then take 2 spray(s) nasal route at bedtime ipratropium (Atrovent) 0.06 % nasal spray Indications: Chronic rhinitis Administer 2 sprays into each nostril in the morning and 2 sprays in the evening and 2 sprays before bedtime. 15 mL 11 10/15/2024 01/13/2025 Activelevothyroxine sodium 0.15 mg oral tablet (20 sources)l-ThyroxineStart: 72-80-5572hklo 1 tablet by mouth once daily in the morninglevothyroxine (Synthroid, Levoxyl) 150 MCG tablet TAKE 1 TABLET BY MOUTH EVERY DAY IN THE MORNING ON EMPTY STOMACH FOR 90 DAYS 08/22/2024 ActiveStart: 09-03-2023 End: 59-80-7491nzam 1 tablet by mouth once daily in the morningLevothyroxine 150 mcg tablet Discontinued 0 .ROUTE .COMPLEX February 24, 2024 10:36pm November 19, 2024 8:47am TAKE 1 TABLET BY MOUTH EVERY DAY IN THE MORNING ON EMPTY STOMACH FOR 90 DAYSStart: 08-21-2023 End: 23-10-8984kfoo 1 tablet by mouth once dailyLevothyroxine 150 mcg tablet Discontinued 150 MCG PO Daily August 21, 2023 12:00am September 03, 2023 2:31pm Start: 85-84-8956mhao 1 tablet by mouth once dailyLevothyroxine 137mcg levothyroxine 137mcg, 1 (one) Tabl Tabl Table Tablet daily # 90, 04/23/2022, Re f. x1. Active oral daily for 0 *Reorder from In[facility] for eRx and Interaction Alerts* Apr, ActiveLevothyroxine Sodium 150 MCG TAKE 1 TABLET BY MOUTH EVERY DAY IN THE MORNING ON EMPTY STOMACH FOR 90 DAYS for 90 Activetake 1 tablet by mouth once daily in the morningLevothyroxine Sodium 150 MCG 1 tablet in the morning on an empty stomach Orally Once a day for 90 days Activemeloxicam 15 mg oral tablet (16 sources)Nonsteroidal Anti-inflammatory DrugStart: 15-18-1965szmn 1 tablet by mouth once dailymeloxicam (Mobic) 15 MG tablet Take 15 mg by mouth Daily 10/06/2024 ActiveStart: 04-06-2024 End: 03-43-4172lycm 1 tablet by mouth once dailyMeloxicam 15 mg tablet Discontinued 0 .ROUTE .COMPLEX October 06, 2024 12:21pm January 06, 2025 8: 29am TAKE 1 TABLET BY MOUTH DAILYStart: 01-09-2024 End: 47-02-5229ezix 1 tablet by mouth once dailyMeloxicam 15 mg tablet Discontinued 15 MG PO Daily January 09, 2024 12:00am April 06, 2024 5:57pm24 hr metFORMIN hydrochloride 500 mg extended release oral tablet (1 source)BiguanideStart: 57-87-0574eifh 1 tablet by mouth once daily in the evening Completed/Discontinued Medications MedicationDrug Class(es)DatesSig (Normalized)Sig (Original)cyclobenzaprine hydrochloride 10 mg oral tablet (4 sources)Muscle RelaxantStart: 09-03-2023 End: 22-31-9418oqor 1 tablet by mouth every eight hours as needed for muscle spasmsCyclobenzaprine 10 mg tablet Discontinued 10 MG PO Every 8 hours as needed for muscle spasm 30 September 03, 2023 12:00am January 09, 2024 9:14am doxycycline monohydrate 100 mg oral capsule (5 sources)Tetracycline-class DrugStart: 08-21-2023 End: 66-58-3097eddj 1 capsule by mouth twice dailyDoxycycline Monohydrate 100 mg capsule Discontinued 100 MG PO Twice daily 01 03August 21, 2023 12:00am January 09, 2024 9:14am Problems Active Problems Problem ClassificationProblemDateDocumented DateEpisodic/ChronicAcquired foot deformities (3 sources)Acquired deformity of left foot; Translations: [Other acquired deformities of left foot]EpisodicAllergic reactions (1 source)Anaphylactic shock, unspecified, initial encounterEpisodicCancer of cervix (1 source)Atypical squamous cells of undetermined significance on cervical Papanicolaou smear; Translations: [Atypical squamous cells of undetermined significance on cytologic smear of cervix (ASC-US)]EpisodicChronic obstructive pulmonary disease and bronchiectasis (1 source)Bronchitis, not specified as acute or chronicEpisodicDiabetes mellitus with complications (2 sources)Hyperglycemia due to type 2 diabetes mellitus; Translations: [Type 2 diabetes mellitus with hyperglycemia]94-08-3375WucrkjjEusetuadj of lipid metabolism (1 source)Pure hyperglyceridemia; Translations: [Pure hyperglyceridemia]Onset: 09-49-9951CtxvybkR Codes: Adverse effects of medical drugs (2 sources)Corticosteroids adverse reaction; Translations: [Adverse effect of glucocorticoids and synthetic analogues, initial encounter]36-36-1698Ubajldyi Genitourinary symptoms and ill-defined conditions (1 source)Genitourinary symptoms; Translations: [Unspecified symptoms and signs involving the genitourinary system]EpisodicJoint disorders and dislocations; trauma-related (1 source)Dislocation of left ankle joint, subsequent encounter; Translations: [Dislocation of left ankle joint, subsequent encounter]EpisodicOsteoarthritis (3 sources)Localized, primary osteoarthritis of the ankle and/or foot; Translations: [Primary osteoarthritis, left ankle and foot]97-84-9522Jymdait Other congenital anomalies (1 source)Other specified congenital deformities of feet; Translations: [Other specified congenital deformities of feet]ChronicOther connective tissue disease (1 source)Pain in left foot; Translations: [Pain in left foot]EpisodicOther connective tissue disease (1 source)Peroneal tendinitis; Translations: [Peroneal tendinitis, left leg] EpisodicOther connective tissue disease (4 sources)Spasm; Translations: [Other muscle spasm]98-76-6059UrjrgbtaDjspq connective tissue disease (1 source)Other muscle spasm; Translations: [Spasm of muscle]06-90-1882Wcmufmdf Other injuries and conditions due to external causes (1 source)Traumatic AND/OR non-traumatic injury; Translations: [Other injury of unspecified body region, initial encounter]EpisodicOther injuries and conditions due to external causes (2 sources)Anaphylaxis; Translations: [Anaphylactic shock, unspecified, subsequent encounter]68-39-3039SesitttnXvvix nervous system disorders (3 sources)Chronic pain; Translations: [Other chronic pain]ChronicOther nervous system disorders (1 source)Other chronic painChronicOther non-traumatic joint disorders (1 source)Arthralgia of the ankle and/or foot; Translations: [Pain in left ankle and joints of left foot]EpisodicOther non-traumatic joint disorders (1 source)Other specified joint disorders, left ankle and foot; Translations: [Other specified joint disorders, left ankle and foot]EpisodicOther non- traumatic joint disorders (1 source)Ankle instability; Translations: [Other instability, left ankle] EpisodicOther non-traumatic joint disorders (1 source)Pain in right kneeEpisodicOther non-traumatic joint disorders (1 source)Pain in left kneeEpisodicOther nutritional; endocrine; and metabolic disorders (2 sources)Body mass index 40+ - severely obese; Translations: [Body mass index (BMI) 40.0-44.9, adult]ChronicOther nutritional; endocrine; and metabolic disorders (1 source)Morbid obesity; Translations: [Morbid (severe) obesity due to excess calories]Onset: 80-32-6616CaqknwoTjmoi nutritional; endocrine; and metabolic disorders (1 source)Abnormal weight gain; Translations: [Abnormal weight gain]Episodic Other screening for suspected conditions (not mental disorders or infectious disease) (12 sources)Encounter for screening mammogram for malignant neoplasm of breast; Translations: [Encounter for screening for malignant neoplasm of cervix]Onset: 39-95-3762VlwfenjmKcune upper respiratory disease (1 source)Allergic rhinitis; Translations: [Allergic rhinitis, unspecified] ChronicOther upper respiratory disease (4 sources)Chronic rhinitis; Translations: [Chronic rhinitis]21-99-4596Uncdkzi Other upper respiratory infections (7 sources)Maxillary sinusitis; Translations: [Chronic maxillary sinusitis] 26-08-2899KnkwxubXwhqfbytf; thrombophlebitis and thromboembolism (10 sources)Phlebitis and thrombophlebitis of superficial vessels of left lower extremity; Translations: [Phlebitis and thrombophlebitis of superficial vessels of right lower extremity]Onset: 50-21-7462SlsyyktfTzvrxkso codes; unclassified (1 source)Localized edema; Translations: [Localized edema]EpisodicResidual codes; unclassified (1 source)Tobacco user; Translations: [Tobacco use]EpisodicResidual codes; unclassified (3 sources)History of colonoscopy; Translations: [Other specified postprocedural states]13-52-9670KleebubdYdahiggy codes; unclassified (1 source)Other specified postprocedural states; Translations: [Other postprocedural status]99-94-7891FzhwcxplHoktezadvuu; intervertebral disc disorders; other back problems (5 sources)Low back pain; Translations: [Low back pain]60-07-8009SilzyuuiRfwtvhc and strains (2 sources)Late effect of sprain AND/OR strain without tendon injury; Translations: [Strain of muscle(s) and tendon(s) of peroneal muscle group at lower leg level, left leg, sequela]EpisodicThyroid disorders (9 sources)Hypothyroidism; Translations: [Hypothyroidism, unspecified]Onset: 12-89-3102DkykqesUouijlt disorders (1 source)Disorder of thyroid gland; Translations: [Disorder of thyroid, unspecified]EpisodicUnclassified (2 sources)CONTACT W/AND (SUSP) EXPOS COVID-19; Translations: [CONTACT W/AND (SUSP) EXPOS COVID-19]Onset: 79-44-5278Vcrrnoghwrmc (1 source)Colon Cancer ScreeningOnset: 39-41-8234Tdtohozi veins of lower extremity (5 sources)Varicose veins of bilateral lower extremities with pain; Translations: [Pain co-occurrent and due to varicose veins of bilateral legs] Onset: 13-45-8677UgjxjdamYsbhl infection (2 sources)COVID-19; Translations: [Disease caused by 2019-nCoV]Onset: 08-17-2022 Past or Other Problems Problem ClassificationProblemDateDocumented DateEpisodic/ChronicAbdominal pain (1 source)Right upper quadrant pain; Translations: [Right upper quadrant pain] Onset: 64-65-4302SsgkrugcJgzho bronchitis (1 source)Acute bronchitis; Translations: [Acute bronchitis, unspecified]Onset: 99-88-5096KoqnxgbmDprupdtxnlcb; infection of eye (except that caused by tuberculosis or sexually transmitteddisease) (1 source)Acute atopic conjunctivitis; Translations: [Acute atopic conjunctivitis, unspecified eye]Onset: 95-87-0329QjztcketHpfot connective tissue disease (1 source)Pain in right foot; Translations: [Pain in right foot]Onset: 32-89-3588LmtyolgiYdemo connective tissue disease (1 source)Tear of right rotator cuff; Translations: [Unspecified rotator cuff tear or rupture of right shoulder, not specified as traumatic]Onset: 12-29-2014 EpisodicUnclassified (1 source)CONTACT W/AND (SUSP) EXPOS COVID-19; Translations: [CONTACT W/AND (SUSP) EXPOS COVID-19]Onset: 24-50-4270Msxxtdo tract infections (1 source)Urinary tract infectious disease; Translations: [Urinary tract infection, site not specified]Onset: 46-60-9366Ioertazb Results Test NameValueInterpretationReference RangeFacilityGlucose mean value [Mass/volume] in Blood Estimated from glycated hemoglobinOrdered By: Franchesca Go on 17-16-4492Vadjzcy glucose Estimated from glycated hemoglobin (Bld) [Mass/Vol]137 mg/dLKnox Community HospitalHemoglobin A1c percentage Ordered By: Franchesca Go on 18-86-5404ZuC5l (Bld) [Mass fraction]6.4 %High 4.5-6.2FMercy Health Fairfield HospitalComment on above:ADA RECOMMENDED LIMIT 4.0 - 6.0ADA THERAPEUTIC TARGET < 7.0ACTION SUGGESTED> 7.0Basophils Auto (Bld) [#/Vol]Ordered By: Franchesca Go on 01-20-6328Nnpejoixf (Bld) [#/Vol]0.0 10 3/uL 0.0-0.1FMercy Health Fairfield HospitalBasophils/100 WBC Auto (Bld)Ordered By: Franchesca Go on 53-00-4792Ixqiagrif/100 WBC (Bld)0.5 %0.2-2.0Kn[facility] HospitalCholesterol in LDL Calc [Mass/Vol]Ordered By: Franchesca Go on 62-53-2599Xdsmqgjbsec in LDL [Mass/Vol]105.0 mg/dLKnox Community HospitalComment on above:<100 mg/dl BTCNQIM116-085 mg/dl NEAR OR ABOVE FBSDQAJ404- 159 mg/dl BORDERLINE QJNH933-574 mg/dl HIGH>190 mg/dl VERY HIGHCholesterol in VLDL Calc [Mass/Vol]Ordered By: Franchesca Go on 43-08-3033Bcxvlrhuwld in VLDL [Mass/Vol]39.4 mg/dLKnox Community HospitalEosinophils/100 WBC Auto (Bld)Ordered By: Franchesca Go on 87-92-8263Ncqqkvpvcah/100 WBC (Bld)3.0 %0.9-7.0 [facility] HospitalErythrocyte distribution width Auto (RBC) [Ratio]Ordered By: Franchesca Go on 11-24-5508Otkuyomhfkx distribution width (RBC) [Ratio]13.8 %11.0-15.0[facility] HospitalGlobulin Calc (S) [Mass/Vol]Ordered By: Franchesca Go on 42-14-0863Zyibplxp (S) [Mass/Vol]4.2 g/dL [facility] Community HospitalGlomerular filtration rate (GFR) estimation in non- AmericanOrdered By: Franchesca Go on 70-97-5208HKB/1.73 sq M.predicted among non-blacks MDRD (S/P/Bld) [Vol rate/Area]mL/min/{1.73_m2}>=60 mL/min/1.73m 2FMercy Health Fairfield HospitalHematocrit Auto (Bld) [Volume fraction]Ordered By: Franchesca Go on 50-72-1087Blnnuoyusb (Bld) [Volume fraction]42.8 %36.0-48.0[facility] HospitalHemoglobin [Mass/volume] in BloodOrdered By: Franchesca Go on 14-70-0531Ljcxaughfz (Bld) [Mass/Vol]13.3 g/dL12.0-16.0Kn[facility] HospitalLaboratory - Chemistry and Chemistry - challengeOrdered By: Franchesca Go on 30-82-3509Djqsqjc [Mass/Vol]3.4 g/dL3.4-5.0[facility] HospitalALP [Catalytic activity/Vol]95 U/I99-263RkzpwcprfKnox Community HospitalALT [Catalytic activity/Vol]14 U/J27-39PbwiohrfkKnox Community HospitalAST [Catalytic activity/Vol]21 U/A69-81CisifbpjxKnox Community HospitalBilirubin [Mass/Vol]0.3 mg/dL0.2-1.0[facility] HospitalCalcium [Mass/Vol]8.7 mg/dL 8.5-10.1FMercy Health Fairfield HospitalChloride [Moles/Vol]106 mmol/L98-107 [facility] HospitalCholesterol [Mass/Vol]194 mg/dL<=200Kn[facility] HospitalCholesterol in HDL [Mass/Vol]50 mg/kW03-06EgzyzgtorKnox Community HospitalComment on above:> or =60 mg/dl - LOW CARDIOVASCULAR RISK<40 mg/dl - HIGH CARDIOVASCULAR RISKCO2 [Moles/Vol]22.6 mmol/L21.0-32.0 [facility] HospitalCreatinine [Mass/Vol]0.78 mg/dL0.55-1.02 [facility] HospitalFree T4 [Mass/Vol]1.06 ng/dL0.76-1.46Kn[facility] HospitalGFR/1.73 sq M.predicted MDRD (S/P/Bld) [Vol rate/Area] mL/min/{1.73_m2}>=60 mL/min/1.73m 2FMercy Health Fairfield HospitalGlucose [Mass/Vol]122 mg/vRQpeo13-739SxsjjjoarKnox Community HospitalPotassium [Moles/Vol]4.3 mmol/L3.5-5.1FMercy Health Fairfield HospitalProtein [Mass/Vol] 7.6 g/dL6.4-8.2FSelect Medical TriHealth Rehabilitation Hospitalodium [Moles/Vol]141 mmol/L 136-145Kn[facility] HospitalTriglyceride [Mass/Vol]197 mg/dLHigh <=150Kn[facility] HospitalTSH Qn1.717 m[IU]/L0.358-3.740Kn[facility] HospitalUrea nitrogen [Mass/Vol]10.0 mg/dL7.0-18.0Kn[facility] HospitalUrea nitrogen/Creatinine [Mass ratio]12.8 mg/mgKnox Community HospitalLaboratory - Hematology and Cell countsOrdered By: Franchesca Go on 78-13-8009Euolrxra granulocytes/100 WBC (Bld)0.2 %0.0-0.5FMercy Health Fairfield HospitalLeukocytes [#/volume] corrected for nucleated erythrocytes in Blood by Automated counOrdered By: Franchesca Go on 02-60-6025STY corrected for nucl RBC Auto (Bld) [#/Vol]5.6 10 3/uL4.0-11.0Kn[facility] HospitalLymphocytes Auto (Bld) [#/Vol]Ordered By: Franchesca Go on 41-17-7312Xtkqrlcmiqe (Bld) [#/Vol]2.2 10 3/uL1.2-3.8Kn[facility] HospitalLymphocytes/100 WBC Auto (Bld)Ordered By: Franchesca Go on 01-09-2025 Lymphocytes/100 WBC (Bld)38.5 %20.5-60.0Kn[facility] HospitalMCH Auto (RBC) [Entitic mass]Ordered By: Franchesca Go on 83-22-7038AXV (RBC) [Entitic mass]26.9 pg26.7-34.0[facility] Medical CenterHC Auto (RBC) [Mass/Vol]Ordered By: Franchesca Go on 39-56-5752IYBT (RBC) [Mass/Vol]31.1 g/dL 29.9-35.2FMercy Health Fairfield HospitalMCV Auto (RBC) [Entitic vol]Ordered By: Franchesca Go on 49-39-4841LUR (RBC) [Entitic vol]86.5 fL81.0-99.0[facility] HospitalMonocytes Auto (Bld) [#/Vol]Ordered By: Franchesca Go on 86-88-1510Zmzidqbqd (Bld) [#/Vol]0.3 10 3/uL0.3-0.8Kn[facility] HospitalMonocytes/100 WBC Auto (Bld)Ordered By: Franchesca Go on 01-09-2025 Monocytes/100 WBC (Bld)4.8 %1.7-12.0[facility] HospitalNeutrophils Auto (Bld) [#/Vol]Ordered By: Franchesca Go on 91-57-5721Dajhrmmojih (Bld) [#/Vol]3.0 10 3/uL1.4-6.5FMercy Health Fairfield HospitalNeutrophils/100 WBC Auto (Bld)Ordered By: Franchesca Go on 69-47-4478Vmhxtxtgeei/100 WBC (Bld)53.0 % 43.0-75.0[facility] HospitalNo Panel InformationOrdered By: Franchesca Go on 74-84-1263Lzfvewzkzwp # (Auto)0.2 10 3/uL0.0-0.7FMercy Health Fairfield HospitalImmature Granulocyte # (Auto)0.01 10 3/uL0.00-0.03Kn[facility] HospitalPlatelet mean volume Auto (Bld) [Entitic vol]Ordered By: Franchesca Go on 57-53-6473Tcofydln mean volume (Bld) [Entitic vol]11.8 fL 9.5-13.5FMercy Health Fairfield HospitalPlatelets Auto (Bld) [#/Vol]Ordered By: Franchesca Go on 22-16-7760Egzzikcnj (Bld) [#/Vol]204 10 3/gU395-813DfnagaibrKnox Community HospitalRBC Auto (Bld) [#/Vol]Ordered By: Franchesca Go on 14-90-1561FIN (Bld) [#/Vol]4.95 10 6/uL4.20-5.40S[facility] Hospitalerum or plasma albumin/globulin mass ratioOrdered By: Franchesca Go on 79-75-9988Dfblpsy/Globulin [Mass ratio]0.8 {ratio}[facility] Hospitalerum or plasma anion gap determinationOrdered By: Franchesca Go on 04-55-0855Oahrf gap [Moles/Vol]16.7 mmol/LFSelect Medical TriHealth Rehabilitation Hospitalerum or plasma total cholesterol/high density lipoprotein (HDL) cholesterol mass rat Ordered By: Franchesca Go on 35-25-4208Utvolepjgjw.total/Cholesterol in HDL [Mass ratio]3.9 {ratio}[facility] HospitalComment on above:3.3 - 4.4 LOW RISK4.4 - 7.1 AVERAGE RISK7.1 - 11.0 MODERATE RISK>11.0 HIGH RISKColonoscopy on 28-77-9302ZpiQwijcuLakeHealth Beachwood Medical CenterINFLUENZA A AND B AGon 71-11-4331ZITWDPWRBL SEE BELOWChillicothe VA Medical CenterComment on above:Result Comment: Negative for Flu A protein angiten. Infection due to Flu A cannot be ruled out. FluA angiten in the sample may be below the detection limit of the test.Performed By: #### INFLUAB ####[facility] [address] [place], [place] [address]Dr. Betsy ChangINFLUBNEGHSEE BELOWChillicothe VA Medical CenterComment on above:Result Comment: Negative for Flu B protein antigen. Infection due to Flu B cannot be ruled out. FluB antigen in the sample may be below the detection limit of the test.Performed By: #### INFLUAB ####[facility] [address] [place], [place] [address]Dr. Betsy AveryINFLUENZA A AGNegativeNormal NEGATIVE SEE COMMENTThe [facility] HospitalComment on above:Performed By: #### INFLUAB ####[facility] [address] [place] [address]Dr. Betsy AveryINFLUENZA B AGNegativeNormalNEGATIVE SEE COMMENTThe [facility] HospitalComment on above:Performed By: #### INFLUAB ####[facility] [address] [place], [place] [address]AbDr. Betsy GoldmanMPTOMATIC COVID-19 ANTIGENon 18-29-9174KZO [facility] Comment on above:Result Comment: This test has not been FDA [...] section 564(b)(1) of the Act, 21 U.S.C. 360bbb- 3(b)(1), unless the declaration is terminated or authorization is revoked sooner.Performed By: #### CVDAGS #### [facility] [address] [place], [place] [address] Dr. Betsy May-CoV-2 (COVID-19) RNA CLAUDIA+probe Ql (Unsp spec)Positive AbnormalNEGATIVEThe [facility] HospitalComment on above:Performed By: #### CVDAGS #### [facility] [address] [place], [place] [address] Dr. Betsy AveryCovid-19 PCR ([facility]VDBO[facility])on 03-30-4957RLLB-CoV-2 (COVID-19) RNA CLAUDIA+probe Ql (Unsp spec)DetectedAbnormalNOT DETECTEDThe [facility] HospitalComment on above:Result Comment: This test is not yet approved or cleared by the [place] FDA. When there are no FDA-approved or cleared tests available, and other criteria are met, FDA can make tests available under an emergency access mechanism called an Emergency Use Authorization (EUA). The EUA for this test is supported by the Protem of Health and Human Service's declaration that circumstances exist to justify the emergency use of in vitro diagnostics for the detection and/or diagnosis of the virusthat causes COVID-19. This EUA will remain in effect for the duration of the COVID-19 declaration justifying emergency of IVDs, unless it is terminated or revoked by the FDA (after which the test mayno longer be used).Performed By: #### CVDTBH ####[facility] [address] [place], [place] [address]Dr. Betsy AveryINFLUENZA A AND B AGon 83-48-7972POAOIHVTYORRBAvita Health System Galion HospitalComment on above:Result Comment: Negative for Flu A protein angiten. Infection due to Flu A cannot be ruled out. FluA angiten in the sample may be below the detection limit of the test.Performed By: #### INFLUAB ####[place] [address]Dr. Betsy AveryINFLUBNEGHSEE [facility] Medical CenterComment on above:Result Comment: Negative for Flu B protein antigen. Infection due to Flu B cannot be ruled out. FluB antigen in the sample may be below the detection limit of the test.Performed By: #### INFLUAB ####[facility] [address] [place], [place] [address]Dr. Lupedylan AveryINFLUENZA A AGNegativeNormalNEGATIVE SEE COMMENTThe [facility] Comment on above:Performed By: #### INFLUAB ####[facility] [address] [place], [place] [address]Dr. Betsy AveryINFLUENZA B AGNegativeNormal NEGATIVE SEE COMMENTThe [facility] HospitalComment on above:Performed By: #### INFLUAB ####[facility] [address] [place], [place] [address]Dr. Betsy AveryVC CONSULT FOLLOWUPon [id number] CONSULT FOLLOWUPPatient: YOLANDA SENA Exam Date: 05/03/2022 : 1970 Gender:F Ordering : DR MIKHAIL RUIZ M.D. Admission #: [id number] Family : Order #: [id number] CLICK HERE TO VIEW EXAM RADIOLOGY REPORT [...] by: Rasheed Wells M.D. on 05/03/2022 at 09:51[facility] EX[facility] VENOUS LT LIMITEDon [id number] EXT VENOUS LT LIMITEDPatient: SENAYOLANDA Menchaca Exam Date: 05/03/2022 : 1970 Gender:F Ordering : DR MIKHAIL RUIZ M.D. Admission #: [id number] Family : Order #: [id number] CLICK HERE TO VIEW EXAM RADIOLOGY REPORT [...] by: Rasheed Wells M.D. on 05/03/2022 at 09:49[facility] INJ FOAM SCLERO W US MLTIon [id number] INJ FOAM SCLERO W US MLTI Patient: YOLANDA SENA Exam Date: 04/25/2022 : 1970 Gender:F Ordering : DR MIKHAIL RUIZ M.D. Admission #: [id number] Family : Order #: [id number] CLICK HERE TO VIEW EXAM RADIOLOGY REPORT [...] by: Rasheed Wells M.D. on 04/25/2022 at 11:04[facility]VC INJ SCL CHARLIE BENZOL OPERATOR VEINSon 37-47-3500OP INJ SCL CHARLIE BENZOL OPERATOR VEINSPatient: YOLANDA SENA. Exam Date: 04/19/2022 : 1970 Gender:F Ordering : DR MIKHAIL RUIZ M.D. Admission #: [id number] Family : Order #: [id number] CLICK HERE TO VIEW EXAM RADIOLOGY REPORT [...] by: Mikhail Ruiz MD on 04/19/2022 at 11:31[facility]VC CONSULT FOLLOWUPon [id number] CONSULT FOLLOWUPPatient: YOLANDA SENA Exam Date: 04/17/2022 : 1970 Gender:F Ordering : DR MIKHAIL RUIZ M.D. Admission #: [id number] Family : Order #: [id number] CLICK HERE TO VIEW EXAM RADIOLOGY REPORT [...] by: Mikhail Ruiz MD on 04/17/2022 at 15:02[facility]VC EXT VENOUS RT LIMITEDon [id number] EXT VENOUS RT LIMITEDPatient: YOLANDA SENA Exam Date: 04/17/2022 : 1970 Gender:F Ordering : DR MIKHAIL RUIZ M.D. Admission #: [id number] Family : Order #: [id number] CLICK HERE TO VIEW EXAM RADIOLOGY REPORT [...] calf 2.2mm. *Exam performed in accordance with [facility] practice guidelines- Peripheral venous ultrasound, August 06, 2009. 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 No significant incompetent patent varicose veins observed Dictated by: Mikhail Ruiz MD on 04/17/2022 at 13:04 Approved by: Mikhail Ruiz MD on 04/17/2022 at 13:06[facility] INJ FOAM SCLERO W US MLTIon [id number] INJ FOAM SCLERO W US MLTIPatient: YOLANDA SENA Exam Date: 04/09/2022 : 1970 Gender:F Ordering : DR MIKHAIL RUIZ M.D. Admission #: [id number] Family : Order #: [id number] CLICK HERE TO VIEW EXAM RADIOLOGY REPORT [...] by: Rasheed Wells M.D. on 04/09/2022 at 13:53[facility]VC CONSULT FOLLOWUPon [id number] CONSULT FOLLOWUPPatient: YOLANDA SENA. Exam Date: 03/22/2022 : 1970 Gender:F Ordering : DR MIKHAIL RUIZ M.D. Admission #: [id number] Family : Order #: [id number] CLICK HERE TO VIEW EXAM RADIOLOGY REPORT [...] by: Mikhail Ruiz MD on 03/22/2022 at 09:35[facility]VC EXT VENOUS LT LIMITEDon [id number] EXT VENOUS LT LIMITEDPatient: YOLANDA SENA. Exam Date: 03/22/2022 : 1970 Gender:F Ordering : DR MIKHAIL RUIZ M.D. Admission #: [id number] Family : Order #: [id number] CLICK HERE TO VIEW EXAM RADIOLOGY REPORT [...] no flow. *Exam performed in accordance with [facility] practice guidelines- Peripheral venous ultrasound, August 06, 2009. CONCLUSION: Post ablation occlusion of the left small saphenous vein. Dictated by: Mikhail Ruiz MD on 03/22/2022 at 08:18 Approved by: Mikhail Ruiz MD on 03/22/2022 at 08:19[facility]VC ENDOVENOUS ABL 1ST V LTon 56-89-9823UW ENDOVENOUS ABL 1ST V LTPatient: YOLANDA SENA Exam Date: 03/14/2022 : 1970 Gender:F Ordering : DR MIKHAIL RUIZ M.D. Admission #: [id number] Family : Order #: [id number] CLICK HERE TO VIEW EXAM RADIOLOGY REPORT [...] by: Mikhail Ruiz MD on 03/14/2022 at 08:48NoOhio State University [facility] Medical CenterCB AUTO DIFFon 05-25-4496ZAJE #0.1 103/ulNormal0.0-0.1The [facility] HospitalComment on above:Performed By: #### CBC ####[facility] [address] [id number].Yilan ChangBasophils/100 WBC (Bld)0.8 %Normal 0.2-2.0The [facility] HospitalComment on above:Performed By: #### CBC ####[facility] Wckfli[address] [place], [place] [address]Dr.Yilan ChangEO # 0.3 103/ulNormal0.0-0.7The [facility] HospitalComment on above:Performed By: #### CBC ####[facility] Qioredophw[address] [place], [place] [address]Dr. Yilan ChangEosinophils/100 WBC (Bld)3.6 %Normal0.9-7.0The [facility] Comment on above:Performed By: #### CBC ####[facility] Ns[address]bx[address] [place], [place] [address]Dr.Yilan ChangErythrocyte distribution width (RBC) [Ratio]13.7 %Iozrca12.0-15.0The [facility] HospitalComment on above: Performed By: #### CBC ####[facility] Dcdeafg[address] [place], [place] [address]Dr.Yilan ChangHematocrit (Bld) [Volume fraction]41.8 % Jfwwqv09.0-48.0The [facility] Hospitalment on above:Performed By: #### CBC ####[facility] Ysusrzhjmi[address] [place], [place] [address]Dr. Yilan ChangHemoglobin (Bld) [Mass/Vol]13.1 g/xPWrmwga09.0-16.0The [facility] Hospitalment on above:Performed By: #### CBC ####[facility] Xevwqjeeuk[address] [place], [place] [address]Dr.Yilan ChangIG #0.02 10e3/ulNormal0.00-0.03The [facility] Hospitalment on above:Performed By: #### CBC ####[facility] Z[address] [place], [place] [address]Dr. Yilan ChangIG %0.3 %Normal0.0-0.5The [facility] HospitalComment on above:Performed By: #### CBC ####[facility] [address] [place] [place] [address]Dr.Betsy MataMPH #2.7 103/ulNormal1.2-3.8The [facility] Comment on above:Performed By: #### CBC ####[facility] [address] [place] [address]Dr.Betsy AveryLymphocytes/100 WBC (Bld)35.0 %Rvpkrg77.5-60.0The [facility] HospitalComment on above:Performed By: #### CBC ####[facility] Zog[address]pigeh[address] [place], [place] [address]Dr. Betsy AveryMANUAL DIFF REQNONormalThe [facility] HospitalComment on above: Performed By: #### CBC ####[facility] Zmucmhivtm[address] [place], [place] [address]Dr.Betsy AveryH (RBC) [Entitic mass]26.6 pg Critically low26.7-34.0The [facility] HospitalComment on above:Performed By: #### CBC ####[facility] Gkmawicrpl[address] [place], [place] [address]Dr. Betsy AveryHC (RBC) [Mass/Vol]31.3 g/rOHyrgki30.9-35.2The [facility] Comment on above:Performed By: #### CBC ####[facility] Yayvxsnf[address] [place], [place] [address]Dr.Betsy AveryV (RBC) [Entitic vol]84.8 fL Biltvs91.0-99.0The [facility] HospitalComment on above:Performed By: #### CBC ####[facility] [address] [place], [place] [address]Dr. Betsy AveryMONO #0.4 103/ulNormal0.3-0.8The [facility] HospitalComment on above: Performed By: #### CBC ####[facility] Nwnsmlyb[address] [place], [place] [address]Dr.Betsy AveryMonocytes/100 WBC (Bld)5.3 %Normal 1.7-12.0The [facility] HospitalComment on above:Performed By: #### CBC ####[facility] [address] [place] [place] [address]Dr. Betsy AveryNEUT #4.3 103/ulNormal1.4-6.5The [facility] HospitalComment on above: Performed By: #### CBC ####[facility] [address] [place] [address]Dr.Betsy AveryNeutrophils/100 WBC (Bld)55.0 %Normal 43.0-75.0The [facility] HospitalComment on above:Performed By: #### CBC ####[facility] [address] [place], [place] [address]Dr. Betsy AveryPlatelet mean volume (Bld) [Entitic vol]10.7 fLNormal9.5-13.5The [facility] HospitalComment on above:Performed By: #### CBC ####[facility] Nlibqflopq[address] [place], [place] [address]Dr.Betsy BchuwWTT011 103/ul Yztbbi109-917Ulo [facility] HospitalComment on above:Performed By: #### CBC ####[facility] Hcdlpvdg[address] [place], [place] [address]Dr. Betsy ChangRBC4.93 106/ulNormal4.20-5.40The [facility] HospitalComment on above: Performed By: #### CBC ####[facility] Ir[address]vwzwmrp[address] [place], [place] [address]Dr.Betsy ChangWBC7.8 103/ulNormal4.0-11.0The [facility] HospitalComment on above:Performed By: #### CBC ####[facility] [address] [place], [place] [address]Dr.Betsy AveryGLYCOHEMOGLOBIN A1Con 42-84-4102DJR RECOMMENDATIONSEE [facility] Medical CenterComment on above:Result Comment: ADA RECOMMENDED LIMIT 4.0 - 6.0 ADA THERAPEUTIC TARGET < 7.0 ACTION SUGGESTED > 7.0Performed By: #### A1C ####[facility] [address] [place] [place] [address]Dr.Yilan AveryGlucose [Mass/Vol]131 mg/dLNoOhio State University Wexner Medical CenterComment on above:Performed By: #### A1C ####[facility] [address] [place] [place] [address]Dr.Yilan AveryHbA1c (Bld) [Mass fraction]6.2 %Normal4.5-6.2The [facility] HospitalComment on above:Performed By: #### A1C ####[facility] [address] [place] [place] [address]Dr.Yilan AveryLIPID PROFILEon 12-00-6028QFBX-HDL RATIO NORMSEE [facility] Medical CenterComment on above:Result Comment: 3.3 - 4.4 LOW RISK 4.4 - 7.1 AVERAGE RISK 7.1 - 11.0 MODERATE RISK >11.0 HIGH RISKPerformed By: #### CMP, LIPID, TSH #### [facility] [address] [address] [address] Betsy Vergaraesterol [Mass/Vol]195 mg/dLNormal<=200The [facility] Comment on above:Performed By: #### CMP, LIPID, TSH #### [facility] [address] [address] [address] Betsy Vergaraesterol in HDL [Mass/Vol]50 mg/kWPvinqe87-96Gvt [facility] HospitalCominsight surgical hospital on above:Performed By: #### CMP, LIPID, TSH #### [facility] [address] [address] [address] Betsy Vergaraesterol in LDL [Mass/Vol]116.0 mg/dLChillicothe VA Medical CenterComment on above:Performed By: #### CMP, LIPID, TSH #### [facility] [address] [address] [address] Betsy Vergaraestersunita.total/Cholesterol in HDL [Mass ratio]3.9 {ratio} NormalThe [facility] HospitalComment on above:Performed By: #### CMP, LIPID, TSH #### [facility] [address] [address] [address] Betsy Worthy NORMAL> or = 60 mg/dl - LOW CARDIOVASCULAR RISK <40 mg/dl - HIGH CARDIOVASCULAR RISKChillicothe VA Medical CenterComment on above:Performed By: #### CMP, LIPID, TSH #### [facility] [address] [address] [address] Betsy Valentino CALC NORMALSEE BELOWNoOhio State University Wexner Medical CenterComment on above:Result Comment: <100 mg/dl OPTIMAL 100 - 129 mg/dl NEAR OR ABOVE OPTIMAL 130 - 159 mg/dl BORDERLINE HIGH 160 - 189 mg/dl HIGH >190 mg/dl VERY HIGH Performed By: #### CMP, LIPID, TSH #### [facility] [address] [address] [address] Betsy AveryTriglyceride [Mass/Vol]145 mg/dLNormal<=150[facility] Comment on above:Performed By: #### CMP, LIPID, TSH #### [facility] [address] [address] [address] Betsy Caldera CALC29.0 mg/dLNoOhio State University Wexner Medical CenterComment on above: Performed By: #### CMP, LIPID, TSH #### [facility] [address] [address] [address] Betsy AveryMG MAMM SCREEN 3D MICHAEL CADon 19-80-3655NV MAMM SCREEN 3D MICHAEL CAD Patient: YOLANDA SENA Exam Date: 11/21/2021 : 1970 Gender:F Ordering : DR FRANCHESCA GO M.D. Admission #: [id number] Family : Order #: [id number] CLICK HERE TO VIEW EXAM RADIOLOGY REPORT [...] Treatments None Family Cancers None LOCATION: [facility] BREAST COMPOSITION: Scattered areas fibroglandular density. [...] by: Mikhail Ruiz MD on 11/21/2021 at 09:45[facility] CenterPROF 14(COMP METB)on 62-94-8946Yobhuyh [Mass/Vol]3.5 g/dLNormal3.4-5.0The [facility] HospitalComment on above:Performed By: #### CMP, LIPID, TSH #### [facility] [address] [place] [address] Dr. Betsy AveryAlbumin/Globulin [Mass ratio]0.8 {ratio}NormalThe [facility] HospitalComment on above:Performed By: #### CMP, LIPID, TSH #### [facility] [address] [place] [address] Dr. Betsy Tapia [Catalytic activity/Vol]93 U/UPgmfte76-236Ekl [facility] HospitalComment on above:Performed By: #### CMP, LIPID, TSH #### [facility] [address] [place] [address] Dr. Betsy Gibbs [Catalytic activity/Vol]18 U/PLuqhah25-85Xhw [facility] HospitalComment on above:Performed By: #### CMP, LIPID, TSH #### [facility] [address] [place] [address] Dr. Betsy Mooney gap [Moles/Vol]13.2 mmol/LNormalThe [facility] Comment on above:Performed By: #### CMP, LIPID, TSH #### [facility] [address] [place] [address] Dr. Betsy Ortega [Catalytic activity/Vol]27 U/QZeinyx36-95Utp [facility] HospitalComment on above:Performed By: #### CMP, LIPID, TSH #### [facility] [address] [address] [address] Betsy AveryBilirubin [Mass/Vol]0.3 mg/dLNormal0.2-1.0The [facility] Comment on above:Performed By: #### CMP, LIPID, TSH #### [facility] [address] [address] [address] Betsy AveryCalcium [Mass/Vol]9.2 mg/dLNormal8.5-10.1The [facility] Comment on above:Performed By: #### CMP, LIPID, TSH #### [facility] [address] [address] [address] Betsy AveryChloride [Moles/Vol]105 mmol/MXavdwb71-555Uer [facility] Comment on above:Performed By: #### CMP, LIPID, TSH #### [facility] [address] [place] [address] Dr. Betsy AveryCO2 [Moles/Vol]25.2 mmol/RHyynqa96.0-32.0The [facility] Comment on above:Performed By: #### CMP, LIPID, TSH #### [facility] [address] [place] [address] Dr. Betsy AveryCreatinine [Mass/Vol]0.89 mg/dLNormal0.55-1.02The [facility] HospitalComment on above:Performed By: #### CMP, LIPID, TSH #### [facility] [address] [place] [address] Dr. Betsy NoblesGFR-AF CYMRAES>60Normal>=60The [facility] HospitalComment on above:Performed By: #### CMP, LIPID, TSH #### [facility] [address] [place] [address] Dr. Betsy NoblesGFR-NON AF CYMRAES>60Normal>=60The [facility] HospitalComment on above:Performed By: #### CMP, LIPID, TSH #### [facility] [address] [place] [address] Dr. Betsy AveryGlobulin (S) [Mass/Vol]4.2 g/dLNormalThe [facility] HospitalComment on above:Performed By: #### CMP, LIPID, TSH #### [facility] [address] [place] [address] Dr. Betsy AveryGlucose [Mass/Vol]130 mg/dLCritically xhnn74-560Gdy [facility] HospitalComment on above:Performed By: #### CMP, LIPID, TSH #### [facility] [address] [place] [address] Dr. Betsy AveryPotassium [Moles/Vol]4.4 mmol/LNormal3.5-5.1The [facility] Comment on above:Performed By: #### CMP, LIPID, TSH #### [facility] [address] [place] [address] Dr. Betsy AveryProtein [Mass/Vol]7.7 g/dLNormal6.4-8.2The [facility] Comment on above:Performed By: #### CMP, LIPID, TSH #### [facility] [address] [place] [address] Dr. Betsy AverySodium [Moles/Vol]139 mmol/WDllgyc829-275Uze [facility] Comment on above:Performed By: #### CMP, LIPID, TSH #### [facility] [address] [place] [address] Dr. Betsy AveryUrea nitrogen [Mass/Vol]15.0 mg/dLNormal7.0-18.0The [facility] HospitalComment on above:Performed By: #### CMP, LIPID, TSH #### [facility] [address] [place] [address] Dr. Betsy Hernandez nitrogen/Creatinine [Mass ratio]16.9 mg/mgNormalThe [facility] HospitalComment on above:Performed By: #### CMP, LIPID, TSH #### [facility] [address] [place] [address] Dr. Betsy Richmond 51-35-1400NJL5.111 uIU/mLNormal0.358-3.740The [facility] HospitalComment on above:Performed By: #### CMP, LIPID, TSH #### [facility] [address] [place] [address] Dr. Betsy Shepherd OG PANEL 2: 30 to 65on 11-20-2021..NormalMercy Health St. Elizabeth Youngstown Hospitalment on above:Result Comment: Performed at: WBPerformed By: #### [id number] #### [facility] [address] [place] [address] Dr. Betsy AveryAge Gdln ACOG Xejhzpx79-89CjkvuhAsuOhio State University Wexner Medical CenterComment on above:Performed By: #### [id number] #### [facility] [address] [place] [address] Dr. Betsy AveryDIAGNOSIS:CommentACMC Healthcare System Glenbeigh on above: Result Comment: NEGATIVE FOR INTRAEPITHELIAL LESION OR MALIGNANCY. Performed at: WBPerformed By: #### [id number] #### [facility] [address] [place] [address] Dr. Betsy AveryHPV AptimaNegativeNormalNegativeMemorial Health System [facility] on above:Result Comment: This nucleic acid amplification test detects fourteen high-risk HPV types (16,18,31,33,35,39,45,51,52,56,58,59,66,68) without differentiation. Performed at: =GPerformed By: #### [id number] #### [facility] [address] [place] [address] Dr. Betsy AveryMethodology:CommentACMC Healthcare System Glenbeigh on above: Result Comment: This liquid based ThinPrep(R) pap test was screened with the use of an image guided system. Performed at: WBPerformed By: #### [id number] #### [facility] [address] [place] [address] Dr. Betsy AveryNote:CommentACMC Healthcare System Glenbeigh on above:Result Comment: The Pap smear is a screening test designed to aid in the detection of premalignant and malignant conditions of the uterine cervix. It is not a diagnostic procedure and should not be used as the sole means of detecting cervical cancer. Both false-positive and false-negative reports do occur. . Performed at: WBPerformed By: #### [id number] #### [facility] [address] [place], [place] [id number] Dr. Betsy AveryPerformed by:CommentNoFort Hamilton Hospital on above: Result Comment: Cony Braswell, Global Regulatory Lead (ASCP) Performed at: Performed By: #### [id number] #### [facility] [address] [place] [address] Dr. Betsy AverySpecimen adequacy:CommentACMC Healthcare System Glenbeigh on above:Result Comment: Satisfactory for evaluation. No endocervical component is identified. Performed at: WBPerformed By: #### [id number] #### [facility] [address] [place] [address] Dr. Betsy AveryVC CONSULT FOLLOWUPon 30-60-7975JZ CONSULT FOLLOWUPPatient: SENAYOLANDA PANDEY Exam Date: 09/21/2021 : 1970 Gender:F Ordering : DR MIKHAIL RUIZ M.D. Admission #: [id number] Family : Order #: [id number] CLICK HERE TO VIEW EXAM RADIOLOGY REPORT [...] by: Mikhail Ruiz MD on 09/21/2021 at 11:16[facility]VC EX[facility] VENOUS RT LIMITEDon 89-96-9152UT EXT VENOUS RT LIMITEDPatient: YOLANDA SENA Exam Date: 09/21/2021 : 1970 Gender:F Ordering : DR MIKHAIL RUIZ M.D. Admission #: [id number] Family : Order #: [id number] CLICK HERE TO VIEW EXAM This report [...] branch saphenous tributary/varicose veins Dictated by: Mikhail Ruzi MD on 09/21/2021 at 11:16 Approved by: [...] by: Mikhail Ruiz MD on 09/28/2021 at 10:25[facility]VC ENDOVENOUS ABL 1ST V RTon 68-69-3667MZ ENDOVENOUS ABL 1ST V RTPatient: YOLANDA SENA Exam Date: 09/11/2021 : 1970 Gender:F Ordering : DR MIKHAIL RUIZ M.D. Admission #: [id number] Family : Order #: [id number] CLICK HERE TO VIEW EXAM RADIOLOGY REPORT PROCEDURE: VEIN CENTER ENDOVENOUS ABLATION FIRST VEIN RIGHT GREAT SAPHENOUS VEIN COMPARISON: VC VENOUS REFLUX MICHAEL LMT, 07/19/2021. INDICATIONS: Pain co-occurrent and due to varicose veins of bilateral legs I83.813 OPERATIVE REPORT: The risks and benefits of the procedure had been previously discussed, and were rediscussed at length. Informed written consent was obtained by and Dale Griffith assisted. Time out procedure [...] by: Mikhail Ruiz MD on 09/11/2021 at 09:20[facility] CenterVC CONSULT FOLLOWUPon 72-37-4650UX CONSULT FOLLOWUPPatient: YOLANDA SENA Exam Date: 08/30/2021 : 1970 Gender:F Ordering : DR MIKHAIL RUIZ M.D. Admission #: [id number] Family : Order #: [id number] CLICK HERE TO VIEW EXAM RADIOLOGY REPORT [...] by: Rasheed Wells M.D. on 08/30/2021 at 09:44[facility] CenterVC EXT VENOUS LT LIMITEDon 05-27-9147OA EXT VENOUS LT LIMITEDPatient: YOLANDA SENA Exam Date: 08/30/2021 : 1970 Gender:F Ordering : DR MIKHAIL RUIZ M.D. Admission #: [id number] Family : Order #: [id number] CLICK HERE TO VIEW EXAM RADIOLOGY REPORT [...] by: Rasheed Wells M.D. on 08/30/2021 at 09:26[facility] CenterVC ENDOVENOUS ABL 1ST V LTon 83-92-7723JI ENDOVENOUS ABL 1ST V LT Patient: YOLANDA SENA Exam Date: 08/24/2021 : 1970 Gender:F Ordering : DR MIKHAIL RUIZ M.D. Admission #: [id number] Family : Order #: [id number] CLICK HERE TO VIEW EXAM RADIOLOGY REPORT PROCEDURE: VEIN CENTER ENDOVENOUS ABLATION FIRST VEIN LEFT GREAT SAPHENOUS VEIN COMPARISON: None. INDICATIONS: Pain co-occurrent and due to varicose veins of bilateral legs I83.813 OPERATIVE REPORT: The risks and benefits of the procedure had been previously discussed, and were rediscussed at length. Informed written consent was obtained by and Dale Griffith assisted. Time out procedure [...] by: Mikhail Ruiz MD on 08/24/2021 at 10:51[facility] Vital Signs Date TimeVital SignValuePerforming LdxrwfykvVigktvmd33-52-4844 08:53-0400Body rqehre019.18 cmFranchesca Go MD Work Phone: [facility]09-11-2025 08:53-0400 Body mass index (BMI) [Ratio]50.5 kg/g3EvacjvFranchesca Go MD Work Phone: [facility]09-11-2025 08:53-0400 Body hmedvv977.51 kgFranchesca Go MD Work Phone: [facility]09-11-2025 08:53-0400 Diastolic blood uzjgnnnk78 mm[Hg]Franchesca Go MD Work Phone: [facility]09-11-2025 08:53-0400 Heart rate89 /Bushra Go MD Work Phone: [facility]09-11-2025 08:53-0400 Systolic blood ebhbjvfw579 mm[Hg]Franchesca Go MD Work Phone: [facility]06-05-2025 09:01-0400 Body mass index (BMI) [Ratio]43.85 kg/m2Tocarmelo Whitmore MD Work Phone: [facility] ServicesJmedcftpfn11-26-8881 09:01-0400Body ccrugh613.01 kgTy Whitmore MD Work Phone: [facility] ServicesWzlvwqqaxr04-36-3763 09:06-0400Body ffcacs624.72 cmKn[facility]08-29-2024 09:06-0400Body mass index (BMI) [Ratio]48.2 kg/d7UlbpoweywKnox Community Hospital08-29-2024 09:06-0400Body higlky066.78 kgKnox Community Hospital08-29-2024 09:06-0400Diastolic blood goprysta37 mm[Hg][facility]08-29-2024 09:06-0400 Heart rate71 /minKnox Community Hospital08-29-2024 09:06-0400Systolic blood mryhzjww537 mm[Hg][facility]04-12-2024 09:17-0400 Body gmwynp794.2 cmIssa Garcia TRACK LAYER HEAD-SELVAGE MACHINE OPERATOR Work Phone: [facility]04-12-2024 09:17-0400Body mass index (BMI) [Ratio]49.99 kg/g3QteuqjgIssa Garcia TRACK LAYER HEAD-SELVAGE MACHINE OPERATOR Work Phone: [facility]04-12-2024 09:17-0400Body .79 kgIssa Garcia TRACK LAYER HEAD-SELVAGE MACHINE OPERATOR Work Phone: [facility]04-12-2024 09:17-0400Diastolic blood obvlophy79 mm[Hg]Issa Garcia TRACK LAYER HEAD-SELVAGE MACHINE OPERATOR Work Phone: [facility]04-12-2024 09:17-0400Systolic blood leqvslwl699 mm[Hg]Issa Garcia TRACK LAYER HEAD-SELVAGE MACHINE OPERATOR Work Phone: [facility]04-10-2024 13:25-0400Body .72 cmKn[facility]04-10-2024 13:25-0400Body mass index (BMI) [Ratio]48.4 kg/z8FhzmtjlqmKnox Community Hospital04-10-2024 13:25-0400Body oodckz513.69 kgKnox Community Hospital04-10-2024 13:25-0400Diastolic blood rkotyozk95 mm[Hg][facility] [facility] 08[facility]21[facility]23 13:25-0400Heart rate81 /[facility] 08-[facility]-2023 13:25-5824ZlU6% (BldA) [Mass fraction]96 %[facility]04-10-2024 13:25-0400Systolic blood yhodcjwr278 mm[Hg][facility]10-13-2023 08:30-0400Body .72 cmFranchesca Go Other [facility] Other 10-13-2023 08:30-0400Body mass index (BMI) [Ratio] 47.89 kg/r6UpppyuFranchesca oG Other [facility] Other 10-13-2023 08:30-0400Body mojmvm844.88 kgFranchesca Go Other [facility] Other 10-13-2023 08:30-0400Diastolic blood vfnapleb05 mm[Hg] Franchesca Go Other [facility] Other 10-13-2023 08:30-0400Systolic blood mm[Hg] Franchesca Go Other [facility] Other 08-17-2023 08:30-0400Body .72 cmNataliabiancamichael Go Other [facility] Other 08-17-2023 08:30-0400Body mass index (BMI) [Ratio] 47.89 kg/f0Ahftyt Abbi Other [facility] Other 08-17-2023 08:30-0400Body .88 kgEloisemichael Go Other [facility] Other 08-17-2023 08:30-0400Diastolic blood cuidkzvt95 mm[Hg] Franchesca Go Other [facility] Other 08-17-2023 08:30-0400Systolic blood yiuznaxa027 mm[Hg] Franchesca Go Other [facility] Other Encounters Encounter DateEncounter TypeCare ProviderFacilityStart: 02-10-2025 End: 84-86-3834hzqswfxcqhWlmlvo E Braun MD Work Phone: [facility] Work Phone: Start: 02-10-2025 End: 61-03-0613Qjbmdfk encounter Krupa Clifton RN-[facility] Work Phone: Start: 01-21-2025 End: 90-04-6730cpbcpnltyaJrtujy E Braun MD Work Phone: [facility] Work Phone: Start: 01-21-2025 End: 41-01-9344Stdvudw encounter Ina Go MD-[facility] Work Phone: Start: 01-21-2025 End: 46-38-1705Mjotkxn encounter statusFranchesca Go MDShelby Memorial Hospitaltart: 73-51-9009Cuq-patient / Non-visitMarsheng Go MD-[facility] Work Phone: Start: 75-06-9172Fgz-patient / Non-visitFranchesca Go MD-[facility] Work Phone: Start: 10-29-2024 End: 07-86-5382Ftgjzd flowsheetTy Whitmore MD Work Phone: [facility] ALLStart: 10-29-2024 End: 00-53-6650Nkzekq flowsheetTy Whitmore MD Work Phone: [facility] ALLStart: 10-29-2024 End: 14-86-6660Ipbmafe encounter procedureTocarmelo Whitmore MD Work Phone: [facility] ALLComment on above:Anaphylaxis, subsequent encounter (Primary Dx); Chronic rhinitisStart: 10-29-2024 End: 95-14-1976dzxcyeztswZHPK E RAMBASEKNot AvailableStart: 10-15-2024 End: 25-04-2512Vezefz flowsheetTy Whitmore MD Work Phone: [facility] ALLStart: 10-15-2024 End: 33-79-1801Xgktsb flowsheetTy Whitmore MD Work Phone: [facility] ALLStart: 10-15-2024 End: 18-22-3980Ufttjg outpatient new 45 minutesTocarmelo Whitmore MD Work Phone: [facility] S[facility] ALLComment on above:Chronic rhinitis (Primary Dx); Adverse effect of corticosteroids, initial encounterStart: 10-15-2024 End: 44-61-2758vrduwhvdrrZDSU E RAMBASEKNot AvailableStart: 24-96-9550Jiarqda encounter statusShelby Memorial Hospitaltart: 01-09-2024 End: 07-85-0032mfntctxchuAgjoogrznAultman Hospital Work Phone: Start: 01-09-2024 End: 80-79-6739Ugmxmzodd for general adult medical examination without abnormal findingsShelby Memorial Hospitaltart: 01-09-2024 End: 22-63-1845Fvtdimt encounter procedureAt[facility] Work Phone: Start: 09-25-2023 End: 96-22-4530Hrsyev Maria Victoria Vazquez AProMedd.w. 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 Work Phone: [facility] Physicians General SurgeryComment on above: Encounter for screening colonoscopy (Primary Dx)Start: 08-21-2023 End: 70-13-9074lsbmverimqDkgvpbdqhAultman Hospital Work Phone: Start: 08-21-2023 End: 79-86-0134Kyfrfae encounter procedureAt[facility] Health [facility] Work Phone: Start: 05-17-2023 End: 69-33-6513nvhpkozgvnHrbfzi Braun Other [facility] Other Start: 36-28-5253Feycts outpatient visit 15 minutes Franchesca [facility]: 02-22-2023 End: 73-19-7023ftlhxtwhcpXqzzrd Braun Other [facility] Other Start: 14-58-5938Hwvwbr outpatient visit 15 minutes Franc[facility]sca [facility]: 12-27-2022 End: 38-58-5491sfvowdzsaqOudqnx Braun Other [facility] Other Start: 48-63-1841Edfgxjaqo for general adult medical examination without abnormal findingsMarcia [facility] ClinicStart: 43-19-8236Kgkrplpz preventive med est patient 40-64yrsMarcia [facility] ClinicStart: 08-10-2022 End: 14-58-1152xelivprephMSPBAY E BRAUNFacility:D2Wpiyi: 08-04-2022 End: 31-61-3229xekogrqenzSMCZIZSG EBERLYFacility:G1Anlcx: 51-95-6683uhkybqwssj FRANCHESCA Ayala ABBIFacility:B5Mcwqw: 86-88-4559Apttm health examinationFranchesca Go Other [facility] Other Start: 03-76-1757Weakuawqegchp examination normal Franchesca Go Other [facility] Other Start: 79-98-9320Btotpsp of abnormal cervical Papanicolaou smearFranchesca Go Other [facility] Other Start: 22-17-4704Svyyyyz, abnormal examinationFranchesca Go Other noRubysophic Other Start: 05-03-2022 End: 48-12-6568ohhbbyinlqFO MIKHAIL Whitaker WESTFacility:D4Qhwos: 04-25-2022 End: 19-85-5778zmimxjskqdTZ MIKHAIL Whitaker WESTFacility:C6Nmtso: 04-19-2022 End: 46-64-8381bgiqpiunkyLL MIKHAIL V WESTFacility:K2Xulnz: 04-17-2022 End: 36-80-9916cdngygwqamPC MIKHAIL V WESTFacility:B7Edfsq: 04-09-2022 End: 01-48-0105knscmlcuffOL MIKHAIL V WESTFacility:C3Xpfkt: 03-22-2022 End: 57-15-8530jxecwqffteVM MIKHAIL V WESTFacility:M8Oejgj: 03-15-2022 End: 72-63-2562kouopomgahLMNUHN E BRAUNFacility:D3Azumo: 03-14-2022 End: 77-89-3128tqzsmzuzflUM MIKHAIL Whitaker WESTFacility:S2Rgtmb: 78-61-2890Rbbntcqlp for general adult medical examination without abnormal findingsMARCIA E BRAUNThe Ashton HospitalStart: 11-21-2021 End: 87-44-9646nsnplnyhgwHLCHAY E BRAUNFacility:E5Hwdss: 11-21-2021 End: 93-45-0408Moeyfsfpe for general adult medical examination without abnormal findingsMARCIA E BRAUNFacility:O9Tjqrh: 11-16-2021 End: 80-96-1985mwknikxlhaFEJQHE E BRAUNFacility:X9Oqvje: 09-21-2021 End: 81-98-5311siefscokwwMX MIKHAIL Whitaker WESTFacility:X8Rssii: 09-11-2021 End: 47-30-0794nsduuhjkfeKY MIKHAIL Whitaker WESTFacility:O1Pchrh: 08-30-2021 End: 00-83-1044peiyohtghsDE MIKHAIL Whitaker WESTFacility:W5Oyjhq: 08-24-2021 End: 85-52-3376uhbozhxpslLN MIKHAIL Whitaker WESTFacility:H1 Procedures DateProcedureProcedure DetailPerforming ClinicianStart: 52-20-1858Wvncltnvekl Issa Garcia TRACK LAYER 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-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 OPERATOR Work Phone: CounselingMarcia Abbi Other Screening for malignant neoplasm of breastMarcia Abbi Other Screening for malignant neoplasm of colonMarcia Abbi Other Plan of Treatment DateCare ActivityDetailAuthorStart: 10-29-2024 End: 00-88-0063Thcjsbn encounter procedureNOMS SWS ALLComment on above:Arrived Start: 10-15-2024 End: 69-06-0732Vqmpozk encounter ptvkegwhm09/05/2025 9:00 AM EDT Office Visit [facility] [address] [place] [id number] Ty Whitmore MD [address] [place] [address] ArrivedNOPARNASSUS CAMPUS ALLComment on above:ArrivedStart: 98-40-6718Yqbwv BMI ScreeningAdult BMI ScreeningProMercy Hospital SystemStart: 34-11-2372Xyaxnva ScreeningTobacco ScreeningProMercy Hospital SystemStart: 06-74-9826Zmmzntbcw vaccinationInfluenza VaccineUK Healthcare SystemStart: 58-60-8927ODDXC-19 Vaccine ( season)COVID-19 Vaccine ()[facility] SystemStart: 64-46-5746Kvdlkyozrptpgm of varicella zoster vaccineZoster (Shingles) Vaccine (1 of 2)[facility] SystemStart: 90-70-7438Terurslnd for malignant neoplasm of cervixPap SmearUK Healthcare SystemStart: 98-39-6449JYqC,Tdap and Td Vaccines (1 - Tdap)DTaP,Tdap and Td Vaccines (1 - Tdap)[facility] SystemStart: 35-89-3824Kgtny BMI Follow Up PlanAdult BMI Follow Up PlanUK Healthcare SystemStart: 04-21-1811Qmkaouuygk ScreeningDepression ScreeningUK Healthcare System End: 65-02-0235IratymwbaudSjcayasckfo GI Routine Encounter for screening colonoscopy 1 Occurrences starting 08/23/2023 until 08/22/2024[facility] Work Phone: Comment on above:1 Occurrences starting 08/23/2023 until 5Comprehensive metabolic 2000 panel - Serum or PlasmaKnox Community HospitalMG Breast - bilateral ScreeningKnox Community HospitalPatient EducationLow back pain in adultsMer[facility] Health [facility] Work Phone: [facility] Payers DatePayer CategoryPayerPolicy [id number] [place] Blue [id number] [id number]63880.11313-53-2456Mxai Cross Blue Shield [id number] 2.0.0.47479[id number] [id number] 2.0.1.831941.3.57[id number] 2.0.1.694385.3.57[id number] 2.840.1.075471.3.579.[id number] 2.840.1.747780.3.57[id number] 2.840.1.718268.3.57[id number] 2.840.1.017150.3.579.2.01156-69-5856Pjhgsfa9514009 2.16840.1.430535.3.579.2.74941-72-5734Aflduhx0001739 2.16840.1.756462.3.57[id number] 2.16840.1.423955.3.57[id number] 2.16840.1.239718.3.57[id number] 2.16.840.1.626748.3.57[id number] 2.16.840.1.617105.3.579.[id number] 2.16.840.1.932923.3.579.2.25055-44-4304Yiokmbi5628073 2.16.840.1.303653.3.579.[id number] 2.16.840.1.793415.3.579.2.88049-96-3529Anbvhrr9545533 2.16.840.1.276267.3.57[id number] 2.16.840.1.732255.3.57[id number] 2.840.1.867087.3.57[id number] 2.16.840.1.462364.3.579.2.511637-29-0730Uknk-hwm76599187305-14-6604Fjdghlf [id number] 2.16.840.1.614184.3.579.2.593 Social History DateTypeDetailFacilityUnknown if ever smokedWichita [facility]it[facility] Other Start: 08-23-2023 End: 37-66-6874Udb Assigned At [facility] Other Start: 08-21-2023 End: 75-50-2132Kbtnoqx smoking status NHISNever smoked tobacco (finding) [facility]tart: 10-86-8476Jsp Assigned At [facility]ertart: 08-23-2023 End: 38-49-3225Wkqcjgk use and exposureSmokeless tobacco non-userProMedica Health SystemStart: 16-97-8376Twhtmutug beverage intakeCurrent drinker of alcohol (finding)[facility] SystemStart: 08-23-2023 End: 24-63-0400Ijjxhny of Social functionUK Healthcare SystemChildcareUnknown [facility] SystemStart: 20-97-1205Nafhjoc CommentoccasionalProMercy Hospital SystemStart: 81-26-2557Mwh assigned at birthNot on fileKettering Health TroyTobacco smoking status NHISTobacco smoking consumption unknownNOMS HealthcareStart: 16-25-0317Alxatx identityIdentifies as female gender (finding) [facility] HealthcareSexFemale (finding)[facility] HospitalNEGATED: Highlighted rowKettering Health Washington Township Clinical Notes 12-27-2022 to 01-21-2025 Note Date & WijbWlrzZumbahxn04-49-3718 Evaluation note* Diagnosis Onset Date Resolution Status Admit Date Hypothyroidism, unspecified acuteSept2024 8:48amType 2 diabetes mellitus with hyperglycemiaacute January 21, 2025 8:48amWellness examinationacuteSept2024 8:48am [facility] Work Phone: 1(205) 899-329806-19-2025 History of Present illness Narrative* Ty Whitmore MD - 10/29/2024 10:20 AM EDT Yolanda Sena returns to the office today for skin testing to local anesthetic and steroids. Testing for multiple local anesthetics is negative in the setting of a positive histamine control. Testingis negative for systemic steroids except for a borderline but probably mostly negative reaction to hydrocortisone at the intradermal level. She has positive histamine controls. All tests were performe d under direct physician supervision. The patient did [...] prefers and try and avoid injections with steroidsother than dexamethasone to which she has negative skin testing. Follow-up was arranged on an as needed basis. documented in this encounterSaint Francis Hospital & Health ServicesVnejblppxt19-96-7234 History of Present illness Narrative* Ty Whitmore MD - 10/15/2024 9:00 AM EDT Yolanda Sena is a very pleasant 54 [...] were severe but not life threatening. She gotbetter and has been fine since then. She [...] systemic steroids in 1-3 weeks. I explained tothe patient that it is likely we should be able to find some local anesthetic and some systemic steroid that she should be able to tolerate. Chronic rhinitis- we agreed she would use nasal ipratropium as needed in addition to her loratadinebut hold her loratadine for at least 7 days prior to her approaching skin testing. documented in this encounterSaint Francis Hospital & Health ServicesNpnyviecrv96-13-8454 History of Present illness Narrative* SEAN Bolivar - 08/23/2023 9:30 AM EDT Images from the original note were not included. Chief Complaint: Colon cancer screening History of Present Illness Yolanda Sena is a 53 y.o. female who presents to the office for colon cancer screening. This isher first colonoscopy. She denies any changes in [...] tablet (150 mcg total) by mouth in themorning., Disp: , Rfl: Social History Socioeconomic History [...] evacuation preparation. Patient verbalizes understanding and wishes toproceed. She already has Sutab at home. Evaluation included: Preparing to see the patient (e.g., review of tests) Obtaining and/or reviewing separately obtained history Performing a medically appropriate examination and/or evaluation Counseling and educating the patient/family/caregiver Referring and communicating with other health resident care manager rn Encounter for screening colonoscopy [Z12.11] ISSA GARCIA APRN-[facility] General Surgery [place] This note was created with the assistance of a speech recognition program. While intending to generate a timely document that accurately reflects the content of the visit, no guarantee can be provided that every grammatical or spelling mistake has been or will be identified or corrected. Thank you for your understanding. SEAN Bolivar 08/23/23 0929 documented in this encounterKettering Health Troy01-05-2024 Evaluation note* Encounter Date Diagnosis Assessment Notes Treatment Notes Treatment Clinical Notes May, Bronchitis (ICD-10 - J40) Take antibiotic as directed. If develop wheezing, chest tightness, itching, bad cough, blue skin color, seizures, swelling of face, lips, tongue, or throat report to ED. [facility] Other 10-13-2023 Evaluation note* Encounter Date Diagnosis Assessment Notes Treatment Notes Treatment Clinical Notes Feb, Anaphylaxis, initial encounter ( ICD-10 - T78.2XXA) Form completed per patient's request to be exempt from the flu shot at [facility]. Denies history of influenza, ongoing breathing issues or lung issues. [facility] Other 08-17-2023 Evaluation note* Encounter Date Diagnosis Assessment Notes Treatment Notes Treatment Clinical Notes Dec, Well adult exam (ICD-10 - Z00.00 ) We have discussed the necessity of following [...] vaccinations that apply. All questions answered and p atient is sent home pleased, without concerns. Dec,Other chronic pain (ICD-10 - G89.29) Dec,ain in right knee (ICD-10 - M25.561)Ortho referral Dec,ain in left knee (ICD-10 - M25.562)Ortho referral May,Hypothyroidism, unspecified (ICD-10 - E03.9)HYPOTHYROIDISMChronic problem - will increase dose based on lab [facility] Other Evaluation note* Diagnosis Onset Date Resolution Status Maxillary sinusitis acute [facility] Work Phone: Evaluation note* Diagnosis Onset Date Resolution Status Maxillary sinusitis acuteLow back painacuteMuscle spasmacute [facility] Work Phone: Evaluation note* Diagnosis Onset Date Resolution Status H/O colonoscopy acuteHypothyroidism, unspecifiedacuteScreening mammogram for breast canceracute Wellness examinationacute [facility] Work Phone: Evaluation note* Diagnosis Encounter for screening colonoscopy documented in this encounter [facility]Evaluation [facility]* Diagnosis Encounter for screening colonoscopy- Primary documented in this encounter [facility] SystemEvaluation note* Diagnosis Chronic rhinitis- Primary Adverse effect of corticosteroids, initial encounter documented in this encounter [facility] HealthcareEvaluation note* Diagnosis Anaphylaxis, subsequent encounter- Primary Chronic rhinitis documented in this encounter [facility] HealthcareEvaluation noteNo assessment information availableMercy Health – The [facility] Work Phone: Hisdtvh general Narrative - Reported* Type Description Date Medical History Problem Title : Acut e pharyngitis due to other specified organisms [], Problem Description : Acute pharyngitis due to other specified organisms [], Problem Comment : Acute pharyngitis due to other specified organisms, Problem Status : Active,, Medical HistoryProblem Title : advanced directive reviewed, Problem Description : advanced directive reviewed, Problem Comment : Done, Problem Status : Active,, Medical HistoryProblem Title : compliance with medical treatment, Problem Description : compliance with medical treatment, Problem Comment : Done, Problem Status : Active,,Medical HistoryProblem Title : History of COVID September 2019, Problem Status : Active,,Medical HistoryProblem Title : Hyperlipidemia, Problem Status : Active,,Medical HistoryProblem Title : Left tib/fib fx 1977, Problem Status : Active,,Medical HistoryProblem Title : MEDICAL: Hypothyroidism, Problem Status : Active,,Medical HistoryProblem Title : MEDICAL: No history of significant medical diseases, Problem Status : Inactive,,Medical HistoryProblem Title : MEDICAL: Scoliosis, Problem Status : Active,,Medical HistoryProblem Title : no known problems, Problem Description : no known problems, Problem Comment : F, Problem Status : Active,,Medical HistoryProblem Title : past medical history E&M, Problem Description : past medical history E&M, Problem Comment : Hypothyroidism Obesity GERD, Problem Status : Active,,Medical History Problem Title : past medical history reviewed, Problem Description : past medical history reviewed,Problem Comment : reviewed - no changes required, Problem Status : Active,,Medical HistoryProblem Title : Plan for BMI Management Documented, Problem Description : Plan for BMI Management Documented, Problem Comment : documented follow-up plan, Problem Status : Active,,Medical History Problem Title : Problems Reconciled, Problem Status : Active,,Medical History Problem Title : TRANSFUSION HISTORY: No history of receiving blood or blood product transfusion(s),Problem Status : Inactive,,Medical HistoryProblem Title : Unspecified Diagnosis, Problem Status : Active,,Medical HistoryProblem Title : Varicose Veins, Problem Comment : The patient is here today for follow up ultrasound post Varithena/microfoam chemical ablation left leg.Medical History The ultrasound demonstrates 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.Medical HistoryThe patient has no complaints at this time.Medical History The patient is currently done with treatment and is to follow up in 2-3 years or if any new symptoms or problems occur., Problem Status : Active,,Medical HistoryProblem Title : very low density lipoproteins, Problem Description : very low density lipoproteins,Problem Comment : 36.0, Problem Status : Active,, Surgical HistoryUTERINE [id number] HistorySHOULDER SURGERY [id number] Surgical YnwsnsvOTLS0770Rvenizxx HistoryCOLONOSCOPY X9Iaehndgf HistoryBilateral cataract surgery2 & Hospitalization HistorySEE SURGICAL [facility] Other History general Narrative - Reported* Type Description Date Medical History Hypothyroidism, unspecified Medical HistoryOther chronic painSurgical HistoryUTERINE [id number] HistorySHOULDER SURGERY [id number] IamnpxdDTGE5015Vpuuuzex History COLONOSCOPY C8Yllouszr HistoryBilateral cataract surgery2 & 3 Hospitalization HistorySEE SURGICAL [facility] Other InstructionsNot on filedocumented in this encounter [facility] CenterValue Investment Group SystemInstructionsNot on filedocumented in this encounter [facility] SystemReason for referral (narrative)No reason for referral information availableMercy Health – [facility] Work Phone: Summary Purpose Family History Relationship Condition Age at Onset Recorded Date/T lorraine father Heart disease Unknown Diabetes mellitusUnknownNot SpecifiedDiabetes mellitusUnknownHeart disease Unknown Relationship Condition Age at Onset Recorded Date/T lorraine father Heart disease Unknown Diabetes mellitusUnknownmotherDiabetes mellitusUnknownHeart diseaseUnknown Advance Directives Advance Directive Response Recorded Date/ Time Advance Directives No August 20 1:30pm Reason for Referral Reason Dr. Fernandez at [facility] Diagnosis 1 Pain in right knee ( M25.561) Referral Organization [facility] nichole Referring Provider First Name Franchesca Referring Provider Last Name Abbi Referring Provider Specialty Family [facility] Referred Organization [facility] Referred Address [address] [place] [address] [place], [place],[address] Referred Provider Specialty Orthopaedic Surgery Referral Priority Routine General Notes Nayeli Pascual 09:43:27 AM >received today Nayeli Pascual 12/27/2022 09:45:11 AM >insurance attached, waiting for notes to be locked to fax referralClinical NotesF: [id number] Chief Complaint and Reason for Visit Chief Complaint Cough, Sinuses Reason for Visit Maxillary sinusitis Chief Complaint Cough, Sinuses EXT 7251 - Back pain, wants muscle relaxerReason for VisitMaxillary sinusitis Low back pain Muscle spasm Chief Complaint wellness Reason for Visit H/O colonoscopy Hypothyroidism, unspecified Screening mammogram for breast cancer Wellness examination Chief Complaint Admit Date wellness January 21, 2025 8:48am Reason for Visit Admit Date Hypothyroidism, unspecified January 212024 8:48am Type 2 diabetes mellitus with hyperglyce constantino January 21, 2025 8:48am Wellness examination January 21 8:48am Additional Source Comments INFORMATION SOURCE (unrecogn ized section and content) DATE CREATED AUTHOR 08/18/2022 [facility] DATE CREATED AUTHOR AUTHOR'S ORGANIZ ATION 08/24/2023 [facility] DATE CREATED AUTHOR AUTHOR'S ORGANIZ ATION 11/01/2024 [facility] EPIC REASON FOR VISIT (unrecogniz ed section and content) ReasonCommentsColon Cancer ScreeningSCREENING COLONOSCOPY, NO PRIOR, SELF REFERRED, PATIENT HAS 2 ANTHEM COVERAGESReasonCommentsAllergic ReactionPt had steroid injection a year and a half ago and had an allergic reaction got dizzy, itchy red from head to toe, rapid heart beat, nausea, vomiting ,sob went to ER hasn't had any other shots since.Has taken meds so we can't testing todayReason CommentsAllergy TestingPt here today for local anesthetic and steroid testing. Pt has been off of meds for testing Care Teams (unrecognized sec tion and content) Team Status: Active Member Role Status Dates Franchesca Go MD Primary Care Provider Active Team Status: Active Member Role Status Dates Franchesca Go MD Primary Care Provider Active Start: January 09, 2025 Rafal Nguyễn ProviderActiveStart: January 09, 2025 Team Status: Active Member Role Status Dates Franchesca Go MD Primary Care Provider Active Start: January 12, 2025 Rafal Nguyễn ProviderActiveStart: January 12, 2025 Team Status: Inactive Member Role Status Dates Franchesca Go MD Primary Care Provider Active Start: January 21, 2025 End: January 21, 2025Rafal Nguyễn ProviderActiveStart: January 21, 2025 End: January 21, 2025 Team Status: Inactive Member Role Status Dates Franchesca Go MD Primary Care Provider Active Start: August 21, 2023 End: August 21, 2023Ary Calvo APRN OFFICE ASSISTANT RECEPTIONIST-CAttending ProviderActive Start: August 21, 2023 End: August 21, 2023 Team Status: Inactive Member Role Status Dates Franchesca Go MD Primary Care Provider Active Start: September 03, 2023 End: September 03, 2023Ary Calvo APRN OFFICE ASSISTANT RECEPTIONIST-CAttending ProviderActive Start: September 03, 2023 End: September 03, 2023 Team Status: Inactive Member Role Status Dates Franchesca Go MD Primary Care Provide r, Attending Provider Active Start: January 09, 2024 End: January 09, 2024Team MemberRelationshipSpecialtyStart DateEnd Date Franchesca Go MD [address] [place] [address] PCP - GeneralFamily Medicine08/23/23Team MemberRelationshipSpecialtyStart DateEnd Date Franchesca Go MD [address] [place] [address] PCP - GeneralFamily Medicine08/23/23Team MemberRelationshipSpecialtyStart DateEnd Date Franchesca Go MD PCP - GeneralFamily Medicine10/03/23Team MemberRelationshipSpecialtyStart DateEnd Date Franchesca Go MD PCP - GeneralFamily Medicine10/03/23Team MemberRelationshipSpecialtyStart DateEnd Date Franchesca Go MD PCP - Generalmi Medicine10/03/23 Team Status: Inactive Member Role Status Dates Franchesca Go MD Primary Care Provider Active Start: February 10, 2025 End: February 10, 2025Hien Carlson ProviderActiveStart: February 10, 2025 End: February 10, 2025 Goals (unrecognized section and content) Goals may [...] BE BASED ON THE PRIMARY CLINICAL RECORDS. [facility]. provides no warranty or guarantee of the accuracy or completeness of information in this document.
--- NOTE | 2025-03-09 14:38 | CT_ITS ---
The [address] [address] Patient Name: JESUS ALBERTO SENA MRN: [id number] date: 1970 Sex: F Assigned Patient Location: ER Current Patient Location: Accession/Order Number: [id number] Exam Date: 03/09/2025 14:46 Report Date: 03/09/2025 15:22 At the request of: KLAUS MONGE Procedure: CT lumbar spine wo con CT lumbar spine wo con 03/09/2025 2:50 PM History:Head right back on counter. TECHNIQUE: Multi detector CT axial slices of the lumbar spine were obtained without IV contrast. Volumetric acquisition sagittal, coronal, and 3-D reconstructions were performed and reviewed on a separate workstation. CT was performed with one or more of the following dose reduction techniques: Automated exposure control, adjustment of the mA and/or kV according to patient size, or use of iterative reconstruction technique. COMPARISON: None FINDINGS: No fracture. Vertebral body heights appear maintained. Scattered endplate and facet joint degenerative changes with moderate disc space narrowing at L1-L2. Transverse processes appear intact. SI joints demonstrate degenerative change. No paraspinal mass. Visualized retroperitoneum demonstrates no acute findings. Horseshoe configuration of the kidneys. CT/CT lumbar spine wo con IMPRESSION: Degenerative changes involving the lumbar spine. No acute bony process. Impression dictated by: Sissy Martinez Jr.OJai 03/09/2025 3:22 PM Dictation Location: [place] [address] Electronically authenticated by: [id number] Y Date: 03/09/2025 15:22
--- NOTE | 2025-03-09 14:39 | ED.GENADUL1 ---
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 She states that it took her breath away. She scuffed up her right elbow a bit as well but denies pain. She has been ambulating since the incident. She denies any bowel or bladder incontinence, bilateral lower extremity weakness, paresthesias, or numbness. She denies any saddle anesthesia. She does have low back pain at baseline and reports most of the pain is on the right lumbar area. Related Data Home Medications ?Medication ?Instructions ?Recorded ?Confirmed levothyroxine 150 mcg tablet 150 mcg PO DAILY 02/25/24 03/09/25 meloxicam 15 mg tablet 15 mg PO DAILY 02/25/24 03/09/25 metformin 500 mg tablet,extended 500 mg PO DAILY 03/09/25 03/09/25 release 24 hr Allergies Allergy/AdvReac Type Severity Reaction Status Date / Time lidocaine Allergy Severe Anaphylaxis Verified 03/09/25 14:21 methylprednisolone Allergy Severe Anaphylaxis Verified 03/09/25 14:21 Penicillins Allergy Intermediate Hives Verified 03/09/25 14:21 bupivacaine (From Marcaine) Allergy Anaphylaxis Verified 03/09/25 14:21 triamcinolone (From Kenalog) Allergy Anaphylaxis Verified 03/09/25 14:21 erythromycin base AdvReac Intermediate Hives Verified 03/09/25 14:21 Opioid HPI Opioid Management Most Recent Opioid Data: Last Pain Scale 2 Today, 14:48 Last ED Pain Assessment Today, 14:48 Review of Systems ROS Status of ROS 10 or more systems reviewed and unremarkable except as noted in history and below [facility] Medical History (Updated 03/09/25 @ 15:42 by MARIPOSA Starks) Right carpal tunnel syndrome ?G56.01 - Carpal tunnel syndrome, right upper limb (ICD-10) Back pain ?M54.9 - Dorsalgia, unspecified (ICD-10) Scoliosis ?M41.9 - Scoliosis, unspecified (ICD-10) COVID-19 ?U07.1 - COVID-19 (ICD-10) Asthma ?J45.909 - Unspecified asthma, uncomplicated (ICD-10) Menopause ?Z78.0 - Asymptomatic menopausal state (ICD-10) Heartburn ?R12 - Heartburn (ICD-10) Menopausal state ?N95.1 - Menopausal and female climacteric states (ICD-10) Bilateral cataracts ?H26.9 - Unspecified cataract (ICD-10) Hypothyroidism ?E03.9 - Hypothyroidism, unspecified (ICD-10) Hx LEEP (loop electrosurgical excision procedure), cervix, ?O34.40 - Maternal care for other abnormalities of cervix, unspecified trimester (ICD-10) ?Z98.890 - Other specified postprocedural states (ICD-10) Surgical History (Updated 02/25/24 @ 13:43 by Elida Jennings NP) History of cataract extraction ?Z98.49 - Cataract extraction status, unspecified eye (ICD-10) History of colonoscopy (2023) ?Z98.890 - Other specified postprocedural states (ICD-10) H/O wisdom tooth extraction ?K08.409 - Partial loss of teeth, unspecified cause, unspecified class (ICD-10) H/O repair of rotator cuff ?Z98.890 - Other specified postprocedural states (ICD-10) H/O arthroscopic knee surgery ?Z98.890 - Other specified postprocedural states (ICD-10) H/O foot surgery ?Z98.890 - Other specified postprocedural states (ICD-10) H/O cervical biopsy ?Z98.890 - Other specified postprocedural states (ICD-10) History of ankle surgery ?Z98.890 - Other specified postprocedural states (ICD-10) Family History (Updated 09/16/23 @ 08:20 by Julia Vance) Mother Family history of diabetes mellitus Family history of hypertension Father Family history of diabetes mellitus Family history of hypertension Social History (Updated 02/25/24 @ 13:37 by Elida Jennings NP) Within the past year, how often did you have a drink containing alcohol: monthly or less Smoking status: Former smoker Non-prescribed substance use: denies use 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 No rash. Head: Normocephalic, atraumatic. Neck: Supple, non-tender. Eye: Pupils are equal, round and EOMI. No scleral icterus. Ears, Nose, Mouth, and Throat: No nasal mucosal hypertrophy. Oral mucosa is moist, no posterior oropharynx erythema, uvula is mid-line Cardiovascular: Regular Rate and Rhythm without murmur, gallop or rub. Respiratory: No accessory muscle use or respiratory distress. Lungs are clear to auscultation, no wheezing, rales or rhonchi Chest Wall: no tenderness Back: No midline thoracic vertebral tenderness, midline lumbar and right paraspinal musculature tenderness with palpation. No signs of trauma. No abrasion, no ecchymosis. Musculoskeletal: Full ROM of all extremities, no calf or popliteal tenderness Neurological: A&O x4. No cranial nerve dysfunction observed. No truncal ataxia. Moves all extremities. Sensation intact. Psychiatric: Cooperative and interactive. Normal mood and affect. Constitutional Vital Signs, click to edit/add: Last Vital Signs Temp 97.7 F 03/09/25 14:18 Pulse 91 H 03/09/25 14:18 Resp 18 03/09/25 14:18 BP 122/96 H 03/09/25 14:18 Pulse Ox 98 03/09/25 14:18 O2 Del Method Room Air 03/09/25 14:18 Documenting provider has reviewed patient's vital signs: yes Course Vital Signs Vital signs: Vital Signs Temperature 97.7 F 03/09/25 14:18 Pulse Rate 91 H 03/09/25 14:18 Respiratory Rate 18 03/09/25 14:18 Blood Pressure 122/96 H 03/09/25 14:18 Pulse Oximetry 98 03/09/25 14:18 Oxygen Delivery Method Room Air 03/09/25 14:18 Temperature 97.7 F 03/09/25 14:18 Pulse Rate 91 H 03/09/25 14:18 Respiratory Rate 18 03/09/25 14:18 Blood Pressure 122/96 H 03/09/25 14:18 Pulse Oximetry 98 03/09/25 14:18 Oxygen Delivery Method Room Air 03/09/25 14:18 Medical Decision Making MDM Narrative Medical decision making narrative: 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 This did knocked the wind out of her. She denies any bilateral lower extremity numbness, paresthesias, weakness, saddle anesthesia, bowel or bladder incontinence. On exam patient is in no distress, ambulates with steady nonantalgic gait. There is tenderness midline to the lumbar spine, and right paraspinal lumbar area. No signs of trauma on exam. CT lumbar spine without contrast ordered. CT lumbar spine reviewed by myself as well as radiological read, no acute findings, no fracture, degenerative changes. Results discussed with patient. She denies need for pain medication here or at discharge. I offered to write her out of work today and she declines and states she will try to finish her shift. Return precautions discussed including worsening pain that is uncontrolled with OTC NSAIDs, saddle anesthesia, bowel or bladder incontinence, lower extremity weakness, numbness, or paresthesias. Patient was discharged in stable condition, pain controlled, with plan for follow-up with PCP or occupational health. Differential Diagnosis Differential Diagnosis: Vertebral fracture, transverse process fracture, lumbar contusion Imaging Data CT lumbar spine: Attestation: I have reviewed the pertinent imaging results. Radiologist's impression: ITS Impressions Lumbar Spine CT 03/09/25 14:38 IMPRESSION: Degenerative changes involving the lumbar spine. No acute bony process. Impression dictated by: Gerson Nguyen Jr., D.O. 03/09/2025 3:22 PM Dictation Location: [place] [address] Electronically authenticated by: [id number] Y Date: 03/09/2025 15:22 Discharge Plan Discharge Chief Complaint: Back Pain/Injury Clinical Impression: Lumbar contusion Patient Disposition: Home, Self-Care Time of Disposition Decision: 15:41 Condition: Good Mode of Transportation: Private Vehicle Prescriptions / Home Meds: No Action metformin 500 mg tablet extended release 24 hr 500 mg PO DAILY Rx Instructions: in the evening levothyroxine 150 mcg tablet 150 mcg PO DAILY meloxicam 15 mg tablet 15 mg PO DAILY Print Language: Citizen [place] Instructions: Contusion in Adults (ED) Referrals: Franchesca Rockwell MD [Primary Care Provider, Family Practice] - 1 week
== END 2025-03-09 16:00 | disposition home or self-care (01) ==
PROVIDERS: Emergency Provider Emergency Medicine; PCP Family Medicine
DX: S30.0XXA Contusion of lower back and pelvis, initial encounter (principal); W22.8XXA Striking against or struck by other objects, initial encounter; Y93.89 Activity, other specified; Y92.238 Other place in hospital as the place of occurrence of the external cause
CPT/HCPCS: 72131; 76376; 99284